=== PATIENT | female | born 1960 | race Caucasian/White ===

== ENCOUNTER → 2016-05-21 | Outpatient (CLI) | payer OTHER ==
[~2016-05-21] MED LIST: AZIT250T PO; BUSP5TAB59 PO; CHOL1000 PO; CHOL100010 PO; IPRA1AER2 INH; MELO7.5T5 PO; MULT-506 PO; POTA10CA28 PO; POTA1TAB97 PO; POTA20TA16 PO; TRAM-10 PO; VORT10TA12 PO; [UNRECOGNIZED DRUG - CODE] PO
== END | disposition home or self-care (01) ==
LOC: C.RDSM 08:26
PROVIDERS: ATTEND Orthopaedic Surgery Sports Medicine
DX: R52 Pain, unspecified (principal)

== ENCOUNTER → 2016-06-13 | Day surgery (SDC) | payer OTHER ==
[2016-06-12 15:28] VITALS: Ht 152.4 cm; Wt 43.2 kg
[~2016-06-13] VITALS: Ht 152.4 cm; Wt 43.2 kg
[~2016-06-13] MED LIST changes: +BUPIVACAINE 0.25% 2.5MG/ML PF 10 ML VIAL ONE; +BUPIVACAINE 0.25% 30 ML VIAL INJ ONE; -CHOL100010 PO; +IOPAMIDOL INJ 61% 15 ML VIAL ONE; +LIDOCAINE 1% (PF) INJ ONE; +LIDOCAINE HCL 1% MPF 5 ML VIAL ONE; +METHYLPREDNISOLONE (DEPO-MEDROL) 80MG INJ ONE; +METHYLPREDNISOLONE ACETATE 80 MG/ML VIAL ONE; -POTA20TA16 PO; -TRAM-10 PO; +[UNRECOGNIZED DRUG - OTHER] INJ ONE
--- NOTE | 2016-06-13 14:24 | History & Physical Bridge - [place] ---
H&P Re-Evaluation Bridge Note: I have examined the patient, reviewed the History & Physical and in the interval since the performance of the History & Physical I have noted the following changes of clinical significance: No changes noted
[2016-06-13 14:51] VITALS: TEMP 36.6
--- NOTE | 2016-06-13 14:57 | Discharge Instructions ---
Discharge Instructions Visit Reason for Visit: Low Back Pain Discharge Discharge Diagnosis / Problem: low back pain Discharge Goals Goal(s): Decrease discomfort, Improve function Activity Recommendations Activity Limitations: resume your previous activity Anesthesia . Post Anesthesia Instructions: If you have had General Anesthesia or IV Sedation: * Do not drive today. * Resume driving when surgeon permits. * Do not make important decisions or sign legal documents today. * Call surgeon for: 1. Temperature elevations greater than 101 degrees F. 2. Uncontrollable pain. 3. Excessive bleeding. 4. Persistent nausea and vomiting. 5. Medication intolerance (nausea, vomiting or rash). * For nausea and vomiting use only clear liquids such as: tea, soda, bouillon until nausea subsides, then gradually increase diet as tolerated. * If you have any concerns or questions, call your surgeon's office. If physician is unavailable and it is an emergency, call 911 or go to the nearest emergency room. . Diet Recommendations Recommended Home Diet: resume previous diet Procedures Procedures Performed: RIGHT L5-S1 FACET JOINT INJECTION Pending Studies Studies pending at discharge: no Medical Emergencies . Who to Call and When: Medical Emergencies: If at any time you feel your situation is an emergency, please call 911 immediately. . Non-Emergent Contact Non-Emergency issues call your: Specialist . . "Provider Documentation" section prepared by Freddy Galicia.
[2016-06-13 15:03] VITALS: BP 105/72; PULSE 73; O2SAT 99
--- NOTE | 2016-06-13 15:19 | OPERATIVE REPORT ---
DATE OF OPERATION: 06/13/2016 PREOPERATIVE DIAGNOSIS: Right L5-S1 facet arthropathy with chronic low back pain. POSTOPERATIVE DIAGNOSIS: Same. PROCEDURE: Right L5-S1 facet joint injection under fluoroscopic guidance. INDICATIONS FOR PROCEDURE: The patient is a 56-year-old white female who was evaluated with chronic low back pain really located to her right L5-S1 facet region, worse with extension, particularly extension rotation. 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 PHYSICAL EXAMINATION: Pleasant female, seated comfortably. She has some point tenderness to palpation of the L5-S1 facet. It is worse with extension, extension rotation, no issues with forward flexion. She has normal motor and sensory exam. CONSENT: Verbal and written consents were obtained from the patient. Risks and benefits were reviewed. The patient wishes to proceed. Risks include but are not limited to allergic reaction, infection. She wishes to proceed. DESCRIPTION OF PROCEDURE: The patient was taken back to the special procedures room of the [facility] where she was maintained in a prone position. Backside was cleansed with Betadine x3 and a dry sterile dressing was applied. Fluoroscope was used to identify the L5-S1 facet area and the joint line. Overlying skin was anesthetized with 4 mL of lidocaine 1% with a 25-gauge 1.5-inch needle and a 25-gauge 3.5-inch spinal needle was then directed into the facet joint between L5 and S1 injected with a quarter of a mL of Isovue 300 contrast which demonstrated an intra-articular uptake and some extraarticular spread. She then underwent injection after negative aspiration of 40 mg of Depo-Medrol and also 0.5 mL of bupivacaine 0.25%. Injection was well tolerated. DISPOSITION: 1. The patient is taken out into the discharge recovery area where she will be discharged home once discharge criteria have been met. 2. Follow up in the [facility] office in 2-4 weeks. I attest to the content of the Intraoperative Record and any orders documented therein. Any exceptio ns are noted below.
== END | disposition home or self-care (01) ==
LOC: X.SURG 13:49
PROVIDERS: ATTEND Physical Medicine & Rehabilitation
DX: M47.817 Spondylosis without myelopathy or radiculopathy, lumbosacral region (principal); M54.16 Radiculopathy, lumbar region; Z88.0 Allergy status to penicillin

== ENCOUNTER → 2016-07-11 | Outpatient (CLI) | payer OTHER ==
[~2016-07-11] MED LIST changes: -BUPIVACAINE 0.25% 2.5MG/ML PF 10 ML VIAL ONE; -BUPIVACAINE 0.25% 30 ML VIAL INJ ONE; -IOPAMIDOL INJ 61% 15 ML VIAL ONE; -LIDOCAINE 1% (PF) INJ ONE; -LIDOCAINE HCL 1% MPF 5 ML VIAL ONE; -METHYLPREDNISOLONE (DEPO-MEDROL) 80MG INJ ONE; -METHYLPREDNISOLONE ACETATE 80 MG/ML VIAL ONE; -[UNRECOGNIZED DRUG - OTHER] INJ ONE
--- NOTE | 2016-07-11 16:00 | DIAGNOSTIC IMAGING REPORT ---
CHEST 2 VIEWS ROUTINE CLINICAL HISTORY: CHRONIC COUGH COMPARISON STUDY: 12/20/2015 FINDINGS: The cardiac and mediastinal contours are normal. There is no evidence of focal pulmonary consolidation. There is no evidence of failure. No pleural effusions are visualized.[ There is suspected underlying pulmonary emphysema. IMPRESSION: No active disease in the chest. Electronically signed by: Thomas Baldwin M.D. 07/11/2016 3:58 PM Dictated Date/Time: 07/11/2016 3:58 PM
== END | disposition home or self-care (01) ==
LOC: C.RADPV 15:47
PROVIDERS: ATTEND Family Medicine
DX: R05 Cough (principal); R39.15 Urgency of urination; R35.0 Frequency of micturition

== ENCOUNTER → 2016-11-20 | Outpatient (CLI) | payer OTHER ==
[2016-11-20 17:36] LABS: BASO % 0.5 %; BASO ABS # 0.04 K/uL (0-0.2); COMPLETE YES; HEMATOCRIT 37.8 % (37-47); IG% 0.2 %; LYMPH % 29.3 %; LYMPH ABS # 2.53 K/uL (1.2-3.4); MEAN CELL VOLUME 99.7 fL (80-100); MEAN CORPUSCULAR HEMOGLOBIN 31.9 pg (25-34); MEAN PLATELET VOLUME 10.2 fL (7.4-10.4); MONO % 10.1 %; NEUT % 57.9 %; PLATELET COUNT 601 K/uL (130-400); RED BLOOD COUNT 3.79 M/uL (4.2-5.4); WHITE BLOOD COUNT 8.64 K/uL (4.8-10.8)
[2016-11-20 17:45] LABS: ALT/SGPT 23 U/L (12-78); BLOOD UREA NITROGEN 14 mg/dl (7-18); BUN/CREATININE RATIO 9.6 (10-20); CALCIUM 10.3 mg/dl (8.5-10.1); CARBON DIOXIDE 36 mmol/L (21-32); CHLORIDE 95 mmol/L (98-107); GLUCOSE 68 mg/dl (70-99); SODIUM 138 mmol/L (136-145)
[2016-11-20 17:48] LABS: ALKALINE PHOSPHATASE 112 U/L (45-117); AST/SGOT 28 U/L (15-37); PHOSPHORUS 3.8 mg/dl (2.5-4.9)
== END | disposition home or self-care (01) ==
LOC: C.LABPVFM 12:08
PROVIDERS: ATTEND Nurse Practitioner
DX: E83.39 Other disorders of phosphorus metabolism (principal)

== ENCOUNTER → 2016-11-29 | Outpatient (CLI) | payer OTHER ==
[2016-11-29 12:53] LABS: ALB/GLOB RATIO 1.1 (0.9-2); ALKALINE PHOSPHATASE 99 U/L (45-117); ALT/SGPT 29 U/L (12-78); AST/SGOT 25 U/L (15-37); BLOOD UREA NITROGEN 13 mg/dl (7-18); CALCIUM 10.3 mg/dl (8.5-10.1); CARBON DIOXIDE 43 mmol/L (21-32); CHLORIDE 87 mmol/L (98-107); GLUCOSE 78 mg/dl (70-99); SODIUM 136 mmol/L (136-145)
== END | disposition home or self-care (01) ==
LOC: C.LABBFT 09:21
PROVIDERS: ATTEND Nurse Practitioner
DX: E87.6 Hypokalemia (principal)

== ENCOUNTER → 2016-12-02 | Outpatient (CLI) | payer OTHER ==
[2016-12-02 13:07] LABS: ALT/SGPT 25 U/L (12-78); AST/SGOT 24 U/L (15-37); BLOOD UREA NITROGEN 14 mg/dl (7-18); BUN/CREATININE RATIO 11.6 (10-20); CALCIUM 9.6 mg/dl (8.5-10.1); CHLORIDE 89 mmol/L (98-107); GLUCOSE 118 mg/dl (70-99); SODIUM 136 mmol/L (136-145)
[2016-12-02 13:10] LABS: ALB/GLOB RATIO 1.2 (0.9-2); ALKALINE PHOSPHATASE 99 U/L (45-117)
[2016-12-02 13:31] LABS: CARBON DIOXIDE 42 mmol/L (21-32)
== END | disposition home or self-care (01) ==
LOC: C.LABPVFM 10:43
PROVIDERS: ATTEND Nurse Practitioner
DX: E83.39 Other disorders of phosphorus metabolism (principal); E83.52 Hypercalcemia; E87.6 Hypokalemia; I21.4 Non-ST elevation (NSTEMI) myocardial infarction

== ENCOUNTER → 2016-12-06 | Outpatient (CLI) | payer OTHER ==
[2016-12-06 12:23] LABS: ALT/SGPT 28 U/L (12-78); AST/SGOT 24 U/L (15-37); BLOOD UREA NITROGEN 15 mg/dl (7-18); BUN/CREATININE RATIO 11.8 (10-20); CALCIUM 9.5 mg/dl (8.5-10.1); CHLORIDE 86 mmol/L (98-107); GLUCOSE 103 mg/dl (70-99); POTASSIUM 2.7 mmol/L (3.5-5.1); SODIUM 139 mmol/L (136-145)
[2016-12-06 12:26] LABS: ALB/GLOB RATIO 1.2 (0.9-2); ALKALINE PHOSPHATASE 108 U/L (45-117)
[2016-12-06 12:38] LABS: CARBON DIOXIDE 46 mmol/L (21-32)
== END | disposition home or self-care (01) ==
LOC: C.LABBFT 10:06
PROVIDERS: ATTEND Nurse Practitioner
DX: E83.39 Other disorders of phosphorus metabolism (principal); E87.6 Hypokalemia

== ENCOUNTER 2016-12-09 14:43 | Emergency (ER) | payer OTHER ==
[~2016-12-09 14:43] MED LIST changes: -BUSP5TAB59 PO; -CHOL1000 PO; -IPRA1AER2 INH; -POTA10CA28 PO; -POTA1TAB97 PO; -[UNRECOGNIZED DRUG - CODE] PO
[2016-12-09 14:46] VITALS: TEMP 36.7; Ht 152.4 cm
[2016-12-09] MEDS ORDERED: SODIUM CHLORIDE 0.9% 1000ML 1,000 ML IV STA (15:00)
[2016-12-09] MEDS ORDERED: CHOL1000 PO (15:13)
--- NOTE | 2016-12-09 15:27 | EMERGENCY ROOM VISIT NOTE ---
History Report prepared by [place]les[place]: Ellen Holt Under the Supervision of: Dr. Madeleine Pena M.D. First contact with patient: 14:50 Chief Complaint: CARDIAC ASSESSMENT Stated Complaint: CHEST TIGHTNESS,SOB Nursing Triage Summary: Pt states she was hospitalized a few weeks ago for "your hear changing shape". Was taking Potassium, Level was 2.7 the other day and since she started having chest pain bad today was told to come to the ER. Pt states her chest has been "tight" for a few days". Bilateral chest pain. "I feel like I'm choking from the chest pain" History of Present Illness The patient is a 56 year old female who presents to the Emergency Room with complaints of constant chest tightness beginning a few days ago. The patient states that over the last few weeks she has had multiple episodes of chest pain. She reports that her first episode was a few weeks ago and she was laying on the couch when her mother noticed that she had slurred speech. The mother states that she began gasping for breath and her eyes turned up into her head for 6-8 minutes. She denies any shaking during the episode and after having continuing chest pain the following day they went to the hospital in [place] and were transferred to [place] to see a whiskey filterer. The patient notes that she was diagnosed with cardiomyopathy and got a cardiac catheterization 1 month ago. She states that she saw her PCP yesterday and got blood work to monitor her potassium level. She reports that her PCP told her today that her level was 2.7 and with worsening chest tightness she should be seen in the ED today. The patient complains of difficulty breathing due to her chest tightness. She notes that her pain is worsened with deep breathing. The patient reports that she smokes 4 cigarettes a day. Source of History: patient Onset: a few days go Position: chest Quality: other (tightness) Timing: constant Modifying Factors (Worsening): breathing Note: Pt complains of pain with breathing. Review of Systems See HPI for pertinent positives & negatives. A total of 10 systems reviewed and were otherwise negative. Past Medical & Surgical Medical Problems: (1) Appendicitis (2) Bulimia (3) Gastroenteritis Family History Cancer Hypertension Lung disease Social History Smoking Status: Current Every Day Smoker Drug Use: none Marital Status: Housing Status: lives with family Occupation Status: employed Current/Historical Medications Scheduled Cholecalciferol (Vitamin D3), 1 TAB PO DAILY Potassium Chloride (Micro-K Ext Rel), 20 MEQ PO HS Potassium Chloride (Potassium Chloride), 40 MEQ PO BID Allergies Coded Allergies: Penicillins (Verified Allergy, Severe, SWELLING/SOB, 06/13/16) Latex (Verified Allergy, Mild, BURNING, 06/13/16) Physical Exam Vital Signs Date Time Temp Pulse Resp B/P (MAP) Pulse Ox O2 Delivery O2 Flow Rate FiO2 12/09/16 18:41 69 18 99/60 96 12/09/16 16:18 66 18 111/73 96 Room Air 12/09/16 15:07 77 12/09/16 14:50 93 Room Air 12/09/16 14:46 36.7 84 22 103/64 93 Room Air Physical Exam Vital signs reviewed. General: Chronically ill appearing female, in no significant distress. HEENT: No scleral icterus, PERRLA, neck supple. Atraumatic. Cardiovascular: Regular rate and rhythm, no extra sounds. Pulmonary: Clear to auscultation bilaterally, normal work of breathing. Abdomen: Soft, nontender, nondistended, positive bowel sounds. Musculoskeletal: Atraumatic, no peripheral edema. Neurologic: Patient awake alert and oriented x 3, full strength in all 4 extremities. Cranial nerves 2 through 12 grossly intact. Skin: Warm, dry, no rash Medical Decision & Procedures ER Provider Diagnostic Interpretation: X-ray results as stated below per interpretation by me and the radiologist: CHEST ONE VIEW PORTABLE FINDINGS: Lung volumes are normal. No pneumothorax or pleural effusion is present. There is no consolidation to suggest pneumonia. Pulmonary vascularity is normal. Cardiomediastinal silhouette is normal. IMPRESSION: No acute cardiopulmonary findings. Electronically signed by: Frank Machado M.D. 12/09/2016 3:44 PM Dictated Date/Time: 12/09/2016 3:43 PM Laboratory Results 12/09/16 15:18 Red Blood Count 4.85, Mean Corpuscular Volume 96.9, Mean Corpuscular Hemoglobin 31.5, Mean Corpuscular Hemoglobin Concent 32.6, Mean Platelet Volume 9.6, Neutrophils (%) (Auto) 57.6, Lymphocytes (%) (Auto) 31.4, Monocytes (%) (Auto) 8.0, Eosinophils (%) (Auto) 2.3, Basophils (%) (Auto) 0.5, Neutrophils # (Auto) 3.82, Lymphocytes # (Auto) 2.08, Monocytes # (Auto) 0.53, Eosinophils # (Auto) 0.15, Basophils # (Auto) 0.03 12/09/16 15:18 Test 12/09/16 15:18 12/09/16 15:27 12/09/16 15:28 12/09/16 17:46 White Blood Count 6.62 K/uL (4.8-10.8) Red Blood Count 4.85 M/uL (4.2-5.4) Hemoglobin 15.3 g/dL (12.0-16.0) Hematocrit 47.0 % (37-47) Mean Corpuscular Volume 96.9 fL (80-100) Mean Corpuscular Hemoglobin 31.5 pg (25-34) Mean Corpuscular Hemoglobin Concent 32.6 g/dl (32-36) Platelet Count 451 K/uL (130-400) Mean Platelet Volume 9.6 fL (7.4-10.4) Neutrophils (%) (Auto) 57.6 % Lymphocytes (%) (Auto) 31.4 % Monocytes (%) (Auto) 8.0 % Eosinophils (%) (Auto) 2.3 % Basophils (%) (Auto) 0.5 % Neutrophils # (Auto) 3.82 K/uL (1.4-6.5) Lymphocytes # (Auto) 2.08 K/uL (1.2-3.4) Monocytes # (Auto) 0.53 K/uL (0.11-0.59) Eosinophils # (Auto) 0.15 K/uL (0-0.5) Basophils # (Auto) 0.03 K/uL (0-0.2) RDW Standard Deviation 49.5 fL (36.4-46.3) RDW Coefficient of Variation 13.9 % (11.5-14.5) Immature Granulocyte % (Auto) 0.2 % Immature Granulocyte # (Auto) 0.01 K/uL (0.00-0.02) Estimated GFR () 58.9 Estimated GFR (Non- 50.8 BUN/Creatinine Ratio 10.1 (10-20) Calcium Level 9.7 mg/dl (8.5-10.1) Magnesium Level 1.7 mg/dl (1.8-2.4) Total Bilirubin 0.3 mg/dl (0.2-1) Direct Bilirubin 0.1 mg/dl (0-0.2) Aspartate Amino Transf (AST/SGOT) 29 U/L (15-37) Alanine Aminotransferase (ALT/SGPT) 30 U/L (12-78) Alkaline Phosphatase 123 U/L (45-117) Total Creatine Kinase 38 U/L (26-192) Creatine Kinase MB < 0.5 ng/ml (0.5-3.6) Creatine Kinase MB Ratio (0-3.0) Total Protein 7.2 gm/dl (6.4-8.2) Albumin 3.5 gm/dl (3.4-5.0) Bedside Hemoglobin 16.3 g/dl (12.0-16.0) Bedside Hematocrit 48 % (37-47) Bedside Sodium 135 mEq/L (135-144) Bedside Potassium 2.7 mEq/L (3.3-5.0) Bedside Chloride 82 mEq/L (101-112) Bedside Total CO2 > 40 mEq/l (24-31) Anion Gap 14.0 mmol/L (16-25) Bedside Blood Urea Nitrogen 12 mg/dl (7-18) Bedside Creatinine 1.2 mg/dl (0.6-1.3) Bedside Glucose (other) 109 mg/dl (70-99) Bedside Ionized Calcium (Andrei) 1.02 mmol/l (1.12-1.32) Phosphorus Level 3.1 mg/dl (2.5-4.9) Bedside Troponin I < 0.030 ng/ml (0-0.045) Laboratory results per my review. Medications Administered Medications (Trade) Dose Ordered Sig/Lena Route Start Time Stop Time Status Last Admin Dose Admin Sodium Chloride 1,000 ml @ 125 mls/hr Q8H STAT IV 12/09/16 15:00 12/09/16 19:03 DC 12/09/16 15:26 125 MLS/HR Potassium Chloride (Klor-Con M10) 40 meq NOW STAT PO 12/09/16 15:50 12/09/16 15:51 DC 12/09/16 16:14 40 MEQ Potassium Chloride (Kcl 10 Meq / Wtr) 10 meq NOW STAT IV 12/09/16 16:11 12/09/16 16:12 DC 12/09/16 16:16 10 MEQ ECG Indication: chest pain Rate (beats per minute): 75 Rhythm: normal sinus Findings: nonspecific-ST abn (Anterolateral and inferior), Q waves (Anterior), T-wave inversion (Anterior), no ectopy ED Course 1450: Past medical records reviewed. The patient was evaluated in room C8. A complete history and physical examination was performed. 1500: Sodium Chloride 1000 ml @ 125 mls/hr IV. 1549: Records were obtained from [facility]. The catheterization done at [facility] on 11/11 was normal. She was diagnosed as hypophosphatemia and NSTEMI in October. 1550: Potassium Chloride 40meq PO. 181: Potassium Chloride 10meq IV. 1812: Upon reevaluation, the patient appeared to have improvement of her symptoms. I discussed findings with the patient. She verbalized agreement of the treatment plan. The patient was discharged home. Medical Decision Differential diagnosis includes acute myocardial infarction, electrolyte or metabolic abnormality, cardiac arrhythmia, dehydration, and seizure disorder. Patient was evaluated and appeared to be in no significant distress. IV access was obtained and laboratory work was drawn. Patient was hydrated with normal saline solution. She is found to have a potassium of 2.7. She was given 40 mEq of oral potassium and 10 mEq IV. The patient is extremely thin. She states she has a history of a gastric ulcer and cannot tolerate things such as bananas. She states she has nausea when taking the oral potassium that was prescribed. She is currently prescribed 20 mEq 3 times daily. This point her troponins are negative 2. Her records were reviewed in the recent cardiac catheterization was normal. She was written for liquid potassium, 40 mEq twice daily and will follow-up with her PCP this week. She should have a potassium rechecked. Patient will return to the ER for worsening symptoms or any medical concerns. Medication Reconcilliation Current Medication List: was personally reviewed by me Blood Pressure Screening Patient's blood pressure: Low blood pressure Blood pressure disposition: Did not require urgent referral Impression Primary Impression: Hypokalemia Additional Impression: Chest pain Scribe Attestation The scribe's documentation has been prepared under my direction and personally reviewed by me in its entirety. I confirm that the note above accurately reflects all work, treatment, procedures, and medical decision making performed by me. Departure Information Dispostion Home / Self-Care Prescriptions Potassium Chloride (Potassium Chloride) 10 Meq/100 Ml Soln 40 MEQ PO BID, #200 ML Prov: Madeleine Pena M.D. 12/09/16 Referrals Evonne Alvarez C.R.N.P (PCP) Forms IMPORTANT VISIT INFORMATION Patient Instructions Hypokalemia Dc, My [facility] Additional Instructions Diagnosis: Hypokalemia Potassium liquid, 40 MEq twice daily. Dilute in 4 oz of juice/water Follow up with your doctor this week for reevaluation and repeat lab work in 3 days. Return to the ED for worsening of symptoms or any medical concerns. Problem Qualifiers
[2016-12-09] MEDS ORDERED: POTA10CA28 PO (15:28)
[2016-12-09 15:32] LABS: BASO % 0.5 %; BASO ABS # 0.03 K/uL (0-0.2); COMPLETE YES; EOS % 2.3 %; IG% 0.2 %; LYMPH % 31.4 %; LYMPH ABS # 2.08 K/uL (1.2-3.4); MEAN CELL VOLUME 96.9 fL (80-100); MEAN CORPUSCULAR HEMOGLOBIN 31.5 pg (25-34); MEAN CORPUSCULAR HGB CONC 32.6 g/dl (32-36); MEAN PLATELET VOLUME 9.6 fL (7.4-10.4); NEUT % 57.6 %; PLATELET COUNT 451 K/uL (130-400); RED BLOOD COUNT 4.85 M/uL (4.2-5.4); WHITE BLOOD COUNT 6.62 K/uL (4.8-10.8)
[2016-12-09 15:40] LABS: ISTAT CARBON DIOXIDE > 40 mEq/l (24-31); ISTAT CHLORIDE 82 mEq/L (101-112); ISTAT CREATININE 1.2 mg/dl (0.6-1.3); ISTAT HEMATOCRIT 48 % (37-47); ISTAT HEMOGLOBIN 16.3 g/dl (12.0-16.0); ISTAT IONIZED CALCIUM 1.02 mmol/l (1.12-1.32); ISTAT SODIUM 135 mEq/L (135-144)
--- NOTE | 2016-12-09 15:45 | DIAGNOSTIC IMAGING REPORT ---
CHEST ONE VIEW PORTABLE CLINICAL HISTORY: Chest pain. COMPARISON STUDY: Chest radiograph July 11, 2016. FINDINGS: Lung volumes are normal. No pneumothorax or pleural effusion is present. There is no consolidation to suggest pneumonia. Pulmonary vascularity is normal. Cardiomediastinal silhouette is normal. IMPRESSION: No acute cardiopulmonary findings. Electronically signed by: Frank Machado M.D. 12/09/2016 3:44 PM Dictated Date/Time: 12/09/2016 3:43 PM
[2016-12-09] MEDS ORDERED: POTASSIUM CHLORIDE 10 MEQ TABCR PO STA (15:50)
[2016-12-09 15:58] LABS: ALKALINE PHOSPHATASE 123 U/L (45-117); ALT/SGPT 30 U/L (12-78); AST/SGOT 29 U/L (15-37); BLOOD UREA NITROGEN 12 mg/dl (7-18); BUN/CREATININE RATIO 10.1 (10-20); CALCIUM 9.7 mg/dl (8.5-10.1); CARBON DIOXIDE 44 mmol/L (21-32); CHLORIDE 86 mmol/L (98-107); GLUCOSE 103 mg/dl (70-99); MAGNESIUM 1.7 mg/dl (1.8-2.4); POTASSIUM 2.7 mmol/L (3.5-5.1); SODIUM 135 mmol/L (136-145)
[2016-12-09] MEDS ORDERED: POTASSIUM CHLORIDE 10 MEQ / 100ML WTR IV STA (16:11)
[2016-12-09] MEDS ORDERED: [UNRECOGNIZED DRUG - CODE] PO (18:08)
[2016-12-09 18:41] VITALS: BP 99/60; PULSE 69; O2SAT 96
[2017-01-16] MEDS ORDERED: POTA1TAB97 PO (10:40)
[2017-01-16] MEDS ORDERED: MULT-506 PO (10:41)
[2017-01-16] MEDS ORDERED: VORT10TA12 PO (10:41)
[2017-01-16] MEDS ORDERED: IPRA1AER2 INH (10:43)
[2017-01-16] MEDS ORDERED: BUSP5TAB59 PO (10:43)
== END 2016-12-09 18:42 | disposition home or self-care (01) ==
LOC: C.EDB 14:44 → C.EDC 18:42
DX: E87.6 Hypokalemia (principal); R07.89 Other chest pain; F17.200 Nicotine dependence, unspecified, uncomplicated; Z82.49 Family history of ischemic heart disease and other diseases of the circulatory system

== ENCOUNTER → 2016-12-12 | Outpatient (CLI) | payer OTHER ==
[~2016-12-12] MED LIST changes: -AZIT250T PO; +BUSP5TAB59 PO; +CHOL1000 PO; +IPRA1AER2 INH; -MELO7.5T5 PO; +POTA10CA28 PO; +POTA1TAB97 PO; +[UNRECOGNIZED DRUG - CODE] PO
[2016-12-12 13:35] LABS: ALB/GLOB RATIO 0.9 (0.9-2); ALKALINE PHOSPHATASE 123 U/L (45-117); ALT/SGPT 33 U/L (12-78); AST/SGOT 32 U/L (15-37); BLOOD UREA NITROGEN 14 mg/dl (7-18); BUN/CREATININE RATIO 13.6 (10-20); CALCIUM 8.5 mg/dl (8.5-10.1); CHLORIDE 90 mmol/L (98-107); GLUCOSE 116 mg/dl (70-99); POTASSIUM 2.6 mmol/L (3.5-5.1); SODIUM 138 mmol/L (136-145)
[2016-12-12 13:42] LABS: CARBON DIOXIDE 43 mmol/L (21-32)
== END | disposition home or self-care (01) ==
LOC: C.LABBFT 10:00
PROVIDERS: ATTEND Nurse Practitioner
DX: E87.6 Hypokalemia (principal); R74.8 Abnormal levels of other serum enzymes; E83.52 Hypercalcemia

== ENCOUNTER → 2016-12-23 | Outpatient (CLI) | payer OTHER ==
--- NOTE | 2016-12-23 17:19 | DIAGNOSTIC IMAGING REPORT ---
LUMBAR SPINE MRI HISTORY: LUMBOSACRAL RADICULOPATHY TECHNIQUE: Multiplanar multisequence MRI of the lumbar spine was performed without the use of contrast. COMPARISON: Lumbar spine 01/17/2016. FINDINGS: For the purpose of the report the L5-S1 disc space will be located on axial image 30 of 32. Old mild to moderate superior endplate compression fracture at L1 remains unchanged. No associated retropulsion. No acute fracture or subluxation. The conus terminates at the L1 level. Disc spaces are relatively preserved for age. Diffuse disc desiccation. Paraspinal soft tissues are unremarkable. A 5 mm T2 hyperintense, T1 hypointense lesion within the left kidney. This favors a cyst. L1-L2: No significant central canal or neural foraminal narrowing. L2-L3: Small broad-based posterior disc bulge without significant central canal or neural foraminal narrowing. L3-L4: Small broad-based posterior disc bulge with mild ligamentum and facet hypertrophy. This results in minimal central canal narrowing. No significant neural foraminal narrowing. L4-L5: Small broad-based posterior disc bulge with ligamentum and facet hypertrophy resulting and mild central canal narrowing. Best seen on sagittal T2 sequence image 4 there is a 6 mm right foraminal/extraforaminal disc protrusion which extends into the right foramen. This abuts and slightly compresses the exiting right L4 nerve root at this level. This results in mild right neural foraminal narrowing. No significant left-sided neural foraminal narrowing. L5-S1: No significant central canal or neural foraminal narrowing. IMPRESSION: 1. A 6 mm right foraminal/extra foraminal focal disc protrusion at L4-L5 which abuts and slightly compresses the exiting right L5 nerve root. 2. Additional mild degenerative changes as described above. 3. No change in the old L1 compression deformity. Electronically signed by: Mariusz Walsh M.D. 12/23/2016 5:17 PM Dictated Date/Time: 12/23/2016 5:11 PM
== END | disposition home or self-care (01) ==
LOC: C.MRIBC 15:48
PROVIDERS: ATTEND Physical Medicine & Rehabilitation
DX: M54.17 Radiculopathy, lumbosacral region (principal)

== ENCOUNTER → 2016-12-23 | Outpatient (CLI) | payer OTHER ==
[2016-12-23 12:27] LABS: BLOOD UREA NITROGEN 14 mg/dl (7-18); BUN/CREATININE RATIO 14.1 (10-20); CARBON DIOXIDE 39 mmol/L (21-32); CHLORIDE 97 mmol/L (98-107); CREATININE 0.99 mg/dl (0.60-1.20); GLUCOSE 100 mg/dl (70-99); POTASSIUM 3.4 mmol/L (3.5-5.1); SODIUM 142 mmol/L (136-145)
== END | disposition home or self-care (01) ==
LOC: C.LABBFT 08:45
PROVIDERS: ATTEND Nurse Practitioner
DX: E87.6 Hypokalemia (principal)

== ENCOUNTER → 2017-01-02 | Outpatient (CLI) | payer OTHER | END | disposition home or self-care (01) | LOC: C.LABBFT 11:10 | PROVIDERS: ATTEND Nurse Practitioner | DX: E87.6 Hypokalemia (principal) ==

== ENCOUNTER → 2017-02-07 | Outpatient (CLI) | payer OTHER ==
[~2017-02-07] MED LIST changes: +ASPCH81X PO; -POTA10CA28 PO; -[UNRECOGNIZED DRUG - CODE] PO
[2017-02-07 12:38] LABS: BLOOD UREA NITROGEN 23 mg/dl (7-18); BUN/CREATININE RATIO 9.4 (10-20); CALCIUM 11.5 mg/dl (8.5-10.1); CHLORIDE 79 mmol/L (98-107); GLUCOSE 111 mg/dl (70-99); MAGNESIUM 2.7 mg/dl (1.8-2.4); POTASSIUM 2.8 mmol/L (3.5-5.1); SODIUM 138 mmol/L (136-145)
[2017-02-07 12:39] LABS: PHOSPHORUS 5.9 mg/dl (2.5-4.9)
[2017-02-07 13:02] LABS: CARBON DIOXIDE 51 mmol/L (21-32)
== END | disposition home or self-care (01) ==
LOC: C.LABBFT 09:42
PROVIDERS: ATTEND Internal Medicine Nephrology
DX: E83.39 Other disorders of phosphorus metabolism (principal)

== ENCOUNTER → 2017-02-10 | Outpatient (CLI) | payer OTHER ==
[2017-02-10 18:04] LABS: URINE APPEARANCE CLEAR (CLEAR); URINE BILIRUBIN NEG (NEG); URINE COLOR YELLOW; URINE EPITHELIAL CELL AUTO >30 /lpf (0-5); URINE NITRITE NEG (NEG); URINE PH 8.5 (4.5-7.5); URINE SPECIFIC GRAVITY 1.018 (1.000-1.030); UROBILINOGEN NEG (NEG); ZZUR CULT IF INDIC CLEAN CATCH NO
[2017-02-10 18:21] LABS: MANUAL MICROSCOPIC REQUIRED? NO; REVIEW REQ? NO; SULFASALICYLIC ACID POS (NEG)
[2017-02-10 18:28] LABS: URINE PROTIEN/CREAT RATIO 1.2 (0-0.2); URINE TOTAL PROTEIN 92.6 mg/dl (0-11.9)
[2017-02-10 18:36] LABS: BLOOD UREA NITROGEN 22 mg/dl (7-18); BUN/CREATININE RATIO 8.5 (10-20); CALCIUM 9.6 mg/dl (8.5-10.1); CARBON DIOXIDE 38 mmol/L (21-32); CHLORIDE 93 mmol/L (98-107); GLUCOSE 54 mg/dl (70-99); MAGNESIUM 2.3 mg/dl (1.8-2.4); POTASSIUM 2.8 mmol/L (3.5-5.1); SODIUM 139 mmol/L (136-145)
[2017-02-10 18:37] LABS: PHOSPHORUS 4.1 mg/dl (2.5-4.9)
--- NOTE | 2017-02-19 10:16 | CODING QUERY MEDICAL NECESSITY ---
SUPPORTING DIAGNOSIS NEEDED Dr. Alvarez, A supporting diagnosis is required for the test/procedure performed on this patient in order for us to be reimbursed by the patient's insurance. Please provide a supporting diagnosis for the following test/procedure listed below next to the test name along with your signature. *If there is no additional diagnosis for this patient that would support the following test/procedure please document that below next to the test/procedure. Test(s)/Procedure(s) that require a supporting diagnosis: * [id number] VITAMIN D ASSAY DIAGNOSIS: DATE OF SERVICE: 02/10/17 Provider Signature: Date: Thank you Alan Alvarez [facility] Information Management Once completed, please kindly fax back to [phone] For questions please call [phone]
== END | disposition home or self-care (01) ==
LOC: C.LABPVFM 14:04
PROVIDERS: ATTEND Nurse Practitioner
DX: N25.81 Secondary hyperparathyroidism of renal origin (principal); Z11.59 Encounter for screening for other viral diseases; E83.42 Hypomagnesemia; N17.9 Acute kidney failure, unspecified; N28.9 Disorder of kidney and ureter, unspecified; M81.0 Age-related osteoporosis without current pathological fracture

== ENCOUNTER → 2017-02-12 | Outpatient (CLI) | payer OTHER ==
[2017-02-12 12:31] LABS: BLOOD UREA NITROGEN 18 mg/dl (7-18); BUN/CREATININE RATIO 8.6 (10-20); CALCIUM 8.9 mg/dl (8.5-10.1); CARBON DIOXIDE 37 mmol/L (21-32); CHLORIDE 95 mmol/L (98-107); GLUCOSE 86 mg/dl (70-99); MAGNESIUM 2.1 mg/dl (1.8-2.4); PHOSPHORUS 2.4 mg/dl (2.5-4.9); SODIUM 139 mmol/L (136-145)
== END | disposition home or self-care (01) ==
LOC: C.LABBFT 10:10
PROVIDERS: ATTEND Internal Medicine Nephrology
DX: E83.42 Hypomagnesemia (principal); E87.6 Hypokalemia; N17.9 Acute kidney failure, unspecified

== ENCOUNTER → 2017-02-14 | Outpatient (CLI) | payer OTHER ==
[~2017-02-14] MED LIST changes: -ASPCH81X PO
[2017-02-14 13:03] LABS: BLOOD UREA NITROGEN 15 mg/dl (7-18); BUN/CREATININE RATIO 9.5 (10-20); CALCIUM 8.1 mg/dl (8.5-10.1); CARBON DIOXIDE 28 mmol/L (21-32); CHLORIDE 106 mmol/L (98-107); GLUCOSE 73 mg/dl (70-99); POTASSIUM 3.1 mmol/L (3.5-5.1); SODIUM 143 mmol/L (136-145)
[2017-02-14 13:20] LABS: PHOSPHORUS 1.7 mg/dl (2.5-4.9)
== END | disposition home or self-care (01) ==
LOC: C.LABBFT 10:10
PROVIDERS: ATTEND Internal Medicine Nephrology
DX: E83.42 Hypomagnesemia (principal); E87.6 Hypokalemia

== ENCOUNTER → 2017-02-18 | Day surgery (SDC) | payer OTHER ==
[2017-01-24 14:06] VITALS: BMI 16.0
[~2017-02-18] VITALS: Ht 152.4 cm; Wt 38.2 kg
[~2017-02-18] MED LIST changes: +FENTANYL CITRATE INJ 50 MCG/1 ML 2 ML VIAL ONE; +LIDOCAINE HCL 2% 2 ML VIAL (20MG/ML) ONE; +PROPOFOL IV EMULSION 10 MG/ML 20 ML VIAL IV ONE
[2017-02-18 11:36] VITALS: Ht 152.4 cm; Wt 38.2 kg
--- NOTE | 2017-02-18 12:00 | Endo History and Physical ---
History & Physical Date of Service: Feb 18, 2017. Chief Complaint: GERD BULIMIA Referring Physician: DR. 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 Past Surgical History Hx Cardiac Surgery: Yes (CARDIAC CATH-NO STENTS) Hx Internal Defibrillator: No Hx Pacemaker: No Hx Abdominal Surgery: Yes (/TUBAL LIGATION; APPY) Hx of Implantable Prosthesis: No Hx Post-Op Nausea and Vomiting: Yes Hx Cancer Surgery: No Hx Thoracic Surgery: No Hx Orthopedic: Yes (RT/LT CTR, LEFT KNEE ARTHROSCOPY) Hx Urinary Tract Surgery: No Family History Polyp Social History Smoking Status: Light Tobacco Smoker Hx Substance Use: No Hx Alcohol Use: No Allergies Coded Allergies: Penicillins (Verified Allergy, Severe, SWELLING/SOB, 02/13/17) Latex1 -Allergic Contact Dermititis (Verified Allergy, Intermediate, LOCALIZED BURNING SENSATION, 02/13/17) Current Medications Reported Home Medications Medications Dose Route/Sig Max Daily Dose Days Date Category Combivent Respimat (Ipratropium-Albuterol) 1 Aer Aer 1 Puffs INH QID PRN 01/16/17 Reported Buspirone Hcl 5 Mg Tab 5 Mg PO QAM 01/16/17 Reported Multivitamin (Multivitamins) Tab 1 Tab PO DAILY 01/16/17 Reported Trintellix (Vortioxetine HBr) 10 Mg Tab 10 Mg PO HS 01/16/17 Reported K-Tab (Potassium Chloride) 20 Meq Tab 40 Meq PO HS 01/16/17 Reported Vitamin D3 (Cholecalciferol) 1,000 Unit Tab 1 Tab PO QAM 12/09/16 Reported Vital Signs Weight (Kilograms): 38.18 Height (Feet): 5 Height (Inches): 0 Date Time Temp Pulse Resp B/P (MAP) Pulse Ox O2 Delivery O2 Flow Rate FiO2 02/18/17 11:38 37.2 77 16 127/75 (92) 95 Room Air Physical Exam General Appearance: WD/WN, no apparent distress Respiratory/Chest: Auscultation: breath sounds normal Cardiovascular: Heart Auscultation: RRR Abdomen: Bowel Sounds: normal Inspection & Palpation: soft, non-distended, no tenderness, guarding & rebound Assessment and Plan Assessment: 56 yo CF who presents for EGD secondary to GERD and Bulimia. Plan: Proceed with EGD.
--- NOTE | 2017-02-18 12:18 | GI REPORT ---
Procedure Date: 02/18/2017 12:03 PM Procedure: Upper GI endoscopy Indications: Suspected gastro-esophageal reflux disease Medicines: Monitored Anesthesia Care Complications: No immediate complications. Estimated Blood Loss: Estimated blood loss: none. Procedure: Pre-Anesthesia Assessment: - Prior to the procedure, a History and Physical was performed, and patient medications and allergies were reviewed. The patient's tolerance of previous anesthesia was also reviewed. The risks and benefits of the procedure and the sedation options and risks were discussed with the patient. All questions were answered, and informed consent was obtained. Prior Anticoagulants: The patient has taken no previous anticoagulant or antiplatelet agents. ASA Grade Assessment: II - A patient with mild systemic disease. After reviewing the risks and benefits, the patient was deemed in satisfactory condition to undergo the procedure. After obtaining informed consent, the endoscope was passed under direct vision. Throughout the procedure, the patient's blood pressure, pulse, and oxygen saturations were monitored continuously. The Scope was introduced through the mouth, and advanced to the second part of duodenum. The upper GI endoscopy was accomplished without difficulty. The patient tolerated the procedure well. Findings: The esophagus was normal. A medium-sized hiatus hernia was present. Localized mild inflammation was found in the gastric antrum. Biopsies were taken with a cold forceps for histology. The examined duodenum was normal. Impression: - Normal esophagus. - Medium-sized hiatus hernia. - Gastritis. Biopsied. - Normal examined duodenum. Recommendation: - Resume previous diet. - Continue present medications. - Await pathology results. - Return to primary care physician as previously scheduled. Casey Contreras, 02/18/2017 12:17:54 PM This report has been signed electronically. Note Initiated On: 02/18/2017 12:03 PM I attest to the content of the Intraoperative Record and orders documented therein, exceptions below
--- NOTE | 2017-02-18 12:23 | Discharge Instructions ---
Endoscopy Patient Instructions Date / Procedure(s) Performed Feb 18, 2017. EGD Allergy Information Coded Allergies: Penicillins (Verified Allergy, Severe, SWELLING/SOB, 02/13/17) Latex1 -Allergic Contact Dermititis (Verified Allergy, Intermediate, LOCALIZED BURNING SENSATION, 02/13/17) Discharge Date / Findings Feb 18, 2017. Gastritis s/p biopsies Hiatal hernia Medication Instructions OK to resume all medications today as prescribed Reported Home Medications Medications Dose Route/Sig Max Daily Dose Days Date Category Combivent Respimat (Ipratropium-Albuterol) 1 Aer Aer 1 Puffs INH QID PRN 01/16/17 Reported Buspirone Hcl 5 Mg Tab 5 Mg PO QAM 01/16/17 Reported Multivitamin (Multivitamins) Tab 1 Tab PO DAILY 01/16/17 Reported Trintellix (Vortioxetine HBr) 10 Mg Tab 10 Mg PO HS 01/16/17 Reported K-Tab (Potassium Chloride) 20 Meq Tab 40 Meq PO HS 01/16/17 Reported Vitamin D3 (Cholecalciferol) 1,000 Unit Tab 1 Tab PO QAM 12/09/16 Reported Provider Instructions Activity Restrictions - No exercising or heavy lifting for 24 hours. - Do not drink alcohol the day of the procedure. - Do not drive a car or operate machinery until the day after the procedure. - Do not make any important decisions or sign important papers in 24 hours after the procedure. Following Day: - Return to full activity which may include returning to work/school. Diet Start your diet with liquids and light foods (jello, soup, juice, toast). Then eat your usual diet if not nauseated. Treatment For Common After Affects For mild abdominal pain, bloating, or excessive gas: - Rest - Eat lightly - Lie on right side Follow-Up Information Follow-up with DR. INDRA LEAL as scheduled Anesthesia Information What You Should Know You have had a procedure that required some medicine to reduce anxiety and discomfort. This treatment is called moderate sedation. After receiving the treatment, you may be sleepy, but you will be able to breathe on your own. The effects of the treatment may last for several hours. Follow these instructions along with Activity/Diet recommendations noted above: * Do NOT do anything where dizziness or clumsiness would be dangerous. * Rest quietly at home today, then you can be up and about tomorrow. * Have a responsible person stay with you the rest of today. * You may have had an I.V. today. If so, you may take the dressing off later today. Recommendations Call your doctor if: * Trouble breathing * Continuous vomiting for more than 24 hours * Temperature above 101 degrees * Severe abdominal pain or bloating * Pain not relieved by pain medicine ordered * There is increased drainage or redness from any incision * A large amount of rectal bleeding greater than 2-3 tablespoons. (If you had a polyp/s removed or have hemorrhoids, a small amount of blood - from the rectum is to be expected.) * You have any unanswered questions or concerns. IN THE EVENT OF A SERIOUS EMERGENCY, GO TO THE NEAREST EMERGENCY ROOM Your discharge instructions were prepared by provider Casey Contreras. Patient Instructions Signature Page S Shay Patient (or Guardian) Signature/Date: I have read and understand the instructions given to me by my caregivers. Caregiver/RN/Doctor Signature/Date: The above-named patient and/or guardian has received patient instructions on this date. + Original Patient Signature Page (only) stays with chart. Please make copy for patient.
[2017-02-18 12:50] VITALS: BP 119/80; PULSE 69; O2SAT 98
--- NOTE | 2017-02-18 13:09 | Anesthesiology Progress Note ---
Anesthesia Post Op Note Date & Time Feb 18, 2017 at 13:09 Vital Signs Pain Intensity: 0 Vital Signs Past 12 Hours Date Time Temp Pulse Resp B/P (MAP) Pulse Ox O2 Delivery O2 Flow Rate FiO2 02/18/17 12:50 69 16 119/80 (93) 98 Room Air 02/18/17 12:34 72 16 129/79 (96) 98 Room Air 02/18/17 12:20 36.9 69 16 104/60 (75) 100 Nasal Cannula 2 02/18/17 11:38 37.2 77 16 127/75 (92) 95 Room Air Notes Mental Status: alert / awake / arousable, participated in evaluation Pt Amnestic to Procedure: Yes Nausea / Vomiting: adequately controlled Pain: adequately controlled Airway Patency, RR, SpO2: stable & adequate BP & HR: stable & adequate Hydration State: stable & adequate Anesthetic Complications: no major complications apparent
== END | disposition home or self-care (01) ==
LOC: C.GI 11:20
PROVIDERS: ATTEND Internal Medicine
DX: K21.9 Gastro-esophageal reflux disease without esophagitis (principal); F50.2 Bulimia nervosa; K29.70 Gastritis, unspecified, without bleeding; K44.9 Diaphragmatic hernia without obstruction or gangrene; I25.2 Old myocardial infarction; J44.9 Chronic obstructive pulmonary disease, unspecified; Z88.0 Allergy status to penicillin; Z91.040 Latex allergy status; Z98.51 Tubal ligation status; F17.200 Nicotine dependence, unspecified, uncomplicated; Z68.1 Body mass index [BMI] 19.9 or less, adult; Z90.89 Acquired absence of other organs

== ENCOUNTER 2017-03-07 15:21 | Inpatient (IN) | payer OTHER ==
[~2017-03-07 15:21] MED LIST changes: -BUSP15TA70 PO; -CYAN10005 PO; -FAMO20TA9 PO; -QUET-115 PO; -QUET1TAB34 PO; -SRQ25 PO
[2017-03-07] MEDS ORDERED: ONDANSETRON INJ 2 MG/ML 2 ML VIAL IV PRN (18:00)
[2017-03-07] MEDS ORDERED: IPRATROPIUM BROMIDE/ALBUTEROL respimat INH INH PRN (18:00)
[2017-03-07] MEDS ORDERED: POLYETHYLENE (MIRALAX) 17 GM PACK PO PRN (18:00)
[2017-03-07] MEDS ORDERED: ALUMINUM/MAGNESIUM/SIMETH (MAALOX MAX) 30 ML UDC PO PRN (18:00)
[2017-03-07] MEDS ORDERED: MAGNESIUM HYDROXIDE SUSP 30 ML UDC PO PRN (18:00)
[2017-03-07] MEDS ORDERED: ACETAMINOPHEN 325 MG TAB PO PRN (18:00)
--- NOTE | 2017-03-07 18:05 | History and Physical ---
History & Physical Date & Time of Service: Mar 07, 2017 at 17:57 Chief Complaint: Hypercalcemia Primary Care Physician: Evonne Alvarez C.R.N.P History of Present Illness Source: patient 56 y/o F Hx CKD III, anxiety disorder, chronic gastritis, duodenal ulcers, Bulimia with chronic electrolyte abnormalities. Pt is admitted directly at the behest of her lab tester due to severe electrolyte abnormalities including hypercalcemia, metabolic alkalosis, acute on chronic renal failure. The pt has chronically poor PO intake and has reportedly taken a large amount of Tums recently due to gastric upset. It is suspected that this has lead to her current metabolic abnormalities. She currently denies any symptoms aside form fatigue. There are relatives in the room so it is not clear if she is entirely forthcoming regarding active bulimia or medical compliance. Past Medical/Surgical History 1) CKD III 2) Bulimia 3) Anorexia 4) Anxiety disorder 5) Chronic gastritis 6) Duodenal ulcers 7) Chronic electrolyte abnormalities Family History Cancer Hypertension Lung disease Social History Active smoker - distant history of ETOH abuse Smoking Status: Current Every Day Smoker Drug Use: none Marital Status: Housing status: lives with family Occupational Status: employed Immunizations History of Influenza Vaccine: N/A History of Tetanus Vaccine?: Yes Tetanus Immunization Date: Sep 06, 2004 History of Pneumococcal: Yes Pneumococcal Date: Aug 06, 2008 History of Hepatitis B Vaccine: Unknown Multi-Drug Resistant Organisms History of MDRO: No Allergies Coded Allergies: Penicillins (Verified Allergy, Severe, SWELLING/SOB, 03/03/17) Latex1 -Allergic Contact Dermititis (Verified Allergy, Intermediate, LOCALIZED BURNING SENSATION, 03/03/17) Home Medications Scheduled Aspirin (Aspirin Chewable), 81 MG PO HS Buspirone Hcl (Buspirone Hcl), 5 MG PO QAM Cholecalciferol (Vitamin D3), 1 TAB PO QAM Multivitamin (Multivitamin), 1 TAB PO DAILY Potassium Chloride (K-Tab), 1 TAB PO TID Vortioxetine HBr (Trintellix), 10 MG PO HS Scheduled PRN Ipratropium-Albuterol (Combivent Respimat), 1 PUFFS INH QID PRN for Shortness of Breath Review of Systems Constitutional: No fever, No chills, No sweats Eyes: No worsening of vision, No eye pain ENT: No hearing loss, No unusual epistaxis, No nasal symptoms Respiratory: No cough, No sputum, No wheezing Cardiovascular: No chest pain, No orthopnea, No PND Abdomen: + nausea, + vomiting, No pain Musculoskeletal: No joint pain, No muscle pain Genitourinary - Female: No dysuria, No hematuria Neurologic: + weakness, No memory loss, No paralysis Psychiatric: + depression symptoms Endocrine: + fatigue Hematologic / Lymphatic: No abnormal bleeding/bruising Integumentary: No rash Allergic / Immunologic: No environmental allergies Physical Exam General Appearance: WD/WN, no apparent distress, + pertinent finding (Cachectic -appearing middle-aged female - no distress) Head: normocephalic ENT: normal ENT inspection, pharynx normal Neck: supple, no JVD Respiratory/Chest: chest non-tender, no accessory muscle use Cardiovascular: regular rate, rhythm, normal peripheral pulses Abdomen/GI: normal bowel sounds, non tender, soft Back: normal inspection, no CVA tenderness, no muscle spasm, normal range of motion Extremities/Musculoskelatal: normal inspection, no calf tenderness, normal capillary refill, no pedal edema, normal range of motion Neurologic/Psych: cheese weigher II-XII nml as tested, no motor/sensory deficits, alert, normal mood/affect, normal reflexes, oriented x 3 Skin: normal color, warm/dry, no rash Diagnostics Laboratory Results Results Past 24 Hours Test 03/07/17 17:50 Range/Units EKG Pending Impression Assessment and Plan 56 y/o F Hx CKD III, anxiety disorder, chronic gastritis, duodenal ulcers, Bulimia with chronic electrolyte abnormalities. Pt is admitted directly at the behest of her lab tester due to severe electrolyte abnormalities including hypercalcemia, metabolic alkalosis, acute on chronic renal failure. The pt has chronically poor PO intake and has reportedly taken a large amount of Tums recently due to gastric upset. It is suspected that this has lead to her current metabolic abnormalities. 1) Hypercalcemia - recently with normal PTH. This is suspected due to dehydration - contraction alkalosis and resultant worsening renal function. Placed on aggressive IVF as she does not have significant symptoms. Would consider additional calcitriol if there is no short-term improvement with IVF alone. We may have to avoid bisphosphonates due to her renal impairment. She is assigned to telemetry - a baseline EKG is pending. 2) Acute on chronic RF - creat has doubled - IVF provided - trend BMP - will recontact her lab tester if there is no continuous improvement. 3) Gastritis - gastric upset - states she takes the Tums to tolerate her meds, especially K - will provide an H2 soheila and a PPi. 4) Anorexia, bulimia, anxiety - we will consult psychiatry. 5) Provided with smoking cessation advice Full code - SCDs due to risk of GI bleed Total time for this admit including review of labs, meds, imaging - discussion with pt and International Marketing Specialist - 40 min Level of Care Telemetry Resuscitation Status FULL RESUSCITATION VTE Prophylaxis VTE Risk Assessment Done? Y/N: Yes Risk Level: Low Given or contraindicated: SCD's
[2017-03-07] MEDS ORDERED: POTASSIUM CHLORIDE PWD 20 MEQ PACK PO ONE (18:45)
[2017-03-07 18:47] VITALS: O2SAT 96
[2017-03-07 18:48] VITALS: BP 120/83; PULSE 75; TEMP 36.8; O2SAT 96
[2017-03-07 18:51] LABS: HEMATOCRIT 36.1 % (37-47); MEAN CORPUSCULAR HEMOGLOBIN 31.4 pg (25-34); MEAN CORPUSCULAR HGB CONC 32.7 g/dl (32-36); MEAN PLATELET VOLUME 9.3 fL (7.4-10.4); PLATELET COUNT 392 K/uL (130-400); RED BLOOD COUNT 3.76 M/uL (4.2-5.4); WHITE BLOOD COUNT 8.21 K/uL (4.8-10.8)
[2017-03-07] MEDS ORDERED: SODIUM CHLORIDE 0.9% 500ML 500 ML IV SCH (19:00)
[2017-03-07] MEDS ORDERED: QUET1TAB34 PO (19:08)
[2017-03-07 20:00] VITALS: O2SAT 96
[2017-03-07] MEDS ORDERED: NURSING VERBAL MED ORDER ONE (20:00)
[2017-03-07] MEDS: SODIUM CHLORIDE 0.9% 1000ML 1,000 ML IV SCH (20:05)
[2017-03-07] MEDS ORDERED: INFLUENZA VIRUS QUAD VACCINE 0.5 ML SYR IM. ONE (20:15)
[2017-03-07] MEDS ORDERED: PNEUMOCOCCAL POLYSACCHARIDES 25 MCG/0.5 ML VIAL/SYR IM. ONE (20:15)
[2017-03-07] MEDS ORDERED: POTASSIUM CHLORIDE 10 MEQ TABCR PO ONE (20:15)
[2017-03-07] MEDS ORDERED: INFLUENZA ADMINISTRATION CHARGE ONE (20:15)
[2017-03-07] MEDS ORDERED: PNEUMOCOCCAL ADMINISTRATION CHARGE ONE (20:15)
[2017-03-07] MEDS: ASPIRIN 81 MG ECTAB PO SCH (20:29)
[2017-03-07] MEDS: POTASSIUM CHLORIDE 20 MEQ TABCR PO SCH (20:30)
[2017-03-07] MEDS ORDERED: LORAZEPAM 0.5 MG TAB PO STA (21:45)
[2017-03-07 23:11] LABS: BLOOD UREA NITROGEN 25 mg/dl (7-18); CALCIUM 10.3 mg/dl (8.5-10.1); CARBON DIOXIDE 51 mmol/L (21-32); CHLORIDE 87 mmol/L (98-107); CREATININE 3.15 mg/dl (0.60-1.20); GLUCOSE 94 mg/dl (70-99); MAGNESIUM 1.9 mg/dl (1.8-2.4); PHOSPHORUS 2.6 mg/dl (2.5-4.9); POTASSIUM 3.1 mmol/L (3.5-5.1); SODIUM 139 mmol/L (136-145)
[2017-03-07 23:21] VITALS: BP 108/67; PULSE 77; TEMP 36.8; O2SAT 94
[2017-03-08] VITALS (8 sets, daily range): BP systolic 99–138; BP diastolic 64–87; PULSE 64–78; TEMP 36.5–37; O2SAT 95–100
[2017-03-08] MEDS: SODIUM CHLORIDE 0.9% 1000ML 1,000 ML IV SCH ×3 (02:52→15:39)
[2017-03-08 04:45] LABS: BLOOD UREA NITROGEN 26 mg/dl (7-18); BUN/CREATININE RATIO 8.9 (10-20); CALCIUM 9.7 mg/dl (8.5-10.1); CARBON DIOXIDE 40 mmol/L (21-32); CHLORIDE 98 mmol/L (98-107); CREATININE 2.94 mg/dl (0.60-1.20); GLUCOSE 89 mg/dl (70-99); MAGNESIUM 1.7 mg/dl (1.8-2.4); PHOSPHORUS 2.3 mg/dl (2.5-4.9); POTASSIUM 3.4 mmol/L (3.5-5.1); SODIUM 142 mmol/L (136-145)
[2017-03-08] MEDS: POTASSIUM CHLORIDE 20 MEQ TABCR PO SCH ×2 (07:47→12:58)
[2017-03-08 10:54] LABS: BLOOD UREA NITROGEN 25 mg/dl (7-18); BUN/CREATININE RATIO 9.6 (10-20); CALCIUM 9.3 mg/dl (8.5-10.1); CARBON DIOXIDE 37 mmol/L (21-32); CHLORIDE 104 mmol/L (98-107); CREATININE 2.56 mg/dl (0.60-1.20); GLUCOSE 81 mg/dl (70-99); MAGNESIUM 1.8 mg/dl (1.8-2.4); PHOSPHORUS 1.9 mg/dl (2.5-4.9); POTASSIUM 3.8 mmol/L (3.5-5.1); SODIUM 143 mmol/L (136-145)
[2017-03-08] MEDS ORDERED: MULTIVITAMIN TAB PO ONE (12:01)
[2017-03-08] MEDS ORDERED: FAMOTIDINE IV INJ 20 MG in DEXTROSE 5% 100ML 100 ML IV ONE (12:30)
[2017-03-08] MEDS ORDERED: QUETIAPINE FUMARATE 25 MG TAB PO PRN (13:30)
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
[2017-03-08] MEDS ORDERED: POTASSIUM PHOS 3 MMOL/1 ML INFUSION IV STA (14:06)
--- NOTE | 2017-03-08 14:21 | Family Medicine Progress Note ---
Progress Note Date of Service Mar 08, 2017. Subjective Pt evaluation today including: conversation w/ patient, physical exam, chart review, lab review The patient was seen and examined at bedside. Telemetry showed sinus rhythm with PVCs in the 60s. Pt reports only one episode of vomiting in the past two weeks. She does have a history of bulimia which she admits to. Pt also reports a recent MA in October that was treated in [place]. She sees a Psychiatrist at [facility] (name sounds like Janneth Tripp). Patient reports eating some of her breakfast - on inspection she did not eat a lot of her meal. Patient is resting comfortably in bed. Denies having any pain. Plan of care was described to the patient and all questions were answered. ROS: No chest pain, no SOB, no dyspnea on exertion, no palpitations, no fevers, no chills, no nausea, no vomiting, no diarrhea, no dysuria, no rash. No SI, no HI. Objective Physical Exam General Appearance: WD/WN, + thin Neck: supple Respiratory/Chest: chest non-tender, lungs clear Cardiovascular: regular rate, rhythm, no edema, no gallop, no JVD, no murmur Abdomen: normal bowel sounds, non tender, soft, no organomegaly Extremities: normal range of motion, non-tender, normal inspection, no pedal edema, no calf tenderness Neurologic/Psychiatric: film sorter II-XII nml as tested, no motor/sensory deficits, alert, normal mood/affect, oriented x 3 Skin: normal color, warm/dry, no rash Laboratory Results Last 24 Hours Test 03/07/17 18:21 03/07/17 22:08 03/08/17 04:05 03/08/17 10:22 White Blood Count 8.21 K/uL Red Blood Count 3.76 M/uL Hemoglobin 11.8 g/dL Hematocrit 36.1 % Mean Corpuscular Volume 96.0 fL Mean Corpuscular Hemoglobin 31.4 pg Mean Corpuscular Hemoglobin Concent 32.7 g/dl RDW Standard Deviation 53.0 fL RDW Coefficient of Variation 15.2 % Platelet Count 392 K/uL Mean Platelet Volume 9.3 fL Phosphorus Level 3.1 mg/dl 2.6 mg/dl 2.3 mg/dl 1.9 mg/dl Sodium Level 139 mmol/L 142 mmol/L 143 mmol/L Potassium Level 3.1 mmol/L 3.4 mmol/L 3.8 mmol/L Chloride Level 87 mmol/L 98 mmol/L 104 mmol/L Carbon Dioxide Level 51 mmol/L 40 mmol/L 37 mmol/L Anion Gap 0.0 mmol/L 4.0 mmol/L 2.0 mmol/L Blood Urea Nitrogen 25 mg/dl 26 mg/dl 25 mg/dl Creatinine 3.15 mg/dl 2.94 mg/dl 2.56 mg/dl Estimated GFR () 18.3 19.9 23.6 Estimated GFR (Non- 15.8 17.2 20.3 BUN/Creatinine Ratio 8.0 8.9 9.6 Random Glucose 94 mg/dl 89 mg/dl 81 mg/dl Calcium Level 10.3 mg/dl 9.7 mg/dl 9.3 mg/dl Magnesium Level 1.9 mg/dl 1.7 mg/dl 1.8 mg/dl Test 03/08/17 16:00 Assessment and Plan 56F Hx CKD III, anxiety disorder, chronic gastritis, duodenal ulcers, Bulimia with chronic electrolyte abnormalities. Pt is admitted directly at the behest of her cutter wet machine due to severe electrolyte abnormalities including hypercalcemia, metabolic alkalosis, acute on chronic renal failure. The pt has chronically poor PO intake and has reportedly taken a large amount of Tums recently due to gastric upset. It is suspected that this has lead to her current metabolic abnormalities. Hypercalcemia - sec to volume contraction. * Pt has received 2L total IVF. Normal PTH and vitamin D in november this yr. * calcium level back to normal range. Acute renal failure on possible CKD of unclear etiology * Creatinine before 02/07 normal - elevated since then after. Per [employer] note - Dr. Benson tried to contact patient and she was not reachable. Patient declines poor oral intake. Says she drinks fluids all the time and denied decreased appetite or purging. * Considering that her creatinine is continuing to come down - suspect this is likely prerenal. check FeNa. * Will continue with a NSS drip at 100mls/hr * Check renal ultrasound. * Has been seeing urology - on flomax for urinary urgency. Check post void residual. * Consider nephro consult. * Follow renal function. * Consult Dietary to assess oral intake - solids and liquids. Hypophosphatemia '/ Hypokalemia in setting of possible chronic malnutrition. * will give 15mmol KPhos one dose stat. * Recheck BMP+ other labs including prealbumin at 4pm and AM. * TSH and Free T4. Last TSH on higher side of normal range. * Dietitian consult. h/o Gastritis and Duodenal Ulcers : * IV H2 Blockers BID. * Has had recent EGD * Consider gastric emptying study. Anxiety/Depression/Hx of Anorexia/Bulimia * Dr Leong (Psychiatry): 12.5mg BID PRN of Seroquil instead of Ativan for ETOH history * Seroquel titration per Dr. Leong, 125mg QHS * c/w home Trintellix (non formulary) * c/w Buspar 5mg QAM (per Dr. Leong there is room to move up on this dose) * Dr. Leong is requesting information from [facility] - this will only happen during the week. Anemia * Check Ferritin and B12. Last numbers from 2015. * Transglutaminase tested in past - negative. h/o ? MA * According to pt she had an MA in October in [place]. * Will get repeat EKG now stat, initial EKG might have been affected by motion artifact. * Continue to monitor on tele. * c/w ASA 81mg daily. Smoking: Pt declined Nicotine patches or gums. DVT Proph: SCDs. Full code Resident Involvement: Resident Care Provided Care Provided: Adult Hospital Medicine Reviewed: Pt Seen/Exam by Me History feeling stressed out about being in the hospital and being sick. denies having had problem with eating. drinks a lot of fluids. threw up once early in the week - due to feeling sick in stomach from hiatal hernia. Respiratory: negative: short of breath Cardiovascular: denies chest pain Gastrointestinal/Abdominal: negative: abdominal pain Genitourinary: negative dysuria General Appearance: no apparent distress Respiratory: lungs clear, no respiratory distress Cardiovascular: regular rate, rhythm Gastrointestinal: normal bowel sounds, non tender, soft Neurologic/Psychiatric: alert, oriented x 3 Skin Characteristics: warm/dry Assessment/Plan Resident Physician Supervision Note: I independently interviewed and examined the patient and verified the marie history and physical, reviewed labs and image studies, discussed the case with the resident Dr. Castillo and agree with the findings and care plan.
[2017-03-08] MEDS ORDERED: POTASSIUM PHOSPHATE INJ 15 MMOL in SODIUM CHLORIDE 0.9% 250ML 250 ML IV SCH (15:15)
[2017-03-08 17:23] LABS: ALB/GLOB RATIO 0.8 (0.9-2); ALKALINE PHOSPHATASE 74 U/L (45-117); ALT/SGPT 16 U/L (12-78); AST/SGOT 20 U/L (15-37); BLOOD UREA NITROGEN 24 mg/dl (7-18); BUN/CREATININE RATIO 10.6 (10-20); CARBON DIOXIDE 30 mmol/L (21-32); CHLORIDE 109 mmol/L (98-107); CREATININE 2.26 mg/dl (0.60-1.20); FERRITIN 37.3 ng/ml (8.0-388.0); GLUCOSE 94 mg/dl (70-99); MAGNESIUM 1.9 mg/dl (1.8-2.4); PHOSPHORUS 2.5 mg/dl (2.5-4.9); POTASSIUM 4.1 mmol/L (3.5-5.1); PREALBUMIN 21.3 mg/dl (20-40); SODIUM 144 mmol/L (136-145)
--- NOTE | 2017-03-08 19:13 | DIAGNOSTIC IMAGING REPORT ---
ULTRASOUND KIDNEYS AND BLADDER CLINICAL HISTORY: Acute renal insufficiency. Hypercalcemia. COMPARISON STUDY: Abdominal CT dated 11/02/2015. TECHNIQUE: Real-time, grayscale, and color flow sonography of the kidneys and bladder is performed. Images are reviewed in the transverse and longitudinal planes. FINDINGS: Kidneys: The kidneys are normal in size and appear slightly echogenic. The right kidney measures 11.1 cm in length and the left kidney measures 11.0 cm in length PA There is no hydronephrosis. No shadowing renal calculi are identified. There is no sonographic evidence of contour deforming renal mass lesion. No perinephric fluid is identified. Bladder: Minimal intraluminal debris is noted. The bladder is otherwise normal in appearance. Bilateral ureteral jets were seen. IMPRESSION: 1. The kidneys are normal in size and without hydronephrosis. 2. Question slightly increased renal cortical echotexture suggesting medical renal disease. Clinical correlation will be required. 3. Debris is noted within the bladder lumen. Correlation with urinalysis will be required. Electronically signed by: Marvin Costa M.D. 03/08/2017 7:12 PM Dictated Date/Time: 03/08/2017 7:10 PM
[2017-03-08] MEDS ORDERED: QUETIAPINE FUMARATE 100 MG TAB PO SCH ×3 (21:00)
[2017-03-08] MEDS: ASPIRIN 81 MG ECTAB PO SCH (21:00)
[2017-03-08] MEDS ORDERED: QUETIAPINE FUMARATE 25 MG TAB PO SCH (21:00)
[2017-03-08 22:22] LABS: URINE APPEARANCE CLEAR (CLEAR); URINE BILIRUBIN NEG (NEG); URINE COLOR YELLOW; URINE EPITHELIAL CELL AUTO >30 /lpf (0-5); URINE NITRITE NEG (NEG); URINE PH 8.5 (4.5-7.5); URINE SPECIFIC GRAVITY 1.012 (1.000-1.030); UROBILINOGEN NEG (NEG)
[2017-03-08 22:31] LABS: MANUAL MICROSCOPIC REQUIRED? NO; REVIEW REQ? NO; SULFASALICYLIC ACID NEG (NEG)
[2017-03-08 22:43] LABS: CREATININE RANDOM URINE 35.8 mg/dl
[2017-03-09] VITALS: O2SAT 95
[2017-03-09 00:04] VITALS: BP 105/67; PULSE 86; TEMP 36.8; O2SAT 96
[2017-03-09] MEDS: FAMOTIDINE IV INJ 20 MG in DEXTROSE 5% 100ML 100 ML IV SCH ×2 (01:20→12:26)
[2017-03-09] MEDS: SODIUM CHLORIDE 0.9% 1000ML 1,000 ML IV SCH (01:24)
[2017-03-09 03:48] VITALS: BP 113/76; PULSE 81; TEMP 36.6; O2SAT 97
[2017-03-09 06:14] LABS: HEMATOCRIT 28.1 % (37-47); MEAN CELL VOLUME 97.2 fL (80-100); MEAN CORPUSCULAR HEMOGLOBIN 31.1 pg (25-34); MEAN PLATELET VOLUME 9.5 fL (7.4-10.4); PLATELET COUNT 276 K/uL (130-400); RED BLOOD COUNT 2.89 M/uL (4.2-5.4); WHITE BLOOD COUNT 7.09 K/uL (4.8-10.8)
[2017-03-09 06:50] LABS: ALT/SGPT 17 U/L (12-78); AST/SGOT 19 U/L (15-37); BLOOD UREA NITROGEN 24 mg/dl (7-18); CALCIUM 8.6 mg/dl (8.5-10.1); CARBON DIOXIDE 26 mmol/L (21-32); CHLORIDE 115 mmol/L (98-107); CREATININE 2.02 mg/dl (0.60-1.20); GLUCOSE 90 mg/dl (70-99); PHOSPHORUS 2.7 mg/dl (2.5-4.9); POTASSIUM 4.1 mmol/L (3.5-5.1); SODIUM 146 mmol/L (136-145)
[2017-03-09 07:00] LABS: ALKALINE PHOSPHATASE 71 U/L (45-117)
[2017-03-09 07:54] VITALS: BP 112/72; PULSE 82; TEMP 37; O2SAT 96
[2017-03-09] MEDS ORDERED: D5W AND 1/2NSS + 20MEQ KCL 1,000 ML IV SCH (08:00)
[2017-03-09] MEDS ORDERED: MULTIVITAMIN TAB PO SCH (09:00)
[2017-03-09 11:06] VITALS: BP 111/70; PULSE 78; TEMP 36.9; O2SAT 98
[2017-03-09 11:14] LABS: BENZODIAZEPINE, URINE NEG (NEG); COCAINE,URINE NEG (NEG); PHENCYCLIDINE, URINE NEG (NEG)
[2017-03-09] MEDS ORDERED: CYANOCOBALAMIN 500 MCG TAB (VIT B-12) PO ONE (11:27)
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
--- NOTE | 2017-03-09 12:48 | Nephrology Consultation ---
Nephrology Consultation Date & Providers Date of Consultation: Mar 09, 2017. Primary Care Provider: Evonne Alvarez C.R.N.P Referring Provider: Reason for Consultation Evaluation management for acute kidney injury, hypercalcemia and hypokalemia. History of Present Illness Judith is a 57-year-old female with past medical history significant for depression, anxiety, anorexia and bulimia admitted to the hospital with electrolyte abnormality and acute kidney injury. Nephrology consult was requested for further management. Electronic medical records including labs and imaging are reviewed in detail during patient's visit. Judith has history of hypokalemia and previously evaluated by Dr. Benson. Hypokalemia was thought to be related to history of anorexia and bulimia. She was started on potassium chloride 60 milliequivalent p.o. daily. Potassium- sparing diuretics was not considered due to history of hypertension. She had lab done prior to follow-up visit on 03/08/17 when she was found to have hypercalcemia and acute kidney injury. Calcium was 12.2 and creatinine was 2.9. Potassium was 3.4. She was advised to get admitted for further management. On admission potassium was replaced and she was started on IV normal saline. Urinalysis was negative for hematuria, proteinuria pyuria. Ultrasound showed otherwise normal size kidney without any evidence of postrenal obstruction, nephrolithiasis and nephrocalcinosis. She denied any history of recent NSAID use. She denies history of vomiting or purging. Denies diarrhea. She reports having high fluid intake. Calcium improved and renal function started to improve as well. Hypokalemia resolved. Her blood pressure has been relatively soft which is chronic, asymptomatic. She is currently extremely frustrated and would like to just get discharged. Denies any specific complain but overall really unhappy with the care. Allergies Coded Allergies: Penicillins (Verified Allergy, Severe, SWELLING/SOB, 03/03/17) Latex1 -Allergic Contact Dermititis (Verified Allergy, Intermediate, LOCALIZED BURNING SENSATION, 03/03/17) Inpatient Medications Current Inpatient Medications Medications (Trade) Dose Ordered Sig/Lena Route Start Time Stop Time Status Last Admin Dose Admin Acetaminophen (Tylenol Tab) 650 mg Q4H PRN PO 03/07/17 18:00 04/06/17 17:59 Al Hydrox/Mg Hydrox/Simethicone (Maalox Max Susp) 15 ml Q4H PRN PO 03/07/17 18:00 04/06/17 17:59 Magnesium Hydroxide (Milk Of Magnesia Susp) 30 ml Q12H PRN PO 03/07/17 18:00 04/06/17 17:59 Ondansetron HCl (Zofran Inj) 4 mg Q6H PRN IV 03/07/17 18:00 04/06/17 17:59 Polyethylene (Miralax Powder Packet) 17 gm DAILY PRN PO 03/07/17 18:00 04/06/17 17:59 Aspirin (Ecotrin Tab) 81 mg HS PO 03/07/17 21:00 04/06/17 20:59 03/08/17 21:00 81 MG Buspirone HCl (Buspar Tab) 5 mg QAM PO 03/08/17 09:00 04/07/17 08:59 03/09/17 08:35 5 MG Albuterol/ Ipratropium (Combivent Respimat Inh) 1 puffs QID PRN INH 03/07/17 18:00 04/06/17 17:59 Miscellaneous Information (Order Awaiting Action) 1 ea QS N/A 03/08/17 00:00 04/07/17 00:00 Famotidine 20 mg/ Dextrose 102 ml @ 200 mls/hr Q12H IV 03/09/17 00:00 04/08/17 00:00 03/09/17 01:20 200 MLS/HR Multivitamins (Multivitamin Tab) 1 tab QAM PO 03/09/17 09:00 04/08/17 08:59 03/09/17 08:36 1 TAB Quetiapine Fumarate (seroQUEL TAB) 100 mg HS PO 03/08/17 21:00 04/07/17 20:59 03/08/17 21:00 100 MG Quetiapine Fumarate (seroQUEL TAB) 12.5 mg BID PRN PO 03/08/17 13:30 04/07/17 13:29 03/09/17 11:02 12.5 MG Quetiapine Fumarate (seroQUEL TAB) 25 mg HS PO 03/08/17 21:00 04/07/17 20:59 03/08/17 21:00 25 MG Potassium Chloride/Dextrose/ Sod Cl 1,000 ml @ 75 mls/hr [id number] IV 03/09/17 08:00 04/08/17 07:59 03/09/17 08:32 75 MLS/HR Cyanocobalamin (Vitamin B-12 Tab) 500 mcg QAM PO 03/10/17 09:00 04/09/17 08:59 Family History Cancer Hypertension Lung disease Social History Smoking Status: Current Every Day Smoker Drug Use: none Marital Status: Housing Status: lives with family Occupation: employed Review of Systems A complete review of systems was performed. Pertinent positives are noted above. All other systems are negative. Physical Exam Date Time Temp Pulse Resp B/P (MAP) Pulse Ox O2 Delivery O2 Flow Rate FiO2 03/09/17 11:06 36.9 78 18 111/70 (84) 98 03/09/17 08:00 Room Air 03/09/17 07:54 37.0 82 18 112/72 (85) 96 Room Air 03/09/17 04:00 Room Air 03/09/17 03:48 36.6 81 20 113/76 (88) 97 Room Air 03/09/17 00:04 36.8 86 18 105/67 (80) 96 Room Air 03/09/17 00:00 95 Room Air 03/08/17 23:30 36.8 73 138/87 (104) 95 Room Air 03/08/17 20:00 97 Room Air 03/08/17 19:10 37.0 73 17 126/84 (98) 97 Room Air 03/08/17 16:29 36.8 75 18 118/77 (91) 98 Room Air 03/08/17 16:00 Room Air GENERAL: Middle-aged female, AAA x 3, anxious, tearful, thin built, not in any distress. HEENT: Atraumatic, normocephalic. NECK: Supple, no JVD, no carotid bruit appreciated. ENT: No sinus tenderness MOUTH and THROAT: Moist oral mucosa, no oral ulcer or pharyngeal erythema RESPIRATORY: Normal breathing efforts, clear to auscultation bilaterally, no wheezes or rales. CARDIOVASCULAR: S1, S2 normal, rate rhythm regular. ABDOMEN: Soft, nontender, positive bowel sound. MUSCULOSKELETAL: Normal range of motion. SKIN: No skin rash EXTREMITY: No lower extremity edema NEURO: No gross focal neurological deficit, speech fluent. PSYCHIATRY: Upset, crying easily Laboratory Results Last 24 Hours Test 03/08/17 16:10 03/08/17 22:00 03/09/17 05:23 03/09/17 10:35 Sodium Level 144 mmol/L 146 mmol/L Potassium Level 4.1 mmol/L 4.1 mmol/L Chloride Level 109 mmol/L 115 mmol/L Carbon Dioxide Level 30 mmol/L 26 mmol/L Anion Gap 5.0 mmol/L 5.0 mmol/L Blood Urea Nitrogen 24 mg/dl 24 mg/dl Creatinine 2.26 mg/dl 2.02 mg/dl Estimated GFR () 27.4 31.2 Estimated GFR (Non- 23.6 26.9 BUN/Creatinine Ratio 10.6 12.0 Random Glucose 94 mg/dl 90 mg/dl Calcium Level 9.0 mg/dl 8.6 mg/dl Phosphorus Level 2.5 mg/dl 2.7 mg/dl Magnesium Level 1.9 mg/dl Ferritin 37.3 ng/ml Total Bilirubin 0.2 mg/dl 0.2 mg/dl Aspartate Amino Transf (AST/SGOT) 20 U/L 19 U/L Alanine Aminotransferase (ALT/SGPT) 16 U/L 17 U/L Alkaline Phosphatase 74 U/L 71 U/L Total Protein 5.0 gm/dl 4.9 gm/dl Albumin 2.2 gm/dl 2.1 gm/dl Globulin 2.8 gm/dl Albumin/Globulin Ratio 0.8 Prealbumin 21.3 mg/dl Vitamin B12 Level 176 pg/mL Urine Color YELLOW Urine Appearance CLEAR Urine pH 8.5 Urine Specific Celina 1.012 Urine Protein NEG Urine Glucose (UA) NEG Urine Ketones NEG Urine Occult Blood NEG Urine Nitrite NEG Urine Bilirubin NEG Urine Urobilinogen NEG Urine Leukocyte Esterase TRACE Urine WBC (Auto) 1-5 /hpf Urine RBC (Auto) 0-4 /hpf Urine Hyaline Casts (Auto) 1-5 /lpf Urine Epithelial Cells (Auto) >30 /lpf Urine Bacteria (Auto) NEG Urine Random Creatinine 35.8 mg/dl Urine Random Sodium 82 mEq/L White Blood Count 7.09 K/uL Red Blood Count 2.89 M/uL Hemoglobin 9.0 g/dL Hematocrit 28.1 % Mean Corpuscular Volume 97.2 fL Mean Corpuscular Hemoglobin 31.1 pg Mean Corpuscular Hemoglobin Concent 32.0 g/dl RDW Standard Deviation 57.5 fL RDW Coefficient of Variation 16.1 % Platelet Count 276 K/uL Mean Platelet Volume 9.5 fL Direct Bilirubin < 0.1 mg/dl Thyroid Stimulating Hormone (TSH) 4.720 uIu/ml Free Thyroxine 0.72 ng/dl Urine Opiates Screen NEG Urine Methadone, Qualitative NEG Urine Barbiturates NEG Urine Phencyclidine (PCP) Level NEG Ur Amphetamine/Methamphetamine NEG MDMA (Ecstasy) Screen NEG Urine Benzodiazepines Screen NEG Urine Cocaine Metabolite NEG Urine Marijuana (THC) NEG Impression (1) Acute kidney injury (2) Hypercalcemia (3) Alkalosis, metabolic (4) Anemia (5) Anxiety (6) Bulimia Judith is a 57-year-old female admitted with acute kidney injury and electrolyte abnormality including hypercalcemia and hypokalemia. Patient has history of chronic hypokalemia thought to be related to underlying eating disorder. She has been on potassium chloride 60 milliequivalent daily. Recent routine lab showed acute kidney injury, hypercalcemia and hypokalemia. At home she was on vitamin D and multivitamin. On admission she was started on IV fluid , calcium normalized renal function started to improve. Urinalysis and ultrasound unremarkable. She has been net positive but still seems slightly volume depleted with free water deficit. Recommendations --discuss at length that she is still volume depleted and her electrolyte abnormality just started to improve but her renal function still significantly abnormal and recommended she stay in the hospital and continue on IV fluid to improved renal function and correct electrolyte abnormality --however patient seems extremely upset and would rather go home --although not ideal but as per patient wish, she will be discharged home, encouraged her to continue to increase fluid intake, avoid all NSAIDs, all calcium and vitamin-D supplement as well as a multivitamin for now --check renal function and electrolyte in a.m. before the visit tomorrow with Dr. Benson at 9 a.m. --explained that if she again developed electrolyte abnormality and kidney function does not improve as expected, it will not be possible to take care of that in the office and she may have to get readmitted. Patient verbalized understanding
[2017-03-09] MEDS ORDERED: BUSP5TAB59 PO (12:50)
[2017-03-09] MEDS ORDERED: FAMO20TA9 PO (12:55)
[2017-03-09] MEDS ORDERED: SRQ25 PO ×2 (12:55)
[2017-03-09] MEDS ORDERED: CYAN10005 PO (12:55)
[2017-03-09] MEDS ORDERED: SRQ100 PO (12:55)
--- NOTE | 2017-03-09 13:04 | Discharge Instructions ---
Discharge Instructions Date of Service Mar 09, 2017. Admission Reason for Admission: Hypercalcemia Discharge Discharge Diagnosis / Problem: Hypercalcemia, Acute Kidney Injury Discharge Goals Goal(s): Decrease discomfort, Improve disease control Activity Recommendations Activity Limitations: resume your previous activity . Instructions / Follow-Up Instructions / Follow-Up Follow up with family physician within one week Follow up with Dr. Benson tomorrow at 9am as scheduled. You should get blood test done at Dr. Benson's office before seeing him. Orders are already entered by Dr. Adhikari. Follow up with Alverto Moran this week as scheduled. You should not be taking any ibuprofen/motrin/advil/aleve since it can make your kidney function worse. You should not take tums as it can raise your calcium level especially while your kidneys are not working well. Current Hospital Diet Patient's current hospital diet: Regular Diet Discharge Diet Recommended Diet: Regular Diet (Make sure to drink lots of fluid) Pending Studies Studies pending at discharge: no Medical Emergencies . Who to Call and When: Medical Emergencies: If at any time you feel your situation is an emergency, please call 911 immediately. . Non-Emergent Contact Non-Emergency issues call your: Primary Care Provider . . "Provider Documentation" section prepared by Luana Robbins. . VTE Core Measure Inpt VTE Proph given/why not?: SCD's
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
[2017-03-09 14:13] VITALS: BP 111/70; PULSE 78; TEMP 36.9; O2SAT 98
[2017-03-10] MEDS ORDERED: CYANOCOBALAMIN 500 MCG TAB (VIT B-12) PO SCH (09:00)
== END 2017-03-09 14:34 | disposition home or self-care (01) | DRG 641 ==
LOC: C.2T 17:10
PROVIDERS: ADMIT Internal Medicine; ATTEND Family Medicine
DX: E83.52 Hypercalcemia (principal); N17.9 Acute kidney failure, unspecified; E87.3 Alkalosis; F50.2 Bulimia nervosa; N18.3 Chronic kidney disease, stage 3 (moderate); F41.9 Anxiety disorder, unspecified; F17.200 Nicotine dependence, unspecified, uncomplicated; K29.70 Gastritis, unspecified, without bleeding; F32.9 Major depressive disorder, single episode, unspecified; D64.9 Anemia, unspecified; Z79.82 Long term (current) use of aspirin; Z80.9 Family history of malignant neoplasm, unspecified; Z82.49 Family history of ischemic heart disease and other diseases of the circulatory system

== ENCOUNTER → 2017-03-07 | Outpatient (CLI) | payer OTHER ==
[~2017-03-07] MED LIST changes: +ASPCH81X PO; +BUSP15TA70 PO; +CYAN10005 PO; +FAMO20TA9 PO; -FENTANYL CITRATE INJ 50 MCG/1 ML 2 ML VIAL ONE; -LIDOCAINE HCL 2% 2 ML VIAL (20MG/ML) ONE; -PROPOFOL IV EMULSION 10 MG/ML 20 ML VIAL IV ONE; +QUET-115 PO; +QUET1TAB34 PO; +SRQ25 PO
[2017-03-07 13:44] LABS: BLOOD UREA NITROGEN 25 mg/dl (7-18); CARBON DIOXIDE 50 mmol/L (21-32); CHLORIDE 84 mmol/L (98-107); CREATININE 3.06 mg/dl (0.60-1.20); GLUCOSE 98 mg/dl (70-99); POTASSIUM 3.7 mmol/L (3.5-5.1); SODIUM 137 mmol/L (136-145)
== END | disposition home or self-care (01) ==
LOC: C.LABBFT 09:33
PROVIDERS: ATTEND Internal Medicine Nephrology
DX: N17.9 Acute kidney failure, unspecified (principal)

== ENCOUNTER → 2017-03-10 | Outpatient (CLI) | payer OTHER ==
[~2017-03-10] MED LIST changes: +CYAN10005 PO; +FAMO20TA9 PO; +QUET1TAB34 PO; +SRQ25 PO
[2017-03-10 09:38] LABS: HEMATOCRIT 32.6 % (37-47); MEAN CELL VOLUME 96.7 fL (80-100); MEAN CORPUSCULAR HEMOGLOBIN 31.5 pg (25-34); MEAN CORPUSCULAR HGB CONC 32.5 g/dl (32-36); MEAN PLATELET VOLUME 10.1 fL (7.4-10.4); PLATELET COUNT 326 K/uL (130-400); RED BLOOD COUNT 3.37 M/uL (4.2-5.4); WHITE BLOOD COUNT 9.05 K/uL (4.8-10.8)
[2017-03-10 10:03] LABS: BLOOD UREA NITROGEN 19 mg/dl (7-18); BUN/CREATININE RATIO 10.6 (10-20); CALCIUM 9.3 mg/dl (8.5-10.1); CARBON DIOXIDE 26 mmol/L (21-32); CHLORIDE 111 mmol/L (98-107); CREATININE 1.81 mg/dl (0.60-1.20); GLUCOSE 75 mg/dl (70-99); POTASSIUM 3.9 mmol/L (3.5-5.1); SODIUM 144 mmol/L (136-145)
[2017-03-10 10:04] LABS: PHOSPHORUS 2.3 mg/dl (2.5-4.9)
== END | disposition home or self-care (01) ==
LOC: C.LAB1850 08:15
PROVIDERS: ATTEND Internal Medicine Nephrology
DX: N17.9 Acute kidney failure, unspecified (principal)

== ENCOUNTER → 2017-03-24 | Outpatient (CLI) | payer OTHER ==
[~2017-03-24] MED LIST changes: +FAMO20TA11 PO
[2017-03-24 12:56] LABS: FERRITIN 20.8 ng/ml (8.0-388.0)
== END | disposition home or self-care (01) ==
LOC: C.LABBFT 09:07
PROVIDERS: ATTEND Internal Medicine Nephrology
DX: D64.9 Anemia, unspecified (principal)

== ENCOUNTER → 2017-03-26 | Outpatient (CLI) | payer OTHER ==
[~2017-03-26] MED LIST changes: -FAMO20TA11 PO
[2017-03-26 13:49] LABS: BLOOD UREA NITROGEN 12 mg/dl (7-18); BUN/CREATININE RATIO 10.1 (10-20); CALCIUM 9.3 mg/dl (8.5-10.1); CARBON DIOXIDE 32 mmol/L (21-32); CHLORIDE 99 mmol/L (98-107); CREATININE 1.18 mg/dl (0.60-1.20); GLUCOSE 76 mg/dl (70-99); PHOSPHORUS 2.1 mg/dl (2.5-4.9); POTASSIUM 3.4 mmol/L (3.5-5.1); SODIUM 137 mmol/L (136-145)
[2017-03-26 13:54] LABS: MAGNESIUM 2.2 mg/dl (1.8-2.4)
== END | disposition home or self-care (01) ==
LOC: C.LAB1850 12:06
PROVIDERS: ATTEND Internal Medicine Nephrology
DX: N17.9 Acute kidney failure, unspecified (principal)

== ENCOUNTER → 2017-04-21 | Outpatient (CLI) | payer OTHER ==
[~2017-04-21] MED LIST changes: +FAMO20TA11 PO
[2017-04-21 12:59] LABS: BASO % 0.7 %; BASO ABS # 0.05 K/uL (0-0.2); COMPLETE YES; EOS % 1.8 %; HEMATOCRIT 38.8 % (37-47); IG% 0.1 %; LYMPH % 30.1 %; MEAN CELL VOLUME 102.9 fL (80-100); MEAN CORPUSCULAR HEMOGLOBIN 32.6 pg (25-34); MEAN CORPUSCULAR HGB CONC 31.7 g/dl (32-36); MEAN PLATELET VOLUME 9.9 fL (7.4-10.4); MONO % 10.7 %; NEUT % 56.6 %; PLATELET COUNT 497 K/uL (130-400); RED BLOOD COUNT 3.77 M/uL (4.2-5.4); WHITE BLOOD COUNT 7.32 K/uL (4.8-10.8)
[2017-04-21 14:18] LABS: BLOOD UREA NITROGEN 18 mg/dl (7-18); CREATININE 1.49 mg/dl (0.60-1.20); GLUCOSE 104 mg/dl (70-99)
[2017-04-21 14:19] LABS: BUN/CREATININE RATIO 11.8 (10-20); CARBON DIOXIDE 37 mmol/L (21-32); CHLORIDE 99 mmol/L (98-107); MAGNESIUM 2.2 mg/dl (1.8-2.4); PHOSPHORUS 3.8 mg/dl (2.5-4.9); POTASSIUM 3.4 mmol/L (3.5-5.1); SODIUM 139 mmol/L (136-145)
== END | disposition home or self-care (01) ==
LOC: C.LABBFT 09:17
PROVIDERS: ATTEND Internal Medicine Nephrology
DX: N17.9 Acute kidney failure, unspecified (principal); D64.9 Anemia, unspecified; E83.42 Hypomagnesemia

== ENCOUNTER → 2017-04-30 | Day surgery (SDC) | payer OTHER ==
[2017-04-03 14:56] VITALS: Ht 151.6 cm; Wt 39.5 kg
[~2017-04-30] VITALS: Ht 151.6 cm; Wt 39.5 kg
[~2017-04-30] MED LIST changes: +IOPAMIDOL INJ 61% 15 ML VIAL ONE; +LIDOCAINE HCL 1% MPF 5 ML VIAL ONE; +NICO21DI35 TD; +SODIUM CHLORIDE 0.9% INJ 10 ML VIAL ONE
[2017-04-30 13:50] VITALS: TEMP 37.5
--- NOTE | 2017-04-30 13:57 | Discharge Instructions ---
Discharge Instructions Date of Service Apr 30, 2017. Visit Reason for Visit: Lumbosacral Radiculopathy Discharge Discharge Diagnosis / Problem: right leg pain Discharge Goals Goal(s): Decrease discomfort, Improve function Medications Stopped Medications Name(s): Aspirin 81mg daily, last dose 04/21/17 Activity Recommendations Activity Limitations: resume your previous activity Anesthesia . Post Anesthesia Instructions: If you have had General Anesthesia or IV Sedation: * Do not drive today. * Resume driving when surgeon permits. * Do not make important decisions or sign legal documents today. * Call surgeon for: 1. Temperature elevations greater than 101 degrees F. 2. Uncontrollable pain. 3. Excessive bleeding. 4. Persistent nausea and vomiting. 5. Medication intolerance (nausea, vomiting or rash). * For nausea and vomiting use only clear liquids such as: tea, soda, bouillon until nausea subsides, then gradually increase diet as tolerated. * If you have any concerns or questions, call your surgeon's office. If physician is unavailable and it is an emergency, call 911 or go to the nearest emergency room. . Diet Recommendations Recommended Home Diet: resume previous diet Procedures Procedures Performed: LUMBAR EPIDURAL STEROID INJECTION Pending Studies Studies pending at discharge: no Medical Emergencies . Who to Call and When: Medical Emergencies: If at any time you feel your situation is an emergency, please call 911 immediately. . Non-Emergent Contact Non-Emergency issues call your: Specialist . . "Provider Documentation" section prepared by Freddy Galicia. .
[2017-04-30 14:05] VITALS: BP 129/88; PULSE 77; O2SAT 98
--- NOTE | 2017-04-30 14:51 | OPERATIVE REPORT ---
DATE OF OPERATION: 04/30/2017 PREOPERATIVE DIAGNOSIS: L4-L5 herniated nucleus pulposus with a right L4 radiculopathy. POSTOPERATIVE DIAGNOSIS: Same. PROCEDURE: Right paramedian L4-L5 intralaminar steroid injection under fluoroscopic guidance. INDICATIONS: The patient is a 57-year-old white female who presents today for an epidural injection. She has had pain for a longstanding period of time. She has been unable for various reasons to be able to get this injection and she presents today to relieve her right L4 radicular pain. PHYSICAL EXAMINATION: Pleasant female seated comfortably. She has some sciatic notch sensitivity to palpation on the right side. No problems with forward flexion. No problems with extension. Normal lower extremity strength. CONSENT: Verbal and written consent was obtained from the patient. Risks and benefits were reviewed. Risks include but are not limited to epidural abscess, epidural hematoma, allergic reaction, dural puncture. The patient wishes to proceed. PROCEDURE: The patient was taken back to the special procedures room of the [facility] where she was maintained in a prone position. Backside was cleansed with Betadine x3 and a dry sterile dressing was applied. Fluoroscope was used to identify the L4-L5 intralaminar space. Overlying skin on the right side was anesthetized with 4 mL of lidocaine 1% with a 25-gauge 1.5-inch needle. A 22-gauge 3.5-inch Tuohy needle was then directed down towards the intralaminar space. It was advanced under lateral fluoroscopic guidance with a loss of resistance noted at 5 cm. Isovue-300 contrast 1 mL was injected in, which demonstrated an epidural uptake pattern. She then underwent injection after negative aspiration of 40 mg of Depo-Medrol and 4 mL of preservative free sodium chloride. Injection was well tolerated. DISPOSITION: The patient was taken out into the discharge recovery area where she will be discharged home once discharge criteria have been met. I attest to the content of the Intraoperative Record and any orders documented therein. Any exception s are noted below.
== END | disposition home or self-care (01) ==
LOC: X.SURG 12:26
PROVIDERS: ATTEND Physical Medicine & Rehabilitation
DX: M54.16 Radiculopathy, lumbar region (principal); M51.26 Other intervertebral disc displacement, lumbar region

== ENCOUNTER → 2017-05-02 | Outpatient (CLI) | payer OTHER ==
[~2017-05-02] MED LIST changes: -FAMO20TA9 PO; -IOPAMIDOL INJ 61% 15 ML VIAL ONE; -LIDOCAINE HCL 1% MPF 5 ML VIAL ONE; -SODIUM CHLORIDE 0.9% INJ 10 ML VIAL ONE
--- NOTE | 2017-05-05 07:58 | MAMMOGRAPHY REPORT ---
BILATERAL DIGITAL SCREENING MAMMOGRAM TOMOSYNTHESIS WITH CAD: 05/02/2017 CLINICAL HISTORY: Routine screening. Patient has no complaints. TECHNIQUE: Breast tomosynthesis in addition to standard 2D mammography was performed. Current study was also evaluated with a Computer Aided Detection (CAD) system. COMPARISON: No prior exams were available for comparison. BREAST COMPOSITION: There are scattered areas of fibroglandular density in both breasts. FINDINGS: There is an 11 mm mass within the left upper outer quadrant, for which spot compression to mosynthesis views and possible breast ultrasound are recommended for further evaluation. There is an area of questionable architectural distortion in the left lateral breast on the cc tomosynthesis thomas ges only, which likely represents normal fibroglandular tissue although spot compression tomosynthesi s views are recommended for further evaluation. The remainder of both breasts demonstrate no suspicious masses, calcifications, or areas of saas architect ural distortion. Scattered bilateral benign-appearing calcifications are noted. IMPRESSION: ACR BI-RADS CATEGORY 0: INCOMPLETE EVALUATION: NEED ADDITIONAL IMAGING EVALUATION Left breast mass and questionable left breast architectural distortion, for which additional imaging evaluation is recommended. The patient will be called to schedule an appointment. Approximately 10% of breast cancers are not detected with mammography. A negative mammographic report should not delay biopsy if a clinically suggestive mass is present. Georgina Richards M.D. ah/:05/02/2017 14:54:41 Rolling Mill Operator: Yoly RIDDLE(Monse)(M), [facility] letter sent: Addl Imaging 0 BI-RADS Code: ACR BI-RADS Category 0: Incomplete Evaluation: Need Additional Imaging Evaluation
== END | disposition home or self-care (01) ==
LOC: C.MAMM 13:09
PROVIDERS: ATTEND Nurse Practitioner
DX: Z12.31 Encounter for screening mammogram for malignant neoplasm of breast (principal)

== ENCOUNTER → 2017-05-07 | Outpatient (CLI) | payer OTHER ==
--- NOTE | 2017-05-08 14:36 | MAMMOGRAPHY REPORT ---
UNILATERAL LEFT DIGITAL DIAGNOSTIC MAMMOGRAM TOMOSYNTHESIS AND TARGETED LEFT ULTRASOUND: 05/07/2017 CLINICAL HISTORY: Callback from screening mammogram for left breast mass and possible architectural d istortion. TECHNIQUE: Breast tomosynthesis in addition to standard 2D mammography was performed. Spot compress ion left CC and MLO 2-D and tomosynthesis images were obtained. COMPARISON: Comparison is made to exam dated: 05/02/2017 mammogram - [facility]. BREAST COMPOSITION: There are scattered areas of fibroglandular density in the left breast. FINDINGS: Spot compression views demonstrate a persistent lobulated 13 mm mass in the left upper oute r quadrant, best seen on the MLO images. The previously described possible architectural distortion within the left breast on the cc view does not persist on the additional spot compression views, and is benign and compatible with normal fibroglandular tissue. Targeted ultrasound was performed of the left upper outer quadrant in the region of the mammographic mass. In the left breast at 1:00 approximately 2 cm from the nipple, there is a lobulated isoechoic mass with non-circumscribed margins which measures 8 x 9 x 4 mm. The mass is indeterminant given no priors to confirm stability. Recommend ultrasound-guided core needle biopsy for further evaluation. IMPRESSION: ACR BI-RADS CATEGORY 4: SUSPICIOUS, TARGETED ULTRASOUND ACR BI-RADS CATEGORY 4: SUSPICIO US Isoechoic 9 mm mass in the left breast at 1:00 on ultrasound, which corresponds with a lobulated mamm ographic mass. The mass is indeterminant given no priors to confirm stability. Recommend ultrasound -guided core needle biopsy for further evaluation. A phone call was made to the physician's office to confirm faxed results were received. The patient has been verbally notified of the results. She tent[facility] the biopsy [facility] Approximately 10% of breast cancers are not detected with mammography. A negative mammographic report should not delay biopsy if a clinically suggestive mass is present. Georgina Richards M.D. ah/:05/07/2017 14:16:45 Analytical Tech: Yoly CEDILLO)(Kervin), [facility] letter sent: Abnormal 4/5 BI-RADS Code: ACR BI-RADS Category 4: Suspicious Ultrasound BI-RADS: ACR BI-RADS Category 4: Suspici ous
== END | disposition home or self-care (01) ==
LOC: C.MAMM 13:37
PROVIDERS: ATTEND Nurse Practitioner
DX: N63.20 Unspecified lump in the left breast, unspecified quadrant (principal)

== ENCOUNTER → 2017-05-08 | Outpatient (CLI) | payer OTHER ==
--- NOTE | 2017-05-08 13:14 | Discharge Instructions ---
Discharge Instructions Procedure Procedure Date: May 08, 2017. Reason for visit: Left Mass. Discharge Discharge Date: May 08, 2017. Discharge Diagnosis: status post breast biopsy Instructions Activity Recommendations: Additional Limitations (see below) Return to School/Work: no limitations Recommended Home Diet: No Limitations Provider Instructions: ACTIVITY RECOMMENDATIONS: * No lifting, pushing, pulling or exercising the affected side for three days. RETURN TO SCHOOL/WORK: * You may return to work/school after the procedure, but do not perform any strenuous activities for 24 to 48 hours. MEDICATIONS: * Tylenol (two 325 mg) every four to six hours if needed for mild pain (if not allergic to Tylenol). DIET: * Resume previous diet. SPECIAL CARE INSTRUCTIONS: * Keep biopsy site dry for 24 hours. May shower after 24 hours, but do not soak (bathe) incision. * May remove Tegaderm (plastic patch) tomorrow AFTER showering. * Leave the steri-strips on for one week. Allow the steri-strips to fall off by themselves. If not off after one week, you may remove them. You may place a Bandaid crosswise over the strips, if desired. * Apply ice 10 minutes on and 10 minutes off as needed. * Wear a bra at bedtime to sleep more comfortably for 2-3 days. * Your referring physician should have the results after approximately 5 to 7 business days. * Call for unusual bleeding, fever, drainage, etc or if you have any questions call during normal business hours or after hours call Dr Richards, . FOLLOW UP VISIT: Follow-up with Referring Physician as scheduled. Allergies Coded Allergies: Penicillins (Verified Allergy, Severe, SWELLING/SOB, 04/30/17) Latex1 -Allergic Contact Dermititis (Verified Allergy, Intermediate, LOCALIZED BURNING SENSATION, 04/30/17) Laura Phoenix Recommendations: Call your doctor if: * Temperature above 101 degrees * Pain not relieved by pain medicine ordered * There is increased drainage or redness from any incision * You have any unanswered questions or concerns. Your Doctors Instructions noted above were prepared by provider Georgina Richards. Patient Signature Section: Patient Instructions Signature Page [place] Patient (or Guardian) Signature/Date: I have read and understand the instructions given to me by my caregivers. Caregiver/RN/Doctor Signature/Date: The above-named patient and/or guardian has received patient instructions on this date. + Original Patient Signature Page (only) stays with chart. Please make copy for patient.
--- NOTE | 2017-05-08 14:36 | MAMMOGRAPHY REPORT ---
UNILATERAL LEFT DIGITAL DIAGNOSTIC MAMMOGRAM TOMOSYNTHESIS: 05/08/2017 CLINICAL HISTORY: Status post left breast biopsy. TECHNIQUE: Breast tomosynthesis in addition to standard 2D mammography was performed. Postprocedura l left CC and ML tomosynthesis images including C views were obtained. COMPARISON: Comparison is made to exams dated: 05/07/2017 ultrasound, 05/07/2017 mammogram, and 04/18 mammogram - [facility]. BREAST COMPOSITION: There are scattered areas of fibroglandular density in the left breast. FINDINGS: A new biopsy marker clip is seen within the biopsied mass in the left upper outer quadrant . No significant postbiopsy hematoma is seen. IMPRESSION: POST PROCEDURE IMAGING FOR MARKER PLACEMENT New biopsy marker clip status post ultrasound-guided biopsy of the left 1:00 breast mass. Pathology results are pending. Approximately 10% of breast cancers are not detected with mammography. A negative mammographic report should not delay biopsy if a clinically suggestive mass is present. Georgina Richards M.D. ah/:05/08/2017 13:28:08 Gift Basket Packer: Yoly Benjamin [facility] BI-RADS Code: Post Procedure Imaging For Marker Placement
--- NOTE | 2017-05-08 14:36 | MAMMOGRAPHY REPORT ---
ULTRASOUND GUIDED BIOPSY LEFT BREAST: 05/08/2017 CLINICAL HISTORY: Left 1 o'clock breast mass. PATIENT CONSENT: The procedure, risks and benefits were discussed with the patient and informed writt en consent was obtained. A timeout was performed immediately prior to the procedure. PROCEDURE DESCRIPTION: With ultrasound guidance, aseptic technique, and lidocaine as the local anesth etic (1% lidocaine to anesthetize the skin and 1% lidocaine with epinephrine to anesthetize the deepe r tissues), the mass of concern in the left 1:00 breast was sampled 4 times with a 14-gauge Achieve b iopsy needle. Immediately thereafter, with ultrasound guidance, aseptic technique, and lidocaine as t he local anesthetic, a metallic localizer clip was placed centrally in the mass. Direct pressure was applied to the site immediately post procedure and hemostasis was achieved. Postprocedure unilatera l mammograms were performed to confirm placement of the clip in the expected location of the breast m ass. The patient tolerated the procedure without complication. She was given wound care instruction s. The specimens were sent to pathology for analysis. COMPARISON: Comparison is made to exams dated: 05/07/2017 ultrasound, 05/07/2017 mammogram, and 04/18 mammogram - [facility]. IMPRESSION: ULTRASOUND GUIDED BIOPSY Ultrasound guided core needle biopsy of the left 1:00 breast mass, with clip placement. The patient will receive pathology results from her referring provider. Georgina Richards M.D. /:05/08/2017 13:15:43 Medical Coding Auditor: Yoly Benjamin, [facility]
== END | disposition home or self-care (01) ==
LOC: C.MAMM 12:45
PROVIDERS: ATTEND Nurse Practitioner
DX: R92.8 Other abnormal and inconclusive findings on diagnostic imaging of breast (principal); N63.20 Unspecified lump in the left breast, unspecified quadrant; D24.2 Benign neoplasm of left breast

== ENCOUNTER → 2017-05-16 | Outpatient (CLI) | payer OTHER ==
[~2017-05-16] MED LIST changes: +ASTIN/15 INH; +FLUT50SP45 PO; +METO5TAB2 PO; +PROM25TA9 PO; +VAREPAK2 PO
[2017-05-16 12:48] LABS: ALBUMIN 3.2 gm/dl (3.4-5.0); BLOOD UREA NITROGEN 27 mg/dl (7-18); CALCIUM 9.5 mg/dl (8.5-10.1); CARBON DIOXIDE 32 mmol/L (21-32); CREATININE 1.36 mg/dl (0.60-1.20); GLUCOSE 99 mg/dl (70-99); PHOSPHORUS 3.6 mg/dl (2.5-4.9); POTASSIUM 3.9 mmol/L (3.5-5.1); SODIUM 140 mmol/L (136-145)
== END | disposition home or self-care (01) ==
LOC: C.LABBFT 10:01
PROVIDERS: ATTEND Internal Medicine Nephrology
DX: N17.9 Acute kidney failure, unspecified (principal)

== ENCOUNTER → 2017-06-10 | Outpatient (CLI) | payer OTHER ==
[~2017-06-10] MED LIST changes: -ASTIN/15 INH; -FLUT50SP45 PO; -METO5TAB2 PO; -PROM25TA9 PO; -VAREPAK2 PO
--- NOTE | 2017-06-10 15:28 | DIAGNOSTIC IMAGING REPORT ---
HEAD WITHOUT CONTRAST (CT) CT DOSE: 537.48 mGy.cm HISTORY: Trauma. Mental status change. S06.0X0A Concussion with no loss of consciousnesscalled Balee to TECHNIQUE: Multiaxial CT images of the head were performed without the use of intravenous contrast. A dose lowering technique was utilized adhering to the principles of ALARA. Comparison: 12/20/2015 Findings: The paranasal sinuses and mastoid air cells are clear. The calvarium and skull base are intact. The ventricles and sulci are within normal limits. There is no mass, hematoma, midline shift, or acute infarct. Impression: No acute intracranial abnormality. The above report was generated using voice recognition software. It may contain grammatical, syntax or spelling errors. Electronically signed by: Clark Yanez M.D. 06/10/2017 3:27 PM Dictated Date/Time: 06/10/2017 3:25 PM
== END | disposition home or self-care (01) ==
LOC: C.CTS 15:11
PROVIDERS: ATTEND Nurse Practitioner
DX: S06.0X0A Concussion without loss of consciousness, initial encounter (principal); X58.XXXA Exposure to other specified factors, initial encounter

== ENCOUNTER → 2017-06-12 | Outpatient (CLI) | payer OTHER | END | disposition home or self-care (01) | LOC: C.LABPVFM 15:46 | PROVIDERS: ATTEND Nurse Practitioner | DX: R53.83 Other fatigue (principal); R94.6 Abnormal results of thyroid function studies ==

== ENCOUNTER → 2017-06-23 | Outpatient (CLI) | payer OTHER ==
[2017-06-23 17:21] LABS: BASO % 0.5 %; BASO ABS # 0.04 K/uL (0-0.2); EOS % 2.6 %; HEMATOCRIT 44.1 % (37-47); HEMOGLOBIN 14.6 g/dL (12.0-16.0); IG# 0.01 K/uL (0.00-0.02); LYMPH % 24.5 %; LYMPH ABS # 1.91 K/uL (1.2-3.4); MEAN CORPUSCULAR HEMOGLOBIN 31.1 pg (25-34); MEAN CORPUSCULAR HGB CONC 33.1 g/dl (32-36); MEAN PLATELET VOLUME 10.3 fL (7.4-10.4); NEUT % 63.3 %; NEUT ABS # 4.93 K/uL (1.4-6.5); PLATELET COUNT 367 K/uL (130-400); RED CELL DISTRIBUTION WIDTH CV 13.2 % (11.5-14.5); RED CELL DISTRIBUTION WIDTH SD 45.3 fL (36.4-46.3); WHITE BLOOD COUNT 7.79 K/uL (4.8-10.8)
[2017-06-23 17:40] LABS: ALBUMIN 3.6 gm/dl (3.4-5.0); ALT/SGPT 23 U/L (12-78); AST/SGOT 22 U/L (15-37); BLOOD UREA NITROGEN 21 mg/dl (7-18); CALCIUM 10.6 mg/dl (8.5-10.1); CARBON DIOXIDE 34 mmol/L (21-32); CREATININE 1.16 mg/dl (0.60-1.20); GLUCOSE 92 mg/dl (70-99); LIPASE 212 U/L (73-393); POTASSIUM 3.6 mmol/L (3.5-5.1); SODIUM 135 mmol/L (136-145)
[2017-06-23 17:43] LABS: ALKALINE PHOSPHATASE 113 U/L (45-117)
== END | disposition home or self-care (01) ==
LOC: C.LABPVFM 14:10
PROVIDERS: ATTEND Nurse Practitioner
DX: E87.6 Hypokalemia (principal); R10.12 Left upper quadrant pain; R63.4 Abnormal weight loss

== ENCOUNTER → 2017-06-27 | Outpatient (CLI) | payer OTHER ==
--- NOTE | 2017-06-27 10:08 | DIAGNOSTIC IMAGING REPORT ---
ABDOMEN COMPLETE (US) CLINICAL HISTORY: 57 years-old Female with R11.0 BhiclsH73.12 Abdominal pain, LUQ (left upper quadrant)try. Acute left upper quadrant abdominal pain TECHNIQUE: Multiple real time sonographic images of the abdomen were obtained assessing rubalcava-scale appearance. COMPARISON: Renal ultrasound 03/08/2017 FINDINGS: PANCREAS: The pancreas is partially obscured by bowel gas. The visualized portions of the pancreas are normal without focal lesion or pancreatic duct dilatation. LIVER: The liver demonstrates a homogeneous parenchymal echotexture. There is no intrahepatic bile duct dilation, focal lesion, or contour nodularity. There is no ascites. GALLBLADDER: The gallbladder is fluid-filled without cholelithiasis, wall thickening, or pericholecystic fluid. Negative sonographic Foote's sign. The common bile duct measures 0.5 cm. RIGHT KIDNEY: The right kidney measures 9.8 cm. The cortical thickness is normal. Slightly increased echogenicity of the renal parenchyma again suggested. No nephrolithiasis or hydronephrosis. LEFT KIDNEY: The left kidney measures 10.3 cm. The cortical thickness is normal. Slightly increased echogenicity of the renal parenchyma again suggested. 5 mm cyst of the superior pole left kidney noted without suspicious mass lesions identified. No nephrolithiasis or hydronephrosis. SPLEEN: The spleen measures 8.0 cm and is normal in echotexture. No focal lesions are identified. VASCULATURE: The visualized aorta and inferior vena cava are sub-visualized although appear normal as seen. Incidental note is made of fluid-filled stomach and small bowel. IMPRESSION: 1. No acute abnormality identified involving the abdomen. 2. Slightly increased echogenicity of the renal parenchyma bilaterally again seen suggesting possible medical renal disease. 3. 5 mm left renal cyst. The above report was generated using voice recognition software. It may contain grammatical, syntax or spelling errors. Electronically signed by: Efren Lomas M.D. 06/27/2017 10:07 AM Dictated Date/Time: 06/27/2017 10:02 AM
== END | disposition home or self-care (01) ==
LOC: C.ULTRBC 09:11
PROVIDERS: ATTEND Nurse Practitioner
DX: R11.0 Nausea (principal); R10.12 Left upper quadrant pain

== ENCOUNTER → 2017-07-09 | Outpatient (CLI) | payer OTHER ==
--- NOTE | 2017-07-09 14:23 | DIAGNOSTIC IMAGING REPORT ---
NUCLEAR GASTRIC EMPTYING STUDY: CLINICAL HISTORY: R11.0 [id number] Abdominal pain, LUQ (left upper quadrant)NUCL COMPARISON STUDY: TECHNIQUE: Following the oral administration of 1.1 mCi of technetium 99m sulfur colloid in egg sandwich and 8 ounces of water, static abdominal images are performed anteriorly and posteriorly at 0 minutes, 1 hour, 2 hours, and 4 hour time intervals. Gastric emptying was calculated utilizing the geometric mean method. FINDINGS: There is approximately 83 % gastric activity remaining at the 1 hour time interval, 72 % at the 2 hour time interval (normal is less than 60%), and 54 % remaining at the 4 hour time interval (normal is less than 10%). These findings are consistent with an abnormal study. IMPRESSION: Findings are consistent with an abnormal study with delayed gastric emptying. At 2 hours there was 72% gastric retention with the normal being less than 60%. At 4 hours there was 54% gastric retention with the normal being less than 10%. Electronically signed by: Thomas Baldwin M.D. 07/09/2017 2:22 PM Dictated Date/Time: 07/09/2017 2:19 PM
== END | disposition home or self-care (01) ==
LOC: C.NUCL 08:32
PROVIDERS: ATTEND Nurse Practitioner
DX: R11.0 Nausea (principal); R10.12 Left upper quadrant pain

== ENCOUNTER → 2017-07-18 | Outpatient (CLI) | payer OTHER ==
[2017-07-18 12:16] LABS: BASO % 1.1 %; BASO ABS # 0.06 K/uL (0-0.2); EOS % 3.2 %; EOS ABS # 0.17 K/uL (0-0.5); HEMATOCRIT 36.9 % (37-47); HEMOGLOBIN 12.2 g/dL (12.0-16.0); IG# 0.01 K/uL (0.00-0.02); LYMPH % 33.6 %; LYMPH ABS # 1.78 K/uL (1.2-3.4); MEAN CELL VOLUME 94.6 fL (80-100); MEAN CORPUSCULAR HEMOGLOBIN 31.3 pg (25-34); MEAN CORPUSCULAR HGB CONC 33.1 g/dl (32-36); MEAN PLATELET VOLUME 9.9 fL (7.4-10.4); MONO % 9.5 %; NEUT % 52.4 %; NEUT ABS # 2.77 K/uL (1.4-6.5); PLATELET COUNT 342 K/uL (130-400); RED CELL DISTRIBUTION WIDTH SD 47.9 fL (36.4-46.3); WHITE BLOOD COUNT 5.29 K/uL (4.8-10.8)
[2017-07-18 12:41] LABS: ALBUMIN 3.1 gm/dl (3.4-5.0); BLOOD UREA NITROGEN 12 mg/dl (7-18); CALCIUM 9.4 mg/dl (8.5-10.1); CARBON DIOXIDE 37 mmol/L (21-32); CREATININE 1.01 mg/dl (0.60-1.20); GLUCOSE 87 mg/dl (70-99); SODIUM 140 mmol/L (136-145)
[2017-07-18 12:53] LABS: PHOSPHORUS 3.6 mg/dl (2.5-4.9); TRANSFERRIN 264 mg/dl (200-360)
== END | disposition home or self-care (01) ==
LOC: C.LABBFT 10:17
PROVIDERS: ATTEND Internal Medicine Nephrology
DX: E83.42 Hypomagnesemia (principal); R07.89 Other chest pain; D64.9 Anemia, unspecified; E03.9 Hypothyroidism, unspecified

== ENCOUNTER → 2017-07-31 | Outpatient (CLI) | payer OTHER ==
[2017-07-31 17:37] LABS: BLOOD UREA NITROGEN 16 mg/dl (7-18); CALCIUM 9.4 mg/dl (8.5-10.1); CARBON DIOXIDE 37 mmol/L (21-32); CREATININE 1.07 mg/dl (0.60-1.20); GLUCOSE 68 mg/dl (70-99); POTASSIUM 3.2 mmol/L (3.5-5.1); SODIUM 138 mmol/L (136-145)
== END | disposition home or self-care (01) ==
LOC: C.LABPVFM 14:46
PROVIDERS: ATTEND Internal Medicine Nephrology
DX: E87.6 Hypokalemia (principal)

== ENCOUNTER → 2017-09-15 | Day surgery (SDC) | payer OTHER ==
[2017-09-09 08:54] VITALS: Ht 151.6 cm; Wt 43.2 kg
[~2017-09-15] VITALS: Ht 151.6 cm; Wt 43.2 kg
[~2017-09-15] MED LIST changes: +ASTIN/15 INH; +FLUT50SP45 PO; +IOPAMIDOL INJ 61% 15 ML VIAL ONE; -IPRA1AER2 INH; +LIDOCAINE HCL 1% MPF 5 ML VIAL ONE; +METO5TAB2 PO; -NICO21DI35 TD; +SODIUM CHLORIDE 0.9% INJ 10 ML VIAL ONE; -SRQ25 PO; +VAREPAK2 PO
--- NOTE | 2017-09-15 14:29 | [facility] Post Operative Brief Note ---
Immediate Operative Summary Operative Date Sep 15, 2017. Pre-Operative Diagnosis HISTORY OF L4-L5 DISC DISEASE WITH RECENT ONSET OF LEFT LOWER EXTREMITY RADICULOPATHY. Post-Operative Diagnosis HISTORY OF L4-L5 DISC DISEASE WITH RECENT ONSET OF LEFT LOWER EXTREMITY RADICULOPATHY. Procedure(s) Performed LUMBAR EPIDURAL STEROID INJECTION Surgeon DR. Mary CARDONA Grocery Clerk Surgeon(s) None Estimated Blood Loss NONE Findings Consistent with Post-Op Diagnosis Specimens NA Drains None Anesthesia Type Local Complication(s) none Disposition Disposition:
--- NOTE | 2017-09-15 14:31 | Discharge Instructions ---
Discharge Instructions Date of Service Sep 15, 2017. Visit Reason for Visit: Radiculopathy, Lumbar Region Discharge Discharge Diagnosis / Problem: Left leg pain Discharge Goals Goal(s): Decrease discomfort, Improve function Medications Stopped Medications Name(s): aspirin 10 days ago Activity Recommendations Activity Limitations: resume your previous activity Anesthesia . Post Anesthesia Instructions: If you have had General Anesthesia or IV Sedation: * Do not drive today. * Resume driving when surgeon permits. * Do not make important decisions or sign legal documents today. * Call surgeon for: 1. Temperature elevations greater than 101 degrees F. 2. Uncontrollable pain. 3. Excessive bleeding. 4. Persistent nausea and vomiting. 5. Medication intolerance (nausea, vomiting or rash). * For nausea and vomiting use only clear liquids such as: tea, soda, bouillon until nausea subsides, then gradually increase diet as tolerated. * If you have any concerns or questions, call your surgeon's office. If physician is unavailable and it is an emergency, call 911 or go to the nearest emergency room. . Diet Recommendations Recommended Home Diet: resume previous diet Procedures Procedures Performed: LUMBAR EPIDURAL STEROID INJECTION Pending Studies Studies pending at discharge: no Medical Emergencies . Who to Call and When: Medical Emergencies: If at any time you feel your situation is an emergency, please call 911 immediately. . Non-Emergent Contact Non-Emergency issues call your: Specialist . . "Provider Documentation" section prepared by Freddy Galicia. .
[2017-09-15 14:33] VITALS: TEMP 36.8
[2017-09-15 14:49] VITALS: BP 114/78; PULSE 68; O2SAT 96
--- NOTE | 2017-09-15 15:36 | OPERATIVE REPORT ---
DATE OF OPERATION: 09/15/2017 CHIEF COMPLAINT: L4-L5 disk disease with a left L4 radiculopathy. POSTOPERATIVE DIAGNOSIS: Same. PROCEDURE: Left paramedian L4-L5 interlaminar epidural steroid injection under fluoroscopic guidance. INDICATIONS: The patient is a 57-year-old white female who has responded favorably to an epidural injection in the past. She began noticing it has returned and she presents today for an injection to provide her with relief of the radicular pain. PHYSICAL EXAMINATION: Pleasant female, seated comfortably. She has some sensitivity to palpation of her left sciatic notch, which will increase with forward flexion, no problems with extension. She has normal lower extremity strength. CONSENT: Verbal and written consent was obtained from the patient. Risks and benefits were reviewed. Risks include but are not limited to epidural abscess, epidural hematoma, allergic reaction, dural puncture. The patient wishes to proceed. PROCEDURE: The patient was taken back to the special procedures room of the [facility] where she was maintained in a prone position. Backside was cleansed with Betadine x3 and a dry sterile dressing was applied. Fluoroscope was used to identify the L4-L5 intralaminar space. Overlying skin was anesthetized with 4 mL of lidocaine 1% with a 25 gauge 1.5-inch needle. A 22-gauge 3-1/2 inch Tuohy was then directed down towards the interlaminar space. It was advanced under lateral fluoroscopic guidance. Loss of resistance was noted at a depth of 5 cm. Isovue-300 contrast 1 mL was injected in which demonstrated epidural uptake pattern. She then underwent injection after negative aspiration of 40 mg Depo-Medrol and 4 mL of preservative free sodium chloride. Injection was well tolerated and reproduced a familiar transient radicular sensation down the left leg. DISPOSITION: 1. The patient was taken out into the discharge recovery area where she will be discharged home once discharge criteria had been met. 2. Follow up in the [facility] office in 4 weeks' time. I attest to the content of the Intraoperative Record and any orders documented therein. Any exception s are noted below.
== END | disposition home or self-care (01) ==
LOC: X.SURG 13:21
PROVIDERS: ATTEND Physical Medicine & Rehabilitation
DX: M51.26 Other intervertebral disc displacement, lumbar region (principal); M54.16 Radiculopathy, lumbar region

== ENCOUNTER 2017-12-18 09:25 | Emergency (ER) | payer OTHER ==
[~2017-12-18] VITALS: Ht 152.4 cm; Wt 43.1 kg
[~2017-12-18 09:25] MED LIST changes: -IOPAMIDOL INJ 61% 15 ML VIAL ONE; -LIDOCAINE HCL 1% MPF 5 ML VIAL ONE; -SODIUM CHLORIDE 0.9% INJ 10 ML VIAL ONE
[2017-12-18 09:28] VITALS: TEMP 36.5; Ht 152.4 cm; Wt 43.1 kg
[2017-12-18 10:19] LABS: BASO % 0.7 %; BASO ABS # 0.04 K/uL (0-0.2); EOS % 0.7 %; EOS ABS # 0.04 K/uL (0-0.5); HEMATOCRIT 44.9 % (37-47); HEMOGLOBIN 14.7 g/dL (12.0-16.0); IG# 0.01 K/uL (0.00-0.02); LYMPH ABS # 1.36 K/uL (1.2-3.4); MEAN CELL VOLUME 90.7 fL (80-100); MEAN CORPUSCULAR HEMOGLOBIN 29.7 pg (25-34); MEAN CORPUSCULAR HGB CONC 32.7 g/dl (32-36); MEAN PLATELET VOLUME 9.8 fL (7.4-10.4); MONO % 6.6 %; MONO ABS # 0.36 K/uL (0.11-0.59); NEUT % 66.8 %; NEUT ABS # 3.63 K/uL (1.4-6.5); PLATELET COUNT 429 K/uL (130-400); RED CELL DISTRIBUTION WIDTH CV 13.7 % (11.5-14.5); RED CELL DISTRIBUTION WIDTH SD 45.2 fL (36.4-46.3); WHITE BLOOD COUNT 5.44 K/uL (4.8-10.8)
[2017-12-18] MEDS ORDERED: SODIUM CHLORIDE 0.9% 1000ML 1,000 ML IV STA (10:28)
[2017-12-18] MEDS ORDERED: KETOROLAC TROMETHAMINE 30 MG/ML VIAL IV STA (10:28)
[2017-12-18] MEDS ORDERED: PROMETHAZINE HCL INJ 6.25 MG in SODIUM CHLORIDE 0.9% 50ML 50 ML IV STA (10:28)
[2017-12-18] MEDS ORDERED: ONDANSETRON INJ 2 MG/ML 2 ML VIAL IV STA (10:28)
--- NOTE | 2017-12-18 10:36 | EMERGENCY ROOM VISIT NOTE ---
History Report prepared by [place]: Jimmy Holcomb Under the Supervision of: Dr. Marvin Tavera M.D. First contact with patient: 10:22 Chief Complaint: NAUSEA Stated Complaint: NAUSEA, DIZZY Nursing Triage Summary: Patient c/o of dizziness, left sided pain and nausea since Friday. History of Present Illness The patient is a 57 year old female who presents to the Emergency Room with complaints of constant nausea for the past 5 days. Patient states she also has dizziness. She adds she was also vomiting when the symptoms began but that has resolved. Patient states she had similar symptoms a year ago due to her history of bulimia. She states she does not believe this is the cause of her symptoms this time. Patient states she is thirsty but that drinking worsens her nausea. Patient adds she has left-sided body pain but states this is chronic. Patient adds she was told years ago that she has an "underactive" thyroid but states she does not take medication for it. Patient adds she has a history of low potassium. Patient denies any foods she ate causing her symptoms. Patient denies being around anyone else that is sick, taking any new medications, or an increase in stress/anxiety recently. She denies diarrhea, fever, and urinary symptoms. Patient is present with her mother. Source of History: patient Onset: 5 days ago Position: head Timing: constant Modifying Factors (Worsening): drinking Modifying Factors (Relieving): other (None) Associated Symptoms: No fevers, No vomiting, No diarrhea, No urinary symptoms Note: Positive dizziness and left-sided body pain. Review of Systems See HPI for pertinent positives & negatives. A total of 10 systems reviewed and were otherwise negative. Past Medical & Surgical Medical Problems: (1) Acute kidney injury (2) Alkalosis, metabolic (3) Anemia (4) Appendicitis (5) Bulimia (6) Gastroenteritis (7) Hypercalcemia Family History Cancer Hypertension Lung disease Social History Smoking Status: Former Smoker Drug Use: none Marital Status: Housing Status: lives with family Occupation Status: employed Current/Historical Medications Scheduled Aspirin (Aspirin Chewable), 81 MG PO HS Azelastine HCl (Astepro), 2 SPRAYS INH BID Buspirone Hcl (Buspirone Hcl), 5 MG PO BID Cholecalciferol (Vitamin D3), 1 TAB PO QAM Cyanocobalamin (Vitamin B-12), 2,000 MCG PO QAM Fluticasone Propionate (Nasal) (Allergy Nasal [address]), 1 SPRAYS PO BID Metoclopramide Hcl (Metoclopramide Hcl), 2.5 MG PO TIDM Multivitamin (Multivitamin), 1 TAB PO DAILY Potassium Chloride (K-Tab), 1 TAB PO TID Varenicline Tartrate (Chantix), 1 TAB PO UD Vortioxetine HBr (Trintellix), 10 MG PO HS Scheduled PRN Famotidine (Pepcid), 20 MG PO BID PRN for HEARTBURN Promethazine Hcl (Phenergan), 25 MG PO Q6H PRN for Nausea Quetiapine Fumarate (Seroquel), 100 MG PO HS PRN for Sleep Allergies Coded Allergies: Penicillins (Verified Allergy, Severe, SWELLING/SOB, 12/18/17) Latex1 -Allergic Contact Dermititis (Verified Allergy, Intermediate, LOCALIZED BURNING SENSATIONs itchy rash, 12/18/17) Physical Exam Vital Signs Date Time Temp Pulse Resp B/P (MAP) Pulse Ox O2 Delivery O2 Flow Rate FiO2 12/18/17 13:55 78 16 112/68 99 12/18/17 11:51 69 16 109/67 99 Room Air 12/18/17 11:01 70 12 112/68 94 12/18/17 09:53 61 12/18/17 09:28 36.5 73 18 112/72 100 Room Air Physical Exam GENERAL: Patient is in no acute distress. HEENT: No acute trauma, normocephalic atraumatic, mucous membranes are dry, no nasal congestion, no scleral icterus. NECK: No stridor, no adenopathy, no meningismus, trachea is midline. LUNGS: Clear to auscultation bilaterally, no wheeze, no rhonchi, breath sounds equal. HEART: Without murmurs gallops or rubs, regular rate and rhythm. ABDOMEN: Soft, mild diffuse tenderness, bowel sounds are positive and hyperactive, no hernias, no peritonitis. EXTREMITIES: No cyanosis or edema, full range of motion of all the joints without pain or difficulty, no signs for acute trauma. NEUROLOGIC: Oriented x 3, no acute motor or sensory deficits, no focal weakness. SKIN: No rash, no jaundice, no diaphoresis. Medical Decision & Procedures ER Provider Diagnostic Interpretation: Radiology results as stated below per my review and radiologist interpretation: ABDOMEN 2VIEW W/PA CHEST RTN CLINICAL HISTORY: nv dyspnea COMPARISON STUDY: 12/09/2016 FINDINGS: The soft tissues, psoas shadows, renal outlines and intestinal gas pattern appear normal. There is no evidence for bowel obstruction. There is no evidence for free intraperitoneal air. No abnormal abdominal calcifications are seen. A frontal view of the chest was performed and is unremarkable. Mild nonobstructive ileus. IMPRESSION: 1. Negative chest. 2. Mild nonobstructive ileus. The above report was generated using voice recognition software. It may contain grammatical, syntax or spelling errors. Electronically signed by: Clark Yanez M.D. 12/18/2017 11:39 AM Laboratory Results 12/18/17 10:07 Red Blood Count 4.95, Mean Corpuscular Volume 90.7, Mean Corpuscular Hemoglobin 29.7, Mean Corpuscular Hemoglobin Concent 32.7, Mean Platelet Volume 9.8, Neutrophils (%) (Auto) 66.8, Lymphocytes (%) (Auto) 25.0, Monocytes (%) (Auto) 6.6, Eosinophils (%) (Auto) 0.7, Basophils (%) (Auto) 0.7, Neutrophils # (Auto) 3.63, Lymphocytes # (Auto) 1.36, Monocytes # (Auto) 0.36, Eosinophils # (Auto) 0.04, Basophils # (Auto) 0.04 12/18/17 10:07 Test 12/18/17 10:07 12/18/17 11:52 White Blood Count 5.44 K/uL (4.8-10.8) Red Blood Count 4.95 M/uL (4.2-5.4) Hemoglobin 14.7 g/dL (12.0-16.0) Hematocrit 44.9 % (37-47) Mean Corpuscular Volume 90.7 fL (80-100) Mean Corpuscular Hemoglobin 29.7 pg (25-34) Mean Corpuscular Hemoglobin Concent 32.7 g/dl (32-36) Platelet Count 429 K/uL (130-400) Mean Platelet Volume 9.8 fL (7.4-10.4) Neutrophils (%) (Auto) 66.8 % Lymphocytes (%) (Auto) 25.0 % Monocytes (%) (Auto) 6.6 % Eosinophils (%) (Auto) 0.7 % Basophils (%) (Auto) 0.7 % Neutrophils # (Auto) 3.63 K/uL (1.4-6.5) Lymphocytes # (Auto) 1.36 K/uL (1.2-3.4) Monocytes # (Auto) 0.36 K/uL (0.11-0.59) Eosinophils # (Auto) 0.04 K/uL (0-0.5) Basophils # (Auto) 0.04 K/uL (0-0.2) RDW Standard Deviation 45.2 fL (36.4-46.3) RDW Coefficient of Variation 13.7 % (11.5-14.5) Immature Granulocyte % (Auto) 0.2 % Immature Granulocyte # (Auto) 0.01 K/uL (0.00-0.02) Anion Gap 8.0 mmol/L (3-11) Est Creatinine Clear Calc Drug Dose 59.4 ml/min Estimated GFR () 108.5 Estimated GFR (Non- 93.6 BUN/Creatinine Ratio 39.6 (10-20) Calcium Level 9.4 mg/dl (8.5-10.1) Magnesium Level 1.9 mg/dl (1.8-2.4) Total Bilirubin 0.3 mg/dl (0.2-1) Aspartate Amino Transf (AST/SGOT) 28 U/L (15-37) Alanine Aminotransferase (ALT/SGPT) 23 U/L (12-78) Alkaline Phosphatase 139 U/L (45-117) Total Protein 7.2 gm/dl (6.4-8.2) Albumin 3.4 gm/dl (3.4-5.0) Globulin 3.8 gm/dl (2.5-4.0) Albumin/Globulin Ratio 0.9 (0.9-2) Thyroid Stimulating Hormone (TSH) 7.880 uIu/ml (0.300-4.500) Free Thyroxine 1.24 ng/dl (0.80-1.60) Urine Color DK YELLOW Urine Appearance CLOUDY (CLEAR) Urine pH 6.0 (4.5-7.5) Urine Specific [place] 1.032 (1.000-1.030) Urine Protein TRACE (NEG) Urine Glucose (UA) NEG (NEG) Urine Ketones 3+ (NEG) Urine Occult Blood NEG (NEG) Urine Nitrite NEG (NEG) Urine Bilirubin NEG (NEG) Urine Urobilinogen NEG (NEG) Urine Leukocyte Esterase TRACE (NEG) Urine WBC (Auto) 1-5 /hpf (0-5) Urine RBC (Auto) 0-4 /hpf (0-4) Urine Hyaline Casts (Auto) 5-10 /lpf (0-5) Urine Epithelial Cells (Auto) >30 /lpf (0-5) Urine Bacteria (Auto) 1+ (NEG) Urine Test NEG (NEG) Laboratory results reviewed by me. Medications Administered Medications (Trade) Dose Ordered Sig/Lena Route Start Time Stop Time Status Last Admin Dose Admin Sodium Chloride 1,000 ml @ 999 mls/hr Q1H1M STAT IV 12/18/17 10:28 12/18/17 11:28 DC 12/18/17 10:57 999 MLS/HR Ondansetron HCl (Zofran Inj) 4 mg NOW STAT IV 12/18/17 10:28 12/18/17 10:34 DC 12/18/17 10:57 4 MG Promethazine HCl 6.25 mg/Sodium Chloride 50.25 ml @ 204 mls/hr NOW STAT IV 12/18/17 10:28 12/18/17 10:42 DC 12/18/17 10:58 204 MLS/HR Ketorolac Tromethamine (Toradol Inj) 15 mg NOW STAT IV 12/18/17 10:28 12/18/17 10:34 DC 12/18/17 10:58 15 MG Sodium Chloride 500 ml @ 999 mls/hr Q31M STAT IV 12/18/17 11:16 12/18/17 11:46 DC 12/18/17 11:50 999 MLS/HR ED Course 1025: The patient was evaluated in room A9B. A complete history and physical exam was performed. 1028: Toradol Inj 15mg IV, Promethazine HCl 6.25mg/Sodium Chloride 50.25 ml @ 204 mls/hr IV, Zofran Inj 4mg IV, and Sodium Chloride 1000 ml @ 999 mls/hr IV 1116: Sodium Chloride 500 ml @ 999 mls/hr IV 1249: Reevaluated the patient. She states she is feeling better. Discussed results and discharge instructions. She verbalized understanding and agreement. The patient is ready for discharge. Medical Decision Differential Diagnosis: Dehydration, electrolyte imbalance, gastroparesis, UTI, anemia, bowel obstruction, food-borne or viral illness. There is no leukocytosis or worrisome anemia. No significant electrolyte abnormality, kidney failure or hepatitis. TSH was slightly high but the T4 was normal. Urinalysis shows contamination, no obvious infection. Obstruction series shows a possible ileus, no bowel obstruction, no pneumonia or free air. On exam, there was no peritonitis. Patient was not febrile or toxic. The patient received IV saline, IV Zofran, IV Toradol and IV Phenergan. She is feeling improved. The patient presents with vomiting and nausea. She has a history of gastroparesis. Her workup here is reassuring. I do not think she requires hospitalization. She is being discharged with Phenergan, she will slowly advance her diet. If worsening, she can return. The cause for this flareup is unclear, possibly the episode is viral or foodborne. Medication Reconcilliation Current Medication List: was personally reviewed by me Blood Pressure Screening Patient's blood pressure: Normal blood pressure Blood pressure disposition: Did not require urgent referral Impression Primary Impression: Nausea Additional Impressions: Vomiting Dehydration Gastroparesis Scribe Attestation The scribe's documentation has been prepared under my direction and personally reviewed by me in its entirety. I confirm that the note above accurately reflects all work, treatment, procedures, and medical decision making performed by me. Departure Information Dispostion Home / Self-Care Prescriptions Promethazine Hcl (Phenergan) 25 Mg Tab 25 MG PO Q6H Y for Nausea, #15 TAB Prov: Marvin Tavera M.D. 12/18/17 Forms HOME CARE DOCUMENTATION FORM, IMPORTANT VISIT INFORMATION Patient Instructions My [facility] [employer] Additional Instructions slowly advance the diet crackers, soup, toast, gatorade, rice phenergan 1 tab every 6 hours for nausea rest follow with the [facility] md for a reheck return for worsening symptoms or if not improving Problem Qualifiers
[2017-12-18 10:40] LABS: ALBUMIN 3.4 gm/dl (3.4-5.0); CALCIUM 9.4 mg/dl (8.5-10.1); CREATININE 0.72 mg/dl (0.60-1.20); POTASSIUM 3.3 mmol/L (3.5-5.1); TOTAL PROTEIN 7.2 gm/dl (6.4-8.2)
[2017-12-18] MEDS ORDERED: SODIUM CHLORIDE 0.9% 500ML 500 ML IV STA (11:16)
--- NOTE | 2017-12-18 11:40 | DIAGNOSTIC IMAGING REPORT ---
ABDOMEN 2VIEW W/PA CHEST RTN CLINICAL HISTORY: nv dyspnea COMPARISON STUDY: 12/09/2016 FINDINGS: The soft tissues, psoas shadows, renal outlines and intestinal gas pattern appear normal. There is no evidence for bowel obstruction. There is no evidence for free intraperitoneal air. No abnormal abdominal calcifications are seen. A frontal view of the chest was performed and is unremarkable. Mild nonobstructive ileus. IMPRESSION: 1. Negative chest. 2. Mild nonobstructive ileus. The above report was generated using voice recognition software. It may contain grammatical, syntax or spelling errors. Electronically signed by: Clark Yanez M.D. 12/18/2017 11:39 AM Dictated Date/Time: 12/18/2017 11:38 AM
[2017-12-18] MEDS ORDERED: PROM25TA9 PO (13:03)
[2017-12-18 13:55] VITALS: BP 112/68; PULSE 78; O2SAT 99
== END 2017-12-18 13:54 | disposition home or self-care (01) ==
LOC: C.EDB 09:26 → C.EDA 13:54
DX: R11.2 Nausea with vomiting, unspecified (principal); E86.0 Dehydration; K31.84 Gastroparesis; Z79.82 Long term (current) use of aspirin; Z87.891 Personal history of nicotine dependence; Z88.0 Allergy status to penicillin; Z91.040 Latex allergy status

== ENCOUNTER 2019-12-09 19:51 | Observation (INO) ==
[2019-12-09 20:15] LABS: Basophils # (auto) 0.04 K/uL (0-0.2); Basophils % (auto) 0.7 %; Eosinophils # (auto) 0.14 K/uL (0-0.5); Eosinophils % (auto) 2.4 %; Hematocrit (blood only) 39.6 % (37-47); Hemoglobin 13.3 g/dL (12.0-16.0); Immature Granulocytes # (auto) 0.01 K/uL (0.00-0.02); Immature Granulocytes % (auto) 0.2 %; Lymphocytes # (auto) 2.28 K/uL (1.2-3.4); Lymphocytes % (auto) 39.6 %; Mean Corpuscular Hemoglobin 33.8 pg (25-34); Mean Corpuscular Hgb Conc 33.6 g/dL (32-36); Mean Corpuscular Volume 100.8 fL (80-100); Mean Platelet Volume 9.2 fL (7.4-10.4); Monocytes # (auto) 0.49 K/uL (0.11-0.59); Monocytes % (auto) 8.5 %; Neutrophils % (auto) 48.6 %; Platelet Count 275 K/uL (130-400); RDW Coefficient of Variation 15.5 % (11.5-14.5); RDW Standard Deviation 55.6 fL (36.4-46.3); Red Blood Count 3.93 M/uL (4.2-5.4); White Blood Count 5.76 K/uL (4.8-10.8)
--- NOTE | 2019-12-09 20:18 | XRay Report ---
XR chest 1V portable HISTORY: 59 years-old Female Chest Pain acute atypical chest pain COMPARISON: Acute abdominal series radiographs 12/18/2017 TECHNIQUE: Portable AP view of the chest FINDINGS: Cardiomediastinal and hilar silhouettes are within normal limits. No pneumothorax, pleural effusion, airspace consolidation or overt pulmonary edema. Bones of the chest appear grossly intact. IMPRESSION: No acute process. ACT 112: Negative or not required by law. The above report was generated using voice recognition software. It may contain grammatical, syntax o r spelling errors. Electronically signed by: Efren Lomas M.D. 12/09/2019 8:16 PM
[2019-12-09 20:26] LABS: Partial Thromboplastin Ratio 0.9; Partial Thromboplastin Time 25.9 Seconds (21.0-31.0); Prothrombin Time 10.6 Seconds (9.0-12.0)
--- NOTE | 2019-12-09 20:27 | Emergency Department Note ---
History of Present Illness General Chief Complaint: Chest Pain Stated Complaint: CHEST PAIN Time Seen by Provider: 12/09/19 19:51 History of Present Illness Provider Complaint: chest pain Time: 04:00 Duration: intermittent Onset: during rest Pain Location: substernal Pain Radiation: RUE and LUE Severity: severe Maximum Pain Intensity: 8 Current Pain Intensity: 8 Quality: + other ("Brain freeze") Relieved By: + nothing; not by nitroglycerin Exacerbated By: + nothing Context: no recent illness, no recent surgery, no recent immobilization, no recent travel, no trauma/injury and no history of DVT/PE Associated symptoms: + dyspnea; no diaphoresis, no syncope, no palpitations, no fever, no cough and no leg swelling No loss of taste or smell. Patient was recently at [facility] and admitted for angina at that time. Patient states she had a stress test on and states she is scheduled to have a coronary CT scan done next week by cardiology at [place]. Home Medications Home Medications Medication Instructions Recorded Confirmed Type buspirone 5 mg tablet 5 mg PO BID #60 tab 02/22/19 12/09/19 Rx valacyclovir 500 mg tablet 500 mg PO BID PRN tab 02/22/19 12/09/19 History varenicline 1 mg tablet 1 mg PO DAILY tab 02/22/19 12/09/19 History famotidine 10 mg tablet 10 mg PO DAILY PRN 04/12/19 12/09/19 History metoclopramide HCl 5 mg PO TID 06/07/19 12/09/19 History pantoprazole 20 mg PO QAM 06/07/19 12/09/19 History atorvastatin 20 mg PO DAILY 12/09/19 12/09/19 History azelastine 1 sprays INTNAS BID PRN 12/09/19 12/09/19 History fluticasone propionate [Allergy 1 sprays INTRANASAL DAILY PRN 12/09/19 12/09/19 History Relief (fluticasone)] gabapentin 400 mg PO TID 12/09/19 12/09/19 History nitroglycerin 0.3 mg SL DIRECTED PRN 12/09/19 12/09/19 History quetiapine 100 mg PO HS 12/09/19 12/09/19 History sulfamethoxazole-trimethoprim 1 tab PO BID 12/09/19 12/09/19 History vortioxetine [Trintellix] 20 mg PO HS 12/09/19 12/09/19 History Allergies Allergy/AdvReac Type Severity Reaction Status Date / Time Penicillins Allergy Severe Swelling Verified 12/09/19 21:37 and shortness of breath latex Allergy Intermediate Itchy Verified 12/09/19 21:37 rash,localized burning sensation adhesvie bandages Allergy Intermediate Skin Uncoded 12/09/19 21:37 sensitivity Past Med/Surg History Medical History Anxiety Chronic back pain L4 - HERNIATED DISC HAD LESI Chronic obstructive pulmonary disease Depression GERD (gastroesophageal reflux disease) Myocardial Infarction 2015 - [facility], HEART CATH - NO STENTS JUST WATCHING FOLLOW WITH [place] [facility] Surgical History History of appendectomy History of arthroscopic knee surgery History of bilateral tubal ligation History of cardiac cath 2014 HEART CATH AND NO STENT History of section History of laparoscopic appendectomy History of oral surgery FULL MOUTH EXTR History of tonsillectomy Family History Mother Breast cancer Brother Prostate cancer Family/Other Myocardial infarction self Denies family history of Ovarian cancer Colorectal cancer Social History Smoking Status: Never smoker Second Hand Exposure: No; Hx Alcohol Use: No Hx Substance Use: No Preferred Language: Malian Communication Ability: Effective County Agent Required: Yes Beliefs That Will Affect Care: None marital status: Current Living Situation: Family Current Living Situation Comment: Lives with parents current occupational status: employed Other Information That Helps Us Care for You: No Feels Safe at Home: Yes Safety Concerns: Feels Safe At This Time Dental Care, Regularly: No Seatbelt Use: always Review of Systems A total of 10 systems reviewed and were otherwise negative Physical Exam Vital Signs Vital Signs - 24 hr 12/09/19 20:01 12/09/19 20:48 12/09/19 21:00 Temperature 36.8 C Temperature Source Oral Pulse Rate 79 83 77 Pulse Rate from SpO2 Sensor 80 78 Respiratory Rate 14 22 19 Respiratory Effort / Characteristics Non-Labored Spontaneous Respiratory Depth Normal Blood Pressure 108/74 132/80 120/85 Blood Pressure Mean 85 91 96 Blood Pressure Position Lying Pulse Oximetry 95 95 95 Oxygen Delivery Method Room Air Sepsis Recent Fever Within 48 Hours No Sepsis New/Unexplained Change in Mental Status No Sepsis Action Taken by Nursing No Action Required 12/09/19 22:00 12/09/19 23:00 12/09/19 23:30 Temperature Temperature Source Pulse Rate 85 78 82 Pulse Rate from SpO2 Sensor 86 78 77 Respiratory Rate 16 19 14 Respiratory Effort / Characteristics Respiratory Depth Blood Pressure 104/72 109/73 115/87 Blood Pressure Mean 78 78 94 Blood Pressure Position Pulse Oximetry 94 96 96 Oxygen Delivery Method Room Air Room Air Sepsis Recent Fever Within 48 Hours Sepsis New/Unexplained Change in Mental Status Sepsis Action Taken by Nursing 12/09/19 23:35 Temperature Temperature Source Pulse Rate 77 Pulse Rate from SpO2 Sensor 77 Respiratory Rate 20 Respiratory Effort / Characteristics Respiratory Depth Blood Pressure 126/81 Blood Pressure Mean 100 Blood Pressure Position Pulse Oximetry 95 Oxygen Delivery Method Room Air Sepsis Recent Fever Within 48 Hours Sepsis New/Unexplained Change in Mental Status Sepsis Action Taken by Nursing Physical Exam GENERAL: She is oriented to person, place, and time. She appears well-developed and well-nourished. She does not appear distressed. HENT: Exam performed. -Head: Normocephalic and atraumatic. -Right Ear: External ear normal. No mastoid tenderness. -Left Ear: External ear normal. No mastoid tenderness. -Mouth/Throat: The oropharynx is clear and moist. No trismus in the jaw. No dental abscesses or uvula swelling. No oropharyngeal exudate or tonsillar abscesses. EYES: Conjunctivae and EOM are normal. Pupils are equal, round, and reactive to light. Right eye exhibits no discharge. Left eye exhibits no discharge. No scleral icterus. NECK: Normal range of motion. Neck supple. No JVD present. No spinous process tenderness present. No carotid bruit present. No rigidity. No tracheal deviation and normal range of motion present. No Brudzinski's sign and no Kernig's sign noted. CV: Normal rate, regular rhythm, normal heart sounds and intact distal pulses. There is no peripheral edema. Palpable radial pulses bue. PULM/CHEST: Effort normal and breath sounds normal. No respiratory distress. No stridor. She has no wheezes. She has no rales. -Chest Wall: She exhibits no tenderness. ABD: The abdomen is soft. Bowel sounds are normal. She has no distension. No mass is present. There is no tenderness. There is no rebound, no guarding, no Foote's sign and no tenderness at McBurney's point. Rovsig negative MUSC/SKEL: Normal range of motion. There is no peripheral edema, tenderness or deformity. LYMPH: No cervical adenopathy. NEURO: She is alert and oriented to person, place, and time. She has normal strength. No cranial nerve deficit or sensory deficit. Coordination and gait normal. GCS eye subscore is 4. GCS verbal subscore is 5. GCS motor subscore is 6. Cerebellar tests wnl. SKIN: Hematoma over the right dorsal wrist. No warmth. No concern for cellulitis. PSYCH: She has a normal mood and affect. Behavior is normal. Judgment and thought content normal. Course Course 1999: The patient was evaluated in room C1. A complete history and physical exam was performed. Cardiac monitoring: An order was placed for continuous cardiac monitoring. The monitor shows a rate of 80 with sinus rhythm Patient was seen at [facility]. Nursing Home Physician was able to obtain the records from there. Per the records obtained by Tej, the patient was seen at [facility] on November 24. At that time the patient had a negative d-dimer test and had a elevated high-sensitivity troponin test. The patient was admitted to the hospital and her high-sensitivity troponin trended downward. She was seen by cardiology. She underwent an exercise stress echo which was indeterminant due to suboptimal target maximum heart rate but there were no evidence of ischemia. Cardiology was consulted and felt that her chest pain may have been musculoskeletal per the documentation. 2145: Vital signs stable. Labs and imaging within normal limits. Given the patient's indeterminate stress test and the patient's continued chest pain, the patient will be admitted to the hospitalist service for observation, cardiology evaluation for possible catheterization. Dr. Katalina Phoenix hospitalist team notified of the patient. Administered Medications Buspirone HCl (Buspar) 5 mg PO BID BRODERICK Stop: 01/09/20 00:42 Last Admin: 12/10/19 01:13 Dose: 5 mg Documented by: [id number] Potassium Chloride/Sodium Chloride (Normal Saline W/20 Meq Kcl) 20 meq in 1,000 mls @ 80 mls/hr IV .[id number] BRODERICK Stop: 01/09/20 00:42 Last Admin: 12/10/19 01:13 Dose: 80 mls/hr Documented by: [id number] Ioversol (Optiray 320 125ml) 125 ml IV ONCE PRN PRN Reason: Interaction Checking Stop: 12/14/19 00:26 Last Admin: 12/10/19 00:28 Dose: 91 ml Documented by: [id number] Nitroglycerin (Nitrostat) 0.4 mg SL UD PRN PRN Reason: Chest Pain Stop: 01/09/20 00:42 Last Admin: 12/10/19 01:11 Dose: 0.4 mg Documented by: [id number] Discontinued Medications Ondansetron HCl (Zofran) 4 mg IV NOW STA Stop: 12/09/19 23:58 Last Admin: 12/10/19 00:04 Dose: Not Given Documented by: [id number] Ondansetron HCl (Zofran) Confirm Administered Dose 4 mg .ROUTE .STK-MED ONE Stop: 12/09/19 23:59 Last Admin: 12/10/19 00:00 Dose: 4 mg Documented by: [id number] Medical Decision Making Laboratory Data Result diagrams: 12/09/19 20:08 12/09/19 20:08 Labs: Lab Results 12/09/19 12/09/19 12/09/19 Range/Units 20:08 20:08 20:08 WBC 5.76 (4.8-10.8) K/uL RBC 3.93 L (4.2-5.4) M/uL Hgb 13.3 (12.0-16.0) g/dL Hct 39.6 (37-47) % MCV 100.8 H (80-100) fL MCH 33.8 (25-34) pg MCHC 33.6 (32-36) g/dL RDW Std Deviation 55.6 H (36.4-46.3) fL RDW Coeff of Mookie 15.5 H (11.5-14.5) % Plt Count 275 (130-400) K/uL MPV 9.2 (7.4-10.4) fL Immature Gran % (Auto) 0.2 % Neut % (Auto) 48.6 % Lymph % (Auto) 39.6 % Kern % (Auto) 8.5 % Eos % (Auto) 2.4 % Baso % (Auto) 0.7 % Neut # (Auto) 2.80 (1.4-6.5) K/uL Lymph # (Auto) 2.28 (1.2-3.4) K/uL Kern # (Auto) 0.49 (0.11-0.59) K/uL Eos # (Auto) 0.14 (0-0.5) K/uL Baso # (Auto) 0.04 (0-0.2) K/uL Immature Gran # (Auto) 0.01 (0.00-0.02) K/uL PT 10.6 (9.0-12.0) Seconds INR 1.0 (0.9-1.1) APTT 25.9 (21.0-31.0) Seconds PTT Ratio 0.9 Sodium 141 (136-145) mmol/L Potassium 3.4 L (3.5-5.1) mmol/L Chloride 109 H (98-107) mmol/L Carbon Dioxide 25 (21-32) mmol/L Anion Gap 7.0 (3-11) BUN 9 (7-18) mg/dl Creatinine 0.80 (0.6-1.2) mg/dl Est Cr Clr Drug Dosing 55.1 ml/min Est GFR ( Amer) 94.2 Est GFR (Non-Af Amer) 81.3 BUN/Creatinine Ratio 11.5 (10-20) Glucose 104 H (70-99) mg/dl Calcium 8.6 (8.5-10.1) mg/dl Magnesium 1.9 (1.8-2.4) mg/dl Troponin I < 0.015 (0-0.045) ng/ml Lipase 452 H (73-393) U/L Imaging Data Chest x-ray: Radiologist's impression: XR chest 1V portable HISTORY: 59 years-old Female Chest Pain acute atypical chest pain COMPARISON: Acute abdominal series radiographs 12/18/2017 TECHNIQUE: Portable AP view of the chest FINDINGS: Cardiomediastinal and hilar silhouettes are within normal limits. No pneumothorax, pleural effusion, airspace consolidation or overt pulmonary edema. Bones of the chest appear grossly intact. IMPRESSION: No acute process. ACT 112: Negative or not required by law. The above report was generated using voice recognition software. It may contain grammatical, syntax or spelling errors. Electronically signed by: Efren Lomas M.D. 12/09/2019 8:16 PM Dictated: 12/09/192014 Transcribed: 12/09/192014 ECG Data Indication: chest pain Rate (beats per minute): 77 Rhythm: normal sinus Findings: no ST depression, no ST elevation and no prolonged QT Additional Comments: CA QRS and QTc intervals within normal limits. MDM Narrative 2000: The patient was evaluated in room C1. A complete history and physical exam was performed. Cardiac monitoring: An order was placed for continuous cardiac monitoring. The monitor shows a rate of 80 with sinus rhythm Patient was seen at [facility]. Nursing Home Physician was able to obtain the records from there. Per the records obtained by [facility], the patient was seen at [facility] on November 24. At that time the patient had a negative d-dimer test and had a elevated high-sensitivity troponin test. The patient was admitted to the hospital and her high-sensitivity troponin trended downward. She was seen by cardiology. She underwent an exercise stress echo which was indeterminant due to suboptimal target maximum heart rate but there were no evidence of ischemia. Cardiology was consulted and felt that her chest pain may have been musculoskeletal per the documentation. 2145: Vital signs stable. Labs and imaging within normal limits. Given the patient's indeterminate stress test and the patient's continued chest pain, the patient will be admitted to the hospitalist service for observation, cardiology evaluation for possible catheterization. Dr. Darden [facility] hospitalist team notified of the patient. Impression & Plan Chest pain Discharge Plan Visit Data *Final* Discharge Date/Time: 12/10/19 00:23 Chief Complaint: Chest Pain Stated Complaint: CHEST PAIN ED Provider: aMk [facility] Discharge Problem: Chest pain Patient Disposition: Admitted As Inpatient Discharge Instructions Interventions: ED Discharge Assessment Last Done: 12/10/19 00:23 Discharge Problem: Chest pain Qualifiers: Chest pain type: unspecified Qualified Code(s): R07.9 - Chest pain, unspecified
[2019-12-09 20:31] LABS: BUN Creatinine Ratio 11.5 (10-20); Blood Urea Nitrogen 9 mg/dl (7-18); Calcium 8.6 mg/dl (8.5-10.1); Carbon Dioxide 25 mmol/L (21-32); Chloride 109 mmol/L (98-107); Creatinine Clr Calc Pharmacy 55.1 ml/min; Est GFR (African American) 94.2; Est GFR (Non-African American) 81.3; Glucose 104 mg/dl (70-99); Lipase 452 U/L (73-393); Potassium 3.4 mmol/L (3.5-5.1); Sodium 141 mmol/L (136-145)
[2019-12-09 20:36] LABS: Troponin I < 0.015 ng/ml (0-0.045)
[2019-12-09 23:32] LABS: Magnesium 1.9 mg/dl (1.8-2.4)
[2019-12-09] MEDS ORDERED: ONDANSETRON INJ 2 MG/ML 2 ML VIAL IV STA (23:57)
[2019-12-09] MEDS ORDERED: ONDANSETRON INJ 2 MG/ML 2 ML VIAL ONE (23:58)
[2019-12-10] MEDS ORDERED: OPTIRAY 320 125ml IV PRN (00:27)
[2019-12-10] MEDS ORDERED: ONDANSETRON INJ 2 MG/ML 2 ML VIAL IV PRN (00:43)
[2019-12-10] MEDS ORDERED: MAGNESIUM HYDROXIDE SUSP 30 ML UDC PO PRN (00:43)
[2019-12-10] MEDS ORDERED: NITROGLYCERIN 0.3 MG/1 TAB 100 TAB BTL SL PRN (00:43)
[2019-12-10] MEDS ORDERED: NITROGLYCERIN SL 0.4 MG/TAB TAB SL PRN (00:43)
[2019-12-10] MEDS ORDERED: ALUMINUM/MAGNESIUM SUSP 30 ML UDC PO PRN (00:43)
[2019-12-10] MEDS ORDERED: NSS + 20MEQ KCL 20 MEQ/1,000 ML BAG IV SCH (00:43)
[2019-12-10] MEDS ORDERED: FAMOTIDINE 10 MG TABLET PO PRN (00:43)
[2019-12-10] MEDS ORDERED: FLUTICASONE PROPIONATE NA SPR 16 GM BTL NAE PRN (00:43)
[2019-12-10] MEDS ORDERED: ACETAMINOPHEN 325 MG TAB PO PRN (00:43)
--- NOTE | 2019-12-10 01:35 | History & Physical Report ---
Date of Service December 09, 2019 Assessment & Plan (1) Chest pain: Left-sided chest pain/CAD/history of SD- The patient will be admitted to telemetry for serial cardiac enzymes, serial EKG's, cardiac rhythm monitoring and a 2-D echocardiogram with Dopplers. Initial troponin negative. EKG with no acute findings. CT angiography of chest PE protocol was negative Present on Admission?: Yes (2) Chronic obstructive pulmonary disease: Duonebs every 4 hours as needed Present on Admission?: Yes (3) Anxiety with depression: Continue buspirone, gabapentin and Seroquel Present on Admission?: Yes (4) Myocardial Infarction: See above Present on Admission?: Yes (5) GERD (gastroesophageal reflux disease): Continue pantoprazole, and metoclopramide. Present on Admission?: Yes (6) Hyperlipidemia LDL goal <70: Continue atorvastatin. Check a fasting lipid panel Present on Admission?: Yes History of Present Illness Chief Complaint: The patient presents to the emergency department with intermittent sharp left-sided chest pain. Primary Care Provider: JJ Arreola The patient is a 59-year-old female with a past medical history including dermatitis, bulimia, QUEENIE, anemia, anxiety, L1 compression fracture, hypercalcemia, SD in October 2016, peptic ulcer disease at age 13 and hypomagnesemia. She was recently admitted to [facility] for chest pain work-up, reportedly having a stress test that was not completely normal, and was scheduled to have a coronary CT done next week by cardiology at [place]. She reports that she has left work early the past 4 days due to chest discomfort. The discomfort may occur at rest or with activity, and is been self-limited. Sh e reports that the pain is not similar to her previous heart attack. She denies any signs of recent respiratory illness or injury. She denies any recent travels or sick exposures. Allergies Allergy/AdvReac Type Severity Reaction Status Date / Time Penicillins Allergy Severe Swelling Verified 12/09/19 21:37 and shortness of breath latex Allergy Intermediate Itchy Verified 12/09/19 21:37 rash,localized burning sensation adhesvie bandages Allergy Intermediate Skin Uncoded 12/09/19 21:37 sensitivity Home Medications Home Medications Medication Instructions Recorded Confirmed Type buspirone 5 mg tablet 5 mg PO BID #60 tab 02/22/19 12/09/19 Rx valacyclovir 500 mg tablet 500 mg PO BID PRN tab 02/22/19 12/09/19 History varenicline 1 mg tablet 1 mg PO DAILY tab 02/22/19 12/09/19 History famotidine 10 mg tablet 10 mg PO DAILY PRN 04/12/19 12/09/19 History metoclopramide HCl 5 mg PO TID 06/07/19 12/09/19 History pantoprazole 20 mg PO QAM 06/07/19 12/09/19 History atorvastatin 20 mg PO DAILY 12/09/19 12/09/19 History azelastine 1 sprays INTNAS BID PRN 12/09/19 12/09/19 History fluticasone propionate [Allergy 1 sprays INTRANASAL DAILY PRN 12/09/19 12/09/19 History Relief (fluticasone)] gabapentin 400 mg PO TID 12/09/19 12/09/19 History nitroglycerin 0.3 mg SL DIRECTED PRN 12/09/19 12/09/19 History quetiapine 100 mg PO HS 12/09/19 12/09/19 History sulfamethoxazole-trimethoprim 1 tab PO BID 12/09/19 12/09/19 History vortioxetine [Trintellix] 20 mg PO HS 12/09/19 12/09/19 History Past Med/Surg History Medical History Anxiety Chronic back pain L4 - HERNIATED DISC HAD LESI Chronic obstructive pulmonary disease Depression GERD (gastroesophageal reflux disease) Myocardial Infarction 2015 - [facility], HEART CATH - NO STENTS JUST WATCHING FOLLOW WITH [facility] Surgical History History of appendectomy History of arthroscopic knee surgery History of bilateral tubal ligation History of cardiac cath 2014 HEART CATH AND NO STENT History of section History of laparoscopic appendectomy History of oral surgery FULL MOUTH EXTR History of tonsillectomy Family History Mother Breast cancer Brother Prostate cancer Family/Other Myocardial infarction self Denies family history of Ovarian cancer Colorectal cancer Social History Smoking Status: Never smoker Second Hand Exposure: No; Hx Alcohol Use: No Hx Substance Use: No Preferred Language: Belarusian Communication Ability: Effective 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: 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 Beliefs That Will Affect Care: None marital status: Current Living Situation: Family Current Living Situation Comment: Lives with parents current occupational status: employed Other Information That Helps Us Care for You: No Feels Safe at Home: Yes Safety Concerns: Feels Safe At This Time Dental Care, Regularly: No Seatbelt Use: always Review of Systems Review of Systems: The patient denies palpitations, shortness of breath, dyspnea on exertion, cough, lower extremity swelling, sore throat, fevers, chills, sweats, nausea, vomiting, diarrhea , constipation, abdominal pain, pelvic pain, blood in urine or stool, dysuria, urinary frequency or urgency, lightheadedness, dizziness, headache, memory loss, loss of consciousness, rash, abnormal bruising or bleeding, imbalance, focal or generalized weakness, numbness or tingling in arms or legs, generalized arthralgias or myalgias, back or neck pain, or night sweats. The review of systems is otherwise negative other than for that already noted above, and at least 10 systems have been reviewed. Physical Exam Physical Exam: The patient is awake, alert and oriented 3, well developed and well nourished, normocephalic and atraumatic, lying in bed and in intermittent acute distress when she would get left lateral chest pain Neck--supple. No JVD. No bruits. Thyroid normal, trachea midline, no adenopathy. Heart--normal S1 and S2. No murmurs, rubs or gallops. Lungs--clear bilaterally, no respiratory distress, no accessory muscle use. Abdomen--normal bowel sounds and soft. Nontender. Nondistended. Extremities--no cyanosis or clubbing. No edema. Dermatologic--normal skin turgor, normal color, no abnormal lymph nodes, no rash. Neurologic--cranial nerves II through XII grossly intact. Rheumatologic--normal range of motion. Psychiatric--normal affect. Results & Data Results & Data ([facility]) Vital Signs (Past 12 Hours) Vital Signs Temp Pulse Resp BP Pulse Ox 12/09/19 22:00 85 16 104/72 94 12/09/19 21:00 77 19 120/85 95 12/09/19 20:48 83 22 132/80 95 12/09/19 20:01 98.2 F 79 14 108/74 95 Laboratory Results Laboratory Results WBC 5.76 K/uL (4.8-10.8) 12/09/19 20:08 RBC 3.93 M/uL (4.2-5.4) L 12/09/19 20:08 Hgb 13.3 g/dL (12.0-16.0) 12/09/19 20:08 Hct 39.6 % (37-47) 12/09/19 20:08 MCV 100.8 fL (80-100) H 12/09/19 20:08 MCH 33.8 pg (25-34) 12/09/19 20: MCHC 33.6 g/dL (32-36) 12/09/19 20: RDW Std Deviation 55.6 fL (36.4-46.3) H 12/09/19 20: RDW Coeff of Mookie 15.5 % (11.5-14.5) H 12/09/19: Plt Count 275 K/uL (130-400) 12/09/19 20: MPV 9.2 fL (7.4-10.4) 12/09/19 20: Immature Gran % (Auto) 0.2 % 12/09/19 20:08 Neut % (Auto) 48.6 % 12/09/19 20:08 Lymph % (Auto) 39.6 % 12/09/19 20:08 [place] % (Auto) 8.5 % 12/09/19 20:08 Eos % (Auto) 2.4 % 12/09/19 20:08 Baso % (Auto) 0.7 % 12/09/19:08 Neut # (Auto) 2.80 K/uL (1.4-6.5) 12/09/19 20:08 Lymph # (Auto) 2.28 K/uL (1.2-3.4) 12/09/19 20:08 [place] # (Auto) 0.49 K/uL (0.11-0.59) 12/09/19 20:08 Eos # (Auto) 0.14 K/uL (0-0.5) 12/09/19 20:08 Baso # (Auto) 0.04 K/uL (0-0.2) 12/09/19 20:08 Immature Gran # (Auto) 0.01 K/uL (0.00-0.02) 12/09/19 20:08 PT 10.6 Seconds (9.0-12.0) 12/09/19 20:08 INR 1.0 (0.9-1.1) 12/09/19 20:08 APTT 25.9 Seconds (21.0-31.0) 12/09/19 20:08 PTT Ratio 0.9 12/09/19 20:08 Sodium 141 mmol/L (136-145) 12/09/19 20:08 Potassium 3.4 mmol/L (3.5-5.1) L 12/09/19 20:08 Chloride 109 mmol/L (98-107) H 12/09/19 20:08 Carbon Dioxide 25 mmol/L (21-32) 12/09/19 20:08 Anion Gap 7.0 (3-11) 12/09/19 20:08 BUN 9 mg/dl (7-18) 12/09/19 20:08 Creatinine 0.80 mg/dl (0.6-1.2) 12/09/19 20:08 Est Cr Clr Drug Dosing 55.1 ml/min 12/09/19 20:08 Est GFR ( Amer) 94.2 12/09/19 20:08 Est GFR (Non-Af Amer) 81.3 12/09/19 20:08 BUN/Creatinine Ratio 11.5 (10-20) 12/09/19 20:08 Glucose 104 mg/dl (70-99) H 12/09/19 20:08 Calcium 8.6 mg/dl (8.5-10.1) 12/09/19 20:08 Magnesium 1.9 mg/dl (1.8-2.4) 12/09/19 20:08 Troponin I < 0.015 ng/ml (0-0.045) 12/10/19 00:59 Lipase 452 U/L (73-393) H 12/09/19 20:08 Diagnostic Findings [facility], [place] [phone] XRay Report Patient: Maddie MORA ROCHEJERONIMOEAdmit Date: 12/09/19 MR#: [id number]: [address] Acct ID:[id number]: Date: 1960[facility] Zip: [place] [address] Age: 59Location: ED Sex: F Room/Bed: Att Phy:Diagnosis: CHEST PAIN Mehreen Phy: Evonne Alvarez, TOONPService Date: 12/09/19 [facility] Phy:Interpreting Phy: Allan Lomas Admit Phy: Ordering Phy: Mak Harrington MD cc: ~ XR chest 1V portable HISTORY: 59 years-old Female Chest Pain acute atypical chest pain COMPARISON: Acute abdominal series radiographs 12/18/2017 TECHNIQUE: Portable AP view of the chest FINDINGS: Cardiomediastinal and hilar silhouettes are within normal limits. No pneumothorax, pleural effusion, airspace consolidation or overt pulmonary edema. Bones of the chest appear grossly intact. IMPRESSION: No acute process. ACT 112: Negative or not required by law. The above report was generated using voice recognition software. It may contain grammatical, syntax or spelling errors. Electronically signed by: Efren Lomas M.D. 12/09/2019 8:16 PM Dictated: 12/09/192014 Transcribed: 12/09/192014 [facility] Patient: Maddie MORA (Female) : 62 Status: ER Date: 12/10/19 00:41 Room #: History: PAIN IN CENTER OF CHEST THEN MOVED INTO LEFT SIDE OF CHEST, R/O PE Slices: [phone] Priors: Tech: Darron Heath @ [phone] Exams: CTA CHEST Contrast: IV Amt: 91 ML OPTIRAY 320 Accession Numbers: [id number] Preliminary Findings Only See Final Report For Complete Findings CTA CHEST: The pulmonary arterial tree is well opacified with contrast. No pulmonary emboli are identified. The thoracic aorta is nondilated. There is no aneurysm or dissection. No mediastinal or axillary lymphadenopathy or mass is seen. The heart is not enlarged. No pericardial effusion. Limited images of the upper abdomen are unremarkable. There are mild emphysematous changes greatest in the upper lobes bilaterally. No acute airspace infiltrate or consolidation is seen. There is a 5 mm pulmonary nodule in the right lower lobe. Consider 12 month follow-up. Radiologist: Quintin Noland MD Study ready at 00:47 and initial results transmitted at 01:00 *This report constitutes a preliminary interpretation only. Non-acute findings felt to be unrelated to the clinical presentation may not be discussed in this report. The study will be interpreted and a final report will be generated by the local Radiologist the following shift. To reach the hospital radiology department call [phone]. If a discrepancy is found between the preliminary and final interpretations of this study, please notify us via our Client Portal at [email or web address] [email or web address].You can also fax this report with a description of the discrepancy, or include the final report, to our daytime fax number [phone].If faxing, please indicate the severity of discrepancy using one of the following categories: [ ] 1 - Agree/Informational [ ] 2 - Unlikely to Affect Management [ ] 3 - Possible Eventual Change of Management [ ] 4 - Probable Immediate Change of Management For all other patient related information, please fax us at [phone]. [id number] Code Status & VTE Plan Code Status Full code VTE Prophylaxis Plan VTE Prophylaxis will be ordered: Yes PG Care Time/CCT Total # of Minutes Spent Total Time Spent with Patient: Total time spent is greater than 50% in coordination of care (as documented) at patient's floor/unit and/or counseling patient: Coding Level of Care Code 25107 OBS Care - Level 3 Diagnoses Chest pain R07.9 Chest pain type: unspecified Chronic obstructive pulmonary disease J44.9 Anxiety with depression F41.8 Myocardial Infarction I21.9 GERD (gastroesophageal reflux disease) K21.9 Hyperlipidemia LDL goal <70 E78.5 (1) Chest pain Chest pain type: unspecified Qualified Code(s): R07.9 - Chest pain, unspecified
[2019-12-10] MEDS ORDERED: ALBUT/IPRATROP 3MG/0.5MG NEB 3 ML VIAL NEB PRN (02:02)
[2019-12-10] MEDS ORDERED: AZELASTINE~ORDER AWAITING ACTION SCH (08:00)
[2019-12-10] MEDS ORDERED: TRINTELLIX~ORDER AWAITING ACTION SCH (08:00)
[2019-12-10] MEDS: METOCLOPRAMIDE HCL 5 MG TABLET PO SCH ×2 (08:02→12:36)
[2019-12-10] MEDS: GABAPENTIN 400 MG CAP PO SCH ×2 (08:03→13:57)
--- NOTE | 2019-12-10 08:03 | CT Scan Report ---
CHEST CTA for PULMONARY ARTERIES CT DOSE: 217.18 mGy.cm HISTORY: Left upper chest pain TECHNIQUE: Multiaxial CT images of the chest were performed following the intravenous administration of contrast to evaluate the pulmonary arteries. Maximal intensity projection images were also obtaine d. A dose lowering technique was utilized adhering to the principles of ALARA. COMPARISON STUDY: Chest 12/09/2019. FINDINGS: Normal caliber thoracic aorta with no evidence for dissection. The heart is normal in size. No pleural or pericardial effusions. No filling defects within the pulmonary arteries to suggest pul monary embolus. Normal esophagus. Limited views of the upper abdomen demonstrate normal liver and spl een. No mediastinal or hilar lymphadenopathy. No suspicious lytic are blastic osseous lesions. No pne umothorax. The central airways are patent. Mild bronchial wall thickening. Moderate emphysema. Ground glass densities within the lung bases posteriorly favor mild dependent change. Otherwise, no focal bruno ng consolidations to suggest pneumonia. A 5 mm indeterminate pulmonary nodule within the right lower lobe on image 119. IMPRESSION: 1. No evidence for pulmonary embolus. 2. Moderate emphysema. 3. A 5 mm indeterminate pulmonary nodule within the right lower lobe. Please refer to below summary of Fleischner criteria recommendations for follow-up of incidental CT n odules (Stephen Cramer, Guidelines for management of small pulmonary nodules detected on CT scans: A sta tement from the Fleischner Society, Radiology 237: [phone].) SOLID NODULES Solitary nodule size: <6 mm * Low risk patients: no follow-up needed * high risk patients: optional CT at 12 months Solitary nodule size: 6-8 mm * Low risk patients: follow-up at 6-12 months, then consider further follow-up at 18-24 months * high risk patients: initial follow-up CT at 6-12 months and then at 18-24 months if no change Solitary nodule size: >8 mm * either low or high risk patients - consider follow-up CT at 3 months, and/or CT-PET, and/or biopsy Multiple nodules size: <6 mm * Low risk patients: no routine follow-up * high risk patients: optional CT at 12 months Multiple nodules size: 6-8 mm * Low risk patients: follow-up at 3-6 months, then consider further follow-up at 18-24 months * high risk patients: follow-up at 3-6 months, then at 18-24 months if no change Multiple nodules size: >8 mm * Low risk patients: follow-up at 3-6 months, then consider further follow-up at 18-24 months * high risk patients: follow-up at 3-6 months, then at 18-24 months if no change Note: newly detected indeterminate nodule in persons 35 years of age or older. * Low risk patients: minimal or absent history of smoking and/or other known risk factors * high risk patients: history of smoking or of other known risk factors (e.g. first degree relative with lung cancer, or exposure to asbestos, radon, uranium) * if a nodule up to 8 mm is partly solid or is ground glass further follow-up is required after 24 m onths to exclude possible slow growing adenocarcinoma (SOPHIA) SUBSOLID NODULES Solitary pure ground-glass nodule * nodule size <6 mm - no CT follow-up required * nodule size >=6 mm - follow-up CT at 6-12 months, then every 2 years until 5 years Solitary part-solid nodule * nodule size <6 mm - no CT follow-up required * nodule size >=6 mm - follow-up CT at 3-6 months. If unchanged, and solid component remains <6 mm, then annual follow-up for 5 years Multiple subsolid nodules * nodule size <6 mm - follow-up CT at 3-6 months, consider further follow-up at 2 and 4 years if sta ble * nodule size >=6 mm - follow-up CT at 3-6 months, subsequent management based on the most suspiciou s nodule(s) ACT 112: Negative or not required by law. Electronically signed by: Mariusz Walsh M.D. 12/10/2019 8:01 AM
[2019-12-10 09:00] LABS: Basophils # (auto) 0.03 K/uL (0-0.2); Basophils % (auto) 0.8 %; Eosinophils # (auto) 0.11 K/uL (0-0.5); Hematocrit (blood only) 38.5 % (37-47); Hemoglobin 12.9 g/dL (12.0-16.0); Lymphocytes # (auto) 1.44 K/uL (1.2-3.4); Lymphocytes % (auto) 39.3 %; Mean Corpuscular Hemoglobin 34.3 pg (25-34); Mean Corpuscular Hgb Conc 33.5 g/dL (32-36); Mean Corpuscular Volume 102.4 fL (80-100); Monocytes # (auto) 0.43 K/uL (0.11-0.59); Monocytes % (auto) 11.7 %; Neutrophils # (auto) 1.65 K/uL (1.4-6.5); Neutrophils % (auto) 45.2 %; Platelet Count 257 K/uL (130-400); RDW Coefficient of Variation 15.9 % (11.5-14.5); RDW Standard Deviation 58.3 fL (36.4-46.3); Red Blood Count 3.76 M/uL (4.2-5.4); White Blood Count 3.66 K/uL (4.8-10.8)
[2019-12-10] MEDS ORDERED: ATORVASTATIN 20 MG TAB PO SCH (09:00)
[2019-12-10] MEDS ORDERED: PANTOprazole 40 MG TAB PO SCH (09:00)
[2019-12-10] MEDS ORDERED: VARENICLINE 1 MG TAB PO SCH (09:00)
--- NOTE | 2019-12-10 09:02 | Hospitalist Progress Note ---
Date of Service December 10, 2019 Assessment & Plan (1) Chest pain: Left-sided chest pain/history of WI: evaluation ongoing -hemodynamically stable -serial troponins negative (12/09/2019 at 20:08 and 12/10/2019 at 00:59) -serial EKGs negative -CT angio chest negative for acute PE -2D echo with dopplers today -c/w nitroglycerin 0.4mg SL prn Elevated lipase: 452 on 12/09/2019 -repeat draw in a few weeks on an outpatient basis Right wrist superficial thrombosis -will discuss anticoagulation with hospitalist team Macrocytosis: MCV of 102.4 with an elevated RDW at 58.3; both chronically elevated -B12, folate levels COPD: stable -duonebs q4h prn Anxiety/depression -c/w buspirone 5mg PO bid -c/w gabapentin 400mg PO tid -c/w seroquel 100mg PO qhs GERD: stable -c/w pantoprazole 20mg PO qAM -c/w metoclopramide 5mg PO qac -c/w famotidine 10mg PO qd prn Hyperlipidemia -c/w atorvastatin 20mg PO qd -fasting lipid panel Dispo: observation FENGI: NS with 20mEq KCl 80mL/hr DVT prophylaxis: will discuss with hospitalist team Code status: full code (2) GERD (gastroesophageal reflux disease): (3) Anxiety with depression: (4) Chronic obstructive pulmonary disease: (5) Localized swelling of right upper extremity: Admission and Anticipated Discharge Date Admission Date: December 09, 2019 Subjective Patient feels well this morning but expresses anxiety about her symptoms. Patient currently reports mild soreness in the center of her chest, which she reports "is nothing compared to" her chest pain yesterday. Patient notes her history of WI in 2017 and reports that the pain yesterday "didn't quite feel like" her chest pain in 2017 but reports she doesn't quite remember what her symptoms were like during that time. Patient endorses mild shortness of breath, unchanged from her baseline shortness of breath from her COPD. Patient denies fever, chills, cough, URI symptoms, arm pain, jaw pain, and abdominal pain. Patient denies nausea but reports feeling nauseous, without vomiting, during her chest pain episode yesterday. Results & Data Results & Data ([facility]) Vital Signs (Past 12 Hours) Vital Signs Temp Pulse Pulse Resp BP BP Pulse Ox 12/10/19 07:51 37.0 C 75 18 138/87 95 12/10/19 02:50 36.6 C 74 16 149/85 H 96 12/10/19 00:57 36.5 C 73 20 147/86 H 97 12/10/19 00:44 36.5 C 73 20 147/86 H 97 12/10/19 00:39 72 12/09/19 23:35 77 20 126/81 95 12/09/19 23:30 82 14 115/87 96 12/09/19 23:00 78 19 109/73 96 12/09/19 22:00 85 16 104/72 94 12/09/19 21:00 77 19 120/85 95 (1) Chest pain Chest pain type: unspecified Qualified Code(s): R07.9 - Chest pain, unspecified
[2019-12-10 09:32] LABS: Alanine Aminotransferase 25 U/L (12-78); Albumin Level 2.7 gm/dl (3.4-5.0); Aspartate Aminotransferase 27 U/L (15-37); BUN Creatinine Ratio 12.1 (10-20); Blood Urea Nitrogen 9 mg/dl (7-18); Carbon Dioxide 28 mmol/L (21-32); Chloride 113 mmol/L (98-107); Creatinine Clr Calc Pharmacy 60.3 ml/min; Est GFR (African American) 105.2; Est GFR (Non-African American) 90.8; Glucose 60 mg/dl (70-99); Magnesium 1.9 mg/dl (1.8-2.4); Sodium 145 mmol/L (136-145)
[2019-12-10 10:00] LABS: Alkaline Phosphatase 144 U/L (45-117); Bilirubin,Total 0.4 mg/dl (0.2-1); Globulin 2.7 gm/dl (2.5-4.0); Total Protein 5.4 gm/dl (6.4-8.2); Troponin I < 0.015 ng/ml (0-0.045)
[2019-12-10 11:34] LABS: Folate (Folic Acid) 6.74 ng/ml (>5.38)
--- NOTE | 2019-12-10 15:22 | Discharge Summary ---
Date of Service December 10, 2019 Admission HPI Per Admitting Provider The patient is a 59-year-old female with a past medical history including dermatitis, bulimia, QUEENIE, anemia, anxiety, L1 compression fracture, hypercalcemia, AK in October 2016, peptic ulcer disease at age 13 and hypomagnese edwardo. She was recently admitted to [facility] for chest pain work-up, reportedly having a stress test that was not completely normal, and was scheduled to have a coronary CT done next week by cardiology at [facility]. She reports that she has left work early the past 4 days due to chest discomfort. The discomfort may occur at rest or with activity, and is been self-limited. She reports that the pain is not similar to her previous heart attack. She denies any signs of recent respiratory illness or injury. She denies any recent travels or sick exposures. Admission Exam Per Admitting Provider The patient is awake, alert and oriented 3, well developed and well nourished, normocephalic and atraumatic, lying in bed and in intermittent acute distress when she would get left lateral chest pain Neck--supple. No JVD. No bruits. Thyroid normal, trachea midline, no adenopathy. Heart--normal S1 and S2. No murmurs, rubs or gallops. Lungs--clear bilaterally, no respiratory distress, no accessory muscle use. Abdomen--normal bowel sounds and soft. Nontender. Nondistended. Extremities--no cyanosis or clubbing. No edema. Dermatologic--normal skin turgor, normal color, no abnormal lymph nodes, no rash. Neurologic--cranial nerves II through XII grossly intact. Rheumatologic--normal range of motion. Psychiatric--normal affect. Principal Diagnosis Chest pain 2/2 muscle spasm Discharge Exam Constitutional well developed; no acute distress and not ill appearing Respiratory normal respiratory effort and able to speak in complete sentences; no respi ratory distress, no labored breathing, no cough and not tachypneic Auscultation: lungs clear to auscultation bilaterally; no crackles and no wheezes Cardiovascular Rate/Rhythm: regular rate and regular rhythm Heart Sounds: no murmur Gastrointestinal (Abdomen) Inspection/Auscultation: abdomen normal to inspection and normal bowel sounds; abdomen not distended Musculoskeletal Head/Neck/Chest: + chest tenderness Extremities: + wrist abnormality (Swelling of the dorsal aspect of the right wrist) Right Psychiatric Orientation: alert, oriented x 3 and cooperative Eye Contact: good eye contact Affect: + anxious affect Discharge Data Allergies Allergy/AdvReac Type Severity Reaction Status Date / Time Penicillins Allergy Severe Swelling Verified 12/09/19 21:37 and shortness of breath latex Allergy Intermediate Itchy Verified 12/09/19 21:37 rash,localized burning sensation adhesvie bandages Allergy Intermediate Skin Uncoded 12/09/19 21:37 sensitivity Consultations 12/09/19 21:45 ED Decision to Admit Stat 12/10/19 00:43 Consult Case Management - Discharge Planning Routine Ordered Studies 12/09/19 23:31 CT angio chest PE protocol Urgent Hospital Course (1) Chest pain: Chest pain 2/2 muscle spasm: Patient was admitted for chest pain. Serial troponins and EKG were negative. CT angio chest was negative for acute PE. Given the chronicity of the patient's symptoms (lasting 2-3 hours), negative workup for acute AK, recent negative stress test done at [facility], and significant chest muscle tenderness, it was determined that the patient's symptoms were most likely due to a chest wall muscle spasm. Patient was given instructions on how to stretch her chest wall muscles and intercostal muscles to relieve tension, treat spasms of these muscles, and to help prevent reoccurrence of similar episodes. Right wrist swelling Swelling was noted on admission of the dorsal surface of the patient's right wrist. An ultrasound with doppler had been done on 11/30/2019 which determined this to be a hematoma without signs of thrombosis. Patient was counseled that this would likely resolve on its own, and it was deemed noncontributory to the patient's current clinical picture. Elevated lipase On routine laboratory evaluation, patient's lipase was found to be elevated to 452. It was determined to not be contributory to the patient's current clinical picture, and outpatient follow-up was recommended. Macrocytosis Patient was noted on routine laboratory evaluation to have an MCV of 102.4 with an elevated RDW at 58.3. Both appeared chronically elevated. This was determined to not be contributory to the patient's current clinical picture, and outpatient follow-up was recommended. COPD Patient's breathing was not of concern during this clinical visit, as patient had good air movement and her lungs were clear to auscultation bilaterally without wheezes, rales, or crackles during all physical examinations during her visit. (2) GERD (gastroesophageal reflux disease): (3) Anxiety with depression: (4) Chronic obstructive pulmonary disease: (5) Localized swelling of right upper extremity: Total Time Total Time Spent Total Time Spent (In Minutes): <30 Discharge Plan Discharge Items Patient Disposition: Home - Self-Care Reason For Visit: CHEST PAIN Discharge Diagnosis: Intercostal spasm Activity: Resume your previous activity Non-emergency contact: Primary Care Provider Call non-emergency contact if: your pain is unusual for you and your pain is concerning for you Follow-up/Referrals: Evonne Alvarez CRNP [Primary Care Provider] - 12/16/19 10:30 am Diet: Regular Addtl Attending Provider Instructions: You were seen in the hospital for chest pain. We did an evaluation involving bloodwork, EKGs, and a CT scan of your arteries, to rule out serious causes of chest pain, and all of our tests were reassuring that you were not experiencing a heart attack or other medical emergency. Based on your history, physical examination, and our laboratory studies, the most likely cause of your chest pain was a spasm of the muscles in your chest. As we discussed prior to your discharge, taking time throughout the day to stretch the muscles in your chest, including taking a deep breath and holding it, is a way to treat the spasm in these muscles, and will help reduce the chance of a similar muscle spasm happening in the future. We also discussed techniques for stress reduction which can also help reduce the chance of these muscles spasming in the future. If you experience new or worsening chest pain, or any symptoms that are concerning or alarming to you, please call 911 or go to the nearest emergency room. Pending Studies at Discharge: No Stand-Alone Forms: My [facility] [employer], Work/School Release (Inpt), Smoking Cessation Medications and DC Order Prescriptions: Continued famotidine [Pepcid AC] 10 mg tablet 10 mg PO DAILY PRN (Reason: Stomach Upset) RF: 0 Chantix 1 mg tablet 1 mg PO DAILY RF: 0 buspirone 5 mg tablet 5 mg PO BID Qty: 60 RF: 2 pantoprazole 20 mg tablet,delayed release (DR/EC) 20 mg PO QAM RF: 0 metoclopramide HCl 5 mg tablet 5 mg PO TID RF: 0 atorvastatin 20 mg tablet 20 mg PO DAILY RF: 0 quetiapine 100 mg tablet 100 mg PO HS RF: 0 Trintellix 20 mg tablet 20 mg PO HS RF: 0 gabapentin 400 mg capsule 400 mg PO TID RF: 0 azelastine 137 mcg (0.1 %) aerosol,spray 1 sprays INTNAS BID PRN (Reason: COPD) RF: 0 fluticasone propionate [Allergy Relief (fluticasone)] 50 mcg/actuation spray,suspension 1 sprays intranasal DAILY PRN (Reason: Allergy Symptoms) RF: 0 Discontinued valacyclovir 500 mg tablet 500 mg PO BID PRN (Reason: Herpes Outbreak) RF: 0 nitroglycerin 0.3 mg tablet, sublingual 0.3 mg SL DIRECTED PRN (Reason: Chest Pain) RF: 0 sulfamethoxazole-trimethoprim 800-160 mg tablet 1 tab PO BID RF: 0 Discharge Orders: Discharge Order (Routine); Ordered 12/10/19 Ordered By: Dino Robison Admission Data Admit Date/Time: 12/09/19 23:41 Attending Provider: Rodrigo Lynn Admit Provider: Rick Young Primary Care Provider: Evonne Alvarez Other Providers: Rick Young Other Interventions: Discharge Summary Assessment (RN) Last Done: 12/10/19 14:13 DC Date/Time DO NOT enter until pt leaves facility: 12/10/19 14:38 Supervising Physician Co-Signing Physician Notes I personally examined the patient and verified all marie points of history and exam, discussed case, and agree with decision making with Dr Robison. feeling ok. chest pain was worrisome to her. feels overall better now vitals noted nad heent nc at mmm breathing unlabored no accessory msucles good effort skin no rashes no pallor or icterus ost/msk - L sided ribs centered around 6th rib high tone/tender/decreased ROM - balanced ligamentous tension - improved tissue texture - pt tolerated well chest pain - lasted hours - negative enzymes, negative cardiac w/u at [facility] about a week a go, negative CT for PE. highly likely rib related. stretches taught. ribcage somatic dysfunction - OMT as above. stable for home. Resident Activity Tracking Resident Involvement: Resident Care Provided Care Provided: Adult [facility]
--- NOTE | 2019-12-10 15:54 | Electrocardiogram Report ---
Test Reason : Blood Pressure : / mmHG Vent. Rate : 077 BPM Atrial Rate : 077 BPM P-R Int : 148 ms QRS Dur : 076 ms QT Int : 404 ms P-R-T Axes : 073 -05 060 degrees QTc Int : 457 ms Normal sinus rhythm Normal ECG When compared with ECG of 09-MAR-2017 08:53, No significant change was found Confirmed by Guilherme Remy ([id number]) on 12/10/2019 3:54:10 PM Referred By: REFERRED SELF Confirmed By:Guilherme Remy
--- NOTE | 2019-12-10 15:59 | Electrocardiogram Report ---
Test Reason : Blood Pressure : / mmHG Vent. Rate : 074 BPM Atrial Rate : 074 BPM P-R Int : 146 ms QRS Dur : 074 ms QT Int : 410 ms P-R-T Axes : 081 025 064 degrees QTc Int : 455 ms Normal sinus rhythm Normal ECG When compared with ECG of 09-DEC-2019 19:56, (unconfirmed) No significant change was found Confirmed by Guilherme Remy ([id number]) on 12/10/2019 3:58:54 PM Referred By: REFERRED SELF Confirmed By:Guilherme Remy
--- NOTE | 2019-12-10 16:00 | Electrocardiogram Report ---
Test Reason : Blood Pressure : / mmHG Vent. Rate : 069 BPM Atrial Rate : 069 BPM P-R Int : 152 ms QRS Dur : 070 ms QT Int : 412 ms P-R-T Axes : 077 018 055 degrees QTc Int : 441 ms Normal sinus rhythm Normal ECG When compared with ECG of 09-DEC-2019 23:20, (unconfirmed) No significant change was found Confirmed by Guilherme Remy ([id number]) on 12/10/2019 4:00:01 PM Referred By: REFERRED SELF Confirmed By:Guilherme Remy
--- NOTE | 2019-12-10 16:04 | Electrocardiogram Report ---
Test Reason : Blood Pressure : / mmHG Vent. Rate : 075 BPM Atrial Rate : 075 BPM P-R Int : 148 ms QRS Dur : 074 ms QT Int : 412 ms P-R-T Axes : 076 -04 059 degrees QTc Int : 460 ms Normal sinus rhythm Poor R wave progression, consider anterior OH vs. lead placement vs. LVH Abnormal ECG When compared with ECG of 10-DEC-2019 01:07, (unconfirmed) No significant change was found Confirmed by Guilherme Remy ([id number]) on 12/10/2019 4:03:54 PM Referred By: REFERRED SELF Confirmed By:Guilherme Remy
--- NOTE | 2019-12-10 19:27 | Billing Data ---
Date of Service December 10, 2019 Coding Level of Care Code 37945 OBS Care - Discharge
--- NOTE | 2019-12-10 19:27 | Hospitalist Progress Note ---
Date of Service December 10, 2019 Assessment & Plan Admission and Anticipated Discharge Date Admission Date: December 09, 2019 Results & Data Results & Data ([facility]) Vital Signs (Past 12 Hours) Vital Signs Temp Pulse Pulse Resp BP Pulse Ox 12/10/19 14:13 98.4 F 86 18 119/77 93 12/10/19 11:44 98.4 F 86 18 119/77 93 12/10/19 08:00 75 12/10/19 07:51 98.6 F 75 18 138/87 95 PG Care Time/CCT Total # of Minutes Spent Total Time Spent with Patient: Total time spent is greater than 50% in coordination of care (as documented) at patient's floor/unit and/or counseling patient: Coding Level of Care Code None CPT Codes Musculoskeletal - Musculoskeletal: 51545 Osteo Cal Tr 1-2 Body regions ([id number])
[2019-12-10] MEDS ORDERED: QUETIAPINE FUMARATE 100 MG TABLET PO SCH (21:00)
== END 2019-12-10 14:38 | disposition home or self-care (01) ==
LOC: ED 19:51 → 2S 19:51 → SUATTDRO 23:41 → 2S 12-10 00:23

== ENCOUNTER 2020-01-12 12:58 | Observation (INO) ==
[2020-01-12] MEDS ORDERED: SODIUM CHLORIDE 0.9% 500 ML IV ONE (13:27)
[2020-01-12] MEDS ORDERED: NITROGLYCERIN 2% OINTMENT 30GM TUBE EXT STA (13:27)
--- NOTE | 2020-01-12 13:33 | Emergency Department Note ---
Impression & Plan Precordial chest pain, Acute hypokalemia ED Provider Note NAME: Maddie MORA AGE: 59 SEX: F : 1960 ARRIVES VIA: Ambulance INFORMANT: [Patient] ED PROVIDER(S): [Marvin Tavera MD] CHIEF COMPLAINT: Chest pain HISTORY OF PRESENT ILLNESS: The patient is a 59-year-old female who presents with about 2 months of anterior chest pain. She has been admitted to [facility]. She has been seen at this ED for the pain. The patient states that the pain is better with nitroglycerin but after the nitro is taken, within about 30 to 40 minutes, the pain seems to come back. The pain is severe. There is no radiation of the pain but it is in the center and to the left of the chest below her left breast. The patient states that yesterday, she used 8 nitroglycerin, today she used 4. The patient has been told by the doctors caring for her over the last 8 weeks that this is not her heart, she is unconvinced. The patient states that there has been no trauma, no fall. No cough or cold or congestion. No real shortness of breath. Nothing she does seems to make the pain better other than nitroglycerin. Nothing really makes the pain worse. The patient did have a mammogram today of her left breast, she has a stable nodule, the findings on mammogram were not thought responsible for her pain. REVIEW OF SYSTEMS: See HPI for pertinent positives and negatives. A total of ten systems were reviewed and were otherwise negative. PMHx/PSHx: See Below SOCIAL HISTORY: See Below. PHYSICAL EXAM: GENERAL: Patient is in no acute distress. HEENT: No acute trauma, normocephalic atraumatic, mucous membranes moist, no nasal congestion, no scleral icterus. NECK: No stridor, no adenopathy, no meningismus, trachea is midline. LUNGS: Clear to auscultation bilaterally, no wheeze, no rhonchi, breath sounds equal. HEART: Without murmurs gallops or rubs, regular rate and rhythm. Chest: Tender to palpate the mid chest and inferior to the left breast, no rash. ABDOMEN: Soft, nontender, bowel sounds positive, no hernias, no peritonitis. EXTREMITIES: No cyanosis or edema, full range of motion of all the joints without pain or difficulty, no signs for acute trauma. NEUROLOGIC: Oriented x 3, no acute motor or sensory deficits, no focal weakness. SKIN: No rash, no jaundice, no diaphoresis. DIFFERENTIAL DIAGNOSIS: Cardiac ischemia, aortic dissection, pulmonary embolism, pneumothorax, pneumonia, pericarditis, myocarditis, esophageal rupture, GERD, cholecystitis, pancreatitis, musculoskeletal, as well as other pathologies. EMERGENCY DEPARTMENT COURSE/PROCEDURES: ECG: Indication was chest pain. The ECG shows a normal sinus rhythm with a rate of 87. No PVCs, no ST elevation. The QTc is 466. Continuous Cardiac Monitoring: An order was placed for continuous cardiac monitoring. The monitor shows a rate of 81 with normal sinus rhythm. MEDICAL DECISION MAKING: There is no leukocytosis or concerning anemia. There is a normal platelet count. No coagulopathy. Potassium somewhat low at 3, no kidney failure. There were some subtle liver enzyme elevations, the bilirubin however was normal. No evidence for pancreatitis. ECG shows a sinus rhythm, no acute ischemia. Cardiac enzyme testing x1 is not consistent with acute cardiac injury. Chest film does not show pneumonia, free air or pneumothorax. On exam, the patient did have tenderness across the chest wall. The patient presents with precordial chest pain. She has had the pain now for weeks. She has by report had a negative stress test. Looking at her old records, she has had a negative CT of the chest for PE, she has had negative cardiac enzyme testing, negative cardiology consults. Her chest pain has been diagnosed as musculoskeletal. The patient presents with ongoing discomfort. She is using nitroglycerin frequently which does seem to relieve the pain. She does carry some cardiac risk factors as part of her history. Further cardiac work-up is warranted. Hospitalization is indicated. I did speak to the patient and case management. The on-call hospitalist was consulted. Of note, the patient was given a 500 cc saline bolus, she received oral and IV potassium. She was placed on 1 inch of nitroglycerin paste. The nitroglycerin paste has not helped her chest discomfort. Past Med/Surg History Medical History Anxiety Anxiety with depression Chronic back pain L4 - HERNIATED DISC HAD LESI Chronic obstructive pulmonary disease Depression GERD (gastroesophageal reflux disease) Hyperlipidemia LDL goal <70 Myocardial Infarction 2015 - [facility], HEART CATH - NO STENTS JUST WATCHING FOLLOW WITH [place] [facility] Surgical History History of appendectomy History of arthroscopic knee surgery History of bilateral tubal ligation History of cardiac cath 2014 HEART CATH AND NO STENT History of section History of laparoscopic appendectomy History of oral surgery FULL MOUTH EXTR History of tonsillectomy Family History Mother Breast cancer Brother Prostate cancer Family/Other Myocardial infarction self Denies family history of Ovarian cancer Colorectal cancer Social History Smoking Status: Former smoker Tobacco Type: Cigarettes Second Hand Exposure: No; Hx Alcohol Use: No Hx Substance Use: No Preferred Language: Kinyarwanda Communication Ability: Effective 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 [employer]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: Yes Beliefs That Will Affect Care: None marital status: Current Living Situation: Family Current Living Situation Comment: Lives with parents current occupational status: employed Feels Safe at Home: Yes Dental Care, Regularly: No Seatbelt Use: always Allergies Allergies Allergy/AdvReac Type Severity Reaction Status Date / Time Penicillins Allergy Severe Swelling Verified 01/09/20 17:39 and shortness of breath latex Allergy Intermediate Itchy Verified 01/09/20 17:39 rash,localized burning sensation atorvastatin AdvReac EXCESSIVE Unverified 01/12/20 16:13 BLEEDING Home Meds Home Medications Medication Instructions Recorded Confirmed varenicline 1 mg tablet 1 mg PO DAILY tab 02/22/19 01/12/20 famotidine 10 mg tablet 10 mg PO DAILY PRN 04/12/19 01/12/20 metoclopramide HCl 5 mg PO TID 06/07/19 01/12/20 pantoprazole 20 mg PO QAM 06/07/19 01/12/20 Trintellix 20 mg PO HS 12/09/19 01/12/20 azelastine 1 sprays INTNAS BID PRN 12/09/19 01/12/20 fluticasone propionate [Allergy 1 sprays INTRANASAL DAILY PRN 12/09/19 01/12/20 Relief (fluticasone)] gabapentin 400 mg PO TID 12/09/19 01/12/20 quetiapine 100 mg PO HS 12/09/19 01/12/20 nitroglycerin 0.3 mg SUBLINGUAL DIRECTED PRN 12/29/19 01/12/20 Previous Rx's Medication Instructions Recorded buspirone 5 mg tablet 5 mg PO BID #60 tab 02/22/19 sucralfate [Carafate] 1 g PO ACHS 28 Days #28 tab 01/09/20 Results & Data (ED) Vital Signs Vital Signs - 24 hr 01/12/20 13:00 01/12/20 13:43 01/12/20 14:00 Temperature 36.9 C Temperature Source Oral Pulse Rate 84 74 Pulse Rate [Apical] 85 Pulse Rate from SpO2 Sensor 74 Pulse Rhythm [Apical] Regular Respiratory Rate 20 23 15 Respiratory Effort / Characteristics Non-Labored Respiratory Depth Normal Blood Pressure 100/63 102/63 Blood Pressure [Right Arm] 89/58 L Blood Pressure Mean 75 77 Blood Pressure Mean [Right Arm] 68 Blood Pressure Position [Right Arm] Sitting Pulse Oximetry 95 94 95 Oxygen Delivery Method Room Air Room Air Sepsis Recent Fever Within 48 Hours No Sepsis New/Unexplained Change in Mental Status N/A Sepsis Action Taken by Nursing No Action Required 01/12/20 14:28 01/12/20 14:30 01/12/20 14:39 Temperature Temperature Source Pulse Rate 74 78 75 Pulse Rate [Apical] Pulse Rate from SpO2 Sensor 74 78 76 Pulse Rhythm [Apical] Respiratory Rate 14 15 15 Respiratory Effort / Characteristics Respiratory Depth Blood Pressure 93/62 L 93/55 L 95/62 L Blood Pressure [Right Arm] Blood Pressure Mean 79 73 70 Blood Pressure Mean [Right Arm] Blood Pressure Position [Right Arm] Pulse Oximetry 93 97 97 Oxygen Delivery Method Sepsis Recent Fever Within 48 Hours Sepsis New/Unexplained Change in Mental Status Sepsis Action Taken by Nursing 01/12/20 14:40 01/12/20 15:00 Temperature Temperature Source Pulse Rate 81 80 Pulse Rate [Apical] Pulse Rate from SpO2 Sensor Pulse Rhythm [Apical] Respiratory Rate 18 14 Respiratory Effort / Characteristics Respiratory Depth Blood Pressure 98/64 L 109/75 Blood Pressure [Right Arm] Blood Pressure Mean 75 84 Blood Pressure Mean [Right Arm] Blood Pressure Position [Right Arm] Pulse Oximetry 97 95 Oxygen Delivery Method Sepsis Recent Fever Within 48 Hours Sepsis New/Unexplained Change in Mental Status Sepsis Action Taken by [facility] Medications Current Medication List: was personally reviewed by me Laboratory Data Attestation: I reviewed the patient's lab results. Result diagrams: 01/12/20 13:37 01/12/20 13:37 Lab Results 01/12/20 01/12/20 01/12/20 Range/Units 13:37 13:37 13:37 WBC 6.56 (4.8-10.8) K/uL RBC 3.65 L (4.2-5.4) M/uL Hgb 12.7 (12.0-16.0) g/dL Hct 38.6 (37-47) % MCV 105.8 H (80-100) fL MCH 34.8 H (25-34) pg MCHC 32.9 (32-36) g/dL RDW Std Deviation 59.8 H (36.4-46.3) fL RDW Coeff of Mookie 15.4 H (11.5-14.5) % Plt Count 272 (130-400) K/uL MPV 9.0 (7.4-10.4) fL Immature Gran % (Auto) 0.2 % Neut % (Auto) 59.6 % Lymph % (Auto) 30.0 % [place] % (Auto) 7.9 % Eos % (Auto) 1.7 % Baso % (Auto) 0.6 % Neut # (Auto) 3.91 (1.4-6.5) K/uL Lymph # (Auto) 1.97 (1.2-3.4) K/uL [place] # (Auto) 0.52 (0.11-0.59) K/uL Eos # (Auto) 0.11 (0-0.5) K/uL Baso # (Auto) 0.04 (0-0.2) K/uL Immature Gran # (Auto) 0.01 (0.00-0.02) K/uL PT 10.7 (9.0-12.0) Seconds INR 1.0 (0.9-1.1) APTT 25.7 (21.0-31.0) Seconds PTT Ratio 0.9 Sodium 139 (136-145) mmol/L Potassium 3.0 L (3.5-5.1) mmol/L Chloride 105 (98-107) mmol/L Carbon Dioxide 22 (21-32) mmol/L Anion Gap 11.0 (3-11) BUN 8 (7-18) mg/dl Creatinine 0.82 (0.6-1.2) mg/dl Est Cr Clr Drug Dosing 53.7 ml/min Est GFR ( Amer) 91.4 Est GFR (Non-Af Amer) 78.9 BUN/Creatinine Ratio 10.0 (10-20) Glucose 110 H (70-99) mg/dl Calcium 8.4 L (8.5-10.1) mg/dl Magnesium 2.0 (1.8-2.4) mg/dl Total Bilirubin 0.3 (0.2-1) mg/dl AST 40 H (15-37) U/L ALT 49 (12-78) U/L Alkaline Phosphatase 161 H (45-117) U/L Troponin I 0.016 (0-0.045) ng/ml Total Protein 5.9 L (6.4-8.2) gm/dl Albumin 2.8 L (3.4-5.0) gm/dl Globulin 3.1 (2.5-4.0) gm/dl Albumin/Globulin Ratio 0.9 (0.9-2) Lipase 270 (73-393) U/L Administered Medications Discontinued Medications Sodium Chloride (Nss) 500 mls @ 999 mls/hr IV .Q31M ONE Stop: 01/12/20 13:57 Last Infusion: 01/12/20 14:26 Dose: 0 mls/hr Documented by: [id number] Admin: 01/12/20 13:55 Dose: 999 mls/hr Documented by: [id number] Potassium Chloride (K Saul / Wtr) 10 meq in 100 mls @ 100 mls/hr IV ONE ONE Stop: 01/12/20 15:10 Last Infusion: 01/12/20 16:09 Dose: 0 mls/hr Documented by: [id number] Admin: 01/12/20 15:09 Dose: 100 mls/hr Documented by: [id number] Nitroglycerin (Nitroglycerin 2% Ointment 30gm Tube) 1 inch EXT NOW STA Stop: 01/12/20 13:28 Last Admin: 01/12/20 13:55 Dose: 1 inch Documented by: [id number] Potassium Chloride (Potassium Chloride 20 Meq Tabcr) 20 meq PO NOW STA Stop: 01/12/20 14:12 Last Admin: 01/12/20 15:09 Dose: 20 meq Documented by: [id number] Imaging Data Radiologist's Impression: XR chest 1V portable CLINICAL HISTORY: Chest pain. COMPARISON STUDY: Chest CT December 10, 2019. Chest radiograph January 09, 2020. FINDINGS: Lung volumes are normal. Lungs are clear. There is no pneumothorax or pleural effusion. Cardiac size is normal. Mediastinal contours are normal. There is no evidence for pulmonary edema. There is underlying emphysema. IMPRESSION: No acute cardiopulmonary findings. Blood Pressure Blood Pressure Findings: Low blood pressure Blood Pressure Disposition: further management by hospitalist Discharge Plan Visit Data Chief Complaint: Chest Pain ED Provider: Marvin Tavera Discharge Problem: Precordial chest pain, Acute hypokalemia Patient Disposition: Admitted As Inpatient Condition: Good Discharge Instructions Interventions: ED Discharge Assessment Last Done: 01/12/20 15:53
[2020-01-12 13:47] LABS: Basophils # (auto) 0.04 K/uL (0-0.2); Basophils % (auto) 0.6 %; Eosinophils # (auto) 0.11 K/uL (0-0.5); Eosinophils % (auto) 1.7 %; Hematocrit (blood only) 38.6 % (37-47); Hemoglobin 12.7 g/dL (12.0-16.0); Immature Granulocytes # (auto) 0.01 K/uL (0.00-0.02); Immature Granulocytes % (auto) 0.2 %; Lymphocytes # (auto) 1.97 K/uL (1.2-3.4); Mean Corpuscular Hemoglobin 34.8 pg (25-34); Mean Corpuscular Hgb Conc 32.9 g/dL (32-36); Mean Corpuscular Volume 105.8 fL (80-100); Monocytes # (auto) 0.52 K/uL (0.11-0.59); Monocytes % (auto) 7.9 %; Neutrophils # (auto) 3.91 K/uL (1.4-6.5); Neutrophils % (auto) 59.6 %; Platelet Count 272 K/uL (130-400); RDW Coefficient of Variation 15.4 % (11.5-14.5); RDW Standard Deviation 59.8 fL (36.4-46.3); Red Blood Count 3.65 M/uL (4.2-5.4); White Blood Count 6.56 K/uL (4.8-10.8)
--- NOTE | 2020-01-12 14:00 | XRay Report ---
XR chest 1V portable CLINICAL HISTORY: Chest pain. COMPARISON STUDY: Chest CT December 10, 2019. Chest radiograph January 09, 2020. FINDINGS: Lung volumes are normal. Lungs are clear. There is no pneumothorax or pleural effusion. Car diac size is normal. Mediastinal contours are normal. There is no evidence for pulmonary edema. There is underlying emphysema. IMPRESSION: No acute cardiopulmonary findings. ACT 112: Negative or not required by law. Electronically signed by: Frank Machado M.D. 01/12/2020 1:59 PM
[2020-01-12 14:01] LABS: Partial Thromboplastin Ratio 0.9; Partial Thromboplastin Time 25.7 Seconds (21.0-31.0); Prothrombin Time 10.7 Seconds (9.0-12.0)
[2020-01-12 14:07] LABS: Albumin Level 2.8 gm/dl (3.4-5.0); Calcium 8.4 mg/dl (8.5-10.1); Creatinine Clr Calc Pharmacy 53.7 ml/min; Est GFR (African American) 91.4; Est GFR (Non-African American) 78.9
[2020-01-12] MEDS ORDERED: POTASSIUM CHLORIDE / WTR 10 MEQ/100 ML PLCT IV ONE (14:11)
[2020-01-12] MEDS ORDERED: POTASSIUM CHLORIDE 20 MEQ TABCR PO STA (14:11)
[2020-01-12 14:12] LABS: Albumin Globulin Ratio 0.9 (0.9-2); Bilirubin,Total 0.3 mg/dl (0.2-1); Globulin 3.1 gm/dl (2.5-4.0); Total Protein 5.9 gm/dl (6.4-8.2); Troponin I 0.016 ng/ml (0-0.045)
--- NOTE | 2020-01-12 14:43 | History & Physical Report ---
Date of Service January 12, 2020 Assessment & Plan (1) GERD (gastroesophageal reflux disease): (2) Chronic obstructive pulmonary disease: (3) Anxiety with depression: History of Present Illness Primary Care Provider: JJ Arreola pt has had chest pain for a few weeks and is unsatisfied with her workup so far as she continues to feel that the pain is relieved by nitroglycerin, she did undergo a suboptimal stress test with Dr Myers in [place], 12/06/19. the pt also was evaluated at [facility] where she had a negative CTA for PE and with the quality of the pain it was felt to be musculoskeletal with perhaps some GI rela juancoh affects. Pt has a history of bulemia and depression and has chronic hypokalemia. Reportedly she told the ER doctor that the only relief she gets is from nitro, she now has nitro paste and lower blood pressure but has improved symptoms CXR has no active disease Allergies Allergy/AdvReac Type Severity Reaction Status Date / Time Penicillins Allergy Severe Swelling Verified 01/13/20 12:47 and shortness of breath latex Allergy Intermediate Itchy Verified 01/13/20 12:47 rash,localized burning sensation atorvastatin AdvReac EXCESSIVE Unverified 01/13/20 12:47 BLEEDING Home Medications Home Medications Medication Instructions Recorded Confirmed Type buspirone 5 mg tablet 5 mg PO BID #60 tab 02/22/19 01/12/20 Rx varenicline 1 mg tablet 1 mg PO DAILY tab 02/22/19 01/12/20 History famotidine 10 mg tablet 10 mg PO DAILY PRN 04/12/19 01/12/20 History metoclopramide HCl 5 mg PO TID 06/07/19 01/12/20 History pantoprazole 20 mg PO QAM 06/07/19 01/12/20 History Trintellix 20 mg PO HS 12/09/19 01/12/20 History azelastine 1 sprays INTNAS BID PRN 12/09/19 01/12/20 History fluticasone propionate [Allergy 1 sprays INTRANASAL DAILY PRN 12/09/19 01/12/20 History Relief (fluticasone)] gabapentin 400 mg PO TID 12/09/19 01/12/20 History quetiapine 100 mg PO HS 12/09/19 01/12/20 History nitroglycerin 0.3 mg SUBLINGUAL DIRECTED PRN 12/29/19 01/12/20 History sucralfate [Carafate] 1 g PO ACHS 28 Days #28 tab 01/09/20 01/12/20 Rx prucalopride [Motegrity] 1 mg PO DAILY #7 tab 01/13/20 Rx Past Med/Surg History Medical History Anxiety Anxiety with depression Chronic back pain L4 - HERNIATED DISC HAD LESI Chronic obstructive pulmonary disease Depression GERD (gastroesophageal reflux disease) Hyperlipidemia LDL goal <70 Myocardial Infarction 2015 - [facility], HEART CATH - NO STENTS JUST WATCHING FOLLOW WITH [place] [facility] Surgical History History of appendectomy History of arthroscopic knee surgery History of bilateral tubal ligation History of cardiac cath 2014 HEART CATH AND NO STENT History of section History of laparoscopic appendectomy History of oral surgery FULL MOUTH EXTR History of tonsillectomy Family History Mother Breast cancer Brother Prostate cancer Family/Other Myocardial infarction self Denies family history of Ovarian cancer Colorectal cancer Social History Smoking Status: Never smoker Tobacco Type: Cigarettes Second Hand Exposure: No; Hx Alcohol Use: No Hx Substance Use: No Preferred Language: Monegasque Communication Ability: Effective 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 Beliefs That Will Affect Care: None marital status: Current Living Situation: Family Current Living Situation Comment: Lives w/ parents current occupational status: employed Feels Safe at Home: Yes Dental Care, Regularly: No Seatbelt Use: always Results & Data Results & Data ([facility]) Vital Signs (Past 12 Hours) Vital Signs Temp Pulse Pulse Resp BP BP Pulse Ox 01/12/20 13:43 85 23 89/58 L 94 01/12/20 13:00 98.4 F 84 20 100/63 95 PG Care Time/CCT Total # of Minutes Spent Total Time Spent with Patient: Total time spent is greater than 50% in coordina tion of care (as documented) at patient's floor/unit and/or counseling patient: Coding Level of Care Code 04298 Initial Inpt Care Lvl 2 Diagnoses GERD (gastroesophageal reflux disease) K21.9 Chronic obstructive pulmonary disease J44.9 Anxiety with depression F41.8
--- NOTE | 2020-01-12 15:17 | Electrocardiogram Report ---
Test Reason : Blood Pressure : / mmHG Vent. Rate : 087 BPM Atrial Rate : 087 BPM P-R Int : 156 ms QRS Dur : 090 ms QT Int : 388 ms P-R-T Axes : 068 -07 057 degrees QTc Int : 466 ms Normal sinus rhythm Normal ECG When compared with ECG of 09-JAN-2020 17:01, No significant change was found Confirmed by Cristian Murry ([id number]) on 01/12/2020 3:16:50 PM Referred By: REFERRED SELF Confirmed By:Cristian Murry
--- NOTE | 2020-01-12 16:35 | Consultation Report ---
DATE OF CONSULTATION: 01/12/2020 REASON FOR EVALUATION: Chest pain. HISTORY OF PRESENT ILLNESS: The patient is a 59-year-old who presents to the Emergency Room with a 6-week history of pain in the chest. The patient states that these happen up to 8 times a day, can also happen at night and awaken her from sleep. It is kind of like somebody punched her in the chest. There is no shortness of breath. There is no exercise associated with it. There is no particular food associated with it. She has had a cardiac evaluation last month including a stress test and cardiac CT, which were negative. Current EKG is also negative. She does have a history of heartburn and is taking both Protonix and Pepcid. She is swallowing normally. She states that she did have an EGD several years ago and there was food in her stomach that was there from the day before. Her potassium level on admission to the Emergency Room today is low. She does not know if she has any problems with her gallbladder. She did have with a in the past. She presents now for further evaluation. PAST MEDICAL HISTORY: Remarkable for anxiety and depression. She has had a history of bulimia, COPD, hyperlipidemia. PAST SURGICAL HISTORY: She has had an appendectomy, , tubal ligation, tonsillectomy. FAMILY HISTORY: Positive for breast cancer in mother, prostate cancer in her brother. SOCIAL HISTORY: The patient smoked in the past. She is , lives with her parents. 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 No alcohol use. REVIEW OF SYSTEMS: Positive for some tattoos. PHYSICAL EXAMINATION: GENERAL: The patient appears awake, alert, and coherent. In no acute distress. VITAL SIGNS: Normal. She is afebrile. Room air saturation is 95%. ABDOMEN: Shows a low transverse scar and a right lower quadrant scar. There are no masses or tenderness. Liver edge is palpable with deep inspiration and is smooth and nontender. She does have some tenderness over the left costosternal junction down towards the lower end of the sternum consistent with probable costochondritis and this does mimic the discomfort that she is experiencing. IMPRESSION AND PLAN: The patient is having precordial pain. I think it is probably from costochondritis. She denies any trauma to this area, but her pain is reproducible with palpation over the costosternal junction area on the left. She does have a prior history of an ulcer and I plan on scheduling her for an EGD tomorrow afternoon. We will get an ultrasound of her gallbladder. If these are negative, then I think that we should probably treat her conservatively for costochondritis. We will follow the patient during her hospitalization.
[2020-01-12] MEDS ORDERED: ALUMINUM/MAGNESIUM SUSP 30 ML UDC PO PRN (16:56)
[2020-01-12] MEDS ORDERED: SODIUM CHLORIDE 0.9% 1000ML 1,000 ML IV SCH (16:56)
[2020-01-12] MEDS ORDERED: NITROGLYCERIN SL 0.4 MG/TAB TAB SL PRN (16:56)
[2020-01-12] MEDS ORDERED: ACETAMINOPHEN 325 MG TAB PO PRN (16:56)
[2020-01-12] MEDS ORDERED: ONDANSETRON INJ 2 MG/ML 2 ML VIAL IV PRN (16:56)
[2020-01-12] MEDS: NSS + 20MEQ KCL 20 MEQ/1,000 ML BAG IV SCH (17:40)
[2020-01-12] MEDS: HEPARIN SOD 5,000 UNIT/0.5 ML VIAL SQ SCH (20:10)
[2020-01-12] MEDS: GABAPENTIN 400 MG CAP PO SCH (20:11)
[2020-01-12] MEDS: PANTOprazole 40 MG TAB PO SCH (20:11)
[2020-01-12] MEDS ORDERED: QUETIAPINE FUMARATE 100 MG TABLET PO SCH (21:00)
[2020-01-12] MEDS: MoRPHine SULFATE 2 MG/ML CARP IV PRN (21:02)
[2020-01-13] MEDS: MoRPHine SULFATE 2 MG/ML CARP IV PRN ×4 (00:05→15:32)
[2020-01-13 01:45] LABS: BUN Creatinine Ratio 11.3 (10-20); Creatinine Clr Calc Pharmacy 51.2 ml/min; Est GFR (African American) 86.3; Est GFR (Non-African American) 74.5; Magnesium 1.7 mg/dl (1.8-2.4); Potassium 4.2 mmol/L (3.5-5.1)
[2020-01-13] MEDS: NSS + 20MEQ KCL 20 MEQ/1,000 ML BAG IV SCH (04:00)
[2020-01-13] MEDS: MAGNESIUM SULFATE / D5W 1 GM/100 ML BAG IV SCH ×2 (07:43→10:44)
[2020-01-13] MEDS: PANTOprazole 40 MG TAB PO SCH (07:48)
[2020-01-13] MEDS: GABAPENTIN 400 MG CAP PO SCH ×2 (07:48→15:32)
[2020-01-13] MEDS: HEPARIN SOD 5,000 UNIT/0.5 ML VIAL SQ SCH (07:50)
--- NOTE | 2020-01-13 08:26 | Gastroenterology Progress Note ---
Date of Service January 13, 2020 Assessment & Plan (1) GERD (gastroesophageal reflux disease): (2) History of gastric ulcer: (3) Chest pain: Ultrasound of the abdomen as ordered NPO for EGD this afternoon by Dr. Wilhelm Please refer to supervising physician addendum for further recommendations Admission and Anticipated Discharge Date Admission Date: January 12, 2020 Subjective The patient is a pleasant 59 year old female with a past medical history of anxiety with depression, chronic back pain with herniated disc L4, COPD, h/o TN who was admitted through the emergency department due to chest pain. She reports that she has been experiencing the chest pain over the last 2 months. She has had several ED evaluations and admissions due to symptoms most recently inpatient at [facility]. She is frustrated due to length of symptoms and how much work that she has missed. She reports that she slept okay over night. Reports that she is continuing to have sharp episodes of pain in addition to constant dull chest pain that wraps under left breast. States she had 4 episodes of that sharp chest pain through the night. Denies nausea, vomiting, diarrhea, abdominal pain, black or bloody stools. Reports last bowel movement 2 days ago. She does have a history of heartburn and is taking both Protonix and Pepcid. She is swallowing normally. Review of Systems Review of Systems: All systems reviewed & are unremarkable except as noted in HPI & below Physical Exam Constitutional: WD/WN, vitals as above ENMT: external ear and nose normal, oropharynx normal Neck: trachea midline, no thyromegaly Respiratory: normal respiratory effort, lungs clear to auscultation Cardiovascular: RRR, no murmur, no edema Gastrointestinal (Abdomen): normal bowel sounds, soft, nontender, no hepatosplenomegaly Musculoskeletal: Extremities: no cyanosis and no clubbing Skin: no rashes, warm and dry Neurologic: PERRL, EOMI, accommodation nl, no face palsy, no dysarthria Psychiatric: A+Ox3, euthymic affect Results & Data ([facility]) Vital Signs (Past 12 Hours) Vital Signs Temp Pulse Pulse Resp BP BP Pulse Ox 01/13/20 08:11 36.5 C 67 20 116/78 92 01/13/20 07:37 64 01/13/20 03:35 36.5 C 68 18 120/82 93 01/13/20 01:25 72 01/12/20 23:23 36.5 C 78 17 105/70 94 Laboratory Results - last 24 hr 01/12/20 01/12/20 01/12/20 13:37 13:37 13:37 WBC 6.56 RBC 3.65 L Hgb 12.7 Hct 38.6 MCV 105.8 H MCH 34.8 H MCHC 32.9 RDW Std Deviation 59.8 H RDW Coeff of Mookie 15.4 H Plt Count 272 MPV 9.0 Immature Gran % (Auto) 0.2 Neut % (Auto) 59.6 Lymph % (Auto) 30.0 Parker % (Auto) 7.9 Eos % (Auto) 1.7 Baso % (Auto) 0.6 Neut # (Auto) 3.91 Lymph # (Auto) 1.97 Parker # (Auto) 0.52 Eos # (Auto) 0.11 Baso # (Auto) 0.04 Immature Gran # (Auto) 0.01 PT 10.7 INR 1.0 APTT 25.7 PTT Ratio 0.9 Sodium 139 Potassium 3.0 L Chloride 105 Carbon Dioxide 22 Anion Gap 11.0 BUN 8 Creatinine 0.82 Est Cr Clr Drug Dosing 53.7 Est GFR ( Amer) 91.4 Est GFR (Non-Af Amer) 78.9 BUN/Creatinine Ratio 10.0 Glucose 110 H Calcium 8.4 L Magnesium 2.0 Total Bilirubin 0.3 AST 40 H ALT 49 Alkaline Phosphatase 161 H Troponin I 0.016 Total Protein 5.9 L Albumin 2.8 L Globulin 3.1 Albumin/Globulin Ratio 0.9 Lipase 270 01/12/20 01/13/20 01/13/20 17:18 01:02 01:02 WBC RBC Hgb Hct MCV MCH MCHC RDW Std Deviation RDW Coeff of Mookie Plt Count MPV Immature Gran % (Auto) Neut % (Auto) Lymph % (Auto) Parker % (Auto) Eos % (Auto) Baso % (Auto) Neut # (Auto) Lymph # (Auto) Parker # (Auto) Eos # (Auto) Baso # (Auto) Immature Gran # (Auto) PT INR APTT PTT Ratio Sodium 145 Potassium 4.2 D Chloride 113 H Carbon Dioxide 27 Anion Gap 5.0 BUN 10 Creatinine 0.86 Est Cr Clr Drug Dosing 51.2 Est GFR ( Amer) 86.3 Est GFR (Non-Af Amer) 74.5 BUN/Creatinine Ratio 11.3 Glucose 86 Calcium 8.0 L Magnesium 1.7 L Total Bilirubin AST ALT Alkaline Phosphatase Troponin I < 0.015 0.016 Total Protein Albumin Globulin Albumin/Globulin Ratio Lipase (1) Chest pain Chest pain type: unspecified Qualified Code(s): R07.9 - Chest pain, unspecified
[2020-01-13] MEDS ORDERED: ASPIRIN 81 MG ECTAB PO SCH (09:00)
[2020-01-13] MEDS ORDERED: ATORVASTATIN 20 MG TAB PO SCH (09:00)
--- NOTE | 2020-01-13 09:02 | Electrocardiogram Report ---
Test Reason : Blood Pressure : / mmHG Vent. Rate : 060 BPM Atrial Rate : 060 BPM P-R Int : 146 ms QRS Dur : 072 ms QT Int : 446 ms P-R-T Axes : 069 037 041 degrees QTc Int : 446 ms Normal sinus rhythm Low voltage QRS Poor R wave progression, consider anterior MN vs. lead placement vs. LVH Abnormal ECG When compared with ECG of 12-JAN-2020 13:01, No significant change was found Confirmed by Cristian Murry ([id number]) on 01/13/2020 9:01:57 AM Referred By: REFERRED SELF Confirmed By:Cristian Murry
[2020-01-13] MEDS ORDERED: PROPOFOL IV EMULSION 10 MG/ML 20 ML VIAL IV ONE (12:41)
[2020-01-13] MEDS ORDERED: LIDOCAINE HCL 2% 2 ML VIAL/AMP(20MG/ML) INFIL ONE (12:41)
--- NOTE | 2020-01-13 12:51 | Anesthesiology Consultation ---
Date of Service January 13, 2020 Assessment & Plan (1) Encounter for pre-operative examination: Chart Review Chart Review: Acceptable Risk for Surgery and Patient NOT seen in Pre Admission Testing Consults Requested none ASA ASA3 Proposed Anesthesia Anesthesia Type: MAC Risk / Benefits Reviewed With: PT / POA / Parent / Guardian, Accepts Plan and Informed Consent Obtained History Surgery Operation Date: 01/13/20 08:30 Proposed Procedures p Esophagogastroduodenoscopy Dr Melonie Wilhelm Height/Weight Height: 5 ft Weight: 48.3 kg Allergies Allergy/AdvReac Type Severity Reaction Status Date / Time Penicillins Allergy Severe Swelling Verified 01/13/20 12:47 and shortness of breath latex Allergy Intermediate Itchy Verified 01/13/20 12:47 rash,localized burning sensation atorvastatin AdvReac EXCESSIVE Unverified 01/13/20 12:47 BLEEDING Medications Home Medications Medication Instructions Recorded Confirmed Last Taken buspirone 5 mg tablet 5 mg PO BID #60 tab 02/22/19 01/12/20 06/08/19 varenicline 1 mg tablet 1 mg PO DAILY tab 02/22/19 01/12/20 06/08/19 famotidine 10 mg tablet 10 mg PO DAILY PRN 04/12/19 01/12/20 06/08/19 metoclopramide HCl 5 mg PO TID 06/07/19 01/12/20 06/07/19 pantoprazole 20 mg PO QAM 06/07/19 01/12/20 06/07/19 Trintellix 20 mg PO HS 12/09/19 01/12/20 Unknown azelastine 1 sprays INTNAS BID PRN 12/09/19 01/12/20 Unknown fluticasone propionate [Allergy 1 sprays INTRANASAL DAILY PRN 12/09/19 01/12/20 Unknown Relief (fluticasone)] gabapentin 400 mg PO TID 12/09/19 01/12/20 Unknown quetiapine 100 mg PO HS 12/09/19 01/12/20 Unknown nitroglycerin 0.3 mg SUBLINGUAL DIRECTED PRN 12/29/19 01/12/20 Unknown sucralfate [Carafate] 1 g PO ACHS 28 Days #28 tab 01/09/20 01/12/20 Unknown Active Medications Generic Name Dose Route Start Last Admin Trade Name Freq PRN Reason Stop Dose Admin Aspirin 81 mg 01/13/20 09:00 01/13/20 07:50 Aspirin 81 Mg Ectab PO 02/12/20 08:59 Not Given QAM BRODERICK Atorvastatin Calcium 20 mg 01/13/20 09:00 01/13/20 07:48 Atorvastatin 20 Mg Tab PO 02/12/20 08:59 20 mg DAILY BRODERICK Administration Buspirone HCl 5 mg 01/12/20 21:00 01/13/20 07:48 Buspirone 5 Mg Tab PO 02/11/20 20:59 5 mg BID BRODERICK Administration Gabapentin 400 mg 01/12/20 21:00 01/13/20 07:48 Gabapentin 400 Mg Cap PO 02/11/20 20:59 400 mg TID BRODERICK Administration Heparin Sodium (Porcine) 5,000 units 01/12/20 21:00 01/13/20 07:50 Heparin Sod 5,000 Unit/0.5 Ml Vial SQ 02/11/20 20:59 Not Given Q12 BRODERICK Potassium Chloride/Sodium Chloride 20 meq in 1,000 mls @ 100 mls/hr 01/12/20 17:30 01/13/20 12:37 Normal Saline W/20 Meq Kcl IV 01/13/20 13:29 0 mls/hr .Q10H BRODERICK Infusion Morphine Sulfate 2 mg 01/12/20 16:56 01/13/20 07:54 Morphine Sulfate 2 Mg/Ml Carp IV 01/26/20 16:55 2 mg Q30M PRN Administration Chest Pain Pantoprazole Sodium 40 mg 01/12/20 21:00 01/13/20 07:48 Pantoprazole 40 Mg Tab PO 02/11/20 20:59 40 mg BID BRODERICK Administration Quetiapine Fumarate 100 mg 01/12/20 21:00 01/12/20 20:10 Quetiapine Fumarate 100 Mg Tablet PO 02/11/20 20:59 100 mg HS BRODERICK Administration NPO Date Last Intake of Fluids: 01/12/20 Time Last Intake of Fluids: 23:30 Date Last Intake of Solids: 01/12/20 Time Last Intake of Solids: 17:30 Past Medical History Medical History Anxiety Anxiety with depression Chronic back pain L4 - HERNIATED DISC HAD LESI Chronic obstructive pulmonary disease Depression GERD (gastroesophageal reflux disease) Hyperlipidemia LDL goal <70 Myocardial Infarction 2015 - [facility], HEART CATH - NO STENTS JUST WATCHING FOLLOW WITH [place] [facility] Exercise / Class Metabolic Activity II 4-5 Yardwork/Stairs/Walk up hill Past Family History Family History Mother Breast cancer Brother Prostate cancer Family/Other Myocardial infarction self Denies family history of Ovarian cancer Colorectal cancer Past Surgical History Surgical History History of appendectomy History of arthroscopic knee surgery History of bilateral tubal ligation History of cardiac cath 2014 HEART CATH AND NO STENT History of section History of laparoscopic appendectomy History of oral surgery FULL MOUTH EXTR History of tonsillectomy Past Anesthesia History No Hx of Anesthesia Complications and No Family Hx of Anesthesia Complications History of PONV No Hx of PONV and No Hx of Motion Sickness Social History Smoking Status: Never smoker Hx Alcohol Use: No Hx Substance Use: No substance use type: does not use Physical Exam Vital Signs Last Vital Signs Temp 36.6 C 01/13/20 12:38 Pulse 64 01/13/20 12:38 Resp 18 01/13/20 12:38 BP 111/72 01/13/20 12:38 Pulse Ox 93 01/13/20 12:38 ENMT Mouth: + dentures Thyromental Distance: > or= 3.5 Finger Breadths Mallampati Class: II Neck normal visual inspection Respiratory normal respiratory effort Auscultation: lungs clear to auscultation bilaterally Cardiovascular Rate/Rhythm: regular rate and regular rhythm Psychiatric Orientation: alert Testing Laboratory Results 01/12/20 13:37 01/13/20 01:02 PT 10.7 Seconds (9.0-12.0) 01/12/20 13:37 INR 1.0 (0.9-1.1) 01/12/20 13:37 APTT 25.7 Seconds (21.0-31.0) 01/12/20 13:37
--- NOTE | 2020-01-13 12:53 | History & Physical Report ---
Date of Service January 13, 2020 Assessment & Plan Admission and Anticipated Discharge Date Admission Date: January 12, 2020 History of Present Illness Chief Complaint: Chest pain Primary Care Provider: JJ Arreola For EGD Allergies Allergy/AdvReac Type Severity Reaction Status Date / Time Penicillins Allergy Severe Swelling Verified 01/13/20 12:47 and shortness of breath latex Allergy Intermediate Itchy Verified 01/13/20 12:47 rash,localized burning sensation atorvastatin AdvReac EXCESSIVE Unverified 01/13/20 12:47 BLEEDING Home Medications Home Medications Medication Instructions Recorded Confirmed Type buspirone 5 mg tablet 5 mg PO BID #60 tab 02/22/19 01/12/20 Rx varenicline 1 mg tablet 1 mg PO DAILY tab 02/22/19 01/12/20 History famotidine 10 mg tablet 10 mg PO DAILY PRN 04/12/19 01/12/20 History metoclopramide HCl 5 mg PO TID 06/07/19 01/12/20 History pantoprazole 20 mg PO QAM 06/07/19 01/12/20 History Trintellix 20 mg PO HS 12/09/19 01/12/20 History azelastine 1 sprays INTNAS BID PRN 12/09/19 01/12/20 History fluticasone propionate [Allergy 1 sprays INTRANASAL DAILY PRN 12/09/19 01/12/20 History Relief (fluticasone)] gabapentin 400 mg PO TID 12/09/19 01/12/20 History quetiapine 100 mg PO HS 12/09/19 01/12/20 History nitroglycerin 0.3 mg SUBLINGUAL DIRECTED PRN 12/29/19 01/12/20 History sucralfate [Carafate] 1 g PO ACHS 28 Days #28 tab 01/09/20 01/12/20 Rx Past Med/Surg History Medical History Anxiety Anxiety with depression Chronic back pain L4 - HERNIATED DISC HAD LESI Chronic obstructive pulmonary disease Depression GERD (gastroesophageal reflux disease) Hyperlipidemia LDL goal <70 Myocardial Infarction 2015 - [facility], HEART CATH - NO STENTS JUST WATCHING FOLLOW WITH [place] [facility] Surgical History History of appendectomy History of arthroscopic knee surgery History of bilateral tubal ligation History of cardiac cath 2015 HEART CATH AND NO STENT History of section History of laparoscopic appendectomy History of oral surgery FULL MOUTH EXTR History of tonsillectomy Family History Mother Breast cancer Brother Prostate cancer Family/Other Myocardial infarction self Denies family history of Ovarian cancer Colorectal cancer Social History Smoking Status: Never smoker Tobacco Type: Cigarettes Second Hand Exposure: No; Hx Alcohol Use: No Hx Substance Use: No Preferred Language: German Communication Ability: Effective 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 Beliefs That Will Affect Care: None marital status: Current Living Situation: Family Current Living Situation Comment: Lives w/ parents current occupational status: employed Feels Safe at Home: Yes Safety Concerns: Feels Safe At This Time Dental Care, Regularly: No Seatbelt Use: always Physical Exam Constitutional: well developed and well nourished Respiratory: normal respiratory effort Cardiovascular: Rate/Rhythm: regular rate and regular rhythm Gastrointestinal (Abdomen): Percussion/Palpation: abdomen soft Musculoskeletal: Pain on left costochondral area Results & Data ([facility]) Vital Signs (Past 12 Hours) Vital Signs Temp Pulse Pulse Resp BP BP Pulse Ox 01/13/20 12:38 36.6 C 64 18 111/72 93 01/13/20 11:25 36.5 C 69 18 102/70 91 01/13/20 08:11 36.5 C 67 20 116/78 92 01/13/20 07:37 64 01/13/20 03:35 36.5 C 68 18 120/82 93 01/13/20 01:25 72 Code Status & VTE Plan VTE Prophylaxis Plan VTE Prophylaxis will be ordered: Yes
[2020-01-13] MEDS ORDERED: SODIUM CHLORIDE 0.9% 1000ML 1,000 ML IV SCH (13:00)
--- NOTE | 2020-01-13 13:23 | GI REPORT ---
Patient Name: Maddie Day Procedure Date: 01/13/2020 12:50 PM Date of : 1960 Admit Type: Inpatient Age: 59 Gender: Female Attending MD: Dennis Wilhelm MD Procedure: Upper GI endoscopy Providers: Dennis Wilhelm MD Referring MD: Octavio Saravia Md Indications: Chest pain (non cardiac) Medicines: Propofol total dose 130 mg IV, Lidocaine 60 mg IV Complications: No immediate complications. Estimated Blood Loss: Estimated blood loss: none. Procedure: Pre-Anesthesia Assessment: - Prior to the procedure, a History and Physical was performed, and patient medications, allergies and sensitivities were reviewed. The patient's tolerance of previous anesthesia was reviewed. - The risks and benefits of the procedure and the sedation options and risks were discussed with the patient. All questions were answered and informed consent was obtained. After obtaining informed consent, the endoscope was passed under direct vision. Throughout the procedure, the patient's blood pressure, pulse, and oxygen saturations were monitored continuously. The Endoscope was introduced through the mouth, and advanced to the second part of duodenum. The upper GI endoscopy was accomplished without difficulty. The patient tolerated the procedure well. Findings: The Z-line was regular and was found 40 cm from the incisors. The examined esophagus was normal. A medium amount of a phytobezoar was found in the gastric body. The examined duodenum was normal. Impression: - Z-line regular, 40 cm from the incisors. - Normal esophagus. - A medium amount of a phytobezoar in the stomach. - Normal examined duodenum. - No specimens collected. Recommendation: - [facility]. - Clear liquid diet for 1 week. Dennis Wilhelm M.D. Dennis Wilhelm MD 01/13/2020 1:22:48 PM This report has been signed electronically. Note Initiated On: 01/13/2020 12:50 PM Number of Addenda: 0 I attest to the content of the Intraoperative Record and orders documented therein, exceptions below {[id number]}
--- NOTE | 2020-01-13 13:44 | Progress Notes ---
DATE: 01/13/2020 The patient underwent an EGD today for evaluation of her chest pain. The patient's esophagus was normal. She had a gastric bezoar, but the pylorus was patent and I was able to enter easily into the small intestine. There was no stricture or obstruction or inflammation. IMPRESSION: The patient has what appears to be costochondritis on physical exam on the left side of the sternal area, probably responsible for her chest pain. When I evaluated her in the Emergency Room, pressure in this area reproduces the pain that she has been experiencing. I think the gastric bezoar is an incidental finding and may be related to some of her medications that she is taking. At this point, I would recommend a clear liquid diet for a week as well as Motegrity 1 mg a day off label for its promotility effects. She is scheduled also for an ultrasound and if that is negative, the patient can probably be followed as an outpatient.
--- NOTE | 2020-01-13 14:05 | Anesthesiology Progress Note ---
Date of Service January 13, 2020 Anesthesia Post Procedure Vital Signs Vital Signs: Temp Pulse Pulse Resp BP BP BP 01/13/20 13:49 67 18 120/84 01/13/20 13:35 66 18 117/65 01/13/20 13:19 71 18 110/74 01/13/20 12:38 36.6 C 64 18 111/72 01/13/20 11:25 36.5 C 69 18 102/70 01/13/20 08:11 36.5 C 67 20 116/78 01/13/20 07:37 64 01/13/20 03:35 36.5 C 68 18 120/82 01/13/20 01:25 72 01/12/20 23:23 36.5 C 78 17 105/70 01/12/20 19:28 36.8 C 71 18 120/74 01/12/20 16:52 79 01/12/20 15:30 80 17 106/67 01/12/20 15:00 80 14 109/75 01/12/20 14:40 81 18 98/64 L 01/12/20 14:39 75 15 95/62 L 01/12/20 14:30 78 15 93/55 L 01/12/20 14:28 74 14 93/62 L Pulse Ox 01/13/20 13:49 95 01/13/20 13:35 98 01/13/20 13:19 95 01/13/20 12:38 93 01/13/20 11:25 91 01/13/20 08:11 92 01/13/20 07:37 01/13/20 03:35 93 01/13/20 01:25 01/12/20 23:23 94 01/12/20 19:28 99 01/12/20 16:52 01/12/20 15:30 94 01/12/20 15:00 95 01/12/20 14:40 97 01/12/20 14:39 97 01/12/20 14:30 97 01/12/20 14:28 93 Pain Intensity Chest: Pain Intensity: 1 Transfer of Care Handoff Completed per policy Notes Mental Status: alert / awake / arousable Patient Amnestic to Procedure: Yes Nausea / Vomiting: adequately controlled Pain: adequately controlled Airway Patency, RR, SpO2: stable & adequate BP & HR: stable & adequate Hydration State: stable & adequate Anesthetic Complications: no major complications apparent
--- NOTE | 2020-01-13 15:28 | Discharge Summary ---
Date of Service January 13, 2020 Admission HPI Per Admitting Provider For EGD Principal Diagnosis Left chest / epigastric pain Discharge Exam Constitutional WD/WN, vitals as above Eyes EOM intact bilaterally; no conjunctival abnormality ENMT external ear and nose normal, oropharynx normal Neck trachea midline, no thyromegaly normal visual inspection Respiratory normal respiratory effort, lungs clear to auscultation no respiratory distress Cardiovascular RRR, no murmur, no edema Gastrointestinal (Abdomen) Inspection/Auscultation: abdomen normal to inspection; abdomen not distended Musculoskeletal no cyanosis or clubbing, extremities motor strength 5/5 Skin no rashes, warm and dry Neurologic moves all extremities and awake Psychiatric Orientation: alert, oriented to person and cooperative Discharge Data Allergies Allergy/AdvReac Type Severity Reaction Status Date / Time Penicillins Allergy Severe Swelling Verified 01/13/20 12:47 and shortness of breath latex Allergy Intermediate Itchy Verified 01/13/20 12:47 rash,localized burning sensation atorvastatin AdvReac EXCESSIVE Unverified 01/13/20 12:47 BLEEDING Consultations 01/12/20 14:20 ED Decision to Admit Stat 01/12/20 16:56 Consult Gastroenterology Routine Procedures Performed Operation Date: 01/13/20 08:30 Actual Procedures p Esophagogastroduodenoscopy - Dennis Wilhelm Ordered Studies 01/12/20 15:56 US point of care ultrasound Routine Hospital Course (1) Precordial chest pain: Patient described her pain as a left, lower chest wall pain that if left untreated (with oral or topical pain medications) would radiate up to her jaw and was associated with flushing and dizziness. - She had an inconclusive stress test at [facility] in late November. She was also admitted to [facility] in 11/2019 for similar presentation. - She was seen by Dr. Wilhelm in the hospital. EGD on 01/12 revealed bezoar in the stomach, but no explanation for her pain. Dr. Wilhelm recommended gallbladder ultrasound, but it not correctly transferred to the u/s department. In the afternoon, after her EGD, the patient requested discharge. I did discuss with her the possibility of having the ultrasound done either this evening or overnight, but she deferred and wanted to be discharged. She indicated she would follow up with per PCP or Dr. Wilhelm as outpatient. - Given the "inconclusive" stress test during which the patient reported she did have similar symptoms to her chest pain, I offered her a consultation with cardiology. She had one scheduled as an outpatient that she missed today (01/12) due to being in the hospital. She also deferred inpatient cardiology consult, and I did recommend she get the next available appointment so as not to delay evaluation by a picture hanger. (2) GERD (gastroesophageal reflux disease): (3) Chronic obstructive pulmonary disease: (4) Anxiety with depression: Total Time Total Time Spent Total Time Spent (In Minutes): 35 Discharge Plan Discharge Items Patient Disposition: Home - Self-Care Reason For Visit: CHEST PAIN Discharge Diagnosis: Likely rib pain Condition on Discharge: Good Activity: Resume your previous activity Non-emergency contact: Primary Care Provider and Technical Support Assistant Call non-emergency contact if: your symptoms worsen Follow-up/Referrals: Evonne Alvarez CRNP [Primary Care Provider] - Dennis Wilhelm [Physician] - (Please see Dr. Wilhelm in 2 weeks to see how you are feeling and to consider the ultrasound.) Diet: Clear liquid Addtl Attending Provider Instructions: Ms. Day, Shiraz were admitted to the hospital with chest pain. You underwent an EGD in the hospital that showed some residual food in your stomach. Dr. Wilhelm would like you to eat a clear-liquid diet for 1 week then gradually introduce soft foods i nto your diet again. He has also started a new medication to help your stomach motility to try to help move along the residue. Please see Dr. Wilhelm or your PCP to discuss the ultrasound of your gallbladder. Please reschedule your cardiology appointment at your earliest convenience to see if the doctor would like to pursue further testing. Pending Studies at Discharge: No Stand-Alone Forms: My [facility] [employer], Smoking Cessation Medications and DC Order Prescriptions: New Motegrity 1 mg tablet 1 mg PO DAILY Qty: 7 RF: 0 Continued famotidine [Pepcid AC] 10 mg tablet 10 mg PO DAILY PRN (Reason: Stomach Upset) RF: 0 Chantix 1 mg tablet 1 mg PO DAILY RF: 0 buspirone 5 mg tablet 5 mg PO BID Qty: 60 RF: 2 pantoprazole 20 mg tablet,delayed release (DR/EC) 20 mg PO QAM RF: 0 metoclopramide HCl 5 mg tablet 5 mg PO TID RF: 0 quetiapine 100 mg tablet 100 mg PO HS RF: 0 Trintellix 20 mg tablet 20 mg PO HS RF: 0 gabapentin 400 mg capsule 400 mg PO TID RF: 0 azelastine 137 mcg (0.1 %) aerosol,spray 1 sprays INTNAS BID PRN (Reason: COPD) RF: 0 fluticasone propionate [Allergy Relief (fluticasone)] 50 mcg/actuation spray,suspension 1 sprays intranasal DAILY PRN (Reason: Allergy Symptoms) RF: 0 sucralfate [Carafate] 1 gram tablet 1 g PO ACHS 28 Days Qty: 28 RF: 0 nitroglycerin 0.3 mg tablet, sublingual 0.3 mg sublingual DIRECTED PRN (Reason: Chest Pain) RF: 0 Discharge Orders: Discharge Order (Routine); Ordered 01/13/20 Ordered By: Octavio Saravia Admission Data Admit Date/Time: 01/12/20 15:10 Attending Provider: Octavio Saravia Admit Provider: Jimmy Anton Primary Care Provider: Evonne Alvarez Other Providers: Dennis Wilhelm ; Octavio Saravia Coding Level of Care Code 27442 OBS Care - Discharge Diagnoses Precordial chest pain R07.2 GERD (gastroesophageal reflux disease) K21.9 Chronic obstructive pulmonary disease J44.9 Anxiety with depression F41.8
[2020-01-13] MEDS ORDERED: TRINTELLIX: ORDER AWAITING ACTION SCH (17:15)
[2020-01-14] MEDS ORDERED: MOTEGRITY PO SCH (09:00)
== END 2020-01-13 16:35 | disposition home or self-care (01) ==
LOC: 2N 12:58 → ED 12:58 → SUATTDRO 15:10 → 2N 15:53

== ENCOUNTER 2020-01-19 10:59 | Observation (INO) ==
--- NOTE | 2020-01-19 11:23 | Emergency Department Note ---
ED Visit Note I assisted Dr. Blue in the care of this patient. Please see attending attestation for additional information. Luis Aguayo DO Resident, Family & Community Medicine, [facility] . Resident Activity Tracking Resident Involvement: Resident Care Provided Care Provided: Adult ED
[2020-01-19 11:29] LABS: Hematocrit (blood only) 40.1 % (37-47); Hemoglobin 13.1 g/dL (12.0-16.0); Mean Corpuscular Hemoglobin 34.4 pg (25-34); Mean Corpuscular Hgb Conc 32.7 g/dL (32-36); Mean Corpuscular Volume 105.2 fL (80-100); Mean Platelet Volume 9.1 fL (7.4-10.4); Platelet Count 336 K/uL (130-400); RDW Coefficient of Variation 15.7 % (11.5-14.5); RDW Standard Deviation 60.7 fL (36.4-46.3); Red Blood Count 3.81 M/uL (4.2-5.4); White Blood Count 3.42 K/uL (4.8-10.8)
[2020-01-19 11:37] LABS: Alanine Aminotransferase 34 U/L (12-78); Albumin Level 2.8 gm/dl (3.4-5.0); Aspartate Aminotransferase 38 U/L (15-37); BUN Creatinine Ratio 10.1 (10-20); Blood Urea Nitrogen 8 mg/dl (7-18); Calcium 8.7 mg/dl (8.5-10.1); Carbon Dioxide 23 mmol/L (21-32); Chloride 113 mmol/L (98-107); Creatinine Clr Calc Pharmacy 53.7 ml/min; Est GFR (African American) 91.4; Est GFR (Non-African American) 78.9; Glucose 87 mg/dl (70-99); Lipase 106 U/L (73-393); Potassium 3.4 mmol/L (3.5-5.1); Sodium 145 mmol/L (136-145)
[2020-01-19] MEDS ORDERED: ALUMINUM/MAGNESIUM SUSP 18 ML, LIDOCAINE HCL VISCOUS 2% 6 ML, BARCODE IDENTIFIER 1 EA PO ONE (11:37)
--- NOTE | 2020-01-19 11:38 | Emergency Department Note ---
Impression & Plan Chest pain, Neutropenia ED Provider Note NAME: Maddie MORA AGE: 59 SEX: F : 1960 ARRIVES VIA: Ambulance INFORMANT: Patient, ED PROVIDER(S): Guilherme Blue DO CHIEF COMPLAINT: Chest pain HPI: The patient is a 59-year-old female who presented to the emergency department for chest pain. The patient states that she is had similar episodes multiple times in the past. She does have nitroglycerin. She took nitroglycer in without relief. She does complain of some nausea but no vomiting. She does have medication for GERD. The patient has been seen in our facility recently multiple times for this chest pain. No definite diagnosis has been made. The patient's cardiac work-up has been negative on multiple occasions. She had a CT angios of the chest in November when the symptoms began. This was for pulmonary venous thromboembolic disease. She denies having any diarrhea or fever. She denies having any cough. The patient has no lower extremity swelling or pain at this time. She is had pain constant x24 hours. ROS: See above HPI for pertinent positives & negatives. A total of 10 systems reviewed and were otherwise negative. PAST MEDICAL HISTORY: See Below PAST SURGICAL HISTORY: See Below FAMILY HISTORY: See Below SOCIAL HISTORY: See Below HOME MEDICATIONS: See Below ALLERGIES: See Below VITALS: See Below PHYSICAL EXAMINATION: GENERAL: Patient is awake alert in no acute distress patient is resting comfortably and showing no signs of anxiety EYES: The conjunctivae are clear. The pupils are round and reactive. EARS, NOSE, MOUTH AND THROAT: The nose is without any evidence of any deformity. Mucous membranes are moist. Tongue is midline. NECK: The neck is nontender and supple. RESPIRATORY: Normal respiratory effort is noted there is no evidence of wheezing rhonchi or rales CARDIOVASCULAR: Regular rate and rhythm noted there no murmurs rubs or gallops normal S1 normal S2. GASTROINTESTINAL: The abdomen is soft. Abdomen is nontender. MUSCULOSKELETAL/EXTREMITIES: There is no evidence of gross deformity full range of motion is noted in the hips and shoulders. SKIN: There is no obvious evidence of any rash. There are no petechiae, pallor or cyanosis noted. NEUROLOGIC: Patient is awake alert and oriented x3 strength is symmetric patellar reflexes are 2+ bilaterally MEDICAL DECISION MAKING: The patient is a 59-year-old female who was seen in our facility multiple times for chest pain. She does appear to have substernal chest pain. The patient's EKG shows no changes from previous and her cardiac biomarker was negative. The patient was found to have neutropenia in the emergency department. This is the first time she has had this finding. I discussed the patient's laboratory and radiographic studies with her. [facility] Triage Nursing notes reviewed. Prior medical records reviewed Vital Signs: reviewed and remarkable for no significant abnormalities Differential diagnosis: Cardiac ischemia, aortic dissection, pulmonary embolism, pneumothorax, pneumonia, pericarditis, myocarditis, esophageal rupture, GERD, cholecystitis, pancreatitis, musculoskeletal, as well as other pathologies. ER treatment provided: See below Diagnostics interpreted by me: ECG: EKG was obtained in the emergency department. My interpretation is normal sinus rhythm at 73 bpm. There is no ectopy. There is no acute ST segment abnormalities noted. This was compared to a tracing from January 122019. No significant changes were noted. Cardiac Monitoring: An order was placed for continuous cardiac monitoring. The monitor shows a rate of 82 bpm with sinus rhythm. Laboratory studies: As stated above and show below. Imaging studies: See below [facility] ED COURSE: Procedures: none PDMP:reviewed and no issues Critical Care: None Past Med/Surg History Medical History Anxiety Anxiety with depression Chronic back pain L4 - HERNIATED DISC HAD LESI Chronic obstructive pulmonary disease Depression GERD (gastroesophageal reflux disease) Myocardial Infarction 2015 - [facility], HEART CATH - NO STENTS JUST WATCHING FOLLOW WITH [place] [facility] Surgical History History of cardiac cath 2015 HEART CATH AND NO STENT History of section History of laparoscopic appendectomy Family History Mother Breast cancer Brother Prostate cancer Family/Other Myocardial infarction self Denies family history of Ovarian cancer Colorectal cancer Social History Smoking Status: Former smoker Tobacco Type: Cigarettes Second Hand Exposure: No; Hx Alcohol Use: No Hx Substance Use: No Preferred Language: Tongan Communication Ability: Effective [employer] Required: No Beliefs That Will Affect Care: None marital status: Current Living Situation: Family Current Living Situation Comment: Lives w/ parents current occupational status: employed Feels Safe at Home: Yes Dental Care, Regularly: No Seatbelt Use: always Allergies Allergies Allergy/AdvReac Type Severity Reaction Status Date / Time Penicillins Allergy Severe Swelling Verified 01/19/20 12:18 and shortness of breath latex Allergy Intermediate Itchy Verified 01/19/20 12:18 rash,localized burning sensation atorvastatin AdvReac EXCESSIVE Unverified 01/19/20 12:18 BLEEDING Home Meds Home Medications Medication Instructions Recorded Confirmed varenicline 1 mg tablet 1 mg PO QAM tab 02/22/19 01/19/20 famotidine 10 mg tablet 10 mg PO DAILY PRN 04/12/19 01/19/20 metoclopramide HCl 5 mg PO TID 06/07/19 01/19/20 pantoprazole 20 mg PO QAM 06/07/19 01/19/20 Trintellix 20 mg PO HS 12/09/19 01/19/20 azelastine 1 sprays INTNAS BID PRN 12/09/19 01/19/20 fluticasone propionate [Allergy 1 sprays INTRANASAL DAILY PRN 12/09/19 01/19/20 Relief (fluticasone)] gabapentin 400 mg PO TID 12/09/19 01/19/20 quetiapine 100 mg PO HS 12/09/19 01/19/20 nitroglycerin 0.3 mg SUBLINGUAL DIRECTED PRN 12/29/19 01/19/20 naproxen sodium [Aleve] 220 mg PO Q12H PRN 01/19/20 01/19/20 Previous Rx's Medication Instructions Recorded buspirone 5 mg tablet 5 mg PO BID #60 tab 02/22/19 sucralfate [Carafate] 1 g PO ACHS 28 Days #28 tab 01/09/20 prucalopride [Motegrity] 1 mg PO DAILY #7 tab 01/13/20 Results & Data (ED) Vital Signs Vital Signs - 24 hr 01/19/20 11:06 01/19/20 11:12 01/19/20 11:30 Temperature 36.7 C Temperature Source Oral Pulse Rate 81 83 80 Pulse Rate from SpO2 Sensor 83 80 80 Pulse Rhythm Regular Pulse Strength Normal Respiratory Rate 17 18 20 Respiratory Effort / Characteristics Non-Labored Spontaneous Respiratory Depth Normal Respiratory Pattern Regular Blood Pressure 106/71 93/62 L Blood Pressure Mean 80 73 Blood Pressure Position Lying Pulse Oximetry 98 97 95 Oxygen Delivery Method Room Air Room Air Room Air Sepsis Recent Fever Within 48 Hours No Sepsis New/Unexplained Change in Mental Status No Sepsis Action Taken by Nursing No Action Required 01/19/20 11:31 01/19/20 12:00 01/19/20 12:30 Temperature Temperature Source Pulse Rate 79 80 82 Pulse Rate from SpO2 Sensor 79 80 81 Pulse Rhythm Pulse Strength Respiratory Rate 19 18 19 Respiratory Effort / Characteristics Respiratory Depth Respiratory Pattern Blood Pressure 103/64 Blood Pressure Mean 73 Blood Pressure Position Pulse Oximetry 95 92 94 Oxygen Delivery Method Room Air Room Air Room Air Sepsis Recent Fever Within 48 Hours Sepsis New/Unexplained Change in Mental Status Sepsis Action Taken by Nursing 01/19/20 13:00 Temperature Temperature Source Pulse Rate 76 Pulse Rate from SpO2 Sensor 76 Pulse Rhythm Pulse Strength Respiratory Rate 15 Respiratory Effort / Characteristics Respiratory Depth Respiratory Pattern Blood Pressure 95/57 L Blood Pressure Mean 70 Blood Pressure Position Pulse Oximetry 92 Oxygen Delivery Method Room Air Sepsis Recent Fever Within 48 Hours Sepsis New/Unexplained Change in Mental Status Sepsis Action Taken by [facility] Medications Current Medication List: was personally reviewed by me Laboratory Data Attestation: I reviewed the patient's lab results. Result diagrams: 01/19/20 11:10 01/19/20 11:10 Lab Results 01/19/20 01/19/20 01/19/20 Range/Units 11:10 11:10 11:30 WBC 3.42 L (4.8-10.8) K/uL RBC 3.81 L (4.2-5.4) M/uL Hgb 13.1 (12.0-16.0) g/dL Hct 40.1 (37-47) % MCV 105.2 H (80-100) fL MCH 34.4 H (25-34) pg MCHC 32.7 (32-36) g/dL RDW Std Deviation 60.7 H (36.4-46.3) fL RDW Coeff of Mookie 15.7 H (11.5-14.5) % Plt Count 336 (130-400) K/uL MPV 9.1 (7.4-10.4) fL Immature Gran % (Auto) 0.6 % Neut % (Auto) 25.7 % Lymph % (Auto) 57.3 % [place] % (Auto) 10.2 % Eos % (Auto) 5.6 % Baso % (Auto) 0.6 % Neut # (Auto) 0.88 L* (1.4-6.5) K/uL Lymph # (Auto) 1.96 (1.2-3.4) K/uL [place] # (Auto) 0.35 (0.11-0.59) K/uL Eos # (Auto) 0.19 (0-0.5) K/uL Baso # (Auto) 0.02 (0-0.2) K/uL Immature Gran # (Auto) 0.02 (0.00-0.02) K/uL PT 11.1 (9.0-12.0) Seconds INR 1.1 (0.9-1.1) APTT 27.2 (21.0-31.0) Seconds PTT Ratio 1.0 Sodium 145 (136-145) mmol/L Potassium 3.4 L (3.5-5.1) mmol/L Chloride 113 H (98-107) mmol/L Carbon Dioxide 23 (21-32) mmol/L Anion Gap 9.0 (3-11) BUN 8 (7-18) mg/dl Creatinine 0.82 (0.6-1.2) mg/dl Est Cr Clr Drug Dosing 53.7 ml/min Est GFR ( Amer) 91.4 Est GFR (Non-Af Amer) 78.9 BUN/Creatinine Ratio 10.1 (10-20) Glucose 87 (70-99) mg/dl Calcium 8.7 (8.5-10.1) mg/dl Total Bilirubin 0.2 (0.2-1) mg/dl AST 38 H (15-37) U/L ALT 34 (12-78) U/L Alkaline Phosphatase 148 H (45-117) U/L Troponin I < 0.015 (0-0.045) ng/ml Total Protein 5.8 L (6.4-8.2) gm/dl Albumin 2.8 L (3.4-5.0) gm/dl Globulin 3.0 (2.5-4.0) gm/dl Albumin/Globulin Ratio 0.9 (0.9-2) Lipase 106 (73-393) U/L Administered Medications Discontinued Medications Al Hydrox/Mg Hydrox/Simethicone (Gi Cocktail Ed Use) Confirm Administered Dose 1 dose PO .STK-MED ONE Stop: 01/19/20 11:48 Last Admin: 01/19/20 11:50 Dose: 1 dose Documented by: [id number] Al Hydrox/Mg Hydrox/Simethicone 18 ml/ Lidocaine HCl 6 ml/ BARCODE IDENTIFIER 1 ea 0 ml PO ONE ONE Stop: 01/19/20 11:38 Last Admin: 01/19/20 11:50 Dose: Not Given Documented by: [id number] Nitroglycerin (Nitroglycerin Sl 0.4 Mg/Tab Tab) 0.4 mg SL NOW STA Stop: 01/19/20 12:17 Last Admin: 01/19/20 12:29 Dose: 0.4 mg Documented by: [id number] Pantoprazole Sodium (Pantoprazole 40 Mg Tab) 40 mg PO NOW STA Stop: 01/19/20 11:38 Last Admin: 01/19/20 11:52 Dose: Not Given Documented by: [id number] Imaging Data Radiologist's Impression: XR chest 1V portable CLINICAL HISTORY: Atypical chest pain COMPARISON STUDY: 01/12/2020 FINDINGS: The cardiac and mediastinal contours are normal. There is no evidence of focal pulmonary consolidation. There is no evidence of failure. No pleural effusions are visualized.[ IMPRESSION: No active disease in the chest. ACT 112: Negative or not required by law. Electronically signed by: Thomas Baldwin M.D. 01/19/2020 12:03 PM Dictated: 01/19/20 1203 Transcribed: 01/19/20 1203 Blood Pressure Blood Pressure Findings: Normal blood pressure Discharge Plan Visit Data Chief Complaint: Chest Pain ED Provider: Guilherme Blue ED Midlevel Provider: Luis Aguayo Discharge Problem: Chest pain, Neutropenia Patient Disposition: Being Evaluated by Hospitalist Condition: Good Forms Stand Alone Forms: My [facility] [employer] Prescriptions Prescriptions: No Action famotidine [Pepcid AC] 10 mg tablet 10 mg PO DAILY PRN (Reason: Stomach Upset) RF: 0 Chantix 1 mg tablet 1 mg PO QAM RF: 0 buspirone 5 mg tablet 5 mg PO BID Qty: 60 RF: 2 pantoprazole 20 mg tablet,delayed release (DR/EC) 20 mg PO QAM RF: 0 metoclopramide HCl 5 mg tablet 5 mg PO TID RF: 0 quetiapine 100 mg tablet 100 mg PO HS RF: 0 Trintellix 20 mg tablet 20 mg PO HS RF: 0 gabapentin 400 mg capsule 400 mg PO TID RF: 0 azelastine 137 mcg (0.1 %) aerosol,spray 1 sprays INTNAS BID PRN (Reason: COPD) RF: 0 fluticasone propionate [Allergy Relief (fluticasone)] 50 mcg/actuation spray,suspension 1 sprays intranasal DAILY PRN (Reason: Allergy Symptoms) RF: 0 sucralfate [Carafate] 1 gram tablet 1 g PO ACHS 28 Days Qty: 28 RF: 0 Motegrity 1 mg tablet 1 mg PO DAILY Qty: 7 RF: 0 naproxen sodium [Aleve] 220 mg Tablet 220 mg PO Q12H PRN (Reason: Pain) RF: 0 nitroglycerin 0.3 mg tablet, sublingual 0.3 mg sublingual DIRECTED PRN (Reason: Chest Pain) RF: 0 Referrals Referrals: Evonne Alvarez CRNP [Primary Care Provider] -
[2020-01-19 11:42] LABS: Albumin Globulin Ratio 0.9 (0.9-2); Alkaline Phosphatase 148 U/L (45-117); Bilirubin,Total 0.2 mg/dl (0.2-1); Total Protein 5.8 gm/dl (6.4-8.2); Troponin I < 0.015 ng/ml (0-0.045)
[2020-01-19] MEDS ORDERED: GI COCKTAIL ED USE PO ONE (11:47)
[2020-01-19] MEDS: PANTOprazole 40 MG TAB PO STA ×2 (11:49→11:52)
[2020-01-19 11:51] LABS: INR 1.1 (0.9-1.1); Partial Thromboplastin Time 27.2 Seconds (21.0-31.0); Prothrombin Time 11.1 Seconds (9.0-12.0)
[2020-01-19 11:58] LABS: Basophils # (auto) 0.02 K/uL (0-0.2); Basophils % (auto) 0.6 %; Eosinophils # (auto) 0.19 K/uL (0-0.5); Eosinophils % (auto) 5.6 %; Immature Granulocytes # (auto) 0.02 K/uL (0.00-0.02); Immature Granulocytes % (auto) 0.6 %; Lymphocytes # (auto) 1.96 K/uL (1.2-3.4); Lymphocytes % (auto) 57.3 %; Monocytes # (auto) 0.35 K/uL (0.11-0.59); Monocytes % (auto) 10.2 %; Neutrophils # (auto) 0.88 K/uL (1.4-6.5); Neutrophils % (auto) 25.7 %
--- NOTE | 2020-01-19 12:04 | XRay Report ---
XR chest 1V portable CLINICAL HISTORY: Atypical chest pain COMPARISON STUDY: 01/12/2020 FINDINGS: The cardiac and mediastinal contours are normal. There is no evidence of focal pulmonary co nsolidation. There is no evidence of failure. No pleural effusions are visualized.[ IMPRESSION: No active disease in the chest. ACT 112: Negative or not required by law. Electronically signed by: Thomas Baldwin M.D. 01/19/2020 12:03 PM
[2020-01-19] MEDS ORDERED: NITROGLYCERIN SL 0.4 MG/TAB TAB SL STA (12:16)
--- NOTE | 2020-01-19 14:13 | History & Physical Report ---
Date of Service January 19, 2020 Assessment & Plan (1) Chest pain: Appears to be coming from chest wall -suspect underlying muscle spasms since the nitroglycerin helping. Possible underlying gastrointestinal source such as gastroparesis -but suspect this is much less likely. Baclofen as needed for muscle spasm Consult pain management (2) Neutropenia: Suspect this is nutritional and will repeat B12/folate/copper. Repeat with a.m. labs (3) Macrocytosis without anemia: B12 and folate with a.m. labs Peripheral smear Denies alcohol use Consider hematology consult if persistent (4) Bulimia: Longstanding history of this No acute worsening as per patient Continue Trintellix 20 mg p.o. at bedtime and quetiapine 100 mg p.o. at bedtime (5) Anxiety with depression: Continue Trintellix as above (6) Gastroparesis: Continue metoclopramide 5 mg p.o. 3 times daily (7) GERD (gastroesophageal reflux disease): Continue pantoprazole 20 mg p.o. every morning, Carafate 1 g p.o. before meals at bedtime (8) Chronic back pain: Continue gabapentin 400 mg p.o. 3 times daily Admission and Anticipated Discharge Date Admission Date: 01/19/2020 History of Present Illness Chief Complaint: Chest pain Primary Care Provider: JJ Arreola Shay is a 59-year-old female who presents to the ER with chest pain. She has had multiple admissions for the same in the past. This is the same as had previous admissions but is been increasing in frequency, duration and severity. She reports this chest pain has been going on for last 2 months intermittently. She would previously take aspirin and it would improve. Currently the only thing she has found that works is nitroglycerin. It is the left center of her chest radiating under her left breast and occasionally to both shoulders and down both arms when it becomes severe enough. Her current episode has been going on since yesterday. No exacerbation with food, exercises/stretches, GI cocktail or Advil not helping. Significantly worse on palpation. Severity currently 10/10 at rest although when I press down on it she was clearly in more pain. Character - feels like being punched in the chest. She was hospitalized here from January 11- due to the same. She underwent EGD on that occasion with food residue removed but this did not change her pain. She has known gastroparesis and takes metoclopramide for the last 2 years for this. She was prescribed prucalopride on her last hospitalization however reports her insurance would not pay for this and she is unable to afford the [id number] expense. Gastroparesis is likely due to many years of bulimia. On discussing her medications she reports starting a lots of medications 3 to 4 years ago including gabapentin to help with low back pain, Trintellix to help with bulimia (she has managed to gain weight in the last 1.5 years with this), quetiapine to help with insomnia. She reports taking Chantix for the last 3 years, however continues to smoke half pack cigarettes a day. Allergies Allergy/AdvReac Type Severity Reaction Status Date / Time Penicillins Allergy Severe Swelling Verified 01/19/20 12:18 and shortness of breath latex Allergy Intermediate Itchy Verified 01/19/20 12:18 rash,localized burning sensation atorvastatin AdvReac EXCESSIVE Unverified 01/19/20 12:18 BLEEDING Home Medications Home Medications Medication Instructions Recorded Confirmed Type buspirone 5 mg tablet 5 mg PO BID #60 tab 02/22/19 01/19/20 Rx varenicline 1 mg tablet 1 mg PO QAM tab 02/22/19 01/19/20 History famotidine 10 mg tablet 10 mg PO DAILY PRN 04/12/19 01/19/20 History metoclopramide HCl 5 mg PO TID 06/07/19 01/19/20 History pantoprazole 20 mg PO QAM 06/07/19 01/19/20 History Trintellix 20 mg PO HS 12/09/19 01/19/20 History azelastine 1 sprays INTNAS BID PRN 12/09/19 01/19/20 History fluticasone propionate [Allergy 1 sprays INTRANASAL DAILY PRN 12/09/19 01/19/20 History Relief (fluticasone)] gabapentin 400 mg PO TID 12/09/19 01/19/20 History quetiapine 100 mg PO HS 12/09/19 01/19/20 History nitroglycerin 0.3 mg SUBLINGUAL DIRECTED PRN 12/29/19 01/19/20 History sucralfate [Carafate] 1 g PO ACHS 28 Days #28 tab 01/09/20 01/19/20 Rx prucalopride [Motegrity] 1 mg PO DAILY #7 tab 01/13/20 01/19/20 Rx naproxen sodium [Aleve] 220 mg PO Q12H PRN 01/19/20 01/19/20 History Past Med/Surg History Medical History Anxiety Anxiety with depression Chronic back pain L4 - HERNIATED DISC HAD LESI Chronic obstructive pulmonary disease Depression GERD (gastroesophageal reflux disease) Myocardial Infarction 2014 - [facility], HEART CATH - NO STENTS JUST WATCHING FOLLOW WITH [place] [facility] Surgical History History of cardiac cath 2014 HEART CATH AND NO STENT History of section History of laparoscopic appendectomy Family History Mother Breast cancer Brother Prostate cancer Family/Other Myocardial infarction self Denies family history of Ovarian cancer Colorectal cancer Social History Smoking Status: Never smoker Tobacco Type: Cigarettes Second Hand Exposure: No; Hx Alcohol Use: No Hx Substance Use: No Preferred Language: Romanian Communication Ability: Effective 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 Beliefs That Will Affect Care: None marital status: Current Living Situation: Family Current Living Situation Comment: Lives w/ parents current occupational status: employed Feels Safe at Home: Yes Safety Concerns: Feels Safe At This Time Dental Care, Regularly: No Seatbelt Use: always Review of Systems Review of Systems: All systems reviewed & are unremarkable except as noted in HPI & below Physical Exam Constitutional: well developed, + thin and + frail appearing; + not well nourished and no acute distress Eyes: PERRL, conjunctivae normal, anicteric sclerae ENMT: external ear and nose normal, oropharynx normal Neck: trachea midline, no thyromegaly Respiratory: normal respiratory effort, lungs clear to auscultation Cardiovascular: RRR, no murmur, no edema Chest (Breasts): normal inspection/palpation of breasts (Focal palpation of anterior cartilage of of left lower ribs) Chest: normal inspection of chest; no mass Gastrointestinal (Abdomen): normal bowel sounds, soft, nontender, no hepatosplenomegaly Musculoskeletal: no cyanosis or clubbing, extremities motor strength 5/5 Skin: no rashes, warm and dry Neurologic: moves all extremities and awake Psychiatric: A+Ox3, euthymic affect Results & Data Results & Data ([facility]) Vital Signs (Past 12 Hours) Vital Signs Temp Pulse Resp BP Pulse Ox 01/19/20 13:30 80 17 88/57 L 95 01/19/20 13:00 76 15 95/57 L 92 01/19/20 12:30 82 19 94 01/19/20 12:00 80 18 103/64 92 01/19/20 11:31 79 19 95 01/19/20 11:30 80 20 93/62 L 95 01/19/20 11:12 83 18 97 01/19/20 11:06 36.7 C 81 17 106/71 98 Diagnostic Findings XR chest 1V portable IMPRESSION: No active disease in the chest. ECG Indication: chest pain Rate (beats per minute): 73 Rhythm: normal sinus Findings: no acute ischemic change Comparison ECG Date: from (January 13, 2020) Change: no significant change Code Status & VTE Plan Code Status Full VTE Prophylaxis Plan VTE Prophylaxis will be ordered: No PG Care Time/CCT Total # of Minutes Spent Total Time Spent with Patient: Total time spent is greater than 50% in coordination of care (as documented) at patient's floor/unit and/or counseling patient: Coding Level of Care Code 01013 OBS Care - Level 3 Diagnoses Chest pain R07.9 Chest pain type: unspecified Neutropenia D70.9 Neutropenia type: unspecified Macrocytosis without anemia D75.89 Bulimia F50.2 Anxiety with depression F41.8 Gastroparesis K31.84 GERD (gastroesophageal reflux disease) K21.9 Chronic back pain M54.9; G89.29 (1) Neutropenia Neutropenia type: unspecified Qualified Code(s): D70.9 - Neutropenia, unspecified (2) Chest pain Chest pain type: unspecified Qualified Code(s): R07.9 - Chest pain, unspecified
[2020-01-19 15:19] LABS: Reticulocyte % 2.6 % (0.5-2.0)
[2020-01-19 15:26] LABS: C Reactive Protein < 0.29 mg/dl (0-0.29); Magnesium 1.8 mg/dl (1.8-2.4); Phosphorus 2.9 mg/dl (2.5-4.9)
[2020-01-19] MEDS ORDERED: FLUTICASONE PROPIONATE NA SPR 16 GM BTL NAE PRN (16:47)
[2020-01-19] MEDS ORDERED: POLYETHYLENE (MIRALAX) 17 GM PACK PO PRN (16:47)
[2020-01-19] MEDS ORDERED: ACETAMINOPHEN 325 MG TAB PO PRN (16:47)
[2020-01-19] MEDS ORDERED: FAMOTIDINE 10 MG TABLET PO PRN (16:47)
[2020-01-19] MEDS ORDERED: ONDANSETRON INJ 2 MG/ML 2 ML VIAL IV PRN (16:47)
[2020-01-19] MEDS ORDERED: ALUMINUM/MAGNESIUM SUSP 30 ML UDC PO PRN (16:47)
[2020-01-19] MEDS: METOCLOPRAMIDE HCL 5 MG TABLET PO SCH (17:47)
[2020-01-19] MEDS: SUCRALFATE 1 GM TAB PO SCH ×2 (17:48→20:38)
[2020-01-19] MEDS: BACLOFEN 10 MG TAB PO PRN (19:48)
[2020-01-19] MEDS ORDERED: POTASSIUM CHLORIDE 20 MEQ TABCR PO ONE (20:00)
[2020-01-19] MEDS: NITROGLYCERIN 2% OINTMENT 30GM TUBE EXT SCH (20:26)
[2020-01-19] MEDS: GABAPENTIN 400 MG CAP PO SCH (20:38)
[2020-01-19] MEDS: MAGNESIUM OXIDE 400 MG TAB PO SCH (20:43)
[2020-01-19] MEDS ORDERED: NON-FORMULARY MEDICATION (Vortioxetine [Trintellix] 20 MG) PO SCH (21:00)
[2020-01-19] MEDS ORDERED: QUETIAPINE FUMARATE 100 MG TABLET PO SCH (21:00)
[2020-01-20] MEDS: NITROGLYCERIN 2% OINTMENT 30GM TUBE EXT SCH ×3 (02:25→14:18)
[2020-01-20 06:37] LABS: Basophils # (auto) 0.02 K/uL (0-0.2); Basophils % (auto) 0.4 %; Eosinophils # (auto) 0.14 K/uL (0-0.5); Eosinophils % (auto) 2.9 %; Hematocrit (blood only) 38.2 % (37-47); Hemoglobin 12.6 g/dL (12.0-16.0); Immature Granulocytes # (auto) 0.01 K/uL (0.00-0.02); Immature Granulocytes % (auto) 0.2 %; Lymphocytes % (auto) 32.6 %; Mean Corpuscular Hemoglobin 34.4 pg (25-34); Mean Corpuscular Volume 104.4 fL (80-100); Mean Platelet Volume 9.2 fL (7.4-10.4); Monocytes # (auto) 0.47 K/uL (0.11-0.59); Monocytes % (auto) 9.6 %; Neutrophils # (auto) 2.67 K/uL (1.4-6.5); Neutrophils % (auto) 54.3 %; Platelet Count 321 K/uL (130-400); RDW Coefficient of Variation 15.6 % (11.5-14.5); RDW Standard Deviation 59.9 fL (36.4-46.3); Red Blood Count 3.66 M/uL (4.2-5.4); White Blood Count 4.91 K/uL (4.8-10.8)
[2020-01-20] MEDS: SUCRALFATE 1 GM TAB PO SCH ×2 (08:15→13:04)
[2020-01-20] MEDS: METOCLOPRAMIDE HCL 5 MG TABLET PO SCH ×2 (08:15→13:04)
[2020-01-20] MEDS: GABAPENTIN 400 MG CAP PO SCH ×2 (08:17→13:04)
[2020-01-20] MEDS: MAGNESIUM OXIDE 400 MG TAB PO SCH (08:17)
[2020-01-20] MEDS: BACLOFEN 10 MG TAB PO PRN ×2 (08:34→13:05)
[2020-01-20] MEDS ORDERED: PANTOprazole 40 MG TAB PO SCH (09:00)
--- NOTE | 2020-01-20 09:13 | Pain Management Consultation ---
Date of Consultation January 20, 2020 Assessment & Plan (1) Chest pain: 1. Consider a sternocostal joint injection on the left lower region. This could be performed at [facility] on an outpatient basis. 2. Continue Baclofen. 3. Continue Voltaren gel and CBD cream. Chest pain type: unspecified Qualified Code(s): R07.9 - Chest pain, unspecified History of Present Illness Reason for Consultation: Chest wall pain Attending Physician: Bob White History of Present Illness Ms. Day is a 59 year old female that has been seen at the [facility] for chest pain that has been ongoing for 2 months. She does have a history of an CA in 2015, depression, bulimia, lumbar pain, COPD, and anxiety. She states that over the past 2 months she will experience a pain along the left chest wall and occasionally the pain will radiate into the neck and down both arms. She feels as though her left breast is tender. Patient does have a nodule on the left breast and ultrsound and mammogram determined it to be benign. She denies any aggravating symptoms. She will take Advil or Aspirin for the pain which is slightly helpful. She does have Nitro and for the first month of so it would help the chest pain but is no longer efficacious. Pain typically lasts about 10 minutes and occurs between 5-10 times a day. No pain radiating into the back, abdominal pain, nausea, vomiting, flank pain. Patient does work at [employer] which does involve a lot of heavy lifting. She is working sometimes 16 hours a day. Case discussed with Dr. Cyndi Myers Allergies Allergy/AdvReac Type Severity Reaction Status Date / Time Penicillins Allergy Severe Swelling Verified 01/19/20 12:18 and shortness of breath latex Allergy Intermediate Itchy Verified 01/19/20 12:18 rash,localized burning sensation atorvastatin AdvReac EXCESSIVE Unverified 01/19/20 12:18 BLEEDING Home Medications Home Medications Medication Instructions Recorded Confirmed Type buspirone 5 mg tablet 5 mg PO BID #60 tab 02/22/19 01/19/20 Rx varenicline 1 mg tablet 1 mg PO QAM tab 02/22/19 01/19/20 History famotidine 10 mg tablet 10 mg PO DAILY PRN 04/12/19 01/19/20 History metoclopramide HCl 5 mg PO TID 06/07/19 01/19/20 History pantoprazole 20 mg PO QAM 06/07/19 01/19/20 History Trintellix 20 mg PO HS 12/09/19 01/19/20 History azelastine 1 sprays INTNAS BID PRN 12/09/19 01/19/20 History fluticasone propionate [Allergy 1 sprays INTRANASAL DAILY PRN 12/09/19 01/19/20 History Relief (fluticasone)] gabapentin 400 mg PO TID 12/09/19 01/19/20 History quetiapine 100 mg PO HS 12/09/19 01/19/20 History nitroglycerin 0.3 mg SUBLINGUAL DIRECTED PRN 12/29/19 01/19/20 History sucralfate [Carafate] 1 g PO ACHS 28 Days #28 tab 01/09/20 01/19/20 Rx prucalopride [Motegrity] 1 mg PO DAILY #7 tab 01/13/20 01/19/20 Rx naproxen sodium [Aleve] 220 mg PO Q12H PRN 01/19/20 01/19/20 History Pain History Pain Location Full Body Front + Back: 1. 2. Patient History Medical History Anxiety Anxiety with depression Chronic back pain L4 - HERNIATED DISC HAD LESI Chronic obstructive pulmonary disease Depression GERD (gastroesophageal reflux disease) Myocardial Infarction 2015 - [facility], HEART CATH - NO STENTS JUST WATCHING FOLLOW WITH [place] [facility] Surgical History History of cardiac cath 2014 HEART CATH AND NO STENT History of section History of laparoscopic appendectomy Family History Mother Breast cancer Brother Prostate cancer Family/Other Myocardial infarction self Denies family history of Ovarian cancer Colorectal cancer Social History Smoking Status: Never smoker Tobacco Type: Cigarettes Second Hand Exposure: No; Hx Alcohol Use: No Hx Substance Use: No Preferred Language: Montenegrin Communication Ability: Effective 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 HEAD/FACE: Normocephalic and atraumatic. EYES: No drainage or conjunctival injection. RESPIRATORY: Patient with unlabored breathing. No signs of respiratory distress. CHEST/AXILLA: Chest movement symmetrical. No deformities noted. There is exquisite tenderness along the left lower costosternal joints. Mild tenderness along the left upper chest wall that is not focused on intercostal nerves or ribs. ABDOMEN/GI: No distension BACK: Moves without difficulty SKIN: [place], warm and dry. No rash noted. MS/EXTREMITY: No swelling, no deformities. Moving extremities appropriately. NEURO: Alert and appears oriented. Speech is fluent. Cranial Nerves are grossly intact. PSYCH: Alert, pleasant, affect is calm
--- NOTE | 2020-01-21 06:05 | Electrocardiogram Report ---
Test Reason : Blood Pressure : / mmHG Vent. Rate : 073 BPM Atrial Rate : 073 BPM P-R Int : 146 ms QRS Dur : 088 ms QT Int : 420 ms P-R-T Axes : 078 -15 042 degrees QTc Int : 462 ms Normal sinus rhythm Normal ECG When compared with ECG of 13-JAN-2020 06:44, Minimal criteria for Anterior infarct are no longer Present Confirmed by Carter Gomez ([id number]) on 01/21/2020 6:05:43 AM Referred By: REFERRED SELF Confirmed By:Carter Gomez
--- NOTE | 2020-01-27 10:39 | Discharge Summary ---
Date of Service January 20, 2020 Admission HPI Per Admitting Provider Judith Day is a 59-year-old female who presents to the ER with chest pain. She has had multiple admissions for the same in the past. This is the same as had previous admissions but is been increasing in frequency, duration and severity. She reports this chest pain has been going on for last 2 months intermittently. She would previously take aspirin and it would improve. Currently the only thing she has found that works is nitroglycerin. It is the left center of her chest radiating under her left breast and occasionally to both shoulders and down both arms when it becomes severe enough. Her current episode has been going on since yesterday. No exacerbation with food, exercises/stretches, GI cocktail or Advil not helping. Significantly worse on palpation. Severity currently 10/10 at rest although when I press down on it she was clearly in more pain. Character - feels like being punched in the chest. She was hospitalized here from January 11- due to the same. She underwent EGD on that occasion with food residue removed but this did not change her pain. She has known gastroparesis and takes metoclopramide for the last 2 years for this. She was prescribed prucalopride on her last hospitalization however reports her insurance would not pay for this and she is unable to afford the [id number] expense. Gastroparesis is likely due to many years of bulimia. On discussing her medications she reports starting a lots of medications 3 to 4 years ago including gabapentin to help with low back pain, Trintellix to help with bulimia (she has managed to gain weight in the last 1.5 years with this), quetiapine to help with insomnia. She reports taking Chantix for the last 3 years, however continues to smoke half pack cigarettes a day. Principal Diagnosis chest wall pain Discharge Exam Constitutional: well developed, + thin and + frail appearing; + not well nourished and no acute distress Eyes: PERRL, conjunctivae normal, anicteric sclerae ENMT: external ear and nose normal, oropharynx normal Neck: trachea midline, no thyromegaly Respiratory: normal respiratory effort, lungs clear to auscultation Cardiovascular: RRR, no murmur, no edema Chest (Breasts): normal inspection/palpation of breasts (Focal palpation of anterior cartilage of of left lower ribs) Chest: normal inspection of chest; no mass Gastrointestinal (Abdomen): normal bowel sounds, soft, nontender, no hepatosplenomegaly Musculoskeletal: no cyanosis or clubbing, extremities motor strength 5/5 Skin: no rashes, warm and dry Neurologic: moves all extremities and awake Psychiatric: A+Ox3, euthymic affect Discharge Data Allergies Allergy/AdvReac Type Severity Reaction Status Date / Time Penicillins Allergy Severe Swelling Verified 01/26/20 15:23 and shortness of breath latex Allergy Intermediate Itchy Verified 01/26/20 15:23 rash,localized burning sensation atorvastatin AdvReac EXCESSIVE Unverified 01/26/20 15:23 BLEEDING Consultations 01/19/20 13:06 ED Decision to Admit Stat 01/19/20 16:47 Consult Pain Management Routine Hospital Course (1) Chest pain: Appears to be coming from chest wall -suspect underlying muscle spasms since the nitroglycerin helping. Possible underlying gastrointestinal source such as gastroparesis -but suspect this is much less likely. Baclofen as needed for muscle spasm Consulted pain management Recommended CBD cream, baclofen and loaclaized injection as noted in discharge instructions (2) Neutropenia: Improved (3) Macrocytosis without anemia: B12 and folate are normal. Peripheral smear Denies alcohol use (4) Bulimia: Longstanding history of this No acute worsening as per patient Continue Trintellix 20 mg p.o. at bedtime and quetiapine 100 mg p.o. at bedtime (5) Anxiety with depression: Continue Trintellix as above (6) Gastroparesis: Continue metoclopramide 5 mg p.o. 3 times daily (7) GERD (gastroesophageal reflux disease): Continue pantoprazole 20 mg p.o. every morning, Carafate 1 g p.o. before meals at bedtime (8) Chronic back pain: Continue gabapentin 400 mg p.o. 3 times daily Total Time Total Time Spent Total Time Spent (In Minutes): 32 Total Time Includes: Examination of the Patient, Discharge Planning and Medi cation Reconciliation Discharge Plan Discharge Items Patient Disposition: Home - Self-Care Reason For Visit: CHEST PAIN Discharge Diagnosis: chest pain Condition on Discharge: Good Activity: Resume your previous activity Non-emergency contact: Primary Care Provider Call non-emergency contact if: you have any medication questions Follow-up/Referrals: Evonne Alvarez CRNP [Primary Care Provider] - 01/27/20 11:30 am (A hospital follow up appt. has been made for you on at 11:30am with Dr. Frances. Pain management office will call you with an appt. for your injection.) Diet: Regular and Heart Healthy Diet Texture: Dental soft (bite-sized) Addtl Attending Provider Instructions: 1. Consider a sternocostal joint injection on the left lower region. This could be performed at [facility] on an outpatient basis. 2. Continue Baclofen. 3. Continue CBD cream. Pending Studies at Discharge: No Stand-Alone Forms: My [facility], Work/School Release (Inpt), Smoking Cessation Medications and DC Order Prescriptions: New acetaminophen 325 mg Tablet 650 mg PO Q4H PRN (Reason: pain) Qty: 60 RF: 0 baclofen 10 mg Tablet 10 mg PO TID PRN (Reason: pain) Qty: 30 RF: 0 Continued famotidine [Pepcid AC] 10 mg tablet 10 mg PO DAILY PRN (Reason: Stomach Upset) RF: 0 Chantix 1 mg tablet 1 mg PO QAM RF: 0 buspirone 5 mg tablet 5 mg PO BID Qty: 60 RF: 2 pantoprazole 20 mg tablet,delayed release (DR/EC) 20 mg PO QAM RF: 0 metoclopramide HCl 5 mg tablet 5 mg PO TID RF: 0 quetiapine 100 mg tablet 100 mg PO HS RF: 0 Trintellix 20 mg tablet 20 mg PO HS RF: 0 gabapentin 400 mg capsule 400 mg PO TID RF: 0 azelastine 137 mcg (0.1 %) aerosol,spray 1 sprays INTNAS BID PRN (Reason: COPD) RF: 0 fluticasone propionate [Allergy Relief (fluticasone)] 50 mcg/actuation spray,suspension 1 sprays intranasal DAILY PRN (Reason: Allergy Symptoms) RF: 0 sucralfate [Carafate] 1 gram tablet 1 g PO ACHS 28 Days Qty: 28 RF: 0 Motegrity 1 mg tablet 1 mg PO DAILY Qty: 7 RF: 0 naproxen sodium [Aleve] 220 mg Tablet 220 mg PO Q12H PRN (Reason: Pain) RF: 0 nitroglycerin 0.3 mg tablet, sublingual 0.3 mg sublingual DIRECTED PRN (Reason: Chest Pain) RF: 0 No Action tramadol 50 mg tablet 50 mg PO Q6H PRN (Reason: pain) Qty: 10 RF: 0 multivitamin Tablet 1 tab PO DAILY RF: 0 Discharge Orders: Discharge Order (Routine); Ordered 01/20/20 Ordered By: Bob White Admission Data Admit Date/Time: 01/19/20 14:59 Attending Provider: Bob White Admit Provider: Terence Lewis Primary Care Provider: Evonne Alvarez Other Providers: Terence Lewis ; Cyndi Myers Other Interventions: Discharge Summary Assessment (RN) Last Done: 01/20/20 14:37 Coding Level of Care Code 50544 OBS Care - Discharge Diagnoses Chest pain R07.9 Chest pain type: unspecified Neutropenia D70.9 Neutropenia type: unspecified Macrocytosis without anemia D75.89 Bulimia F50.2 Anxiety with depression F41.8 Gastroparesis K31.84 GERD (gastroesophageal reflux disease) K21.9 Chronic back pain M54.9; G89.29
== END 2020-01-20 16:14 | disposition home or self-care (01) ==
LOC: 2N 10:59 → ED 10:59 → SUATTDRO 14:59 → 2N 15:38 → 2W 16:12

== ENCOUNTER 2020-03-13 15:45 | Observation (INO) ==
[2020-03-13] MEDS ORDERED: NITROGLYCERIN SL 0.4 MG/TAB TAB SL PRN (16:07)
[2020-03-13] MEDS ORDERED: ASPIRIN CHEW 324 MG PO STA (16:07)
[2020-03-13 16:25] LABS: Basophils # (auto) 0.02 K/uL (0-0.2); Basophils % (auto) 0.4 %; Eosinophils # (auto) 0.13 K/uL (0-0.5); Eosinophils % (auto) 2.5 %; Hematocrit (blood only) 41.6 % (37-47); Hemoglobin 13.4 g/dL (12.0-16.0); Immature Granulocytes # (auto) 0.01 K/uL (0.00-0.02); Immature Granulocytes % (auto) 0.2 %; Lymphocytes # (auto) 1.51 K/uL (1.2-3.4); Lymphocytes % (auto) 29.3 %; Mean Corpuscular Hemoglobin 34.1 pg (25-34); Mean Corpuscular Hgb Conc 32.2 g/dL (32-36); Mean Corpuscular Volume 105.9 fL (80-100); Mean Platelet Volume 9.5 fL (7.4-10.4); Monocytes # (auto) 0.41 K/uL (0.11-0.59); Neutrophils # (auto) 3.07 K/uL (1.4-6.5); Neutrophils % (auto) 59.6 %; Platelet Count 265 K/uL (130-400); RDW Coefficient of Variation 14.1 % (11.5-14.5); RDW Standard Deviation 54.8 fL (36.4-46.3); Red Blood Count 3.93 M/uL (4.2-5.4); White Blood Count 5.15 K/uL (4.8-10.8)
--- NOTE | 2020-03-13 16:26 | XRay Report ---
XR chest 1V portable HISTORY: 60 years-old Female Chest Pain acute atypical chest pain COMPARISON: Chest radiograph 01/22/2020 TECHNIQUE: Portable AP view of the chest FINDINGS: Cardiomediastinal and hilar silhouettes are within normal limits. Unchanged ill-defined opacity of th e medial right lung base suggestive of summation density with pulmonary vasculature. There is no pneu mothorax, pleural effusion, airspace consolidation or overt pulmonary edema. Bones of the chest appea r grossly intact. IMPRESSION: No acute process. ACT 112: Negative or not required by law. The above report was generated using voice recognition software. It may contain grammatical, syntax o r spelling errors. Electronically signed by: Efren Lomas M.D. 03/13/2020 4:25 PM
[2020-03-13 16:37] LABS: Partial Thromboplastin Ratio 0.9; Partial Thromboplastin Time 25.1 Seconds (21.0-31.0); Prothrombin Time 10.5 Seconds (9.0-12.0)
[2020-03-13 16:43] LABS: Alanine Aminotransferase 25 U/L (12-78); Albumin Level 2.8 gm/dl (3.4-5.0); Aspartate Aminotransferase 25 U/L (15-37); BUN Creatinine Ratio 14.7 (10-20); Blood Urea Nitrogen 10 mg/dl (7-18); Calcium 8.4 mg/dl (8.5-10.1); Carbon Dioxide 24 mmol/L (21-32); Chloride 113 mmol/L (98-107); Creatinine Clr Calc Pharmacy 55.6 ml/min; Est GFR (African American) 109.9; Est GFR (Non-African American) 94.8; Glucose 82 mg/dl (70-99); Lipase 828 U/L (73-393); Potassium 2.7 mmol/L (3.5-5.1); Sodium 146 mmol/L (136-145)
[2020-03-13 16:46] LABS: Albumin Globulin Ratio 0.9 (0.9-2); Alkaline Phosphatase 133 U/L (45-117); Bilirubin,Total 0.2 mg/dl (0.2-1); Total Protein 5.8 gm/dl (6.4-8.2); Troponin I < 0.015 ng/ml (0-0.045)
[2020-03-13] MEDS: NITROGLYCERIN SL 0.4 MG/TAB TAB SL STA ×2 (16:46→17:02)
--- NOTE | 2020-03-13 17:20 | Emergency Department Note ---
Impression & Plan Atypical chest pain, Acute electrocardiogram changes ED Provider Note NAME: Maddie MORA AGE: 60 SEX: F : 1960 ARRIVES VIA: Ambulance INFORMANT: Patient, ED PROVIDER(S): Dino Dorsey MD Chief Complaint: Chest pain HPI: Patient does presents with several months of chest pain. The patient does describe it is reproducible over the left lower breast. Patient does feel as though it is worse when she is at work. The patient does work at [employer]. She does do lifting. The patient states it is nonradiating. It is not necessarily exertional or associated with vomiting. The patient does not have a prior history of CAD without stents. The patient did have a chest wall injection completed with pain management approximately 1 month ago which did seem to improve her symptoms until 1 week prior. Patient denies any fevers or chills or shortness of breath. The patient denies lower extremity swelling. Patient did come by ambulance but did not receive anything in route. The patient denies family history of heart attack or stroke before the age of 65 and parents or siblings. Patient is a non-smoker and denies any alcohol use. ROS: See HPI for pertinent positives and negatives. A total of 10 systems were reviewed and otherwise negative. Past medical history: See below Surgical history: See below Social history: See below Physical Exam: GENERAL: Wearing glasses and a mask. NAD, non-toxic. EYE EXAM: Normal conjunctiva. PERRL, no anisocoria and EOM's grossly intact w/o pain. NECK: Supple, no nuchal rigidity, no adenopathy, non-tender. No signs of meningismus. LUNGS: Clear to auscultation. Normal chest wall mechanics. HEART: NSR, no MRG. ABDOMEN: Abdomen soft, non-tender, normo-active bowel sounds, no masses, no rebound or guarding. BACK: No CVA TTP. SKIN: No rashes and no bruising. UPPER EXTREMITIES: Upper extremities are grossly normal. LOWER EXTREMITIES: Grossly normal, no edema. Negative Homans' sign bilaterally. NEURO EXAM: A&O x3, cranial nerves II-XII grossly intact, normal speech, moves all 4 extremities on command w/o issue. Differential diagnoses: Cardiac ischemia, aortic dissection, pulmonary embolism, pneumothorax, pneumonia, pericarditis, myocarditis, esophageal rupture, GERD, cholecystitis, pancreatitis, musculoskeletal, as well as other pathologies. Course: Patient was seen and evaluated the bedside. Full history physical exam was performed. EKG: Normal sinus rhythm, rate of 79, normal intervals, normal DE and QRS, T wave inversion in lead II, anteriorly, and laterally. T wave versions anteriorly/laterally are an acute change from prior EKG completed February 05, 2020. Imaging Studies: Radiology results as stated below per my review in the radiologist's interpretation: XR chest 1V portable HISTORY: 60 years-old Female Chest Pain acute atypical chest pain COMPARISON: Chest radiograph 01/22/2020 TECHNIQUE: Portable AP view of the chest FINDINGS: Cardiomediastinal and hilar silhouettes are within normal limits. Unchanged ill- defined opacity of the medial right lung base suggestive of summation density with pulmonary vasculature. There is no pneumothorax, pleural effusion, airspace consolidation or overt pulmonary edema. Bones of the chest appear grossly intact. IMPRESSION: No acute process. ACT 112: Negative or not required by law. The above report was generated using voice recognition software. It may contain grammatical, syntax or spelling errors. Electronically signed by: Efren Lomas M.D. 03/13/2020 4:25 PM Dictated: 03/13/201623 Transcribed: 03/13/201623 Cardiac monitoring: An order was placed for continuous cardiac monitoring. The monitor shows a rate of 73 with sinus rhythm. MDM: Patient was seen due to concern for chest pains. The patient does have EKG changes. Patient was ordered aspirin and nitroglycerin. Chest x-ray does not show any acute changes. Given the patient's known history of CAD with EKG changes believe the patient would benefit from observation and treatment. Upon reassessment patient did state that the nitro did improve her pain. The patient was ordered Nitropaste. I did speak the on-call hospitalist Dr. Geovanny DO. The patient was admitted for observation to the medicine service. Past Med/Surg History Medical History Anxiety Anxiety with depression Cervical radiculopathy Cervicalgia Chronic back pain L4 - HERNIATED DISC HAD LESI 08/2018 Chronic obstructive pulmonary disease Depression GERD (gastroesophageal reflux disease) Myocardial Infarction 2015 - [employer], HEART CATH - NO STENTS JUST WATCHING FOLLOW WITH [facility] Sternal pain Surgical History History of cardiac cath 2015 HEART CATH AND NO STENT History of section History of laparoscopic appendectomy Family History Mother Breast cancer Brother Prostate cancer Family/Other Myocardial infarction self Denies family history of Ovarian cancer Colorectal cancer Social History Smoking Status: Former smoker Tobacco Type: Cigarettes Second Hand Exposure: No; Hx Alcohol Use: No Hx Substance Use: No Preferred Language: Azeri Communication Ability: Effective Hospital Insurance Representative Required: No Beliefs That Will Affect Care: None marital status: Current Living Situation: Family Current Living Situation Comment: Lives w/ parents current occupational status: employed Feels Safe at Home: Yes Dental Care, Regularly: No Seatbelt Use: always Assistive Devices: Glasses Allergies Allergies Allergy/AdvReac Type Severity Reaction Status Date / Time Penicillins Allergy Severe Swelling Verified 03/13/20 16:44 and shortness of breath latex Allergy Intermediate Itchy Verified 03/13/20 16:44 rash,localized burning sensation atorvastatin AdvReac EXCESSIVE Verified 03/13/20 16:44 BLEEDING Home Meds Home Medications Medication Instructions Recorded Confirmed varenicline 1 mg tablet 1 mg PO QAM tab 02/22/19 03/13/20 famotidine 10 mg tablet 10 mg PO DAILY PRN 04/12/19 03/13/20 metoclopramide HCl 5 mg PO TID 06/07/19 03/13/20 pantoprazole 20 mg PO QAM 06/07/19 03/13/20 Trintellix 20 mg PO HS 12/09/19 03/13/20 azelastine 1 sprays INTNAS BID PRN 12/09/19 03/13/20 fluticasone propionate [Allergy 1 sprays INTRANASAL DAILY PRN 12/09/19 03/13/20 Relief (fluticasone)] gabapentin 400 mg PO TID 12/09/19 03/13/20 quetiapine 100 mg PO HS 12/09/19 03/13/20 nitroglycerin 0.3 mg SUBLINGUAL DIRECTED PRN 12/29/19 03/13/20 naproxen sodium [Aleve] 220 mg PO Q12H PRN 01/19/20 03/13/20 multivitamin 1 tab PO DAILY 01/26/20 03/13/20 Previous Rx's Medication Instructions Recorded buspirone 5 mg tablet 5 mg PO BID #60 tab 02/22/19 Motegrity 1 mg PO DAILY #7 tab 01/13/20 acetaminophen 650 mg PO Q4H PRN #60 tab 01/20/20 baclofen 10 mg PO TID PRN #30 tab 01/20/20 lidocaine 5 % topical ointment 1 applic TOPICAL BID PRN #35.44 g 02/08/20 Results & Data (ED) Vital Signs Vital Signs - 24 hr 03/13/20 15:55 03/13/20 16:00 03/13/20 16:06 Temperature 36.9 C Temperature Source Oral Pulse Rate 78 81 78 Pulse Rate [Apical] Pulse Rate from SpO2 Sensor 78 77 Pulse Rhythm [Apical] Pulse Strength [Apical] Respiratory Rate 20 16 21 Respiratory Effort / Characteristics Non-Labored Spontaneous Respiratory Depth Normal Respiratory Pattern Regular Blood Pressure 116/76 130/75 Blood Pressure [Right Arm] Blood Pressure Mean 89 91 Blood Pressure Mean [Right Arm] Blood Pressure Position [Right Arm] Pulse Oximetry 95 95 96 Oxygen Delivery Method Room Air Sepsis Recent Fever Within 48 Hours No Sepsis New/Unexplained Change in Mental Status No Sepsis Action Taken by Nursing No Action Required 03/13/20 16:10 03/13/20 17:02 Temperature Temperature Source Pulse Rate 78 Pulse Rate [Apical] 92 H Pulse Rate from SpO2 Sensor Pulse Rhythm [Apical] Regular Pulse Strength [Apical] Normal Respiratory Rate 20 20 Respiratory Effort / Characteristics Non-Labored Spontaneous Respiratory Depth Normal Respiratory Pattern Regular Blood Pressure Blood Pressure [Right Arm] 113/70 Blood Pressure Mean Blood Pressure Mean [Right Arm] 84 Blood Pressure Position [Right Arm] Sitting Pulse Oximetry 95 95 Oxygen Delivery Method Room Air Room Air Sepsis Recent Fever Within 48 Hours Sepsis New/Unexplained Change in Mental Status Sepsis Action Taken by Care Home Medications Current Medication List: was personally reviewed by me Laboratory Data Attestation: I reviewed the patient's lab results. Result diagrams: 03/13/20 16:17 03/13/20 16:17 Lab Results 03/13/20 03/13/20 03/13/20 Range/Units 16:17 16:17 16:17 WBC 5.15 (4.8-10.8) K/uL RBC 3.93 L (4.2-5.4) M/uL Hgb 13.4 (12.0-16.0) g/dL Hct 41.6 (37-47) % MCV 105.9 H (80-100) fL MCH 34.1 H (25-34) pg MCHC 32.2 (32-36) g/dL RDW Std Deviation 54.8 H (36.4-46.3) fL RDW Coeff of Mookie 14.1 (11.5-14.5) % Plt Count 265 (130-400) K/uL MPV 9.5 (7.4-10.4) fL Immature Gran % (Auto) 0.2 % Neut % (Auto) 59.6 % Lymph % (Auto) 29.3 % Metcalfe % (Auto) 8.0 % Eos % (Auto) 2.5 % Baso % (Auto) 0.4 % Neut # (Auto) 3.07 (1.4-6.5) K/uL Lymph # (Auto) 1.51 (1.2-3.4) K/uL Metcalfe # (Auto) 0.41 (0.11-0.59) K/uL Eos # (Auto) 0.13 (0-0.5) K/uL Baso # (Auto) 0.02 (0-0.2) K/uL Immature Gran # (Auto) 0.01 (0.00-0.02) K/uL PT 10.5 (9.0-12.0) Seconds INR 1.0 (0.9-1.1) APTT 25.1 (21.0-31.0) Seconds PTT Ratio 0.9 Sodium 146 H (136-145) mmol/L Potassium 2.7 L (3.5-5.1) mmol/L Chloride 113 H (98-107) mmol/L Carbon Dioxide 24 (21-32) mmol/L Anion Gap 9.0 (3-11) BUN 10 (7-18) mg/dl Creatinine 0.70 (0.6-1.2) mg/dl Est Cr Clr Drug Dosing 55.6 ml/min Est GFR ( Amer) 109.9 Est GFR (Non-Af Amer) 94.8 BUN/Creatinine Ratio 14.7 (10-20) Glucose 82 (70-99) mg/dl Calcium 8.4 L (8.5-10.1) mg/dl Magnesium (1.8-2.4) mg/dl Total Bilirubin 0.2 (0.2-1) mg/dl AST 25 (15-37) U/L ALT 25 (12-78) U/L Alkaline Phosphatase 133 H (45-117) U/L Troponin I < 0.015 (0-0.045) ng/ml Total Protein 5.8 L (6.4-8.2) gm/dl Albumin 2.8 L (3.4-5.0) gm/dl Globulin 3.0 (2.5-4.0) gm/dl Albumin/Globulin Ratio 0.9 (0.9-2) Amylase (25-115) U/L Lipase 828 H (73-393) U/L 10// Range/Units 16:17 WBC (4.8-10.8) K/uL RBC (4.2-5.4) M/uL Hgb (12.0-16.0) g/dL Hct (37-47) % MCV (80-100) fL MCH (25-34) pg MCHC (32-36) g/dL RDW Std Deviation (36.4-46.3) fL RDW Coeff of Mookie (11.5-14.5) % Plt Count (130-400) K/uL MPV (7.4-10.4) fL Immature Gran % (Auto) % Neut % (Auto) % Lymph % (Auto) % Metcalfe % (Auto) % Eos % (Auto) % Baso % (Auto) % Neut # (Auto) (1.4-6.5) K/uL Lymph # (Auto) (1.2-3.4) K/uL Metcalfe # (Auto) (0.11-0.59) K/uL Eos # (Auto) (0-0.5) K/uL Baso # (Auto) (0-0.2) K/uL Immature Gran # (Auto) (0.00-0.02) K/uL PT (9.0-12.0) Seconds INR (0.9-1.1) APTT (21.0-31.0) Seconds PTT Ratio Sodium (136-145) mmol/L Potassium (3.5-5.1) mmol/L Chloride (98-107) mmol/L Carbon Dioxide (21-32) mmol/L Anion Gap (3-11) BUN (7-18) mg/dl Creatinine (0.6-1.2) mg/dl Est Cr Clr Drug Dosing ml/min Est GFR ( Amer) Est GFR (Non-Af Amer) BUN/Creatinine Ratio (10-20) Glucose (70-99) mg/dl Calcium (8.5-10.1) mg/dl Magnesium 1.8 (1.8-2.4) mg/dl Total Bilirubin (0.2-1) mg/dl AST (15-37) U/L ALT (12-78) U/L Alkaline Phosphatase (45-117) U/L Troponin I (0-0.045) ng/ml Total Protein (6.4-8.2) gm/dl Albumin (3.4-5.0) gm/dl Globulin (2.5-4.0) gm/dl Albumin/Globulin Ratio (0.9-2) Amylase 98 (25-115) U/L Lipase (73-393) U/L Administered Medications Discontinued Medications Aspirin (Aspirin Chew 324 Mg) 324 mg PO NOW STA Stop: 03/13/20 16:08 Last Admin: 03/13/20 16:24 Dose: Not Given Documented by: [id number] Nitroglycerin (Nitroglycerin Sl 0.4 Mg/Tab Tab) 0.4 mg SL NOW STA Stop: 03/13/20 16:08 Last Admin: 03/13/20 17:02 Dose: 0.4 mg Documented by: [id number] Discharge Plan Visit Data Chief Complaint: Chest Pain Stated Complaint: chest pain ED Provider: Dino Dorsey Discharge Problem: Atypical chest pain, Acute electrocardiogram changes Forms Stand Alone Forms: [employer] Prescriptions Prescriptions: No Action lidocaine 5 % ointment 1 applic topical BID PRN (Reason: pain) Qty: 35.44 RF: 2 famotidine [Pepcid AC] 10 mg tablet 10 mg PO DAILY PRN (Reason: Stomach Upset) RF: 0 Chantix 1 mg tablet 1 mg PO QAM RF: 0 buspirone 5 mg tablet 5 mg PO BID Qty: 60 RF: 2 pantoprazole 20 mg tablet,delayed release (DR/EC) 20 mg PO QAM RF: 0 metoclopramide HCl 5 mg tablet 5 mg PO TID RF: 0 quetiapine 100 mg tablet 100 mg PO HS RF: 0 Trintellix 20 mg tablet 20 mg PO HS RF: 0 gabapentin 400 mg capsule 400 mg PO TID RF: 0 azelastine 137 mcg (0.1 %) aerosol,spray 1 sprays INTNAS BID PRN (Reason: COPD) RF: 0 fluticasone propionate [Allergy Relief (fluticasone)] 50 mcg/actuation spray,suspension 1 sprays intranasal DAILY PRN (Reason: Allergy Symptoms) RF: 0 Motegrity 1 mg tablet 1 mg PO DAILY Qty: 7 RF: 0 naproxen sodium [Aleve] 220 mg Tablet 220 mg PO Q12H PRN (Reason: Pain) RF: 0 acetaminophen 325 mg Tablet 650 mg PO Q4H PRN (Reason: pain) Qty: 60 RF: 0 baclofen 10 mg Tablet 10 mg PO TID PRN (Reason: pain) Qty: 30 RF: 0 nitroglycerin 0.3 mg tablet, sublingual 0.3 mg sublingual DIRECTED PRN (Reason: Chest Pain) RF: 0 multivitamin Tablet 1 tab PO DAILY RF: 0
[2020-03-13] MEDS ORDERED: MoRPHine SULFATE 4 MG/ML 1 ML CARP\\VIAL IV STA (17:55)
[2020-03-13] MEDS ORDERED: NITROGLYCERIN 2% OINTMENT 30GM TUBE EXT STA (17:55)
[2020-03-13 18:08] LABS: Magnesium 1.8 mg/dl (1.8-2.4)
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
[2020-03-13] MEDS ORDERED: LIDOCAINE HCL 5% OINT 30 GM TUBE TOP PRN (22:14)
[2020-03-13] MEDS ORDERED: MAGNESIUM HYDROXIDE SUSP 30 ML UDC PO PRN (22:14)
[2020-03-13] MEDS ORDERED: BACLOFEN 10 MG TAB PO PRN (22:14)
[2020-03-13] MEDS ORDERED: NAPROXEN 250 MG TAB PO PRN (22:14)
[2020-03-13] MEDS ORDERED: FLUTICASONE PROPIONATE NA SPR 16 GM BTL PRN (22:14)
[2020-03-13] MEDS ORDERED: POTASSIUM PHOS 3 MMOL/1 ML INFUSION IV STA (22:14)
[2020-03-13] MEDS ORDERED: FAMOTIDINE 10 MG TABLET PO PRN (22:14)
[2020-03-13] MEDS ORDERED: NON-FORMULARY MEDICATION (Azelastine 1 SPRAYS) INTNAS PRN (22:14)
[2020-03-13] MEDS ORDERED: ACETAMINOPHEN 325 MG TAB PO PRN ×2 (22:14)
[2020-03-13] MEDS ORDERED: NITROGLYCERIN 0.3 MG/1 TAB 100 TAB BTL SL PRN (22:14)
[2020-03-13] MEDS ORDERED: ONDANSETRON INJ 2 MG/ML 2 ML VIAL IV PRN (22:14)
[2020-03-13] MEDS ORDERED: POTASSIUM PHOSPHATE 21 MMOL in SODIUM CHLORIDE 0.9% 500 ML IV ONE (22:30)
[2020-03-13] MEDS: busPIRone 5 MG TAB PO SCH (22:49)
[2020-03-13] MEDS: METOCLOPRAMIDE HCL 5 MG TABLET PO SCH (22:50)
[2020-03-13] MEDS: QUEtiapine FUMARATE 100 MG TABLET PO SCH (22:50)
[2020-03-13] MEDS: GABAPENTIN 400 MG CAP PO SCH (22:50)
[2020-03-13 22:51] LABS: D Dimer 460 ug/L FEU (0-500)
[2020-03-13] MEDS: [UNRECOGNIZED DRUG - OTHER] SCH ×2 (22:51→23:50)
[2020-03-13] MEDS: TRINTELLIX~ORDER AWAITING ACTION SCH ×2 (22:51→23:50)
[2020-03-13] MEDS: MoRPHine SULFATE 2 MG/ML CARP IV PRN (23:23)
[2020-03-14 04:19] LABS: Basophils # (auto) 0.02 K/uL (0-0.2); Basophils % (auto) 0.5 %; Eosinophils # (auto) 0.18 K/uL (0-0.5); Eosinophils % (auto) 4.5 %; Hematocrit (blood only) 40.1 % (37-47); Hemoglobin 12.8 g/dL (12.0-16.0); Lymphocytes # (auto) 1.72 K/uL (1.2-3.4); Lymphocytes % (auto) 43.4 %; Mean Corpuscular Hemoglobin 33.7 pg (25-34); Mean Corpuscular Hgb Conc 31.9 g/dL (32-36); Mean Corpuscular Volume 105.5 fL (80-100); Mean Platelet Volume 9.4 fL (7.4-10.4); Monocytes # (auto) 0.32 K/uL (0.11-0.59); Monocytes % (auto) 8.1 %; Neutrophils # (auto) 1.72 K/uL (1.4-6.5); Neutrophils % (auto) 43.5 %; Platelet Count 233 K/uL (130-400); RDW Coefficient of Variation 14.4 % (11.5-14.5); RDW Standard Deviation 55.3 fL (36.4-46.3); White Blood Count 3.96 K/uL (4.8-10.8)
[2020-03-14 04:40] LABS: BUN Creatinine Ratio 16.4 (10-20); Calcium 7.7 mg/dl (8.5-10.1); Creatinine Clr Calc Pharmacy 56.4 ml/min; Est GFR (African American) 110.4; Est GFR (Non-African American) 95.3; Magnesium 1.5 mg/dl (1.8-2.4); Phosphorus 5.3 mg/dl (2.5-4.9); Potassium 4.1 mmol/L (3.5-5.1)
--- NOTE | 2020-03-14 05:40 | Electrocardiogram Report ---
Test Reason : Blood Pressure : / mmHG Vent. Rate : 079 BPM Atrial Rate : 079 BPM P-R Int : 158 ms QRS Dur : 088 ms QT Int : 404 ms P-R-T Axes : 067 -16 257 degrees QTc Int : 463 ms Normal sinus rhythm T wave abnormality, consider anterior ischemia Abnormal ECG When compared with ECG of 26-JAN-2020 14:35, Nonspecific T wave abnormality now evident in Inferior leads T wave inversion now evident in Anterior leads Confirmed by Carter Gomez ([id number]) on 03/14/2020 5:40:03 AM Referred By: REFERRED SELF Confirmed By:Carter Gomez
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
[2020-03-14] MEDS: TRINTELLIX~ORDER AWAITING ACTION SCH ×3 (09:06→23:51)
[2020-03-14] MEDS: [UNRECOGNIZED DRUG - OTHER] SCH ×3 (09:06→23:51)
[2020-03-14] MEDS: busPIRone 5 MG TAB PO SCH ×2 (09:13→21:41)
[2020-03-14] MEDS: PANTOprazole 40 MG TAB PO SCH (09:13)
[2020-03-14] MEDS: VARENICLINE 1 MG TAB PO SCH (09:13)
[2020-03-14] MEDS: MULTIVITAMIN TAB PO SCH (09:13)
[2020-03-14] MEDS: MoRPHine SULFATE 2 MG/ML CARP IV PRN ×2 (09:13→16:05)
[2020-03-14] MEDS: METOCLOPRAMIDE HCL 5 MG TABLET PO SCH ×3 (09:13→21:43)
[2020-03-14] MEDS: GABAPENTIN 400 MG CAP PO SCH ×3 (09:13→21:42)
--- NOTE | 2020-03-14 10:30 | Billing Data ---
Date of Service March 14, 2020 Coding Level of Care Code 13538 OBS Care - Level 3
[2020-03-14] MEDS: DICLOFENAC SOD 1% GEL 100 GM TUBE EXT SCH ×4 (13:06→21:44)
--- NOTE | 2020-03-14 15:46 | XCELERA ---
[id number]
[2020-03-14] MEDS ORDERED: KETOROLAC TROMETHAMINE 15 MG/ML VIAL IV PRN (17:03)
[2020-03-14] MEDS ORDERED: KETOROLAC TROMETHAMINE 15 MG/ML VIAL IV ONE (17:03)
[2020-03-14] MEDS ORDERED: ACETAMINOPHEN 325 MG TAB PO ONE (17:05)
[2020-03-14] MEDS ORDERED: oxyCODONE HCL SOLN 5 MG/5 ML UDC PO PRN (17:27)
[2020-03-14] MEDS: MAGNESIUM SULFATE / D5W 1 GM/100 ML BAG IV SCH ×2 (17:49→19:41)
--- NOTE | 2020-03-14 17:52 | Billing Data ---
Date of Service March 14, 2020 Coding Level of Care Code 80783 Subseq Obs Care Lvl 3
[2020-03-14] MEDS ORDERED: LIDOCAINE 5% 1 PATCH TD SCH (21:00)
[2020-03-14] MEDS: CALCIUM 600MG + VIT D 400 IU TAB PO SCH (21:42)
[2020-03-14] MEDS: QUEtiapine FUMARATE 100 MG TABLET PO SCH (21:43)
--- NOTE | 2020-03-15 05:55 | Electrocardiogram Report ---
Test Reason : Blood Pressure : / mmHG Vent. Rate : 061 BPM Atrial Rate : 061 BPM P-R Int : 150 ms QRS Dur : 076 ms QT Int : 478 ms P-R-T Axes : 079 -02 263 degrees QTc Int : 481 ms Normal sinus rhythm with sinus arrhythmia Prolonged QT Abnormal ECG When compared with ECG of 13-MAR-2020 15:55, Inverted T waves have replaced nonspecific T wave abnormality in Inferior leads T wave inversion more evident in Anterior leads Confirmed by Carter Gomez ([id number]) on 03/15/2020 5:55:02 AM Referred By: REFERRED SELF Confirmed By:Carter Gomez
--- NOTE | 2020-03-15 06:13 | Electrocardiogram Report ---
Test Reason : Blood Pressure : / mmHG Vent. Rate : 062 BPM Atrial Rate : 062 BPM P-R Int : 144 ms QRS Dur : 074 ms QT Int : 466 ms P-R-T Axes : 074 -02 208 degrees QTc Int : 472 ms Normal sinus rhythm T wave abnormality, consider inferior ischemia T wave abnormality, consider anterior ischemia Prolonged QT Abnormal ECG When compared with ECG of 14-MAR-2020 07:00, No significant change Confirmed by Carter Gomez ([id number]) on 03/15/2020 6:12:44 AM Referred By: REFERRED SELF Confirmed By:Carter Gomez
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
[2020-03-15 07:04] LABS: Hematocrit (blood only) 41.6 % (37-47); Hemoglobin 13.1 g/dL (12.0-16.0); Mean Corpuscular Hemoglobin 33.7 pg (25-34); Mean Corpuscular Hgb Conc 31.5 g/dL (32-36); Mean Corpuscular Volume 106.9 fL (80-100); Platelet Count 259 K/uL (130-400); RDW Coefficient of Variation 14.3 % (11.5-14.5); RDW Standard Deviation 55.9 fL (36.4-46.3); Red Blood Count 3.89 M/uL (4.2-5.4); White Blood Count 4.07 K/uL (4.8-10.8)
[2020-03-15 07:36] LABS: BUN Creatinine Ratio 21.1 (10-20); Blood Urea Nitrogen 18 mg/dl (7-18); Calcium 9.4 mg/dl (8.5-10.1); Carbon Dioxide 27 mmol/L (21-32); Chloride 110 mmol/L (98-107); Creatinine Clr Calc Pharmacy 45.3 ml/min; Est GFR (African American) 85.7; Est GFR (Non-African American) 73.9; Glucose 94 mg/dl (70-99); Sodium 141 mmol/L (136-145)
[2020-03-15 07:38] LABS: Troponin I < 0.015 ng/ml (0-0.045)
[2020-03-15] MEDS: CALCIUM 600MG + VIT D 400 IU TAB PO SCH (07:56)
[2020-03-15] MEDS: GABAPENTIN 400 MG CAP PO SCH ×2 (07:56→13:47)
[2020-03-15] MEDS: busPIRone 5 MG TAB PO SCH (07:56)
[2020-03-15] MEDS: METOCLOPRAMIDE HCL 5 MG TABLET PO SCH ×2 (07:57→13:47)
[2020-03-15] MEDS: ACETAMINOPHEN 325 MG TAB PO SCH ×2 (07:58→15:37)
[2020-03-15] MEDS: MULTIVITAMIN TAB PO SCH (07:58)
[2020-03-15] MEDS: PANTOprazole 40 MG TAB PO SCH (07:58)
[2020-03-15] MEDS: [UNRECOGNIZED DRUG - OTHER] SCH (07:58)
[2020-03-15] MEDS: VARENICLINE 1 MG TAB PO SCH (07:58)
[2020-03-15] MEDS: DICLOFENAC SOD 1% GEL 100 GM TUBE EXT SCH ×2 (07:59→13:48)
[2020-03-15] MEDS: TRINTELLIX~ORDER AWAITING ACTION SCH (07:59)
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
--- NOTE | 2020-03-16 06:06 | Electrocardiogram Report ---
Test Reason : Blood Pressure : / mmHG Vent. Rate : 059 BPM Atrial Rate : 059 BPM P-R Int : 152 ms QRS Dur : 072 ms QT Int : 436 ms P-R-T Axes : 073 015 196 degrees QTc Int : 431 ms Sinus bradycardia Low voltage QRS T wave abnormality, consider inferior ischemia T wave abnormality, consider anterior ischemia Abnormal ECG When compared with ECG of 14-MAR-2020 11:48, No significant change was found Confirmed by Carter Gomez ([id number]) on 03/16/2020 6:06:01 AM Referred By: REFERRED SELF Confirmed By:Carter Gomez
== END 2020-03-15 16:00 | disposition home or self-care (01) ==
LOC: ED 15:45 → 2N 15:45 → SUATTDRO 20:45 → 2N 21:50

== ENCOUNTER 2024-01-06 14:21 | Observation (INO) ==
--- NOTE | 2024-01-06 14:35 | Emergency Department Note ---
Impression & Plan COVID-19 virus infection, Chronic obstructive pulmonary disease, Generalized weakness, Dehydration ED Provider Note NAME: REBECCA MORA AGE: 63 SEX: F : 1960 ARRIVES VIA: Ambulance INFORMANT: Patient ED PROVIDER(S): Kalpesh Li MD CHIEF COMPLAINT: cough, chest pain, sob. PLAN: Disposition: Admit MEDICAL DECISION MAKING: The patient is a pleasant 69-year-old woman with a past medical history of COPD, CAD per her report who presents to the emergency department for evaluation of 7- 10 days of cough, congestion, chest pain, shortness of breath with feverishness. Patient reports she also has had poor oral intake due to feeling constantly nauseated and feeling as though she cannot swallow due to the mucus. She denies any diarrhea or urinary symptoms. On evaluation patient is no distress, afebrile with stable vital signs. O2 saturation is 80% on room air and so patient was placed on 2 L nasal cannula. Her she appears clinically dry. She has wheezes of bilateral lower lung israel with normal respiratory effort. EKG without overt acute ischemia. CXR negative for acute cardiopulmonary process per my personal preliminary review/interpretation. WBC and platelets within normal limits. H/H 16.2/47.3 increased from prior may reflect component of hemoconcentration but also in setting of her history of COPD. Chemistry without metabolic acidosis but with bicarbonate of 38 suggestive of component of chronic hypercapnia. Positive troponin is 5.1, within limits. BNP is 101, nonspecific. Lipase is normal. Respiratory BioFire was positive for COVID-19. CTA of the chest was negative for PE or focal consolidation. Note is made of mucoid material within the bronchus. Upon evaluation patient reported feeling some improvement following IV hydration, sign Medrol, DuoNeb, guaifenesin, famotidine and Zofran however she does agree with plan for admission due to her weakness and poor oral intake. O2 saturation was variable and had improved to low 90s after her initial treatment. Case was discussed with Ben Christianson, [facility] PAC, with Dr. David, [facility] hospitalist who will evaluate the patient for admission. Further management per admitting team. Triage Nursing notes reviewed and agree them. Prior/external medical records reviewed Vital Signs: reviewed Differential diagnosis: Reactive airway disease, pneumonia, pneumothorax, COPD, CHF, infections, cardiac ischemia, pulmonary embolism, musculoskeletal, gastrointestinal, as well as other pathologies. ER treatment provided: See below. Diagnostics interpreted by me: ECG: Normal sinus rhythm, 72 bpm, no ectopy, no overt ST ovation depression, QTc 510, QRS 78. Cardiac Monitoring: An order for continuous cardiac monitoring was placed and demonstrated Normal sinus rhythm, 72 bpm, no ectopy. Laboratory studies: See below Imaging studies: See below Consultation(s): Ben Christianson, [facility], with Dr. David [facility] hospitalist HPI: The patient is a pleasant 69-year-old woman with a past medical history of COPD, CAD per her report who presents emerged apartment evaluation of 7-10 days of cough, congestion, chest pain, shortness of breath with feverishness. Patient reports she also has had poor oral intake due to feeling constantly nauseated and feeling as though she cannot swallow due to the mucus. She denies any diarrhea or urinary symptoms. ROS: See above HPI for pertinent positives & negatives. A total of 10 systems reviewed and were otherwise negative. VITALS:See Below PHYSICAL EXAMINATION: GENERAL: Awake, alert,, in no distress HENT: Normocephalic, atraumatic. Oropharynx with dry mucous membranes and otherwise unremarkable. EYES: Normal conjunctiva. Sclera non-icteric. NECK: Supple. No nuchal rigidity. FROM. No JVD. RESPIRATORY: Wheezes at bilateral lung israel normal respiratory effort. CARDIAC: Regular rate, normal rhythm. Extremities warm and well perfused. Pulses equal. ABDOMEN: Soft, non-distended. No tenderness to palpation. No rebound or guarding. No masses. MUSCULOSKELETAL: Chest examination reveals no tenderness. The back is symmetrical on inspection without obvious abnormality. There is no CVA tenderness to palpation. No joint edema. LOWER EXTREMITIES: Calves are equal size bilaterally and non-tender. No edema. No discoloration. NEURO: Normal sensorium. No sensory or motor deficits noted. SKIN: No rash or jaundice noted. Kalpesh Li MD Past Med/Surg History Problem List (Updated 01/07/24 @ 04:11 by Kalpesh Li MD) Dehydration (Acute) Generalized weakness (Acute) QT prolongation COVID-19 virus infection (Acute) COPD exacerbation Retained orthopedic hardware Right foot pain Right ankle pain Tibialis posterior tendinitis Plantar fasciitis of right foot Peripheral vision loss Low ferritin Dyspnea Frequent falls Memory impairment Osteoporosis Hx of herpes genitalis Dermatitis Arthritis of carpometacarpal (CMC) joint of left thumb Osteopenia Impaired fasting glucose Vitamin D deficiency Smoker Pulmonary nodule pt unaware Sternal pain FROM POSSIBLE INJURY CURRENTLY UNDERGOING RIB MANIPULATION Gastroparesis Macrocytosis without anemia Anxiety with depression Hypomagnesemia (Acute) Bulimia Cervical radiculopathy Chronic back pain L4 - HERNIATED DISC HAD LESI 08/2018 GERD (gastroesophageal reflux disease) Chronic obstructive pulmonary disease (Acute) well controlled Medical History History of COVID-19 end of 02/2023 - no hosp; resolved Bilateral lower extremity edema occasional History of gastric ulcer Myocardial Infarction 2014 - [facility], HEART CATH - NO STENTS JUST WATCHING FOLLOW WITH [place] [facility] Surgical History S/P epidural steroid injection History of tubal ligation History of esophagogastroduodenoscopy (EGD) "FOOD DOESN'T DIGEST" H/O tooth extraction ALL TEETH History of tonsillectomy History of cardiac cath 2014 heart cath no stents History of bilateral tubal ligation History of tonsillectomy History of oral surgery FULL MOUTH EXTR History of arthroscopic knee surgery History of appendectomy History of section History of laparoscopic appendectomy Family History Mother Breast cancer Brother Prostate cancer Family/Other Myocardial infarction self Father Family history of reaction to anesthesia gets irritable mood for awhile after anesthesia Denies family history of Ovarian cancer Colorectal cancer Social History Smoking Status: Current every day smoker Tobacco Type: Cigarettes Cigarettes Per Day: 2-3 a day- advised; Second Hand Exposure: No; Do You Dip or Chew Tobacco: No; Hx Alcohol Use: No Hx Substance Use: No Preferred Language: Wallisian Communication Ability: Effective Visual Impairment: No Limitations Hearing Ability: Normal Recycling Specialist Required: No Beliefs That Will Affect Care: None marital status: Single Current Living Situation: Family Current Living Situation Comment: lives with parents and brother current occupational status: employed Feels Safe at Home: Yes Safety Concerns: Feels Safe At This Time Dental Care, Regularly: No Physical Activity Frequency: 3-4 Times per Week Seatbelt Use: always Assistive Devices: Denture - Upper, Denture - Lower and Glasses Allergies Allergies Allergy/AdvReac Type Severity Reaction Status Date / Time Penicillins Allergy Severe Swelling Verified 01/06/24 19:28 and shortness of breath latex Allergy Intermediate Itchy Verified 01/06/24 19:28 rash,localized burning sensation atorvastatin AdvReac Intermediate EXCESSIVE Verified 01/06/24 19:28 BLEEDING Home Meds Home Medications Medication Instructions Recorded Confirmed multivitamin 1 tab PO HS 04/04/21 01/06/24 vortioxetine 20 mg tablet 10 mg PO HS 07/18/21 01/06/24 (Trintellix) acetaminophen 500 mg tablet 500 - 1,000 mg PO Q8 PRN pain 01/06/24 01/06/24 (Tylenol Extra Strength) aspirin 81 mg tablet,delayed 81 mg PO DAILY 01/06/24 01/06/24 release fluticasone propionate 50 1 spray intranasal BID PRN Nasal 01/06/24 01/06/24 mcg/actuation nasal Congestion spray,suspension triamcinolone acetonide 0.1 % 1 applic topical BID PRN .flare ups 01/06/24 01/06/24 topical cream Previous Rx's Medication Instructions Recorded buspirone 5 mg tablet 5 mg PO BID #60 tabs 04/03/21 gabapentin 400 mg capsule 400 mg PO BID #60 caps 04/03/21 quetiapine 100 mg tablet 100 mg PO HS #30 tabs 04/03/21 potassium chloride 20 mEq 20 meq PO DAILY #10 tabs 07/18/21 tablet,extended release albuterol sulfate 90 mcg/actuation 2 puff inhalation Q6H PRN 03/01/22 aerosol inhaler shortness of breath or wheezing #8.5 grams varenicline 1 mg tablet 1 mg PO BID #56 tabs 02/20/23 pantoprazole 20 mg tablet,delayed 20 mg PO QAM acid reflux #30 tabs 09/09/23 release furosemide 20 mg tablet 20 mg PO DAILY PRN edema #30 tabs 10/20/23 ondansetron HCl 4 mg tablet 4 mg PO Q4H PRN nausea and 10/24/23 vomiting #20 tabs Results & Data (ED) Vital Signs Vital Signs - 24 hr 01/06/24 14:31 01/06/24 14:43 01/06/24 16:04 Temperature 37 C Temperature Source Oral Pulse Rate 75 77 Pulse Rate [Apical] Respiratory Rate 24 Respiratory Effort / Characteristics Non-Labored Respiratory Depth Normal Respiratory Pattern Blood Pressure 161/93 H Blood Pressure [Right Arm] Blood Pressure Mean 115 Blood Pressure Mean [Right Arm] Pulse Oximetry 90 88 L Oxygen Delivery Method Room Air Nasal Cannula Oxygen Flow Rate 0 Sepsis Recent Fever Within 48 Hours Yes Sepsis New/Unexplained Change in Mental Status No Sepsis Action Taken by Nursing No Action Required Oxygen Flow Rate - Titration 2 Pulse Oximetry Post Tiitration 93 01/06/24 16:20 Temperature Temperature Source Pulse Rate Pulse Rate [Apical] 80 Respiratory Rate 18 Respiratory Effort / Characteristics Non-Labored Respiratory Depth Normal Respiratory Pattern Regular Blood Pressure Blood Pressure [Right Arm] 178/108 H Blood Pressure Mean Blood Pressure Mean [Right Arm] 131 Pulse Oximetry 93 Oxygen Delivery Method Room Air Oxygen Flow Rate Sepsis Recent Fever Within 48 Hours Sepsis New/Unexplained Change in Mental Status Sepsis Action Taken by Nursing Oxygen Flow Rate - Titration Pulse Oximetry Post Tiitration Laboratory Data Attestation: I reviewed the patient's lab results. 01/06/24 14:30 01/06/24 14:30 Lab Results 01/06/24 Range/Units 14:30 WBC 5.83 (4.8-10.8) K/ul RBC 4.78 (4.20-5.40) M/uL Hgb 16.2 H (12.0-16.0) g/dl Hct 47.3 H (37.0-47.0) % MCV 99.0 (80.0-100.0) fL MCH 33.9 (25.0-34.0) pg MCHC 34.2 (32.0-36.0) g/dL RDW Std Deviation 56.6 H (36.4-46.3) fL RDW Coeff of Mookie 15.4 H (11.5-14.5) % Plt Count 334 (130-400) K/uL MPV 9.1 L (9.4-12.4) fL Immature Gran % (Auto) 0.2 % Neut % (Auto) 72.7 % Lymph % (Auto) 16.1 % [place] % (Auto) 10.6 % Eos % (Auto) 0.2 % Baso % (Auto) 0.2 % Neut # (Auto) 4.24 (1.40-6.50) K/uL Lymph # (Auto) 0.94 L (1.20-3.40) K/uL [place] # (Auto) 0.62 H (0.11-0.59) K/uL Eos # (Auto) 0.01 (0.00-0.50) K/uL Baso # (Auto) 0.01 (0.00-0.20) K/uL Immature Gran # (Auto) 0.01 (0.01-0.20) K/uL PT 11.1 (9.0-12.0) Seconds INR 1.0 (0.9-1.1) Sodium 145 (136-145) mmol/L Potassium 3.4 L (3.5-5.1) mmol/L Chloride 97 L (98-107) mmol/L Carbon Dioxide 38 H (21-32) mmol/L Anion Gap 10 (3-11) BUN 12 (6-23) mg/dl Creatinine 0.89 (0.6-1.2) mg/dl Est Cr Clr Drug Dosing 47.1 ml/min Est GFR ( Amer) 80.5 ml/min Est GFR (Non-Af Amer) 69.5 ml/min BUN/Creatinine Ratio 13.5 (10-20) Glucose 108 H (70-99(Fasting)) mg/dl Calcium 9.7 (8.6-10.3) mg/dl Magnesium 1.8 (1.7-2.4) mg/dl Total Bilirubin 0.4 (0.2-1.0) mg/dl AST 55 H (13-39) U/L ALT 50 (7-52) U/L Alkaline Phosphatase 180 H (34-104) U/L Troponin I High Sens 5.1 (0-14) pg/ml B-Natriuretic Peptide 101 H (0-100) pg/ml Total Protein 5.2 L (6.0-8.3) gm/dl Albumin 3.3 L (3.4-5.0) gm/dl Globulin 1.9 L (2.5-4.0) gm/dl Albumin/Globulin Ratio 1.7 (0.9-2) Lipase 16 (11-82) U/L Procalcitonin < 0.02 (0-0.5) ng/ml Administered Medications Albuterol (Albut/Ipratrop 3mg/0.5mg Neb 3 Ml Vial) 3 ml NEB QIDR BRODERICK; Protocol Stop: 02/05/24 18:59 Last Admin: 01/06/24 19:28 Dose: 3 ml Documented By: GISELLE Budesonide (Budesonide 0.5 Mg/2 Ml Vial (Pulmicort)) 0.5 mg NEB BIDR COUNT INCLUDES THE [facility] Stop: 02/05/24 18:59 Last Admin: 01/06/24 19:28 Dose: 0.5 mg Documented By: GISELLE Enoxaparin Sodium (Enoxaparin Inj 40 Mg/0.4 Ml Syr) 40 mg SQ Q24H COUNT INCLUDES THE [facility] Stop: 02/05/24 20:59 Last Admin: 01/06/24 22:34 Dose: 40 mg Documented By: OSWALDO Formoterol Fumarate (Formoterol 20 Mcg/2 Ml Vial) 20 mcg NEB BIDR COUNT INCLUDES THE [facility] Stop: 02/05/24 18:59 Last Admin: 01/06/24 19:28 Dose: 20 mcg Documented By: GISELLE Guaifenesin (Guaifenesin 600 Mg Tabcr) 1,200 mg PO Q12 COUNT INCLUDES THE [facility] Stop: 02/05/24 20:59 Last Admin: 01/06/24 22:34 Dose: 1,200 mg Documented By: OSWALDO Sodium Chloride (Sodium Chlor 7% 4 Ml Neb) 4 ml NEB BIDR COUNT INCLUDES THE [facility] Stop: 02/05/24 18:59 Last Admin: 01/06/24 19:28 Dose: 4 ml Documented By: GISELLE Discontinued Medications Albuterol (Albut/Ipratrop 3mg/0.5mg Neb 3 Ml Vial) 3 ml NEB NOW STA; Protocol Stop: 01/06/24 15:10 Last Admin: 01/06/24 15:19 Dose: 3 ml Documented By: JESSI Guaifenesin (Guaifenesin 600 Mg Tabcr) 1,200 mg PO NOW STA Stop: 01/06/24 15:11 Last Admin: 01/06/24 15:19 Dose: 1,200 mg Documented By: JESSI Sodium Chloride (Nss) 500 mls @ 999 mls/hr IV .Q31M ONE Stop: 01/06/24 15:39 Last Infusion: 01/06/24 16:12 Dose: Infused Documented By: Admin: 01/06/24 15:20 Dose: 999 mls/hr Documented By: JESSI Famotidine (Pepcid 20mg Iv Push) 20 mg in 5 mls @ 2.5 mls/min IV NOW STA Stop: 01/06/24 15:12 Last Admin: 01/06/24 15:19 Dose: 2.5 mls/min Documented By: JESSI Magnesium Sulfate/Dextrose (Magnesium Sulfate / D5w) 1 gm in 100 mls @ 100 mls/hr IV NOW STA Stop: 01/06/24 16:11 Last Infusion: 01/06/24 16:49 Dose: Infused Documented By: Admin: 01/06/24 15:19 Dose: 100 mls/hr Documented By: JESSI Doxycycline Hyclate 100 mg/ (Dextrose) 100 mls @ 50 mls/hr IV NOW STA Stop: 01/06/24 18:54 Last Infusion: 01/06/24 19:20 Dose: Infused Documented By: Admin: 01/06/24 17:34 Dose: 50 mls/hr Documented By: JESSI Lactated Ringer's (Lr) 1,000 mls @ 100 mls/hr IV .Q10H BRODERICK Stop: 01/07/24 02:59 Last Admin: 01/06/24 19:21 Dose: 100 mls/hr Documented By: ANIBAL Ioversol (Optiray 320 125ml) 74 ml IV ONCE ONE Stop: 01/06/24 15:39 Last Admin: 01/06/24 15:38 Dose: 74 ml Documented By: LYNN Methylprednisolone (Methylprednisolone 125 Mg/2 Ml Vial) 125 mg IV NOW STA Stop: 01/06/24 15:10 Last Admin: 01/06/24 15:19 Dose: 125 mg Documented By: JESSI Ondansetron HCl (Ondansetron Inj 2 Mg/Ml 2 Ml Vial) 4 mg IV NOW STA Stop: 01/06/24 15:12 Last Admin: 01/06/24 15:19 Dose: 4 mg Documented By: JESSI Potassium Chloride (Potassium Chloride Crtab 20 Meq Tabcr) 40 meq PO NOW STA Stop: 01/06/24 16:23 Last Admin: 01/06/24 17:33 Dose: 40 meq Documented By: JESSI Imaging Data Radiologist's Impression: Chest X-Ray 01/06/24 14:34 XR chest 1V portable CLINICAL HISTORY: Chest pain, nonspecific TECHNIQUE: Single frontal radiograph of the chest was obtained. Comparison: Comparison is made to chest radiograph 07/18/2021 FINDINGS: No lines and tubes are seen. The cardiomediastinal silhouette is normal. The lungs are clear. No evidence of pleural effusion or pneumothorax. IMPRESSION: No acute chest disease. ACT 112: Negative or not required by law. Electronically signed by: Alexandro Marshall M.D. 01/06/2024 2:53 PM Chest CTA 01/06/24 15:12 CHEST CTA for PULMONARY ARTERIES CT DOSE: 373.19 mGy.cm HISTORY: cough, cp, sob, r/o PE TECHNIQUE: Multiaxial CT images of the chest were performed following the intravenous administration of contrast to evaluate the pulmonary arteries. 3D/Maximal intensity projection images were also obtained. Sagittal and coronal reformations were also reviewed. A dose lowering technique was utilized adhering to the principles of ALARA. COMPARISON STUDY: Chest CT 03/21/2020. FINDINGS: Small amount of mucoid material within the trachea and right mainstem bronchus. No pneumothorax. No pleural effusions. Moderate emphysema is noted. A few small bibasilar linear densities favor subsegmental atelectasis or scarring. Otherwise, no focal lung consolidations to suggest a pneumonia. No evidence for pulmonary edema. Stable 5 mm nodule within the right lower lobe on image 116. Therefore, this is considered to be benign. No acute fractures within the chest. Focal indentation at the superior endplate of L1 favors a Schmorl's node. This remains unchanged. There is a 6 mm hypodense lesion within the right hepatic lobe. This is technically too small to characterize but favors a cyst. The visualized spleen and adrenal glands are unremarkable. Normal esophagus. Normal thyroid gland. No mediastinal or hilar lymphadenopathy. The heart is normal in size. No pericardial effusion. Normal caliber thoracic aorta with no evidence for a dissection. No filling defects within the pulmonary arteries to suggest a pulmonary embolus. IMPRESSION: 1. No evidence for a pulmonary embolus. 2. Moderate emphysema. 3. No focal lung consolidations to suggest a pneumonia. 4. Small amount of mucoid material within the trachea and right mainstem bronchus. ACT 112: Negative or not required by law. Electronically signed by: Mariusz Walsh M.D. 01/06/2024 3:56 PM Discharge Plan Visit Data Chief Complaint: Cough Stated Complaint: ILLNESS ED Provider: Kalpesh Li Discharge Problem: COVID-19 virus infection, Chronic obstructive pulmonary disease, Generalized weakness, Dehydration Patient Disposition: Admitted As Inpatient Discharge Instructions Interventions: ED Discharge Assessment Last Done: 01/06/24 18:30 Discharge Problem: Chronic obstructive pulmonary disease Qualifiers: COPD type: COPD with acute lower respiratory infection Qualified Code(s): J44.0 - Chronic obstructive pulmonary disease with (acute) lower respiratory infection
[2024-01-06 14:48] LABS: Basophils # (auto) 0.01 K/uL (0.00-0.20); Basophils % (auto) 0.2 %; Eosinophils # (auto) 0.01 K/uL (0.00-0.50); Eosinophils % (auto) 0.2 %; Hematocrit (blood only) 47.3 % (37.0-47.0); Hemoglobin 16.2 g/dl (12.0-16.0); Immature Granulocytes # (auto) 0.01 K/uL (0.01-0.20); Immature Granulocytes % (auto) 0.2 %; Lymphocytes # (auto) 0.94 K/uL (1.20-3.40); Lymphocytes % (auto) 16.1 %; Mean Corpuscular Hemoglobin 33.9 pg (25.0-34.0); Mean Corpuscular Hgb Conc 34.2 g/dL (32.0-36.0); Mean Platelet Volume 9.1 fL (9.4-12.4); Monocytes # (auto) 0.62 K/uL (0.11-0.59); Monocytes % (auto) 10.6 %; Neutrophils # (auto) 4.24 K/uL (1.40-6.50); Neutrophils % (auto) 72.7 %; Platelet Count 334 K/uL (130-400); RDW Coefficient of Variation 15.4 % (11.5-14.5); RDW Standard Deviation 56.6 fL (36.4-46.3); Red Blood Count 4.78 M/uL (4.20-5.40); White Blood Count 5.83 K/ul (4.8-10.8)
--- NOTE | 2024-01-06 14:54 | XRay Report ---
XR chest 1V portable CLINICAL HISTORY: Chest pain, nonspecific TECHNIQUE: Single frontal radiograph of the chest was obtained. Comparison: Comparison is made to chest radiograph 07/18/2021 FINDINGS: No lines and tubes are seen. The cardiomediastinal silhouette is normal. The lungs are clear. No evid ence of pleural effusion or pneumothorax. IMPRESSION: No acute chest disease. ACT 112: Negative or not required by law. Electronically signed by: Alexandro Marshall M.D. 01/06/2024 2:53 PM
[2024-01-06 15:04] LABS: Albumin Globulin Ratio 1.7 (0.9-2); Albumin Level 3.3 gm/dl (3.4-5.0); BUN Creatinine Ratio 13.5 (10-20); Bilirubin,Total 0.4 mg/dl (0.2-1.0); Calcium 9.7 mg/dl (8.6-10.3); Creatinine Clr Calc Pharmacy 47.1 ml/min; Est GFR (African American) 80.5 ml/min; Est GFR (Non-African American) 69.5 ml/min; Globulin 1.9 gm/dl (2.5-4.0); Magnesium 1.8 mg/dl (1.7-2.4); Potassium 3.4 mmol/L (3.5-5.1); Total Protein 5.2 gm/dl (6.0-8.3)
[2024-01-06 15:09] LABS: Troponin I High Sensitivity 5.1 pg/ml (0-14)
[2024-01-06 15:18] LABS: Prothrombin Time 11.1 Seconds (9.0-12.0)
[2024-01-06] MEDS: FAMOTIDINE 20MG IV PUSH 20 MG/5 ML SYR IV STA (15:19)
[2024-01-06] MEDS: methylPREDNISolone 125 MG/2 ML VIAL IV STA (15:19)
[2024-01-06] MEDS: guaiFENesin 600 MG TABCR PO STA (15:19)
[2024-01-06] MEDS: MAGNESIUM SULFATE / D5W 1 GM/100 ML BAG IV STA (15:19)
[2024-01-06] MEDS: ONDANSETRON INJ 2 MG/ML 2 ML VIAL IV STA (15:19)
[2024-01-06] MEDS: ALBUT/IPRATROP 3MG/0.5MG NEB 3 ML VIAL NEB STA (15:19)
[2024-01-06] MEDS: SODIUM CHLORIDE 0.9% 500 ML IV ONE (15:20)
[2024-01-06 15:33] LABS: Adenovirus PCR Not Detected (NotDetected); Bordetella parapertussis PCR Not Detected (NotDetected); Bordetella pertussis PCR Not Detected (NotDetected); Chlamydia pneumoniae PCR Not Detected (NotDetected); Coronavirus 229E PCR Not Detected (NotDetected); Coronavirus CoV-2 (COVID19)PCR DETECTED (NotDetected); Coronavirus HKU1 PCR Not Detected (NotDetected); Coronavirus NL63 PCR Not Detected (NotDetected); Coronavirus OC43PCR Not Detected (NotDetected); Human Metapneumovirus PCR Not Detected (NotDetected); Influenza A PCR Not Detected (NotDetected); Influenza B PCR Not Detected (NotDetected); Mycoplasma pneumoniae PCR Not Detected (NotDetected); Parainfluenza Virus 1 PCR Not Detected (NotDetected); Parainfluenza Virus 2 PCR Not Detected (NotDetected); Parainfluenza Virus 3 PCR Not Detected (NotDetected); Parainfluenza Virus 4 PCR Not Detected (NotDetected); Respiratory Syncytial VirusPCR Not Detected (NotDetected); Rhinovirus/Enterovirus PCR Not Detected (NotDetected)
[2024-01-06] MEDS: OPTIRAY 320 125ml IV ONE (15:38)
--- NOTE | 2024-01-06 15:57 | CT Scan Report ---
CHEST CTA for PULMONARY ARTERIES CT DOSE: 373.19 mGy.cm HISTORY: cough, cp, sob, r/o PE TECHNIQUE: Multiaxial CT images of the chest were performed following the intravenous administration of contrast to evaluate the pulmonary arteries. 3D/Maximal intensity projection images were also obta ined. Sagittal and coronal reformations were also reviewed. A dose lowering technique was utilized a dhering to the principles of ALARA. COMPARISON STUDY: Chest CT 03/21/2020. FINDINGS: Small amount of mucoid material within the trachea and right mainstem bronchus. No pneumoth orax. No pleural effusions. Moderate emphysema is noted. A few small bibasilar linear densities favor subsegmental atelectasis or scarring. Otherwise, no focal lung consolidations to suggest a pneumonia . No evidence for pulmonary edema. Stable 5 mm nodule within the right lower lobe on image 116. There fore, this is considered to be benign. No acute fractures within the chest. Focal indentation at the superior endplate of L1 favors a Schmorl's node. This remains unchanged. There is a 6 mm hypodense le sue within the right hepatic lobe. This is technically too small to characterize but favors a cyst. The visualized spleen and adrenal glands are unremarkable. Normal esophagus. Normal thyroid gland. No mediastinal or hilar lymphadenopathy. The heart is normal in size. No pericardial effusion. Normal c aliber thoracic aorta with no evidence for a dissection. No filling defects within the pulmonary carl mir to suggest a pulmonary embolus. IMPRESSION: 1. No evidence for a pulmonary embolus. 2. Moderate emphysema. 3. No focal lung consolidations to suggest a pneumonia. 4. Small amount of mucoid material within the trachea and right mainstem bronchus. ACT 112: Negative or not required by law. Electronically signed by: Mariusz Walsh M.D. 01/06/2024 3:56 PM
--- NOTE | 2024-01-06 16:25 | Electrocardiogram Report ---
Test Reason : Blood Pressure : */* mmHG Vent. Rate : 72 BPM Atrial Rate : 72 BPM P-R Int : 152 ms QRS Dur : 78 ms QT Int : 466 ms P-R-T Axes : 67 -29 57 degrees QTcB Int : 510 ms Normal sinus rhythm Low voltage QRS Possible Old Anterior infarct (cited on or before 06-Apr-2020) Prolonged QT Abnormal ECG When compared with ECG of 18-Jul-2021 12:39, QRS axis Shifted left Nonspecific T wave abnormality has replaced inverted T waves in Anterior leads Confirmed by Cristian Murry ([id number]) on 01/06/2024 4:25:11 PM Referred By: REFERRED SELF Confirmed By: Cristian Murry
--- NOTE | 2024-01-06 16:27 | History & Physical Report ---
Date of Service January 06, 2024 Assessment & Plan (1) COPD exacerbation: Plan: Admit to [facility] telemetry on pulse oximetry Currently stable on 1 L nasal cannula and otherwise stable Presented to the ED with approximately 10 days of progressive upper respiratory symptoms, generalized weakness, body aches, and shortness of breath Noted to be SARS-CoV-2 positive on PCR testing today No signs of pneumonia on chest x-ray or CTA of the chest, CT of the chest nega tive for signs of PE or volume overload Status post 125 mg IV Solu-Medrol, DuoNeb treatment, 1 g IV mag sulfate, and a dose of guaifenesin Will continue with 40 mg IV Solu-Medrol 3 times daily Will start patient on every 12 hours doxycycline due to COPD exacerbation and patient noted to have QT prolongation on EKG today Start 4 times daily ER DuoNeb treatments, every 12 hours scheduled budesonide and formoterol nebulizers Will start twice daily are hypertonic saline nebs due to patient having chest congestion with mucoid material in the trachea and right mainstem bronchus > Patient denied recent episodes of aspiration Incentive spirometry, as needed O2 to keep SpO2 between 89 to 92% Every 12 hour guaifenesin Follow sputum culture with Gram stain obtained at the time of admission SQ Lovenox for DVT prophylaxis Heart healthy diet AM CBC, CMP, mag, PT/INR (2) COVID-19 virus infection: Plan: See COPD exacerbation Will continue with 3 times daily IV Solu-Medrol instead of 6 mg daily dexamethasone due to patient having COPD exacerbation on top of COVID 19 infection Patient is out of the window for remdesivir treatment due to having symptoms for approximately 10 days at the time of arrival (3) QT prolongation: Plan: Patient noted to have a QTc of 466 with QTc of 510 Would not recommend QT prolonging medications at this time Consider repeat EKG prior to discharge Plan The patient was discussed with Dr. David at the time of the admission History of Present Illness Chief Complaint: Generalized weakness, shortness of breath, cough Primary Care Provider: JJ Arreolaa is a 63-year-old female with a past medical history significant for COPD, gastroparesis, GERD, and chronic pain who presented to the [facility] ED on 01/06/2024 with approximately 10 days of generalized wea kness, cough, and shortness of breath. She was noted to be hypoxic on arrival at 88% on room air but otherwise stable. Labs were significant for potassium of 3.4 and full respiratory BioFire positive for COVID-19. Chest x-ray was read as negative for acute findings. CTA of the chest with PE protocol was read as negative for signs of pulmonary emboli, moderate emphysema, no focal lung consolidations to suggest a pneumonia. Small amount of mucoid material within the trachea and right mainstem bronchus. Prior to admission the patient was given a DuoNeb treatment, 20 mg IV famotidine, a dose of guaifenesin, 1 g IV mag sulfate, 125 mg IV Solu-Medrol, 4 mg IV Zofran, and 500 mL normal saline. Patient was sitting in bed in no acute distress at the time of exam, she was saturating at 97% on 2 L at the start of my exam. States that she currently smokes approximately 2 cigarettes a day, has been smoking for approximately 40 years but it would typically take her approximately 1 week to go through 1 pack. Started develop congestion and sneezing approximately 10 days ago which progressed to a productive cough with white to rubalcava sputum, fever/chills, muscle aches, and shortness of breath. She uses an albuterol rescue inhaler at home which she has been using more frequently, she denies being on maintenance COPD medications at home. Denies recent chest pain, hemoptysis, vomiting, dysuria, hematuria, melena, diarrhea, lower extremity swelling, and recent trauma. She is a full code and would want her brother and parents to make medical decisions for her if she cannot make them herself. Please refer to Dr. David's attestation for any changes to the treatment plan Allergies Allergy/AdvReac Type Severity Reaction Status Date / Time Penicillins Allergy Severe Swelling Verified 09/09/23 12:36 and shortness of breath latex Allergy Intermediate Itchy Verified 09/09/23 12:36 rash,localized burning sensation atorvastatin AdvReac Intermediate EXCESSIVE Verified 09/09/23 12:36 BLEEDING Home Medications Medication Instructions Recorded Confirmed Type buspirone 5 mg tablet 5 mg PO BID #60 tabs 04/03/21 09/09/23 Rx fluticasone propionate 50 1 spray intranasal BID #16 grams 04/03/21 09/09/23 Rx mcg/actuation nasal spray,suspension gabapentin 400 mg capsule 400 mg PO BID #60 caps 04/03/21 09/09/23 Rx quetiapine 100 mg tablet 100 mg PO HS #30 tabs 04/03/21 09/09/23 Rx triamcinolone acetonide 0.1 % 1 applic topical BID #15 grams 04/03/21 09/09/23 Rx topical cream multivitamin 1 tab PO HS 04/04/21 09/09/23 History acetaminophen 500 mg tablet 500 mg PO Q8 PRN pain #15 tabs 04/06/21 09/09/23 Rx (Tylenol Extra Strength) aspirin 81 mg tablet,delayed 81 mg PO BID #0 tabs 04/06/21 09/09/23 Rx release potassium chloride 20 mEq 20 meq PO DAILY #10 tabs 07/18/21 09/09/23 Rx tablet,extended release vortioxetine 20 mg tablet 10 mg PO HS 07/18/21 09/09/23 History (Trintellix) albuterol sulfate 90 mcg/actuation 2 puff inhalation Q6H PRN 03/01/22 09/09/23 Rx aerosol inhaler shortness of breath or wheezing #8.5 grams varenicline 1 mg tablet 1 mg PO BID #56 tabs 02/20/23 09/09/23 Rx glucosamine sulf dipot 1 cap PO QAM 05/07/23 09/09/23 History chlr,msm,chond 550 mg-C 30 mg-malachi 1 mg capsule (Glucosamine Chondroitin) celecoxib 100 mg capsule (Celebrex) 100 mg PO Q12H #20 caps 05/09/23 09/09/23 Rx hydrocodone 5 mg-acetaminophen 325 1 tab PO Q4H PRN pain #5 tabs 05/09/23 09/09/23 Rx mg tablet nitrofurantoin 100 mg PO Q12H 7 days #14 caps 09/09/23 09/09/23 Rx monohydrate/macrocrystals 100 mg capsule (Macrobid) pantoprazole 20 mg tablet,delayed 20 mg PO QAM acid reflux #30 tabs 09/09/23 09/09/23 Rx release furosemide 20 mg tablet 20 mg PO DAILY PRN edema #30 tabs 10/20/23 Rx ondansetron HCl 4 mg tablet 4 mg PO Q4H PRN nausea and 10/24/23 Rx vomiting #20 tabs oxycodone 5 mg tablet 5 mg PO Q8H PRN pain #10 tabs 12/16/23 Rx Past Med/Surg History Problem List (Updated 01/06/24 @ 16:51 by Ben Christianson PA-C) QT prolongation COVID-19 virus infection COPD exacerbation Retained orthopedic hardware Right foot pain Right ankle pain Tibialis posterior tendinitis Plantar fasciitis of right foot Peripheral vision loss Low ferritin Dyspnea Frequent falls Memory impairment Osteoporosis Hx of herpes genitalis Dermatitis Arthritis of carpometacarpal (CMC) joint of left thumb Osteopenia Impaired fasting glucose Vitamin D deficiency Smoker Pulmonary nodule pt unaware Sternal pain FROM POSSIBLE INJURY CURRENTLY UNDERGOING RIB MANIPULATION Gastroparesis Macrocytosis without anemia Anxiety with depression Hypomagnesemia (Acute) Bulimia Cervical radiculopathy Chronic back pain L4 - HERNIATED DISC HAD LESI 08/2018 GERD (gastroesophageal reflux disease) Chronic obstructive pulmonary disease well controlled Medical History History of COVID-19 end of 02/2023 - no hosp; resolved Bilateral lower extremity edema occasional History of gastric ulcer Myocardial Infarction 2014 - [facility], HEART CATH - NO STENTS JUST WATCHING FOLLOW WITH [place] [facility] Surgical History S/P epidural steroid injection History of tubal ligation History of esophagogastroduodenoscopy (EGD) "FOOD DOESN'T DIGEST" H/O tooth extraction ALL TEETH History of tonsillectomy History of cardiac cath 2014 heart cath no stents History of bilateral tubal ligation History of tonsillectomy History of oral surgery FULL MOUTH EXTR History of arthroscopic knee surgery History of appendectomy History of section History of laparoscopic appendectomy Family History Mother Breast cancer Brother Prostate cancer Family/Other Myocardial infarction self Father Family history of reaction to anesthesia gets irritable mood for awhile after anesthesia Denies family history of Ovarian cancer Colorectal cancer Social History Smoking Status: Current every day smoker Tobacco Type: Cigarettes Cigarettes Per Day: 2-3 a day- advised; Second Hand Exposure: No; Do You Dip or Chew Tobacco: No; Hx Alcohol Use: No Hx Substance Use: No Preferred Language: Yakut Communication Ability: Effective Visual Impairment: No Limitations Hearing Ability: Normal 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 Beliefs That Will Affect Care: None marital status: Single Current Living Situation: Family Current Living Situation Comment: Lives w/ parents current occupational status: employed Feels Safe at Home: Yes Dental Care, Regularly: No Physical Activity Frequency: 3-4 Times per Week Seatbelt Use: always Assistive Devices: Denture - Upper, Denture - Lower and Glasses Physical Exam 2 Physical Exam: Physical Exam: General: In no acute distress, stated age, ill-appearing but nontoxic HEENT: Normocephalic, atraumatic, no scleral icterus, pupils around round, symmetrical, and reactive to light, dry mucus membranes, trachea midline, no thyromegaly Chest/Pulm: No respiratory distress, symmetrical chest expansion, minimal air movement on auscultation with intermittent scattered expiratory wheezing Cardiac: RRR, no murmurs noted Abdomen: Negative for ascites and bruising, normoactive bowel sounds, soft, non-tender to palpation throughout Musculoskeletal: Symmetrical and without signs of acute trauma, upper and lower extremities with full ROM, no atrophy, spasticity, or flaccidity Extremities: Radial, dorsalis pedis, and posterior tibial pulses are intact and symmetrical, no edema noted in the BL LE's Skin: Warm, dry, no rashes , lesions, or scars noted Neuro: Alert and oriented to person, place, month, year, and president, no focal defects,no tremors noted Psych: No acute distress, calm and cooperative during the exam Results & Data Results & Data Vital Signs (Past 12 Hours) Vital Signs Temp Pulse Resp BP Pulse Ox O2 Del Method O2 Flow Rate 01/06/24 16:04 77 01/06/24 14:43 88 L Nasal Cannula 0 01/06/24 14:31 37 C 75 24 161/93 H 90 Room Air Laboratory Results Abnormal lab results 01/06/24 01/06/24 Range/Units 14:30 Unknown Hgb 16.2 H (12.0-16.0) g/dl Hct 47.3 H (37.0-47.0) % RDW Std Deviation 56.6 H (36.4-46.3) fL RDW Coeff of Mookie 15.4 H (11.5-14.5) % MPV 9.1 L (9.4-12.4) fL Lymph # (Auto) 0.94 L (1.20-3.40) K/uL [place] # (Auto) 0.62 H (0.11-0.59) K/uL Potassium 3.4 L (3.5-5.1) mmol/L Chloride 97 L (98-107) mmol/L Carbon Dioxide 38 H (21-32) mmol/L Glucose 108 H (70-99(Fasting)) mg/dl AST 55 H (13-39) U/L Alkaline Phosphatase 180 H (34-104) U/L B-Natriuretic Peptide 101 H (0-100) pg/ml Total Protein 5.2 L (6.0-8.3) gm/dl Albumin 3.3 L (3.4-5.0) gm/dl Globulin 1.9 L (2.5-4.0) gm/dl SARS-CoV-2 (PCR) DETECTED A (NotDetected) Diagnostic Findings Chest X-Ray 01/06/24 14:34 XR chest 1V portable CLINICAL HISTORY: Chest pain, nonspecific TECHNIQUE: Single frontal radiograph of the chest was obtained. Comparison: Comparison is made to chest radiograph 07/18/2021 FINDINGS: No lines and tubes are seen. The cardiomediastinal silhouette is normal. The lungs are clear. No evidence of pleural effusion or pneumothorax. IMPRESSION: No acute chest disease. ACT 112: Negative or not required by law. Electronically signed by: Alexandro Marshall M.D. 01/06/2024 2:53 PM Chest CTA 01/06/24 15:12 CHEST CTA for PULMONARY ARTERIES CT DOSE: 373.19 mGy.cm HISTORY: cough, cp, sob, r/o PE TECHNIQUE: Multiaxial CT images of the chest were performed following the intravenous administration of contrast to evaluate the pulmonary arteries. 3D/Maximal intensity projection images were also obtained. Sagittal and coronal reformations were also reviewed. A dose lowering technique was utilized adhering to the principles of ALARA. COMPARISON STUDY: Chest CT 03/21/2020. FINDINGS: Small amount of mucoid material within the trachea and right mainstem bronchus. No pneumothorax. No pleural effusions. Moderate emphysema is noted. A few small bibasilar linear densities favor subsegmental atelectasis or scarring. Otherwise, no focal lung consolidations to suggest a pneumonia. No evidence for pulmonary edema. Stable 5 mm nodule within the right lower lobe on image 116. Therefore, this is considered to be benign. No acute fractures within the chest. Focal indentation at the superior endplate of L1 favors a Schmorl's node. This remains unchanged. There is a 6 mm hypodense lesion within the right hepatic lobe. This is technically too small to characterize but favors a cyst. The visualized spleen and adrenal glands are unremarkable. Normal esophagus. Normal thyroid gland. No mediastinal or hilar lymphadenopathy. The heart is normal in size. No pericardial effusion. Normal caliber thoracic aorta with no evidence for a dissection. No filling defects within the pulmonary arteries to suggest a pulmonary embolus. IMPRESSION: 1. No evidence for a pulmonary embolus. 2. Moderate emphysema. 3. No focal lung consolidations to suggest a pneumonia. 4. Small amount of mucoid material within the trachea and right mainstem bronchus. ACT 112: Negative or not required by law. Electronically signed by: Mariusz Walsh M.D. 01/06/2024 3:56 PM ECG Additional Comments: Normal sinus rhythm Low voltage QRS Possible Old Anterior infarct (cited on or before 06-Apr-2020) Prolonged QT Abnormal ECG When compared with ECG of 18-Jul-2021 12:39, QRS axis Shifted left Nonspecific T wave abnormality has replaced inverted T waves in Anterior leads Confirmed by Cristian Murry ([id number]) on 01/06/2024 4:25:11 PM Code Status & VTE Plan Code Status Full code VTE Prophylaxis Plan VTE Prophylaxis will be ordered: Yes Supervising Physician Co-Signing Physician Notes Patient seen and examined, chart reviewed, case discussed with Ben Christianson PA-C and I agree with the assessment and plan as above except as otherwise noted Labs and images reviewed 63-year-old female with a past medical history of anxiety/depression, GERD, radiculopathy, COPD, tobacco use presents to the ER with aCOPD exacerbation 2/2 COVID. +increased cough with rubalcava sputum production. +tobacco use. No leukocytosis. BNP is with minimal elevation. Procalcitonin pending. COVID- positive on admission. CTA shows no evidence of PE, no focal consolidation suggestive of lobar pneumonia. At bedside +end expiratory wheezing, otherwise nondistressed. Agree w/ steroids, incentive spirometry, budesonide nebs, fomoterol nebs, +doxy 100mg BID 2/2 QTp. Out of the treatment window for remdesivir. On 1L O2 at tiem of admission, titrate to goal 89%. Agree w/ above PG Care Time/CCT Total # of Minutes Spent Total Time Spent with Patient: Total time spent is greater than 50% in coordination of care (as documented) at patient's floor/unit and/or counseling patient: Coding [place] [address] INT INP/OBS CARE 2/55MIN Patient Type Established Medical Decision Making Moderate Complexity Diagnoses COPD exacerbation J44.1 COVID-19 virus infection U07.1 QT prolongation R94.31
[2024-01-06] MEDS: POTASSIUM CHLORIDE CRTAB 20 MEQ TABCR PO STA (17:33)
[2024-01-06] MEDS: DOXYCYCLINE HYCLATE 100 MG in DEXTROSE 5% MINI-B 100 ML IV STA (17:34)
[2024-01-06] MEDS: LACTATED RINGER'S 1,000 ML IV SCH (19:21)
[2024-01-06] MEDS: SODIUM CHLOR 7% 4 ML NEB NEB SCH (19:28)
[2024-01-06] MEDS: BUDESONIDE 0.5 MG/2 ML VIAL (PULMICORT) NEB SCH (19:28)
[2024-01-06] MEDS: FORMOTEROL 20 MCG/2 ML VIAL NEB SCH (19:28)
[2024-01-06] MEDS: ALBUT/IPRATROP 3MG/0.5MG NEB 3 ML VIAL NEB SCH (19:28)
[2024-01-06] MEDS: ENOXAPARIN INJ 40 MG/0.4 ML SYR SQ SCH (22:34)
[2024-01-06] MEDS: guaiFENesin 600 MG TABCR PO SCH (22:34)
[2024-01-07] MEDS: DOXYCYCLINE HYCLATE 100 MG in DEXTROSE 5% MINI-B 100 ML IV SCH (04:37)
[2024-01-07 06:36] LABS: Hematocrit (blood only) 39.9 % (37.0-47.0); Hemoglobin 13.8 g/dl (12.0-16.0); Immature Granulocytes # (auto) 0.02 K/uL (0.01-0.20); Immature Granulocytes % (auto) 0.3 %; Lymphocytes # (auto) 0.68 K/uL (1.20-3.40); Lymphocytes % (auto) 10.7 %; Mean Corpuscular Hemoglobin 34.1 pg (25.0-34.0); Mean Corpuscular Hgb Conc 34.6 g/dL (32.0-36.0); Mean Corpuscular Volume 98.5 fL (80.0-100.0); Mean Platelet Volume 9.4 fL (9.4-12.4); Monocytes % (auto) 4.7 %; Neutrophils # (auto) 5.33 K/uL (1.40-6.50); Neutrophils % (auto) 84.3 %; Platelet Count 306 K/uL (130-400); RDW Coefficient of Variation 15.8 % (11.5-14.5); RDW Standard Deviation 57.7 fL (36.4-46.3); Red Blood Count 4.05 M/uL (4.20-5.40); White Blood Count 6.33 K/ul (4.8-10.8)
[2024-01-07 06:56] LABS: Albumin Globulin Ratio 1.4 (0.9-2); BUN Creatinine Ratio 9.6 (10-20); Bilirubin,Total 0.4 mg/dl (0.2-1.0); Calcium 8.5 mg/dl (8.6-10.3); Creatinine Clr Calc Pharmacy 36.4 ml/min; Est GFR (African American) 59.1 ml/min; Globulin 2.1 gm/dl (2.5-4.0); Magnesium 1.8 mg/dl (1.7-2.4); Potassium 3.6 mmol/L (3.5-5.1); Total Protein 5.1 gm/dl (6.0-8.3)
[2024-01-07 07:10] LABS: INR 1.1 (0.9-1.1); Prothrombin Time 11.4 Seconds (9.0-12.0)
--- NOTE | 2024-01-07 07:35 | Hospitalist Progress Note ---
Date of Service January 07, 2024 Assessment & Plan (1) COPD exacerbation: Plan: - Longstanding COPD on Flovent BID and Albuterol PRN - Now w/ increased URI sx and dyspnea in setting of COVID-19 - CXR and CT Chest w/o PNA, PE, or fluid overload - Management S/p Solumedrol 125 mg IV, continue 40 mg IV TID Continue Doxycycline 100 mg BID for COPD (d/t QT prolongation) S/p 1g IV Mg, Mg 1.8, additional 2g ordered Duonebs QID Receiving budesonide BID and formoterol BID while admitted, in place of Flovent - Supportive measures Continue Mucinex, Hypertonic saline, and incentive spirometry - O2 goal 89-92%, required 1L on presentation, now stable on room air (2) COVID-19 virus infection: Plan: - See above - Out of window for Paxlovid/Remdesavir (3) QT prolongation: Plan: Patient noted to have a QTc of 466 with QTc of 510 Would not recommend QT prolonging medications at this time Consider repeat EKG prior to discharge Plan Code Status: Full Code Dispo: Admitted to Med/Surg with Tele Diet: Heart healthy diet DVT Prophylaxis: SQ Lovenox 40 mg q24h Admission and Anticipated Discharge Date Admission Date: January 06, 2024 Supervising Physician Co-Signing Physician Notes Attending Physician Supervision Note: I independently interviewed and examined the patient and verified the marie history and physical, reviewed labs and image studies and agree with findings and care plan noted above. Here for copd exac due to covid. 10 day symptoms. breathing improved but still having congestion and feels weak. CTA neg for PE, lung infiltrate. O/e - Vitals - 95% on RA, 18 RR, AAOx3, RRR, No resp distress, CTA, Abd - soft, NT/ND COPD exacerbation d/t covid - symptoms improving. continue solumedrol, doxycycline, symptomatic treatment - saline and budesonide/formoterol nebs. QTc prolongation- On Buspar, Quetiapine, Trintellix. Psych meds on hold. -Recheck EKG. -Also she is on lasix with K replacement (unclear diagnosis). On hold. Will assess for resuming. Lovenox. Magdy Bangura is a 63-year-old female with a past medical history significant for COPD, gastroparesis, GERD, and chronic pain who presented to the [facility] ED on 01/06/2024 with approximately 10 days of generalized weakness, cough, and shortness of breath. She was noted to be hypoxic on arrival at 88% on room air but otherwise stable. Found to be +COVID at time of hospital presentation. Today, reports she is feeling much better than when she presented yesterday. Reports mild chest tightness, dyspnea, cough, nasal congestion, body aches, and malaise/fatigue. Also reports intermittent lightheadedness when she stands up. Denies chest pain, nausea, vomiting, abdominal pain, diarrhea, constipation, headache, dizziness. Review of Systems Review of Systems: As noted in HPI Physical Exam Physical Exam: General: In no acute distress, appears stated age HEENT: NCAT, no scleral icterus, moist mucous membranes, trachea midline Chest/Pulm: No respiratory distress, lungs CTAB Cardiac: RRR, no murmurs, rubs, gallops noted Abdomen: normoactive bowel sounds, soft, non-tender to palpation throughout Extremities: dorsalis pedis and posterior tibial pulses are intact and symmetrical, no edema noted in the BL LE's Skin: Warm, dry, no rashes or lesions noted Neuro: Alert and oriented x3, no focal defects Psych: Appropriate mood & affect, calm and cooperative during the exam Results & Data Results & Data Vital Signs (Past 12 Hours) Vital Signs Temp Pulse Pulse Resp BP Pulse Ox O2 Del Method 01/07/24 07:19 84 01/07/24 07:06 78 18 99 Room Air 01/07/24 03:41 36.8 C 93 H 20 112/71 95 Room Air 01/06/24 22:30 Room Air 01/06/24 21:28 89 01/06/24 21:08 36.7 C 88 18 146/82 H 96 Room Air Laboratory Results 01/06/24 17:43 Gram Stain - Final Sputum, Expectorated Sputum Culture - Final 01/07/24 01/06/24 01/06/24 05:49 Unknown 14:30 WBC 6.33 5.83 RBC 4.05 L 4.78 Hgb 13.8 16.2 H Hct 39.9 47.3 H MCV 98.5 99.0 MCH 34.1 H 33.9 MCHC 34.6 34.2 RDW Std Deviation 57.7 H 56.6 H RDW Coeff of Mookie 15.8 H 15.4 H Plt Count 306 334 MPV 9.4 9.1 L Immature Gran % (Auto) 0.3 0.2 Neut % (Auto) 84.3 72.7 Lymph % (Auto) 10.7 16.1 Casey % (Auto) 4.7 10.6 Eos % (Auto) 0.0 0.2 Baso % (Auto) 0.0 0.2 Neut # (Auto) 5.33 4.24 Lymph # (Auto) 0.68 L 0.94 L Casey # (Auto) 0.30 0.62 H Eos # (Auto) 0.00 0.01 Baso # (Auto) 0.00 0.01 Immature Gran # (Auto) 0.02 0.01 PT 11.4 11.1 INR 1.1 1.0 Sodium 143 145 Potassium 3.6 3.4 L Chloride 100 97 L Carbon Dioxide 32 38 H Anion Gap 11 10 BUN 11 12 Creatinine 1.15 0.89 Est Cr Clr Drug Dosing 36.4 47.1 Est GFR ( Amer) 59.1 80.5 Est GFR (Non-Af Amer) 51.0 69.5 BUN/Creatinine Ratio 9.6 L 13.5 Glucose 178 H 108 H Calcium 8.5 L 9.7 Magnesium 1.8 1.8 Total Bilirubin 0.4 0.4 AST 33 55 H ALT 37 50 Alkaline Phosphatase 157 H 180 H Troponin I High Sens 5.1 B-Natriuretic Peptide 101 H Total Protein 5.1 L 5.2 L Albumin 3.0 L 3.3 L Globulin 2.1 L 1.9 L Albumin/Globulin Ratio 1.4 1.7 Lipase 16 Procalcitonin < 0.02 Adenovirus (PCR) Not Detected B. pertussis DNA (PCR) Not Detected B.parapertussis DNA PCR Not Detected C. pneumoniae DNA (PCR) Not Detected Coronavirus OC43 (PCR) Not Detected Coronavirus HKU1 (PCR) Not Detected Coronavirus 229E (PCR) Not Detected SARS-CoV-2 (PCR) DETECTED A Coronavirus NL63 (PCR) Not Detected Human Metapneumovir PCR Not Detected Influenza Type A (PCR) Not Detected Influenza Type B (PCR) Not Detected M. pneumoniae (PCR) Not Detected Parainfluenza 1 (PCR) Not Detected Parainfluenza 2 (PCR) Not Detected Parainfluenza 3 (PCR) Not Detected Parainfluenza 4 (PCR) Not Detected RSV (PCR) Not Detected Entero/Rhino (PCR) Not Detected Resident Activity Tracking Resident Involvement: Resident Care Provided Care Provided: Adult Hospital Medicine
[2024-01-07] MEDS: methylPREDNISolone 40 MG in SYRINGE 0 ML IV SCH (08:11)
[2024-01-07] MEDS: MAGNESIUM SULFATE / D5W 1 GM/100 ML BAG IV SCH (08:11)
[2024-01-07] MEDS ORDERED: methylPREDNISolone 125 MG/2 ML VIAL IV SCH (09:00)
[2024-01-07] MEDS: ACETAMINOPHEN 325 MG TAB PO PRN (12:32)
[2024-01-07] MEDS: IBUPROFEN 200 MG/10 ML UDC PO STA (17:23)
[2024-01-07] MEDS: HYDROmorphone INJ 0.5 MG/0.5 ML SYR IV STA (18:26)
[2024-01-08 06:41] LABS: Alanine Aminotransferase 29 U/L (7-52); Albumin Globulin Ratio 1.5 (0.9-2); Albumin Level 3.2 gm/dl (3.4-5.0); Alkaline Phosphatase 144 U/L (34-104); Anion Gap 7 (3-11); BUN Creatinine Ratio 14.9 (10-20); Bilirubin,Total 0.4 mg/dl (0.2-1.0); Blood Urea Nitrogen 13 mg/dl (6-23); Calcium 8.4 mg/dl (8.6-10.3); Carbon Dioxide 34 mmol/L (21-32); Chloride 99 mmol/L (98-107); Creatinine Clr Calc Pharmacy 48.2 ml/min; Est GFR (African American) 82.8 ml/min; Est GFR (Non-African American) 71.4 ml/min; Globulin 2.2 gm/dl (2.5-4.0); Glucose 137 mg/dl (70-99(Fasting)); Magnesium 2.1 mg/dl (1.7-2.4); Sodium 140 mmol/L (136-145); Total Protein 5.4 gm/dl (6.0-8.3)
[2024-01-08 07:09] LABS: Hematocrit (blood only) 41.6 % (37.0-47.0); Hemoglobin 14.1 g/dl (12.0-16.0); Mean Corpuscular Hemoglobin 34.4 pg (25.0-34.0); Mean Corpuscular Hgb Conc 33.9 g/dL (32.0-36.0); Mean Corpuscular Volume 101.5 fL (80.0-100.0); Mean Platelet Volume 9.8 fL (9.4-12.4); Platelet Count 306 K/uL (130-400); RDW Coefficient of Variation 16.1 % (11.5-14.5); RDW Standard Deviation 60.1 fL (36.4-46.3); White Blood Count 24.26 K/ul (4.8-10.8)
[2024-01-08 07:10] LABS: Basophils # (auto) 0.03 K/uL (0.00-0.20); Basophils % (auto) 0.1 %; Immature Granulocytes # (auto) 0.31 K/uL (0.01-0.20); Immature Granulocytes % (auto) 1.3 %; Lymphocytes # (auto) 0.87 K/uL (1.20-3.40); Lymphocytes % (auto) 3.6 %; Monocytes # (auto) 0.49 K/uL (0.11-0.59); Neutrophils # (auto) 22.56 K/uL (1.40-6.50)
--- NOTE | 2024-01-08 07:50 | Electrocardiogram Report ---
Test Reason : Blood Pressure : */* mmHG Vent. Rate : 93 BPM Atrial Rate : 93 BPM P-R Int : 144 ms QRS Dur : 82 ms QT Int : 396 ms P-R-T Axes : 68 -8 52 degrees QTcB Int : 492 ms Poor data quality, interpretation may be adversely affected Normal sinus rhythm Low voltage QRS Prolonged QT Abnormal ECG When compared with ECG of 06-Jan-2024 14:50, No significant change was found Confirmed by Cristian Murry ([id number]) on 01/08/2024 7:50:28 AM Referred By: REFERRED SELF Confirmed By: Cristian Murry
[2024-01-08 08:23] LABS: Prothrombin Time 11.3 Seconds (9.0-12.0)
--- NOTE | 2024-01-08 08:23 | Medical Student Progress Note ---
Date of Service January 08, 2024 Assessment & Plan (1) COPD exacerbation: Plan: - Longstanding COPD on Flovent BID and Albuterol PRN - Now w/ increased URI sx and dyspnea in setting of COVID-19 - CXR and CT Chest w/o PNA, PE, or fluid overload - Management S/p Solumedrol 125 mg IV, continue 40 mg IV TID Continue Doxycycline 100 mg BID for COPD (d/t QT prolongation) S/p 1g IV Mg, Mg 1.8, additional 2g ordered Duonebs QID Receiving budesonide BID and formoterol BID while admitted, in place of Flovent 01/07: zofran for nausea, added miralax prn for constipation Will d/c home on 2 days prednisone 40 mg QD to complete steroid burst. Has already received 3 days of Solumedrol 40 mg IV TID. Has received 3 days of doxycycline, will discontinue upon discharge. Advised patient she can utilize omeprazole OTC if nausea continues on steroids. - Supportive measures Continued Mucinex, Hypertonic saline, and incentive spirometry while admitted Recommended she can continue mucinex at home as needed upon discharge - O2 goal 89-92%, required 1L on presentation, now stable on room air (2) COVID-19 virus infection: Plan: - See above - Out of window for Paxlovid/Remdesavir (3) QT prolongation: Plan: Patient noted to have a QTc of 466 with QTc of 510 Would not recommend QT prolonging medications at this time EKG repeated on 01/07: Normal sinus rhythm, Low voltage QRS, Prolonged QT; When compared with ECG of 01/05 No significant change was found - Discussed with psychiatry, who agreed that it is okay for patient to restart psychiatric medications upon discharge. (4) Right hand paresthesia: Plan: - chronic, being seen by ortho, has EMG scheduled for February - Recommended she use voltaren gel at home - recommended to f/u with Ortho Plan Code Status: Full Code Dispo: Admitted to Med/Surg with Tele Diet: Heart healthy diet DVT Prophylaxis: SQ Lovenox 40 mg q24h Admission and Anticipated Discharge Date Admission Date: January 06, 2024 Magdy Bangura is a 63-year-old female with a past medical history significant for COPD, gastroparesis, GERD, and chronic pain who presented to the [facility] ED on 01/06/2024 with approximately 10 days of generalized weakness, cough, and shortness of breath. She was noted to be hypoxic on arrival at 88% on room air but otherwise stable. Found to be +COVID at time of hospital presentation. Today reports she continues to feel improved. Still experiencing body aches, fatigue, headache, minimal cough, chest tightness, congestion, and lightheadedness with standing. Endorses nausea. Also reports she has not had a BM in about 7 days, but she has not been able to eat much either. Denies vomiting, abdominal pain, dizziness, chest pain, dyspnea. Reports more chronic concern of right hand pain and finger tingling. States she is experiencing tingling/numbness in her R thumb. Review of Systems Review of Systems: As noted in HPI Physical Exam Physical Exam: General: In no acute distress, appears stated age HEENT: NCAT, no scleral icterus, moist mucous membranes, trachea midline Chest/Pulm: No respiratory distress, lungs CTAB Cardiac: RRR, no murmurs, rubs, gallops noted Abdomen: normoactive bowel sounds, soft, non-tender to palpation throughout Extremities: posterior tibial pulses are intact and symmetrical, no edema noted in the BL LE's. Full ROM in R hand and R fingers. R finger tips are well perfused and warm to touch. Skin: Warm, dry, no rashes or lesions noted Neuro: Alert and oriented x3, no focal defects Psych: Appropriate mood & affect, calm and cooperative during the exam Results & Data Vital Signs (Past 12 Hours) Vital Signs Temp Pulse Pulse Resp BP Pulse Ox O2 Del Method 01/08/24 07:26 76 01/08/24 07:26 Room Air 01/08/24 07:16 76 16 94 Room Air 01/08/24 03:13 36.7 C 85 16 115/67 92 Room Air 01/08/24 00:29 90 01/08/24 00:00 36.7 C 85 18 119/75 92 Room Air 01/07/24 20:50 Room Air 01/07/24 20:31 86 16 94 Room Air Laboratory Results 01/08/24 05:24 WBC 24.26 H D RBC 4.10 L Hgb 14.1 Hct 41.6 MCV 101.5 H MCH 34.4 H MCHC 33.9 RDW Std Deviation 60.1 H RDW Coeff of Mookie 16.1 H Plt Count 306 MPV 9.8 Immature Gran % (Auto) 1.3 Neut % (Auto) 93.0 Lymph % (Auto) 3.6 Lawrence % (Auto) 2.0 Eos % (Auto) 0.0 Baso % (Auto) 0.1 Neut # (Auto) 22.56 H Lymph # (Auto) 0.87 L Lawrence # (Auto) 0.49 Eos # (Auto) 0.00 Baso # (Auto) 0.03 Immature Gran # (Auto) 0.31 H PT Cancelled INR Cancelled Sodium 140 Potassium TNP Chloride 99 Carbon Dioxide 34 H Anion Gap 7 BUN 13 Creatinine 0.87 Est Cr Clr Drug Dosing 48.2 Est GFR ( Amer) 82.8 Est GFR (Non-Af Amer) 71.4 BUN/Creatinine Ratio 14.9 Glucose 137 H Calcium 8.4 L Magnesium 2.1 Total Bilirubin 0.4 AST TNP ALT 29 Alkaline Phosphatase 144 H Total Protein 5.4 L Albumin 3.2 L Globulin 2.2 L Albumin/Globulin Ratio 1.5
[2024-01-08 08:24] LABS: Potassium 3.5 mmol/L (3.5-5.1)
[2024-01-08 08:39] VITALS: BP 153/89; PULSE 81; RESP 18; TEMP 97.5; O2SAT 93
[2024-01-08] MEDS ORDERED: POLYETHYLENE (MIRALAX) 17 GM PACK PO PRN (09:46)
--- NOTE | 2024-01-08 15:10 | Discharge Summary ---
Date of Service January 08, 2024 Admission HPI Per Admitting Provider Sveta is a 63-year-old female with a past medical history significant for COPD, gastroparesis, GERD, and chronic pain who presented to the [facility] ED on 01/06/2024 with approximately 10 days of generalized weakness, cough, and shortness of breath. She was noted to be hypoxic on arrival at 88% on room air but otherwise stable. Labs were significant for potassium of 3.4 and full respiratory BioFire positive for COVID-19. Chest x- ray was read as negative for acute findings. CTA of the chest with PE protocol was read as negative for signs of pulmonary emboli, moderate emphysema, no focal lung consolidations to suggest a pneumonia. Small amount of mucoid material within the trachea and right mainstem bronchus. Prior to admission the patient was given a DuoNeb treatment, 20 mg IV famotidine, a dose of guaifenesin, 1 g IV mag sulfate, 125 mg IV Solu-Medrol, 4 mg IV Zofran, and 500 mL normal saline. Patient was sitting in bed in no acute distress at the time of exam, she was saturating at 97% on 2 L at the start of my exam. States that she currently smokes approximately 2 cigarettes a day, has been smoking for approximately 40 years but it would typically take her approximately 1 week to go through 1 pack. Started develop congestion and sneezing approximately 10 days ago which progressed to a productive cough with white to rubalcava sputum, fever/chills, muscle aches, and shortness of breath. She uses an albuterol rescue inhaler at home which she has been using more frequently, she denies being on maintenance COPD medications at home. Denies recent chest pain, hemoptysis, vomiting, dysuria, hematuria, melena, diarrhea, lower extremity swelling, and recent trauma. She is a full code and would want her brother and parents to make medical decisions for her if she cannot make them herself. Please refer to Dr. David's attestation for any changes to the treatment plan Admission Exam Per Admitting Provider General: In no acute distress, stated age, ill-appearing but nontoxic HEENT: Normocephalic, atraumatic, no scleral icterus, pupils around round, symmetrical, and reactive to light, dry mucus membranes, trachea midline, no thyromegaly Chest/Pulm: No respiratory distress, symmetrical chest expansion, minimal air movement on auscultation with intermittent scattered expiratory wheezing Cardiac: RRR, no murmurs noted Abdomen: Negative for ascites and bruising, normoactive bowel sounds, soft, non- tender to palpation throughout Musculoskeletal: Symmetrical and without signs of acute trauma, upper and lower extremities with full ROM, no atrophy, spasticity, or flaccidity Extremities: Radial, dorsalis pedis, and posterior tibial pulses are intact and symmetrical, no edema noted in the BL LE's Skin: Warm, dry, no rashes , lesions, or scars noted Neuro: Alert and oriented to person, place, month, year, and president, no focal defects,no tremors noted Psych: No acute distress, calm and cooperative during the exam Principal Diagnosis COPD exacerbation, COVID-19 Discharge Exam General: In no acute distress, appears stated age HEENT: NCAT, no scleral icterus, moist mucous membranes, trachea midline Chest/Pulm: No respiratory distress, lungs CTAB Cardiac: RRR, no murmurs, rubs, gallops noted Abdomen: normoactive bowel sounds, soft, non-tender to palpation throughout Extremities: posterior tibial pulses are intact and symmetrical, no edema noted in the BL LE's. Skin: Warm, dry, no rashes or lesions noted Neuro: Alert and oriented x3, no focal defects Psych: Appropriate mood & affect, calm and cooperative during the exam Discharge Data Allergies Allergy/AdvReac Type Severity Reaction Status Date / Time Penicillins Allergy Severe Swelling Verified 01/06/24 19:28 and shortness of breath latex Allergy Intermediate Itchy Verified 01/06/24 19:28 rash,localized burning sensation atorvastatin AdvReac Intermediate EXCESSIVE Verified 01/06/24 19:28 BLEEDING Consultations 01/06/24 16:15 ED Decision to Admit Stat Ordered Studies 01/06/24 15:12 CT angio chest PE protocol Stat Hospital Course (1) COPD exacerbation: - Longstanding COPD on Flovent BID and Albuterol PRN - Now w/ increased URI sx and dyspnea in setting of COVID-19 - CXR and CT Chest w/o PNA, PE, or fluid overload - Management S/p Solumedrol 125 mg IV, then continued on 40 mg IV TID On Doxycycline 100 mg BID for COPD (d/t QT prolongation) while admitted S/p 1g IV Mg, Mg 1.8, additional 2g ordered Duonebs QID Received budesonide BID and formoterol BID while admitted, in place of Flovent 01/07: added miralax prn for constipation 01/07: Will d/c home on prednisone 40 mg QD for 3 days to complete steroid burst. Has already received 2.5 days of Solumedrol 40 mg IV TID. Received 3 days of doxycycline, will discontinue upon discharge. Advised patient she can utilize Pepcid or omeprazole OTC if nausea continues on steroids. Can continue Flovent BID and Albuterol PRN. - Supportive measures Continued Mucinex, Hypertonic saline, and incentive spirometry while admitted - O2 goal 89-92%, required 1L on presentation, now stable on room air (2) COVID-19 virus infection: - See above - Out of window for Paxlovid/Remdesavir (3) QT prolongation: 01/05: Patient noted to have a QTc of 466 with QTc of 510 Would not recommend QT prolonging medications at this time EKG repeated on 01/07: Normal sinus rhythm, Low voltage QRS, Prolonged QTc of 492; When compared with ECG of 01/05 No significant change was found - Discussed with psychiatry, who agreed that it is okay for patient to restart psychiatric medications upon discharge. Total Time Total Time Spent Total Time Spent (In Minutes): see attending attestation Discharge Plan Discharge Items Patient Disposition: Home - Self-Care Reason For Visit: COPD EXACERBATION, COVID 19 Discharge Diagnosis: COPD Exacerbation, COVID 19 Activity: Resume your previous activity Non-emergency contact: Primary Care Provider Call non-emergency contact if: you have any medication questions Follow-up/Referrals: Evonne Alvarez CRNP [Primary Care Provider] - 01/13/24 10:30 am Diet: Regular Addtl Attending Provider Instructions: Please follow up with your family physician in a week Advised to take prilosec over the counter while on prednisone. Pending Studies at Discharge: No Stand-Alone Forms: My [employer], Smoking Cessation Medications and DC Order Prescriptions: New prednisone 20 mg tablet 40 mg PO DAILY 3 Days Qty: 6 0RF Continued varenicline 1 mg tablet 1 mg PO BID Qty: 56 4RF furosemide 20 mg tablet 20 mg PO DAILY PRN (Reason: edema) Qty: 30 5RF ondansetron HCl 4 mg tablet 4 mg PO Q4H PRN (Reason: nausea and vomiting) Qty: 20 0RF gabapentin 400 mg capsule 400 mg PO BID Qty: 60 2RF quetiapine 100 mg tablet 100 mg PO HS Qty: 30 0RF buspirone 5 mg tablet 5 mg PO BID Qty: 60 2RF albuterol sulfate 90 mcg/actuation HFA aerosol inhaler 2 puff inhalation Q6H PRN (Reason: shortness of breath or wheezing) Qty: 8.5 5RF multivitamin Tablet 1 tab PO HS Patient Comments: per pt "[facility] vitamin" Trintellix 20 mg tablet 10 mg PO HS potassium chloride 20 mEq tablet extended release 20 meq PO DAILY Qty: 10 0RF aspirin 81 mg tablet,delayed release (DR/EC) 81 mg PO DAILY acetaminophen [Tylenol Extra Strength] 500 mg tablet 500 - 1,000 mg PO Q8 PRN (Reason: pain) triamcinolone acetonide 0.1 % cream 1 applic topical BID PRN (Reason: .flare ups) fluticasone propionate 50 mcg/actuation spray,suspension 1 spray intranasal BID PRN (Reason: Nasal Congestion) Rx Instructions: administer into each nostril Discontinued pantoprazole 20 mg tablet,delayed release (DR/EC) 20 mg PO QAM Qty: 30 11RF Discharge Orders: Discharge Order (Routine); Ordered 01/08/24 Ordered By: Luana Robbins Admission Data Admit Date/Time: 01/06/24 16:27 Attending Provider: Luana Robbins Admit Provider: Crescencio David Primary Care Provider: Evonne Alvarez Other Providers: Crescencio David Other Interventions: Discharge Summary Assessment (RN) Last Done: 01/08/24 14:33 Supervising Physician Co-Signing Physician Notes Attending Physician Supervision Note: I independently interviewed and examined the patient and verified the marie history and physical, reviewed labs and image studies and agree with findings and care plan noted above. Here for copd exac due to covid. 10 day symptoms. breathing and chest congestion symptoms improved. O/e - Vitals - stayed stable throughout. AAOx3, RRR, No resp distress, CTA COPD exacerbation d/t covid - CTA neg for PE, lung infiltrate. -Received solumedrol. Discharged on prednisone 40mgs for 3 more days. QTc prolongation- 510 on admission. Home psychiatric Medications were held - Buspar, Quetiapine, Trintellix. -Recheck EKG with improvement in QTc to 493. -Resumed all her home medications on discharge.
== END 2024-01-08 15:32 | disposition home or self-care (01) | DRG 178 ==
LOC: ED 14:21 → EDINP 16:27 → SUATTDRO 16:27 → INTOOBSV 16:27 → 2W 18:30

== ENCOUNTER 2024-02-29 09:32 | Observation (INO) ==
--- NOTE | 2024-02-29 09:50 | Emergency Department Note ---
Impression & Plan Acute dehydration, Hypomagnesemia, Nausea, vomiting and diarrhea, Acquired hypophosphatemia ED Provider Note Name: REBECCA MORA Age: 63 Sex: Female Arrives Via: Walk-In Informant: Patient, patient's mother ED Provider: Cachorro Mathew MD Chief Complaint: Weakness Impression: As per impressions above Medical Decision Making: Pleasant 63-year-old female with a history of GERD, COPD, gastroparesis amongst others arrives for evaluation of nausea vomiting diarrhea over the last several days. Getting weak and now having paresthesias. No neurodeficits on my examination or evidence of sepsis. There is no surgical peritonitis of abdomen by examination. She is quite dehydrated given with some improvement in her symptoms. Laboratory workup is remarkable for multiple electrolyte imbalances including mag and Phos being quite low. Continued symptomatic thus given findings hospitalist consulted for further management. Triage/Nursing Notes reviewed by Me Differential:Infection, dehydration, metabolic abnormality, hypo/hyperglycemia, electrolyte disturbance, anemia, hypoxia, cardiac sources, intracerebral event, toxicologic, neurologic, as well as other pathologies. Vital Signs: reviewed and remarkable for tachycardic Interventions: Normal saline bolus IV, magnesium IV, Benadryl IV, Reglan IV Labs:ED labs Reviewed by me and remarkable for hypomagnesia and hypophosphatemia Consults:I discussed case with Dr. Small of the [facility] hospitalist service. He will evaluate the patient and manage further Plan: Disposition:Hospitalization. Condition: Good History of Present Illness: 63-year-old female arrives for evaluation of ongoing diarrhea. Patient with diarrhea for the last month. She has been seen by PCP and ER. Diagnosed with an E. coli in her stool. Also was diagnosed with a UTI about a week ago for which she has been on nitrofurantoin for the last 6 days. Urinary symptoms have resolved (had included urinary burning and frequency). Patient notes that she has been having worsening nausea and vomiting over the last week as well. She now is vomiting continuously unable to keep down anything. Denies any blood in vomit or stool and no black/tarry stools. Diarrhea is roughly 6-8 times a day and watery. Initially diarrhea then hourly but that has improved somewhat. No nausea meds being taken. She notes increasing diffuse abdominal cramping. Over the last 48 hours she has developed paresthesias in her hands feet and now her thorax. Past Medical History:See Below Home Medications:See Below Allergies:See Below Vitals:Blood Pressure: 137/94, Pulse 107, RR 18, T 36.6C, O2 98% on RA Physical Exam: GENERAL: Patient is tired/dehydrated appearing and in mild distress. RESPIRATORY: No dyspnea. Clear to auscultation and equal bilaterally. CARDIOVASCULAR: Regular rate and rhythm.No murmur appreciated. GASTROINTESTINAL: Abdomen is soft without peritonitis. Normal active bowel sounds. Vague tenderness entire abdomen. EXTREMITIES: Normal motion all extremities, no cyanosis, no edema. NEUROLOGIC: Alert and oriented. No focal neurologic deficits appreciated SKIN: No rash, no jaundice, no diaphoresis. PSYCH: Appropriate GCS: 15 ED Course: Times/Reassessments: Patient is feeling a bit better after fluids but continues to be symptomatic thus hospitalization is indicated Cachorro Mathew MD Past Med/Surg History Problem List (Updated 03/01/24 @ 15:19 by Cachorro Mathew MD) Acquired hypophosphatemia (Acute) Nausea, vomiting and diarrhea (Acute) Hypomagnesemia (Acute) Acute dehydration (Acute) Grief Transaminitis GERD (gastroesophageal reflux disease) Hypophosphatasia COPD (chronic obstructive pulmonary disease) Distal paresthesia Diarrhea Urinary symptom or sign Right hand paresthesia (Acute) Dehydration (Acute) Generalized weakness (Acute) QT prolongation COVID-19 virus infection (Acute) COPD exacerbation Retained orthopedic hardware Right foot pain Right ankle pain Tibialis posterior tendinitis Plantar fasciitis of right foot Peripheral vision loss Low ferritin Dyspnea Frequent falls Memory impairment Osteoporosis Hx of herpes genitalis Dermatitis Arthritis of carpometacarpal (CMC) joint of left thumb Osteopenia Impaired fasting glucose Vitamin D deficiency Smoker Pulmonary nodule pt unaware Sternal pain FROM POSSIBLE INJURY CURRENTLY UNDERGOING RIB MANIPULATION Gastroparesis Macrocytosis without anemia Anxiety with depression Hypomagnesemia (Acute) Bulimia Cervical radiculopathy Chronic back pain L4 - HERNIATED DISC HAD LESI 08/2018 GERD (gastroesophageal reflux disease) Chronic obstructive pulmonary disease (Acute) well controlled Medical History History of COVID-19 end of 02/2023 - no hosp; resolved Bilateral lower extremity edema occasional History of gastric ulcer Myocardial Infarction 2014 - [facility], HEART CATH - NO STENTS JUST WATCHING FOLLOW WITH [place] [facility] Surgical History S/P epidural steroid injection History of tubal ligation History of esophagogastroduodenoscopy (EGD) "FOOD DOESN'T DIGEST" H/O tooth extraction ALL TEETH History of tonsillectomy History of cardiac cath 2014 heart cath no stents History of bilateral tubal ligation History of tonsillectomy History of oral surgery FULL MOUTH EXTR History of arthroscopic knee surgery History of appendectomy History of section History of laparoscopic appendectomy Family History Mother Breast cancer Brother Prostate cancer Family/Other Myocardial infarction self Father Family history of reaction to anesthesia gets irritable mood for awhile after anesthesia Denies family history of Ovarian cancer Colorectal cancer Social History Smoking Status: Former smoker Tobacco Type: Cigarettes Cigarettes Per Day: 2-3 a day- advised; Second Hand Exposure: Yes; Do You Dip or Chew Tobacco: No; Hx Alcohol Use: No Hx Substance Use: No Preferred Language: Kazakh Communication Ability: Effective Visual Impairment: No Limitations Hearing Ability: Normal [employer] Supervisor Required: No Beliefs That Will Affect Care: None marital status: Single Current Living Situation: Family Current Living Situation Comment: lives with parents and brother current occupational status: employed Feels Safe at Home: Yes Dental Care, Regularly: No Physical Activity Frequency: 3-4 Times per Week Seatbelt Use: always Assistive Devices: None Allergies Allergies Allergy/AdvReac Type Severity Reaction Status Date / Time Penicillins Allergy Severe Swelling Verified 01/20/24 10:50 and shortness of breath latex Allergy Intermediate Itchy Verified 01/20/24 10:50 rash,localized burning sensation atorvastatin AdvReac Intermediate EXCESSIVE Verified 01/20/24 10:50 BLEEDING Home Meds Home Medications Medication Instructions Recorded Confirmed multivitamin 1 tab PO HS 04/04/21 02/29/24 vortioxetine 20 mg tablet 10 mg PO HS 07/18/21 02/29/24 (Trintellix) acetaminophen 500 mg tablet 500 - 1,000 mg PO Q8 PRN pain 01/06/24 02/29/24 (Tylenol Extra Strength) aspirin 81 mg tablet,delayed 81 mg PO DAILY 01/06/24 02/29/24 release fluticasone propionate 50 1 spray intranasal BID PRN Nasal 01/06/24 02/29/24 mcg/actuation nasal Congestion spray,suspension triamcinolone acetonide 0.1 % 1 applic topical BID PRN .flare ups 01/06/24 02/29/24 topical cream Previous Rx's Medication Instructions Recorded buspirone 5 mg tablet 5 mg PO BID #60 tabs 04/03/21 gabapentin 400 mg capsule 400 mg PO BID #60 caps 04/03/21 quetiapine 100 mg tablet 100 mg PO HS #30 tabs 04/03/21 potassium chloride 20 mEq 20 meq PO DAILY #10 tabs 07/18/21 tablet,extended release albuterol sulfate 90 mcg/actuation 2 puff inhalation Q6H PRN 03/01/22 aerosol inhaler shortness of breath or wheezing #8.5 grams varenicline 1 mg tablet 1 mg PO BID #56 tabs 02/20/23 furosemide 20 mg tablet 20 mg PO DAILY PRN edema #30 tabs 10/20/23 ondansetron HCl 4 mg tablet 4 mg PO Q4H PRN nausea and 10/24/23 vomiting #20 tabs albuterol sulfate 2.5 mg/3 mL 2.5 mg (3 mL) inhalation QID PRN 01/13/24 (0.083 %) solution for nebulization shortness of breath or wheezing #180 mL albuterol sulfate 90 mcg/actuation 2 puff inhalation QID PRN 01/13/24 aerosol inhaler shortness of breath or wheezing #8.5 grams nebulizer with tubing #1 ea 01/13/24 codeine 10 mg-guaifenesin 100 mg/5 5 ml PO Q6H PRN cough #120 mL 01/20/24 mL oral liquid Results & Data (ED) Vital Signs Vital Signs - 24 hr 02/29/24 09:36 Temperature 36.6 C Temperature Source Oral Pulse Rate 107 H Respiratory Rate 18 Blood Pressure 137/94 Blood Pressure Mean 108 Blood Pressure Position Sitting Pulse Oximetry 98 Oxygen Delivery Method Room Air Sepsis Recent Fever Within 48 Hours No Sepsis New/Unexplained Change in Mental Status No Sepsis Action Taken by Nursing No Action Required Laboratory Data 03/01/24 05:38 03/01/24 05:38 Lab Results 02/29/24 02/29/24 Range/Units 10:00 11:37 WBC 6.09 (4.8-10.8) K/ul RBC 4.65 (4.20-5.40) M/uL Hgb 16.2 H (12.0-16.0) g/dl Hct 47.4 H (37.0-47.0) % MCV 101.9 H (80.0-100.0) fL MCH 34.8 H (25.0-34.0) pg MCHC 34.2 (32.0-36.0) g/dL RDW Std Deviation 55.1 H (36.4-46.3) fL RDW Coeff of Mookie 14.5 (11.5-14.5) % Plt Count 333 (130-400) K/uL MPV 9.2 L (9.4-12.4) fL Immature Gran % (Auto) 0.5 % Neut % (Auto) 62.7 % Lymph % (Auto) 19.9 % [place] % (Auto) 10.7 % Eos % (Auto) 5.1 % Baso % (Auto) 1.1 % Neut # (Auto) 3.82 (1.40-6.50) K/uL Lymph # (Auto) 1.21 (1.20-3.40) K/uL [place] # (Auto) 0.65 H (0.11-0.59) K/uL Eos # (Auto) 0.31 (0.00-0.50) K/uL Baso # (Auto) 0.07 (0.00-0.20) K/uL Immature Gran # (Auto) 0.03 (0.01-0.20) K/uL ESR 15 (0-30) mm/hr Sodium 138 (136-145) mmol/L Potassium 3.6 (3.5-5.1) mmol/L Chloride 103 (98-107) mmol/L Carbon Dioxide 26 (21-32) mmol/L Anion Gap 9 (3-11) BUN 14 (6-23) mg/dl Creatinine 0.81 (0.6-1.2) mg/dl Est Cr Clr Drug Dosing 43.9 ml/min eGFR 82.02 BUN/Creatinine Ratio 17.3 (10-20) Glucose 100 H (70-99(Fasting)) mg/dl Calcium 9.2 (8.6-10.3) mg/dl Phosphorus 1.6 L (2.5-4.9) mg/dl Magnesium 1.5 L (1.7-2.4) mg/dl Total Bilirubin 0.8 (0.2-1.0) mg/dl Direct Bilirubin 0.2 (0-0.2) mg/dl AST 54 H (13-39) U/L ALT 57 H (7-52) U/L Alkaline Phosphatase 196 H (34-104) U/L C-Reactive Protein < 0.50 (0-0.5) mg/dl Total Protein 5.6 L (6.0-8.3) gm/dl Albumin 3.2 L (3.4-5.0) gm/dl Lipase 18 (11-82) U/L TSH 4.763 H (0.300-4.500) uIu/ml Free T4 0.83 (0.61-1.60) ng/dl Urine Color Dark Yellow Urine Appearance Cloudy A (Clear) Urine pH 8.5 H (4.5-7.5) Ur Specific [place] 1.017 (1.000-1.030) Urine Protein Trace H (Negative) Urine Glucose (UA) Negative (Negative) Urine Ketones 2+ H (Negative) Urine Blood Negative (Negative) Urine Nitrite Negative (Negative) Urine Bilirubin Negative (Negative) Urine Urobilinogen Negative (Negative) Ur Leukocyte Esterase Trace H (Negative) Urine WBC (Auto) 0-5 (0-5) /hpf Urine RBC (Auto) 6-10 H (0-2) /hpf U Hyaline Cast (Auto) 0-2 (0-2) /lpf U Epithel Cells (Auto) 0-2 (0-2) /hpf Urine Bacteria (Auto) None Seen (None Seen) Calcium Oxalate Crystal Present A (None Prsent) Administered Medications Buspirone HCl (Buspirone 5 Mg Tab) 5 mg PO BID [facility] Stop: 03/30/24 20:59 Last Admin: 03/01/24 08:12 Dose: 5 mg Documented By: Admin: 02/29/24 21:26 Dose: 5 mg Documented By: LEANN Gabapentin (Gabapentin 400 Mg Cap) 400 mg PO BID [facility] Stop: 03/30/24 20:59 Last Admin: 03/01/24 08:12 Dose: 400 mg Documented By: Admin: 02/29/24 21:26 Dose: 400 mg Documented By: LEANN Pantoprazole Sodium 40 mg/ (Syringe) 10 mls @ 5 mls/min IV DAILY@1100 [facility] Stop: 03/02/24 11:01 Last Admin: 03/01/24 10:38 Dose: 5 mls/min Documented By: SHILOH Miscellaneous (Varenicline 1 Mg Tablet- Order Awaiting Action) 1 each N/A QS [facility] Stop: 03/31/24 00:00 Last Admin: 03/01/24 15:05 Dose: Not Given Documented By: Admin: 03/01/24 08:12 Dose: Not Given Documented By: Admin: 02/29/24 23:42 Dose: Not Given Documented By: LEANN Spencer (Vortioxetine [Trintellix] 20 Mg Tablet -Order Awaiting Action) 1 each N/A QS [facility] Stop: 03/31/24 00:00 Last Admin: 03/01/24 15:05 Dose: Not Given Documented By: Admin: 03/01/24 08:12 Dose: Not Given Documented By: Admin: 02/29/24 23:42 Dose: Not Given Documented By: LEANN Ondansetron HCl (Ondansetron Inj 2 Mg/Ml 2 Ml Vial) 4 mg IV Q6H PRN PRN Reason: Nausea Stop: 03/30/24 11:37 Last Admin: 02/29/24 21:15 Dose: 4 mg Documented By: LEANN Polyethylene Glycol/Electrolytes (Lavage Solution 4000ml) 16 dose PO TODAY@1500 [facility] Stop: 03/01/24 16:00 Last Admin: 03/01/24 12:02 Dose: 16 dose Documented By: SHILOH Quetiapine Fumarate (Quetiapine Fumarate 100 Mg Tablet) 100 mg PO HS [facility] Stop: 03/30/24 20:59 Last Admin: 02/29/24 21:26 Dose: 100 mg Documented By: LEANN Discontinued Medications Diphenhydramine HCl (Diphenhydramine 50 Mg/Ml Vial) 25 mg IV NOW STA Stop: 02/29/24 09:47 Last Admin: 02/29/24 10:03 Dose: 25 mg Documented By: ML Sodium Chloride (Nss) 1,000 mls @ 999 mls/hr IV .Q1H1M ONE Stop: 02/29/24 10:46 Last Infusion: 02/29/24 11:38 Dose: Infused Documented By: Admin: 02/29/24 10:03 Dose: 999 mls/hr Documented By: ML Magnesium Sulfate/Dextrose (Magnesium Sulfate / D5w) 1 gm in 100 mls @ 100 mls/hr IV NOW STA Stop: 02/29/24 12:10 Last Infusion: 02/29/24 12:58 Dose: Infused Documented By: Admin: 02/29/24 11:42 Dose: 100 mls/hr Documented By: CEF Potassium Phosphate 15 mmol/ (Sodium Chloride) 255 mls @ 88 mls/hr IV ONE ONE Stop: 02/29/24 14:53 Last Infusion: 02/29/24 15:25 Dose: Infused Documented By: Admin: 02/29/24 12:31 Dose: 88 mls/hr Documented By: CEF Magnesium Sulfate/Dextrose (Magnesium Sulfate / D5w) 1 gm in 100 mls @ 50 mls/hr IV ONE ONE Stop: 03/01/24 09:35 Last Infusion: 03/01/24 10:20 Dose: Infused Documented By: Admin: 03/01/24 08:17 Dose: 50 mls/hr Documented By: SHILOH Metoclopramide HCl (Metoclopramide Hcl Inj 5 Mg/Ml 2 Ml Vial) 5 mg IV ONE ONE Stop: 02/29/24 09:47 Last Admin: 02/29/24 10:03 Dose: 5 mg Documented By: MAIKEL Nitrofurantoin Macrocrystals (Nitrofurantoin Monohydrate 100 Mg Cap) 100 mg PO BID [facility] Stop: 03/01/24 09:01 Last Admin: 03/01/24 09:01 Dose: 100 mg Documented By: Admin: 02/29/24 21:26 Dose: 100 mg Documented By: LEANN Discharge Plan Visit Data Chief Complaint: Diarrhea Stated Complaint: E-COLI, NUMBNESS/WHOLE BODY, DIARRHEA, VOMITING ED Provider: Cachorro Mathew Discharge Problem: Acute dehydration, Hypomagnesemia, Nausea, vomiting and diarrhea, Acquired hypophosphatemia Patient Disposition: Admitted As Inpatient Discharge Instructions Interventions: ED Discharge Assessment Last Done: 02/29/24 14:59
[2024-02-29] MEDS: diphenhydrAMINE 50 MG/ML VIAL IV STA (10:03)
[2024-02-29] MEDS: METOCLOPRAMIDE HCL INJ 5 MG/ML 2 ML VIAL IV ONE (10:03)
[2024-02-29] MEDS: SODIUM CHLORIDE 0.9% 1,000 ML IV ONE (10:03)
[2024-02-29 10:16] LABS: Basophils # (auto) 0.07 K/uL (0.00-0.20); Basophils % (auto) 1.1 %; Eosinophils # (auto) 0.31 K/uL (0.00-0.50); Eosinophils % (auto) 5.1 %; Hematocrit (blood only) 47.4 % (37.0-47.0); Hemoglobin 16.2 g/dl (12.0-16.0); Immature Granulocytes # (auto) 0.03 K/uL (0.01-0.20); Immature Granulocytes % (auto) 0.5 %; Lymphocytes # (auto) 1.21 K/uL (1.20-3.40); Lymphocytes % (auto) 19.9 %; Mean Corpuscular Hemoglobin 34.8 pg (25.0-34.0); Mean Corpuscular Hgb Conc 34.2 g/dL (32.0-36.0); Mean Corpuscular Volume 101.9 fL (80.0-100.0); Mean Platelet Volume 9.2 fL (9.4-12.4); Monocytes # (auto) 0.65 K/uL (0.11-0.59); Monocytes % (auto) 10.7 %; Neutrophils # (auto) 3.82 K/uL (1.40-6.50); Neutrophils % (auto) 62.7 %; Platelet Count 333 K/uL (130-400); RDW Coefficient of Variation 14.5 % (11.5-14.5); RDW Standard Deviation 55.1 fL (36.4-46.3); Red Blood Count 4.65 M/uL (4.20-5.40); White Blood Count 6.09 K/ul (4.8-10.8)
[2024-02-29 10:39] LABS: Alanine Aminotransferase 57 U/L (7-52); Albumin Level 3.2 gm/dl (3.4-5.0); Alkaline Phosphatase 196 U/L (34-104); Anion Gap 9 (3-11); Aspartate Aminotransferase 54 U/L (13-39); BUN Creatinine Ratio 17.3 (10-20); Bilirubin Direct 0.2 mg/dl (0-0.2); Bilirubin,Total 0.8 mg/dl (0.2-1.0); Blood Urea Nitrogen 14 mg/dl (6-23); C Reactive Protein < 0.50 mg/dl (0-0.5); Calcium 9.2 mg/dl (8.6-10.3); Carbon Dioxide 26 mmol/L (21-32); Chloride 103 mmol/L (98-107); Creatinine Clr Calc Pharmacy 43.9 ml/min; Glucose 100 mg/dl (70-99(Fasting)); Lipase 18 U/L (11-82); Magnesium 1.5 mg/dl (1.7-2.4); Phosphorus 1.6 mg/dl (2.5-4.9); Potassium 3.6 mmol/L (3.5-5.1); Sodium 138 mmol/L (136-145); Total Protein 5.6 gm/dl (6.0-8.3)
[2024-02-29 10:53] LABS: Thyroid Stimulating Hormone 4.763 uIu/ml (0.300-4.500)
[2024-02-29] MEDS ORDERED: POTASSIUM PHOS 3 MMOL/1 ML INFUSION IV STA (11:37)
[2024-02-29] MEDS ORDERED: ACETAMINOPHEN 325 MG TAB PO PRN (11:38)
[2024-02-29 11:39] LABS: T4 Free Thyroxine 0.83 ng/dl (0.61-1.60)
[2024-02-29] MEDS: MAGNESIUM SULFATE / D5W 1 GM/100 ML BAG IV STA (11:42)
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
[2024-02-29 12:20] LABS: Appearance Urine Cloudy (Clear); Bacteria Urine Automated None Seen (None Seen); Bilirubin Urine Negative (Negative); Blood Urine Negative (Negative); Calcium Oxalate Crystals Urine Present (None Prsent); Cast Urine Automated 0-2 /lpf (0-2); Color Urine Dark Yellow; Epithelial Cell Urine Auto 0-2 /hpf (0-2); Glucose Urine UA Negative (Negative); Ketones Urine 2+ (Negative); Leukocyte Esterase Urine Trace (Negative); Nitrite Urine Negative (Negative); Protein Urine Trace (Negative); Specific Gravity Urine 1.017 (1.000-1.030); Urobilinogen Urine Negative (Negative); WBC Urine Automated 0-5 /hpf (0-5); pH Urine 8.5 (4.5-7.5)
[2024-02-29] MEDS: POTASSIUM PHOSPHATE 15 MMOL in SODIUM CHLORIDE 0.9% 250 ML IV ONE (12:31)
--- NOTE | 2024-02-29 12:46 | CT Scan Report ---
ABDOMEN AND PELVIS CT WITHOUT CONTRAST CT DOSE: 320.77 mGy.cm HISTORY: Acute generalized abdominal pain with nausea, vomiting and diarrhea N/V/D TECHNIQUE: Multiaxial CT images of the abdomen and pelvis were performed without contrast. A dose lo wering technique was utilized adhering to the principles of ALARA. COMPARISON STUDY: 11/02/2015 FINDINGS: Interlobular septal thickening with areas of subsegmental bibasilar atelectasis versus scar ring. No free air. The unenhanced spleen, pancreas, gallbladder and adrenal glands appear unremarkabl e. Hepatic steatosis with mild hepatomegaly. No hydronephrosis. Partially decompressed urinary bladde r. Subcentimeter uterine calcifications. Atherosclerosis of the aorta. No lymphadenopathy. There is no bowel obstruction or bowel wall thickening. Nondilated air and fluid-filled loops of larg e and small bowel. Mild colonic diverticulosis without acute diverticulitis. Prior appendectomy. 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 No acute fracture. IMPRESSION: 1. No bowel obstruction or pneumoperitoneum. 2. Prior appendectomy. 3. Nondilated air and fluid-filled loops of small and large bowel suggestive of an infectious or infl ammatory enteritis with diarrheal illness. 4. Hepatic steatosis. ACT 112: Negative or not required by law. The above report was generated using voice recognition software. It may contain grammatical, syntax o r spelling errors. Electronically signed by: Allan Lomas M.D. 02/29/2024 12:44 PM
[2024-02-29 16:26] LABS: Adenovirus F 40/41 PCR Not Detected (NotDetected); Astrovirus PCR Not Detected (NotDetected); Campylobacter PCR Not Detected (NotDetected); Cryptosporidium PCR Not Detected (NotDetected); Cyclospora cayetanensis PCR Not Detected (NotDetected); Entamoeba histolytica PCR Not Detected (NotDetected); Enteroaggregative E.coli(EAEC) Not Detected (NotDetected); Enteropathogenic E.coli (EPEC) Not Detected (NotDetected); Enterotoxigenic E.coli (ETEC) Not Detected (NotDetected); Giardia lamblia PCR Not Detected (NotDetected); Norovirus GI/GII PCR Not Detected (NotDetected); Plesiomonas shigelloides PCR Not Detected (NotDetected); Rotavirus A PCR Not Detected (NotDetected); Salmonella PCR Not Detected (NotDetected); Sapovirus PCR Not Detected (NotDetected); Shiga-like Toxin E.coli (STEC) Not Detected (NotDetected); Shigella/Enteroinvasive E.coli Not Detected (NotDetected); Vibrio cholerae PCR Not Detected (NotDetected); Vibrio species PCR Not Detected (NotDetected); Yersinia enterocolitica PCR Not Detected (NotDetected)
[2024-02-29] MEDS ORDERED: FLUTICASONE PROPIONATE NA SPR 16 GM BTL PRN (17:18)
[2024-02-29] MEDS ORDERED: ALBUTEROL 0.083% NEBU SOLN 3 ML VIAL INH PRN (17:18)
[2024-02-29] MEDS ORDERED: ALBUTEROL HFA 8 GM INHALER INH PRN ×2 (17:18)
[2024-02-29] MEDS ORDERED: ACETAMINOPHEN 500 MG TAB PO PRN (17:18)
[2024-02-29] MEDS ORDERED: ONDANSETRON 4 MG OD TAB PO PRN (17:32)
[2024-02-29] MEDS: ONDANSETRON INJ 2 MG/ML 2 ML VIAL IV PRN (21:15)
[2024-02-29] MEDS: NITROFURANTOIN MONOHYDRATE 100 MG CAP PO SCH (21:26)
[2024-02-29] MEDS: busPIRone 5 MG TAB PO SCH (21:26)
[2024-02-29] MEDS: QUEtiapine FUMARATE 100 MG TABLET PO SCH (21:26)
[2024-02-29] MEDS: GABAPENTIN 400 MG CAP PO SCH (21:26)
[2024-03-01 06:13] LABS: Basophils # (auto) 0.09 K/uL (0.00-0.20); Basophils % (auto) 1.6 %; Eosinophils # (auto) 0.53 K/uL (0.00-0.50); Eosinophils % (auto) 9.3 %; Hematocrit (blood only) 41.1 % (37.0-47.0); Hemoglobin 13.8 g/dl (12.0-16.0); Immature Granulocytes # (auto) 0.03 K/uL (0.01-0.20); Immature Granulocytes % (auto) 0.5 %; Lymphocytes # (auto) 1.79 K/uL (1.20-3.40); Lymphocytes % (auto) 31.5 %; Mean Corpuscular Hemoglobin 34.8 pg (25.0-34.0); Mean Corpuscular Hgb Conc 33.6 g/dL (32.0-36.0); Mean Corpuscular Volume 103.8 fL (80.0-100.0); Mean Platelet Volume 9.4 fL (9.4-12.4); Monocytes # (auto) 0.66 K/uL (0.11-0.59); Monocytes % (auto) 11.6 %; Neutrophils # (auto) 2.59 K/uL (1.40-6.50); Neutrophils % (auto) 45.5 %; Platelet Count 299 K/uL (130-400); RDW Coefficient of Variation 14.6 % (11.5-14.5); RDW Standard Deviation 56.1 fL (36.4-46.3); Red Blood Count 3.96 M/uL (4.20-5.40); White Blood Count 5.69 K/ul (4.8-10.8)
[2024-03-01 06:46] LABS: Albumin Globulin Ratio 1.4 (0.9-2); Albumin Level 2.6 gm/dl (3.4-5.0); Bilirubin,Total 0.7 mg/dl (0.2-1.0); Calcium 8.1 mg/dl (8.6-10.3); Creatinine Clr Calc Pharmacy 66.9 ml/min; Globulin 1.9 gm/dl (2.5-4.0); Magnesium 1.5 mg/dl (1.7-2.4); Phosphorus 3.6 mg/dl (2.5-4.9); Potassium 3.5 mmol/L (3.5-5.1); Thyroid Stimulating Hormone 2.367 uIu/ml (0.300-4.500); Total Protein 4.5 gm/dl (6.0-8.3)
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
[2024-03-01] MEDS: MAGNESIUM SULFATE / D5W 1 GM/100 ML BAG IV ONE (08:17)
--- NOTE | 2024-03-01 09:39 | Gastrointestinal Consultation ---
<Statement entered by Diogenes Reid MD - 03/01/24 13:48> I personally saw and examined the patient. I have reviewed the chart and agree with the documentation provided by the VICE PRESIDENT [employer] including discussion about the assessment, treatment and plan. Briefly, 63 year old female with history of COPD, GERD, anxiety/depression, gastroparesis admitted w/ diarrhea x 6 weeks and weight loss. Notes that nearly 2 months ago she developed abd cramping and diarrhea which has persisted. Suggests frequency of BMs and consistency of BM have not improved over the last 6 weeks. Endorses watery stools every hour or so. No reports of black or bloody stools. She does not have noctural BMs. Cultures negative. CT unrevealing. Last Colon over 10 years ago. EGD as below. Will Plan for EGD and colon to r/o IBD or microscopic colits > Ischemia. Pt agrees with plan. Date of Consultation March 01, 2024 Assessment & Plan (1) Diarrhea: 63 year old female reporting about a 6 week history of nonbloody watery stools every hour with nocturnal evacuation. CTAP w/ air fluid levels, stool studies including c.diff are negative. She reports about a 15 lb weight loss. Clear liquids today Golytely bowel prep NPO after midnight Plan for EGD/Colonoscopy 03/02/24 Thank you for allowing us to participate in the care of this patient. Please call with any acute changes, questions or concerns. Please see addendum below with additional recommendation from my supervising physician. I spent a total of 60 minutes on the date of service in review of patient's record, and previously obtained information in person and appropriate medical visit, discussion and education of plan, with patient and/or caregiver, placing orders for tests/referral/procedures as medically necessary and documentation of pertinent clinical information in patient's medical records for their visit today. History of Present Illness Reason for Consultation: diarrhea for 6 weeks Requesting Physician: Luana Robbins MD Attending Physician: Luana Robbins MD History of Present Illness 63 year old female with history of COPD, GERD, anxiety/depression, gastroparesis and others below admitted w/ diarrhea x 6 weeks. Pt was seen and evaluated, chart reviewed. Notes that nearly 2 months ago she developed abd cramping and diarrhea which has persisted. Suggests frequency of BMs and consistency of BM have not improved over the last 6 weeks. Endorses watery stools every hour or so. No reports of black or bloody stools. She does not have noctural BMs. No nausea, vomiting. Tolerating PO intake. No fever, chills, CP, SOB. Has lost 15 lbs in the last few months. She tells me she did not have stool testing done at the onset of her symptoms. However H&P mentions her having ecoli. She does not recall this. Stool studies on 02/29/24 negative including c.diff. CTAP 2023: No bowel obstruction or pneumoperitoneum. 2. Prior appendectomy. 3. Nondilated air and fluid-filled loops of small and large bowel suggestive of an infectious or inflammatory enteritis with diarrheal illness. 4. Hepatic steatosis. EGD 2019: - Z-line regular, 40 cm from the incisors. - Normal esophagus. - A medium amount of a phytobezoar in the stomach. - Normal examined duodenum. - No specimens collected. Allergies Allergy/AdvReac Type Severity Reaction Status Date / Time Penicillins Allergy Severe Swelling Verified 01/20/24 10:50 and shortness of breath latex Allergy Intermediate Itchy Verified 01/20/24 10:50 rash,localized burning sensation atorvastatin AdvReac Intermediate EXCESSIVE Verified 01/20/24 10:50 BLEEDING Home Medications Medication Instructions Recorded Confirmed Type buspirone 5 mg tablet 5 mg PO BID #60 tabs 04/03/21 02/29/24 Rx gabapentin 400 mg capsule 400 mg PO BID #60 caps 04/03/21 02/29/24 Rx quetiapine 100 mg tablet 100 mg PO HS #30 tabs 04/03/21 02/29/24 Rx multivitamin 1 tab PO HS 04/04/21 02/29/24 History potassium chloride 20 mEq 20 meq PO DAILY #10 tabs 07/18/21 02/29/24 Rx tablet,extended release vortioxetine 20 mg tablet 10 mg PO HS 07/18/21 02/29/24 History (Trintellix) albuterol sulfate 90 mcg/actuation 2 puff inhalation Q6H PRN 03/01/22 02/29/24 Rx aerosol inhaler shortness of breath or wheezing #8.5 grams varenicline 1 mg tablet 1 mg PO BID #56 tabs 02/20/23 02/29/24 Rx furosemide 20 mg tablet 20 mg PO DAILY PRN edema #30 tabs 10/20/23 02/29/24 Rx ondansetron HCl 4 mg tablet 4 mg PO Q4H PRN nausea and 10/24/23 02/29/24 Rx vomiting #20 tabs acetaminophen 500 mg tablet 500 - 1,000 mg PO Q8 PRN pain 01/06/24 02/29/24 History (Tylenol Extra Strength) aspirin 81 mg tablet,delayed 81 mg PO DAILY 01/06/24 02/29/24 History release fluticasone propionate 50 1 spray intranasal BID PRN Nasal 01/06/24 02/29/24 History mcg/actuation nasal Congestion spray,suspension triamcinolone acetonide 0.1 % 1 applic topical BID PRN .flare ups 01/06/24 02/29/24 History topical cream albuterol sulfate 2.5 mg/3 mL 2.5 mg (3 mL) inhalation QID PRN 01/13/24 02/29/24 Rx (0.083 %) solution for nebulization shortness of breath or wheezing #180 mL albuterol sulfate 90 mcg/actuation 2 puff inhalation QID PRN 01/13/24 02/29/24 Rx aerosol inhaler shortness of breath or wheezing #8.5 grams nebulizer with tubing #1 ea 01/13/24 02/29/24 Rx codeine 10 mg-guaifenesin 100 mg/5 5 ml PO Q6H PRN cough #120 mL 01/20/24 02/29/24 Rx mL oral liquid Patient History Medical History History of COVID-19 end of 02/2023 - no hosp; resolved Bilateral lower extremity edema occasional History of gastric ulcer Myocardial Infarction 2014 - [facility], HEART CATH - NO STENTS JUST WATCHING FOLLOW WITH [place] [facility] Surgical History S/P epidural steroid injection History of tubal ligation History of esophagogastroduodenoscopy (EGD) "FOOD DOESN'T DIGEST" H/O tooth extraction ALL TEETH History of tonsillectomy History of cardiac cath 2014 heart cath no stents History of bilateral tubal ligation History of tonsillectomy History of oral surgery FULL MOUTH EXTR History of arthroscopic knee surgery History of appendectomy History of section History of laparoscopic appendectomy Family History Mother Breast cancer Brother Prostate cancer Family/Other Myocardial infarction self Father Family history of reaction to anesthesia gets irritable mood for awhile after anesthesia Denies family history of Ovarian cancer Colorectal cancer Social History Smoking Status: Former smoker Tobacco Type: Cigarettes Cigarettes Per Day: 2-3 a day- advised; Second Hand Exposure: Yes; Do You Dip or Chew Tobacco: No; Hx Alcohol Use: No Hx Substance Use: No Preferred Language: Ghanaian Communication Ability: Effective Visual Impairment: No Limitations Hearing Ability: Normal Underwater Trapper Required: No Beliefs That Will Affect Care: None marital status: Single Current Living Situation: Family Current Living Situation Comment: lives with parents and brother current occupational status: employed Feels Safe at Home: Yes Dental Care, Regularly: No Physical Activity Frequency: 3-4 Times per Week Seatbelt Use: always Assistive Devices: Denture - Upper, Denture - Lower, Glasses and Other Review of Systems Review of Systems: All other findings negative except as noted in HPI. Physical Exam Constitutional: WD/WN, vitals as above Respiratory: normal respiratory effort, lungs clear to auscultation Cardiovascular: Rate/Rhythm: regular rate and regular rhythm Gastrointestinal (Abdomen): normal bowel sounds, soft, nontender, no hepatosplenomegaly Skin: no rashes, warm and dry Results & Data Vital Signs (Past 12 Hours) Vital Signs Temp Pulse Pulse Resp BP Pulse Ox O2 Del Method 03/01/24 07:50 36.7 C 83 16 112/80 91 Room Air 03/01/24 07:08 91 H 03/01/24 04:00 36.5 C 91 H 20 117/75 93 Room Air 02/29/24 23:51 36.7 C 90 20 107/69 92 Room Air 02/29/24 22:00 91 H Laboratory Results 03/01/24 02/29/24 02/29/24 Range/Units 05:38 14:49 11:37 WBC 5.69 (4.8-10.8) K/ul RBC 3.96 L (4.20-5.40) M/uL Hgb 13.8 (12.0-16.0) g/dl Hct 41.1 (37.0-47.0) % MCV 103.8 H (80.0-100.0) fL MCH 34.8 H (25.0-34.0) pg MCHC 33.6 (32.0-36.0) g/dL RDW Std Deviation 56.1 H (36.4-46.3) fL RDW Coeff of Mookie 14.6 H (11.5-14.5) % Plt Count 299 (130-400) K/uL MPV 9.4 (9.4-12.4) fL Immature Gran % (Auto) 0.5 % Neut % (Auto) 45.5 % Lymph % (Auto) 31.5 % Casey % (Auto) 11.6 % Eos % (Auto) 9.3 % Baso % (Auto) 1.6 % Neut # (Auto) 2.59 (1.40-6.50) K/uL Lymph # (Auto) 1.79 (1.20-3.40) K/uL Casey # (Auto) 0.66 H (0.11-0.59) K/uL Eos # (Auto) 0.53 H (0.00-0.50) K/uL Baso # (Auto) 0.09 (0.00-0.20) K/uL Immature Gran # (Auto) 0.03 (0.01-0.20) K/uL ESR (0-30) mm/hr Sodium 139 (136-145) mmol/L Potassium 3.5 (3.5-5.1) mmol/L Chloride 111 H (98-107) mmol/L Carbon Dioxide 21 (21-32) mmol/L Anion Gap 7 (3-11) BUN 14 (6-23) mg/dl Creatinine 0.61 (0.6-1.2) mg/dl Est Cr Clr Drug Dosing 66.9 ml/min eGFR 101.02 BUN/Creatinine Ratio 23.0 H (10-20) Glucose 81 (70-99(Fasting)) mg/dl Calcium 8.1 L (8.6-10.3) mg/dl Phosphorus 3.6 D (2.5-4.9) mg/dl Magnesium 1.5 L (1.7-2.4) mg/dl Total Bilirubin 0.7 (0.2-1.0) mg/dl Direct Bilirubin (0-0.2) mg/dl AST 34 (13-39) U/L ALT 40 (7-52) U/L Alkaline Phosphatase 149 H (34-104) U/L C-Reactive Protein (0-0.5) mg/dl Total Protein 4.5 L D (6.0-8.3) gm/dl Albumin 2.6 L (3.4-5.0) gm/dl Globulin 1.9 L (2.5-4.0) gm/dl Albumin/Globulin Ratio 1.4 (0.9-2) Lipase (11-82) U/L TSH 2.367 (0.300-4.500) uIu/ml Free T4 (0.61-1.60) ng/dl Urine Color Dark Yellow Urine Appearance Cloudy A (Clear) Urine pH 8.5 H (4.5-7.5) Ur Specific [place] 1.017 (1.000-1.030) Urine Protein Trace H (Negative) Urine Glucose (UA) Negative (Negative) Urine Ketones 2+ H (Negative) Urine Blood Negative (Negative) Urine Nitrite Negative (Negative) Urine Bilirubin Negative (Negative) Urine Urobilinogen Negative (Negative) Ur Leukocyte Esterase Trace H (Negative) Urine WBC (Auto) 0-5 (0-5) /hpf Urine RBC (Auto) 6-10 H (0-2) /hpf U Hyaline Cast (Auto) 0-2 (0-2) /lpf U Epithel Cells (Auto) 0-2 (0-2) /hpf Urine Bacteria (Auto) None Seen (None Seen) Calcium Oxalate Crystal Present A (None Prsent) Stl C. cayetanensis PCR Not Detected (NotDetected) Stool Rotavirus A PCR Not Detected (NotDetected) Stl Adenov F 40/41 PCR Not Detected (NotDetected) Stool Astrovirus (PCR) Not Detected (NotDetected) Stool Campylobacter PCR Not Detected (NotDetected) Stl C. diff Tox B Gene Negative Cdiff Gene (Neg) Stool Cryptosporidium PCR Not Detected (NotDetected) Stl E.coli Shiga Tox PCR Not Detected (NotDetected) Stl Enterotoxigenic E PCR Not Detected (NotDetected) Stool EPEC (PCR) Not Detected (NotDetected) Stool EAEC (PCR) Not Detected (NotDetected) Stl E. histolytica PCR Not Detected (NotDetected) Stool Giardia Lamblia PCR Not Detected (NotDetected) Stool Salmonella PCR Not Detected (NotDetected) Stool Sapovirus (PCR) Not Detected (NotDetected) Stl P. shigelloides PCR Not Detected (NotDetected) Stl Shigella/EIEC PCR Not Detected (NotDetected) St Y.enterocolitica PCR Not Detected (NotDetected) Stool Vibrio (PCR) Not Detected (NotDetected) Stl Vibrio cholerae PCR Not Detected (NotDetected) Stl Norovirus GI/GII PCR Not Detected (NotDetected) 02/29/24 Range/Units 10:00 WBC 6.09 (4.8-10.8) K/ul RBC 4.65 (4.20-5.40) M/uL Hgb 16.2 H (12.0-16.0) g/dl Hct 47.4 H (37.0-47.0) % MCV 101.9 H (80.0-100.0) fL MCH 34.8 H (25.0-34.0) pg MCHC 34.2 (32.0-36.0) g/dL RDW Std Deviation 55.1 H (36.4-46.3) fL RDW Coeff of Mookie 14.5 (11.5-14.5) % Plt Count 333 (130-400) K/uL MPV 9.2 L (9.4-12.4) fL Immature Gran % (Auto) 0.5 % Neut % (Auto) 62.7 % Lymph % (Auto) 19.9 % Casey % (Auto) 10.7 % Eos % (Auto) 5.1 % Baso % (Auto) 1.1 % Neut # (Auto) 3.82 (1.40-6.50) K/uL Lymph # (Auto) 1.21 (1.20-3.40) K/uL Casey # (Auto) 0.65 H (0.11-0.59) K/uL Eos # (Auto) 0.31 (0.00-0.50) K/uL Baso # (Auto) 0.07 (0.00-0.20) K/uL Immature Gran # (Auto) 0.03 (0.01-0.20) K/uL ESR 15 (0-30) mm/hr Sodium 138 (136-145) mmol/L Potassium 3.6 (3.5-5.1) mmol/L Chloride 103 (98-107) mmol/L Carbon Dioxide 26 (21-32) mmol/L Anion Gap 9 (3-11) BUN 14 (6-23) mg/dl Creatinine 0.81 (0.6-1.2) mg/dl Est Cr Clr Drug Dosing 43.9 ml/min eGFR 82.02 BUN/Creatinine Ratio 17.3 (10-20) Glucose 100 H (70-99(Fasting)) mg/dl Calcium 9.2 (8.6-10.3) mg/dl Phosphorus 1.6 L (2.5-4.9) mg/dl Magnesium 1.5 L (1.7-2.4) mg/dl Total Bilirubin 0.8 (0.2-1.0) mg/dl Direct Bilirubin 0.2 (0-0.2) mg/dl AST 54 H (13-39) U/L ALT 57 H (7-52) U/L Alkaline Phosphatase 196 H (34-104) U/L C-Reactive Protein < 0.50 (0-0.5) mg/dl Total Protein 5.6 L (6.0-8.3) gm/dl Albumin 3.2 L (3.4-5.0) gm/dl Globulin (2.5-4.0) gm/dl Albumin/Globulin Ratio (0.9-2) Lipase 18 (11-82) U/L TSH 4.763 H (0.300-4.500) uIu/ml Free T4 0.83 (0.61-1.60) ng/dl Urine Color Urine Appearance (Clear) Urine pH (4.5-7.5) Ur Specific [place] (1.000-1.030) Urine Protein (Negative) Urine Glucose (UA) (Negative) Urine Ketones (Negative) Urine Blood (Negative) Urine Nitrite (Negative) Urine Bilirubin (Negative) Urine Urobilinogen (Negative) Ur Leukocyte Esterase (Negative) Urine WBC (Auto) (0-5) /hpf Urine RBC (Auto) (0-2) /hpf U Hyaline Cast (Auto) (0-2) /lpf U Epithel Cells (Auto) (0-2) /hpf Urine Bacteria (Auto) (None Seen) Calcium Oxalate Crystal (None Prsent) Stl C. cayetanensis PCR (NotDetected) Stool Rotavirus A PCR (NotDetected) Stl Adenov F 40/41 PCR (NotDetected) Stool Astrovirus (PCR) (NotDetected) Stool Campylobacter PCR (NotDetected) Stl C. diff Tox B Gene (Neg) Stool Cryptosporidium PCR (NotDetected) Stl E.coli Shiga Tox PCR (NotDetected) Stl Enterotoxigenic E PCR (NotDetected) Stool EPEC (PCR) (NotDetected) Stool EAEC (PCR) (NotDetected) Stl E. histolytica PCR (NotDetected) Stool Giardia Lamblia PCR (NotDetected) Stool Salmonella PCR (NotDetected) Stool Sapovirus (PCR) (NotDetected) Stl P. shigelloides PCR (NotDetected) Stl Shigella/EIEC PCR (NotDetected) St Y.enterocolitica PCR (NotDetected) Stool Vibrio (PCR) (NotDetected) Stl Vibrio cholerae PCR (NotDetected) Stl Norovirus GI/GII PCR (NotDetected) PG Care Time/CCT Total # of Minutes Spent Total Time Spent with Patient: Total time spent is greater than 50% in coordination of care (as documented) at patient's floor/unit and/or counseling patient: Coding Level of Care Code 16241 INT INP/OBS CARE 2/55MIN Diagnoses Diarrhea R19.7
[2024-03-01] MEDS: PANTOprazole 40 MG in SYRINGE 0 ML IV SCH (10:38)
[2024-03-01] MEDS: LAVAGE SOLUTION 4000ML PO SCH (12:02)
[2024-03-02 06:22] LABS: Hematocrit (blood only) 37.5 % (37.0-47.0); Hemoglobin 12.5 g/dl (12.0-16.0); Mean Corpuscular Hemoglobin 34.6 pg (25.0-34.0); Mean Corpuscular Hgb Conc 33.3 g/dL (32.0-36.0); Mean Corpuscular Volume 103.9 fL (80.0-100.0); Mean Platelet Volume 9.7 fL (9.4-12.4); Platelet Count 291 K/uL (130-400); RDW Coefficient of Variation 14.6 % (11.5-14.5); RDW Standard Deviation 56.1 fL (36.4-46.3); Red Blood Count 3.61 M/uL (4.20-5.40); White Blood Count 6.24 K/ul (4.8-10.8)
[2024-03-02 06:37] LABS: BUN Creatinine Ratio 22.2 (10-20); Calcium 7.8 mg/dl (8.6-10.3); Creatinine Clr Calc Pharmacy 75.6 ml/min; Magnesium 1.5 mg/dl (1.7-2.4); Potassium 3.5 mmol/L (3.5-5.1)
--- NOTE | 2024-03-02 07:30 | Hospitalist Progress Note ---
Date of Service March 02, 2024 Assessment & Plan (1) Diarrhea: (2) Hypomagnesemia: (3) Hypophosphatasia: (4) Distal paresthesia: (5) GERD (gastroesophageal reflux disease): (6) Transaminitis: (7) Grief: (8) Anxiety with depression: Plan 1. Diarrhea- Ongoing now for 6 weeks. No melena. - CT from 02/28 suggested an infectious or inflammatory enteritis with diarrheal illness and hepatic steatosis. - C.diff toxin testing- negative - Bowel prep completed 03/01 - awaiting results from EGD and colonoscopy scheduled for 03/02/24 2. Electrolyte abnormalities - Hypomagnesemia Given 1mg of mag sulfate via IV on 02/28 and 03/01, mag level continues at 1.5. Ordered 2 mg IV Mag Sulfate prior to endoscopy. Will reassess in the am - Hypophosphatemia in ED. Stable - Relative hypokalemia at in ED- Stable - Will continue to monitor electrolytes 3. Intermittent paresthesias probably secondary to electrolyte abnormalities. - No significant change from 03/01, will continue to monitor symptoms and electrolytes 4. History of GERD and peptic ulcer disease. - History of Peptic ulcer - Last EGD was Dec 2019 - Resume 40mg IV Protonix following endoscopy. 5. Mild transaminitis. CT shows hepatic steatosis. - GI following - ALT and AST normalized on 03/01- stable 6. Grief - Recent of her father 4 days ago. Having appropriate grief response - Behavioral health consult completed 03/01 7. History of depression. - Continue home meds-Quetiapine 100mg daily Ongoing: - COPD without evidence of acute exacerbation -Dyslipidemia - continue home medications. - History of CAD with reported myocardial infarction 2014. Nonobstructive disease per the record. - History of anxiety. - Ongoing tobacco abuse in the form of smoking cigarettes. Admission and Anticipated Discharge Date Admission Date: February 29, 2024 Subjective Pt is a 63 yo female with PMH of CAD and AR, GERD, and COPD admitted on 02/28 with c/o 6 week hx of diarrhea and loose stools with reported 12 lbs weight loss. This morning, she has completed bowel prep. She reports feeling fatigued. No nausea or vomiting. Review of Systems Review of Systems: As per HPI Physical Exam Constitutional: WD/WN, vitals as above Respiratory: normal respiratory effort, lungs clear to auscultation Cardiovascular: RRR, no murmur, no edema Gastrointestinal (Abdomen): Inspection/Auscultation: + abdomen distended and + hypoactive bowel sounds Percussion/Palpation: + abdomen tender and abdomen soft; no fluid wave Skin: no rashes, warm and dry Psychiatric: A+Ox3, euthymic affect Results & Data Results & Data Vital Signs (Past 12 Hours) Vital Signs Temp Pulse Pulse Resp BP BP Pulse Ox 03/02/24 04:00 36.7 C 101 H 18 105/62 93 03/01/24 23:04 36.9 C 80 18 125/81 95 03/01/24 22:43 03/01/24 21:55 89 03/01/24 19:30 36.8 C 86 18 130/71 96 O2 Del Method 03/02/24 04:00 Room Air 03/01/24 23:04 Room Air 03/01/24 22:43 Room Air 03/01/24 21:55 03/01/24 19:30 Room Air Resident Activity Tracking Resident Involvement: Resident Care Provided Care Provided: Adult Hospital Medicine
[2024-03-02] MEDS: MAGNESIUM SULFATE / D5W 1 GM/100 ML BAG IV SCH (07:53)
[2024-03-02] MEDS: SODIUM CHLORIDE 0.9% 500 ML IV SCH ×2 (07:54→12:55)
--- NOTE | 2024-03-02 09:20 | Gastroenterology Progress Note ---
<Statement entered by Diogenes Reid MD - 03/02/24 11:35> I personally saw and examined the patient. I have reviewed the chart and agree with the documentation provided by the [employer] including discussion about the assessment, treatment and plan .63 year old female reporting about a 6 week history of nonbloody watery stools every hour with nocturnal evacuation. CTAP w/ air fluid levels, stool studies including c.diff are negative. She reports about a 15 lb weight loss. workup unrevealing. EGD and colon today. Date of Service March 02, 2024 Assessment & Plan (1) Diarrhea: Plan: 63 year old female reporting about a 6 week history of nonbloody watery stools every hour with nocturnal evacuation. CTAP w/ air fluid levels, stool studies including c.diff are negative. She reports about a 15 lb weight loss. Maintain NPO status for EGD/Colonoscopy 03/02/24 Given weight loss, if not completed yet, consider CT chest We appreciate assistance in the management of any serological abnormality and corrections to include: hemoglobin >7, INR <2, platelets >50,000, potassium levels >3.5 but <5.3, and sodium levels within 5 points of the reference range prior to endoscopic evaluation. Thank you for allowing us to participate in the care of this patient. Please call with any acute changes, questions or concerns. Please see addendum below with additional recommendation from my supervising physician. Admission and Anticipated Discharge Date Admission Date: February 29, 2024 Supervising Physician Co-Signing Physician Notes Attending Physician Supervision Note: I independently interviewed and examined the patient and verified the marie history and physical, reviewed labs and image studies and agree with findings and care plan noted above. No loose stools this am. Reported darker stool. Has been under significant stress over 2-3 months with father's illness and recent demise. Has had recurrent abx for multiple ?abx in last 2mths. vitals noted nad heent nc at mmm breathing unlabored no accessory muscles good effort skin no rashes no pallor or icterus neuro no focal deficits. abdomen soft/nt/nd. Diarrhea/Weight loss/dehydration with electrolyte imbalance Dark stool h/o PUD with current tob smoking IBS -s/p IVF resuscitation and electrolyte replacement -C diff and stool pcr neg. Nondilated bowel air-fluid level. -Now with dark stool - For EGD/colo in am. -IV Protonix. -Will need outpatient coaching for IBS management. Mild transaminitis -resolved. CT with hepatic steatosis. further outpatient f/u. Grief Depression Anxiety -[facility] liason consult added. -COPD without evidence of acute exacerbation -Dyslipidemia -History of CAD with reported myocardial infarction 2014. Nonobstructive disease per the record. -Ongoing tobacco abuse in the form of smoking cigarettes. Ambulation Subjective Pt was seen and evaluated, chart reviewed. Tolerated bowel prep. Denies nausea/vomiting. Moving liquid stools. No report of black or bloody stools. Review of Systems Review of Systems: All other findings negative except as noted in HPI. Physical Exam Constitutional: WD/WN, vitals as above Respiratory: normal respiratory effort, lungs clear to auscultation Cardiovascular: Rate/Rhythm: regular rate and regular rhythm Gastrointestinal (Abdomen): normal bowel sounds, soft, nontender, no hepatosplenomegaly Skin: no rashes, warm and dry Results & Data Results & Data Vital Signs (Past 12 Hours) Vital Signs Temp Pulse Pulse Resp BP BP Pulse Ox 03/02/24 08:26 83 16 94/60 L 94 03/02/24 07:38 03/02/24 07:27 36.6 C 82 14 95/59 L 91 03/02/24 04:00 36.7 C 101 H 18 105/62 93 03/01/24 23:04 36.9 C 80 18 125/81 95 03/01/24 22:43 03/01/24 21:55 89 O2 Del Method 03/02/24 08:26 Room Air 03/02/24 07:38 Room Air 03/02/24 07:27 Room Air 03/02/24 04:00 Room Air 03/01/24 23:04 Room Air 03/01/24 22:43 Room Air 03/01/24 21:55 Laboratory Results 03/02/24 Range/Units 05:45 WBC 6.24 (4.8-10.8) K/ul RBC 3.61 L (4.20-5.40) M/uL Hgb 12.5 (12.0-16.0) g/dl Hct 37.5 (37.0-47.0) % MCV 103.9 H (80.0-100.0) fL MCH 34.6 H (25.0-34.0) pg MCHC 33.3 (32.0-36.0) g/dL RDW Std Deviation 56.1 H (36.4-46.3) fL RDW Coeff of Mookie 14.6 H (11.5-14.5) % Plt Count 291 (130-400) K/uL MPV 9.7 (9.4-12.4) fL Sodium 145 (136-145) mmol/L Potassium 3.5 (3.5-5.1) mmol/L Chloride 116 H (98-107) mmol/L Carbon Dioxide 22 (21-32) mmol/L Anion Gap 7 (3-11) BUN 12 (6-23) mg/dl Creatinine 0.54 L (0.6-1.2) mg/dl Est Cr Clr Drug Dosing 75.6 ml/min eGFR 104.03 BUN/Creatinine Ratio 22.2 H (10-20) Glucose 81 (70-99(Fasting)) mg/dl Calcium 7.8 L (8.6-10.3) mg/dl Phosphorus 4.0 (2.5-4.9) mg/dl Magnesium 1.5 L (1.7-2.4) mg/dl PG Care Time/CCT Total # of Minutes Spent Total Time Spent with Patient: Total time spent is greater than 50% in coordination of care (as documented) at patient's floor/unit and/or counseling patient: Coding Level of Care Code 91484 SUB INP/OBS CARE 2/35MIN Diagnoses Diarrhea R19.7
--- NOTE | 2024-03-02 12:33 | Anesthesiology Consultation ---
Date of Service March 02, 2024 Assessment & Plan (1) Encounter for pre-operative examination: Chart Review Chart Review: Acceptable Risk for Surgery and Patient NOT seen in Pre Admission Testing Consults Requested none History Surgery Operation Date: 03/02/24 17:10 Proposed Procedures p Colonoscopy EGD Franklin Reid MD Height/Weight Height: 4 ft 11.5 in Weight: 47 kg Allergies Allergy/AdvReac Type Severity Reaction Status Date / Time Penicillins Allergy Severe Swelling Verified 01/20/24 10:50 and shortness of breath latex Allergy Intermediate Itchy Verified 01/20/24 10:50 rash,localized burning sensation atorvastatin AdvReac Intermediate EXCESSIVE Verified 01/20/24 10:50 BLEEDING Medications Home Medications Medication Instructions Recorded Confirmed Last Taken buspirone 5 mg tablet 5 mg PO BID #60 tabs 04/03/21 02/29/24 05/08/23 gabapentin 400 mg capsule 400 mg PO BID #60 caps 04/03/21 02/29/24 05/08/23 quetiapine 100 mg tablet 100 mg PO HS #30 tabs 04/03/21 02/29/24 05/08/23 multivitamin 1 tab PO HS 04/04/21 02/29/24 05/08/23 potassium chloride 20 mEq 20 meq PO DAILY #10 tabs 07/18/21 02/29/24 05/08/23 tablet,extended release vortioxetine 20 mg tablet 10 mg PO HS 07/18/21 02/29/24 05/08/23 (Trintellix) albuterol sulfate 90 mcg/actuation 2 puff inhalation Q6H PRN 03/01/22 02/29/24 Unknown aerosol inhaler shortness of breath or wheezing #8.5 grams varenicline 1 mg tablet 1 mg PO BID #56 tabs 02/20/23 02/29/24 05/08/23 furosemide 20 mg tablet 20 mg PO DAILY PRN edema #30 tabs 10/20/23 02/29/24 Unknown ondansetron HCl 4 mg tablet 4 mg PO Q4H PRN nausea and 10/24/23 02/29/24 Unknown vomiting #20 tabs acetaminophen 500 mg tablet 500 - 1,000 mg PO Q8 PRN pain 01/06/24 02/29/24 Unknown (Tylenol Extra Strength) aspirin 81 mg tablet,delayed 81 mg PO DAILY 01/06/24 02/29/24 Unknown release fluticasone propionate 50 1 spray intranasal BID PRN Nasal 01/06/24 02/29/24 Unknown mcg/actuation nasal Congestion spray,suspension triamcinolone acetonide 0.1 % 1 applic topical BID PRN .flare ups 01/06/24 02/29/24 Unknown topical cream albuterol sulfate 2.5 mg/3 mL 2.5 mg (3 mL) inhalation QID PRN 01/13/24 02/29/24 Unknown (0.083 %) solution for nebulization shortness of breath or wheezing #180 mL albuterol sulfate 90 mcg/actuation 2 puff inhalation QID PRN 01/13/24 02/29/24 Unknown aerosol inhaler shortness of breath or wheezing #8.5 grams nebulizer with tubing #1 ea 01/13/24 02/29/24 Unknown codeine 10 mg-guaifenesin 100 mg/5 5 ml PO Q6H PRN cough #120 mL 01/20/24 02/29/24 Unknown mL oral liquid Active Medications Generic Name Dose Route Start Last Admin Trade Name Freq PRN Reason Stop Dose Admin Buspirone HCl 5 mg 02/29/24 21:00 03/02/24 08:08 Buspirone 5 Mg Tab PO 03/30/24 20:59 5 mg BID BRODERICK Administration Gabapentin 400 mg 02/29/24 21:00 03/02/24 08:08 Gabapentin 400 Mg Cap PO 03/30/24 20:59 400 mg BID BRODERICK Administration Sodium Chloride 500 mls @ 15 mls/hr 03/02/24 07:30 03/02/24 07:54 Nss IV 03/03/24 07:29 15 mls/hr .Q24H BRODERICK Administration Miscellaneous 1 each 03/01/24 00:00 03/02/24 08:28 Varenicline 1 Mg Tablet- Order Awaiting Action N/A 03/31/24 00:00 Not Given QS BRODERICK Miscellaneous 1 each 03/01/24 00:00 03/02/24 08:28 Vortioxetine [Trintellix] 20 Mg Tablet -Order Awaiting Action N/A 03/31/24 00:00 Not Given QS BRODERICK Ondansetron HCl 4 mg 02/29/24 11:38 03/01/24 19:35 Ondansetron Inj 2 Mg/Ml 2 Ml Vial IV 03/30/24 11:37 4 mg Q6H PRN Administration Nausea Quetiapine Fumarate 100 mg 02/29/24 21:00 03/01/24 21:09 Quetiapine Fumarate 100 Mg Tablet PO 03/30/24 20:59 100 mg HS BRODERICK Administration Past Medical History Medical History History of COVID-19 end of 02/2023 - no hosp; resolved Bilateral lower extremity edema occasional History of gastric ulcer Myocardial Infarction 2014 - [facility], HEART CATH - NO STENTS JUST WATCHING FOLLOW WITH [place] [facility] Past Family History Family History Mother Breast cancer Brother Prostate cancer Family/Other Myocardial infarction self Father Family history of reaction to anesthesia gets irritable mood for awhile after anesthesia Denies family history of Ovarian cancer Colorectal cancer Past Surgical History Surgical History S/P epidural steroid injection History of tubal ligation History of esophagogastroduodenoscopy (EGD) "FOOD DOESN'T DIGEST" H/O tooth extraction ALL TEETH History of tonsillectomy History of cardiac cath 2014 heart cath no stents History of bilateral tubal ligation History of tonsillectomy History of oral surgery FULL MOUTH EXTR History of arthroscopic knee surgery History of appendectomy History of section History of laparoscopic appendectomy Social History Smoking Status: Former smoker tobacco type: cigarettes Smoking cigarettes per day: 2-3 a day- advised Do You Dip or Chew Tobacco: No Hx Alcohol Use: No Hx Substance Use: No substance use type: does not use Physical Exam Vital Signs Last Vital Signs Temp 98.1 F 03/02/24 12:24 Pulse 78 03/02/24 12:24 Resp 18 03/02/24 12:24 BP 125/79 03/02/24 12:24 Pulse Ox 95 03/02/24 12:24 O2 Del Method Room Air 03/02/24 12:24 Testing Laboratory Results 03/02/24 05:45 03/02/24 05:45 Urine Color Dark Yellow 02/29/24 11:37 Urine Appearance Cloudy (Clear) A 02/29/24 11:37 Urine pH 8.5 (4.5-7.5) H 02/29/24 11:37 Ur Specific Mary Esther 1.017 (1.000-1.030) 02/29/24 11:37 Urine Protein Trace (Negative) H 02/29/24 11:37 Urine Glucose (UA) Negative (Negative) 02/29/24 11:37 Urine Ketones 2+ (Negative) H 02/29/24 11:37 Urine Nitrite Negative (Negative) 02/29/24 11:37 Ur Leukocyte Esterase Trace (Negative) H 02/29/24 11:37 Urine WBC (Auto) 0-5 /hpf (0-5) 02/29/24 11:37 Urine RBC (Auto) 6-10 /hpf (0-2) H 02/29/24 11:37 U Hyaline Cast (Auto) 0-2 /lpf (0-2) 02/29/24 11:37 U Epithel Cells (Auto) 0-2 /hpf (0-2) 02/29/24 11:37 Urine Bacteria (Auto) None Seen (None Seen) 02/29/24 11:37
--- NOTE | 2024-03-02 13:43 | GI REPORT ---
[facility] Patient: REBECCA MORA : 1960 Sex at : Female Age: 63 Years Procedure: Upper GI endoscopy Date: 03/02/2024 Attending Physician: Diogenes Reid MD Referring MD: Referred Self Indications: - Epigastric abdominal pain - Nausea with vomiting Medications: - Monitored Anesthesia Care Complications: - No immediate complications. Estimated Blood Loss: - Estimated blood loss was minimal. Procedure: - ASA Grade Assessment: III - A patient with severe systemic disease. - Prior to the procedure, a History and Physical was performed, and patient medications and allergies were reviewed. The patient's tolerance of previous anesthesia was also reviewed. The risks and benefits of the procedure and the sedation options and risks were discussed with the patient. All questions were answered, and informed consent was obtained. Prior Anticoagulants: The patient has taken no anticoagulant or antiplatelet agents. ASA Grade Assessment: III - A patient with severe systemic disease. After reviewing the risks and benefits, the patient was deemed in satisfactory condition to undergo the procedure. - The pediatric colonoscope was introduced through the mouth and advanced to the third part of the duodenum. - The upper GI endoscopy was accomplished without difficulty. - The patient tolerated the procedure well. Findings: - A 2 cm hiatal hernia was present. - Diffuse moderate inflammation characterized by erythema and congestion (edema) was found in the gastric body. Biopsies were taken with a cold forceps for Helicobacter pylori testing. - The examined duodenum was normal. Biopsies for histology were taken with a cold forceps for evaluation of celiac disease. Impression: - 2 cm hiatal hernia. - Acute gastritis, characterized by erythema and congestion (edema). Biopsied. - Normal examined duodenum. Biopsied. Recommendation: - Discharge patient to home (ambulatory). - Resume previous diet. - Continue present medications. - Await pathology results. - Return to primary care physician as previously scheduled. - Patient has a contact number available for emergencies. The signs and symptoms of potential delayed complications were discussed with the patient. Return to normal activities tomorrow. Written discharge instructions were provided to the patient. Procedure Code(s): - 15270, Esophagogastroduodenoscopy, flexible, transoral; with biopsy, single or multiple Diagnosis Code(s): - R10.13, Epigastric pain - R11.2, Nausea with vomiting, unspecified - K44.9, Diaphragmatic hernia without obstruction or gangrene - K29.00, Acute gastritis without bleeding CPT(R) - 202 copyright [employer]. All Rights Reserved. The CPT codes, CCI edits and ICD codes generated are intended as suggestions and were generated based on input data. These codes are preliminary and upon soccer ball assembler review may be revised to meet current compliance and payer requirements. The provider is responsible for the final determination of appropriate codes, and modifiers. Diogenes Reid MD This document has been electronically signed. Note Initiated:03/02/2024 Note Completed:03/02/2024 1:42 PM \\[email or web address]\[email or web address]\Data\Provation\Results\LIVE\[id number].pdf
--- NOTE | 2024-03-02 13:49 | GI REPORT ---
[facility] Patient: REBECCA MORA : 1960 Sex at : Female Age: 63 Years Procedure: Colonoscopy Date: 03/02/2024 Attending Physician: Diogenes Reid MD Referring MD: Referred Self Indications: - Chronic diarrhea - Weight loss Medications: - Monitored Anesthesia Care Complications: - No immediate complications. Estimated Blood Loss: - Estimated blood loss: None. - Estimated blood loss was minimal. Procedure: - Prior to the procedure, a History and Physical was performed, and patient medications and allergies were reviewed. The patient's tolerance of previous anesthesia was also reviewed. The risks and benefits of the procedure and the sedation options and risks were discussed with the patient. All questions were answered, and informed consent was obtained. Prior Anticoagulants: The patient has taken no anticoagulant or antiplatelet agents. ASA Grade Assessment: III - A patient with severe systemic disease. After reviewing the risks and benefits, the patient was deemed in satisfactory condition to undergo the procedure. - The pediatric colonoscope was introduced through the anus and advanced to the terminal ileum, with identification of the appendiceal orifice and ileocecal valve. - The colonoscopy was performed without difficulty. - The patient tolerated the procedure well. - The quality of the bowel preparation was excellent. - The appendiceal orifice was photographed. Findings: - The terminal ileum appeared normal. - The exam was otherwise without abnormality on direct and retroflexion views. - Biopsies for histology were taken with a cold forceps from the left colon for evaluation of microscopic colitis. - A localized area of mildly erythematous mucosa was found at the hepatic flexure and in the ascending colon. Biopsies were taken with a cold forceps for histology. Estimated blood loss was minimal. - Internal hemorrhoids were found during retroflexion. The hemorrhoids were Grade I (internal hemorrhoids that do not prolapse). Impression: - The examined portion of the ileum was normal. - The examination was otherwise normal on direct and retroflexion views. - Biopsies were taken with a cold forceps from the left colon for evaluation of microscopic colitis. - Erythematous mucosa at the hepatic flexure and in the ascending colon. Biopsied. - Internal hemorrhoids. Recommendation: - Discharge patient to home (ambulatory). - Resume previous diet. - Continue present medications. - Repeat colonoscopy date to be determined after pending pathology results are reviewed for surveillance based on pathology results. - Return to referring physician as previously scheduled. - Patient has a contact number available for emergencies. The signs and symptoms of potential delayed complications were discussed with the patient. Return to normal activities tomorrow. Written discharge instructions were provided to the patient. Procedure Code(s): - 50610, Colonoscopy, flexible; with biopsy, single or multiple Diagnosis Code(s): - K52.9, Noninfective gastroenteritis and colitis, unspecified - R63.4, Abnormal weight loss - K63.89, Other specified diseases of intestine - K64.0, First degree hemorrhoids CPT(R) - 2022 copyright [employer]. All Rights Reserved. The CPT codes, CCI edits and ICD codes generated are intended as suggestions and were generated based on input data. These codes are preliminary and upon flotation tender review may be revised to meet current compliance and payer requirements. The provider is responsible for the final determination of appropriate codes, and modifiers. Diogenes Reid MD This document has been electronically signed. Note Initiated:03/02/2024 Note Completed:03/02/2024 1:48 PM \\[email or web address]\[email or web address]\Data\Provation\Results\LIVE\[id number].pdf
[2024-03-02 14:04] VITALS: O2SAT 97
--- NOTE | 2024-03-02 14:25 | Anesthesiology Progress Note ---
Date of Service March 02, 2024 Anesthesia Post Procedure Vital Signs Vital Signs: Temp Pulse Pulse Resp BP BP Pulse Ox 03/02/24 14:03 73 16 127/82 97 03/02/24 13:48 66 16 121/75 96 03/02/24 13:33 78 16 109/72 97 03/02/24 12:24 98.1 F 78 18 125/79 95 03/02/24 10:31 98.1 F 80 12 94/61 L 93 03/02/24 09:38 91 H 03/02/24 08:26 83 16 94/60 L 94 03/02/24 07:38 03/02/24 07:27 97.9 F 82 14 95/59 L 91 03/02/24 04:00 98.1 F 101 H 18 105/62 93 03/01/24 23:04 98.4 F 80 18 125/81 95 03/01/24 22:43 03/01/24 21:55 89 03/01/24 19:30 98.2 F 86 18 130/71 96 03/01/24 15:45 97.5 F L 72 20 143/81 H 96 03/01/24 14:56 79 O2 Del Method 03/02/24 14:03 Room Air 03/02/24 13:48 Room Air 03/02/24 13:33 Room Air 03/02/24 12:24 Room Air 03/02/24 10:31 Room Air 03/02/24 09:38 03/02/24 08:26 Room Air 03/02/24 07:38 Room Air 03/02/24 07:27 Room Air 03/02/24 04:00 Room Air 03/01/24 23:04 Room Air 03/01/24 22:43 Room Air 03/01/24 21:55 03/01/24 19:30 Room Air 03/01/24 15:45 Room Air 03/01/24 14:56 Pain Intensity Abdomen: Pain Intensity: 4 Transfer of Care Handoff Completed per policy Notes Mental Status: alert / awake / arousable and participated in evaluation Patient Amnestic to Procedure: Yes Nausea / Vomiting: adequately controlled Pain: adequately controlled Airway Patency, RR, SpO2: stable & adequate BP & HR: stable & adequate Hydration State: stable & adequate Anesthetic Complications: no major complications apparent and Pt Satisfied with anesthetic care
[2024-03-02 14:38] VITALS: BP 126/80; PULSE 72; RESP 18; TEMP 97.7
[2024-03-02] MEDS: LIDOCAINE 2% 2 ML VIAL/AMP(20MG/ML) INFIL ONE (14:50)
[2024-03-02] MEDS: PROPOFOL IV EMULSION 10 MG/ML 20 ML VIAL IV ONE (14:50)
--- NOTE | 2024-03-02 15:20 | History & Physical Bridge Note ---
Date of Service March 02, 2024 History & Physical Bridge Note I have examined the patient, reviewed the History & Physical and in the interval since the performance of the History & Physical I have noted the following changes of clinical significance: EGD and colon done. gastritis with mild right sided colitis. no polyps or masses or pud. suspect infectious enterocolitis that is resolving. Supportive care. f/up biopsies. advance diet.
--- NOTE | 2024-03-02 16:46 | Discharge Summary ---
Date of Service March 02, 2024 Admission HPI Per Admitting Provider This is a pleasant 63-year-old female who has approximately 6-week history of refractory diarrhea. Initially was diagnosed with possible "E. coli diarrhea". The apparently treated was just supportive care. More recently she was diagnosed with a urinary tract infection and appears to have been treated with Macrobid. Her urinary symptoms are completely resolved. Her diarrhea was initially every hour according to the patient and watery. Currently the patient's "diarrhea" is 2-4 times a day and the patient reports that it is of a "thick milkshake consistency". Over the last 12 to 24 hours she developed naus ea and she has had 1 episode of vomiting. In addition she has some paresthesias in her extremities intermittently and presented the ER for further evaluation and treatment. In the emergency department patient's workup was significant for mild hypomagnesemia and hypophosphatemia and borderline hypokalemia. In addition the patient was found to have some mild transaminitis with an AST and ALT of 54 and 57 respectively with a mildly elevated alk phos of 196 which appears to be somewhat chronic. The transaminitis is new but the alk phos is chronic. Course in the emergency department the patient received 1 g of magnesium sulfate. Received a 1000 cc bolus of normal saline. And received a dose of Reglan. We are called admit the patient for further evaluation and treatment for refractory diarrhea and nausea and vomiting and electrolyte disturbance. Given the chronicity of the patient's symptoms and progression of her symptoms not a nausea vomiting we will do a stat CT of the abdomen pelvis without contrast. Will keep the patient n.p.o. until we obtain results place her on IV Protonix and as needed Zofran. Will give her 15 mmol of potassium phosphate IV to replace her potassium and her phosphorus. Will assess her and reassess her electrolytes in the morning. Pending results of CAT scan will determine whether or not we consult gastroenterology for consideration of endoscopies. . Principal Diagnosis Gastritis/Diarrhea Discharge Exam Constitutional WD/WN, vitals as above Respiratory normal respiratory effort, lungs clear to auscultation Cardiovascular RRR, no murmur, no edema Gastrointestinal (Abdomen) Inspection/Auscultation: + abdomen distended and + hypoactive bowel sounds Percussion/Palpation: + abdomen tender and abdomen soft Skin no rashes, warm and dry Psychiatric A+Ox3, euthymic affect Discharge Data Allergies Allergy/AdvReac Type Severity Reaction Status Date / Time Penicillins Allergy Severe Swelling Verified 01/20/24 10:50 and shortness of breath latex Allergy Intermediate Itchy Verified 01/20/24 10:50 rash,localized burning sensation atorvastatin AdvReac Intermediate EXCESSIVE Verified 01/20/24 10:50 BLEEDING Consultations 02/29/24 11:24 ED Decision to Admit Stat 02/29/24 13:30 Consult Gastroenterology Routine 03/01/24 11:16 Consult Behavioral Health Liaison Routine Procedures Performed Operation Date: 03/02/24 17:10 Actual Procedures p EGD Biopsy Cytology - Diogenes Reid MD s Colonoscopy Biopsy Cytology - Diogenes Reid MD Ordered Studies 02/29/24 11:37 CT Abd and Pelvis [CT abd pelvis wo con] Stat Hospital Course (1) Diarrhea: (2) Hypomagnesemia: (3) Hypophosphatasia: (4) Right hand paresthesia: (5) Transaminitis: (6) GERD (gastroesophageal reflux disease): (7) Grief: Plan 1. Diarrhea- Ongoing now for 6 weeks. No melena. - CT from 02/28 suggested an infectious or inflammatory enteritis with diarrheal illness and hepatic steatosis. - C.diff toxin testing- negative - Bowel prep completed 03/01 - s/p EGD and colonoscopy on 03/02/24 results show findings consistent with inflammatory changes post infection. - Recommend starting bland diet at home, progress per tolerance - Recommend probiotics upon discharge 2. Electrolyte abnormalities - Hypomagnesemia Given 1mg of mag sulfate via IV on 02/28 and 03/01, mag level continues at 1.5. Given 2 mg IV Mag Sulfate prior to endoscopy. - Hypophosphatemia in ED. Stable - Relative hypokalemia in ED- Stable 3. Intermittent paresthesias probably secondary to electrolyte abnormalities. - No significant change from 03/01 4. History of GERD and peptic ulcer disease. - History of Peptic ulcer 5. Mild transaminitis. CT shows hepatic steatosis. - ALT and AST normalized on 03/01- stable 6. Grief - Recent of her father 4 days ago. Having appropriate grief response - Behavioral health consult completed 03/01 7. History of depression. - Continue home meds Ongoing: - COPD without evidence of acute exacerbation -Dyslipidemia - continue home medications. - History of CAD with reported myocardial infarction 2014. Nonobstructive disease per the record. - History of anxiety. - Ongoing tobacco abuse in the form of smoking cigarettes. Total Time Total Time Spent Total Time Spent (In Minutes): As per attending physician's attestation Discharge Plan Discharge Items Patient Disposition: Home - Self-Care Reason For Visit: N/V/D Discharge Diagnosis: Gastritits Activity: Per Instructions section Non-emergency contact: Primary Care Provider Call non-emergency contact if: you have any medication questions and your symptoms worsen Follow-up/Referrals: Enedelia Brand DO [Primary Care Provider] - 03/11/24 9:20 am Diet: Regular Addtl Attending Provider Instructions: You were admitted because of your ongoing diarrhea/weight loss. Your colonoscopy/endoscopy showed some inflammation of the stomach and samples were taken from both the stomach and colon and will be sent to pathology for further evaluation. The inflammation was likely from an acute viral illness. You were a little dehydrated when you came in, try to ensure that you are drinking plenty of fluids. Start out with a bland diet and slowly increase what you are eating. It would be reasonable to add a probiotic. Some of your electrolytes were a little low, so you should follow up with your primary care doctor to have them checked next week. If your primary care doctor's office does not reach out to you in the next day, call them to make an appointment. Pending Studies at Discharge: No Stand-Alone Forms: Anesthesia/Sedation, Adult, [facility], Work/School Release, Smoking Cessation Medications and DC Order Prescriptions: New omeprazole 20 mg capsule,delayed release(DR/EC) 20 mg PO DAILY Qty: 14 0RF Continued varenicline 1 mg tablet 1 mg PO BID Qty: 56 4RF furosemide 20 mg tablet 20 mg PO DAILY PRN (Reason: edema) Qty: 30 5RF ondansetron HCl 4 mg tablet 4 mg PO Q4H PRN (Reason: nausea and vomiting) Qty: 20 0RF codeine-guaifenesin 10-100 mg/5 mL liquid 5 ml PO Q6H PRN (Reason: cough) Qty: 120 0RF gabapentin 400 mg capsule 400 mg PO BID Qty: 60 2RF quetiapine 100 mg tablet 100 mg PO HS Qty: 30 0RF buspirone 5 mg tablet 5 mg PO BID Qty: 60 2RF albuterol sulfate 90 mcg/actuation HFA aerosol inhaler 2 puff inhalation Q6H PRN (Reason: shortness of breath or wheezing) Qty: 8.5 5RF albuterol sulfate 2.5 mg /3 mL (0.083 %) solution for nebulization 2.5 mg inhalation QID PRN (Reason: shortness of breath or wheezing) Qty: 180 3RF albuterol sulfate 90 mcg/actuation HFA aerosol inhaler 2 puff inhalation QID PRN (Reason: shortness of breath or wheezing) Qty: 8.5 2RF Rx Instructions: do not use at same time as nebulizer (DME) nebulizer with tubing See Rx Instructions .Route .MEDSUPPLY Qty: 1 0RF Rx Instructions: use 4-5 x a day prn multivitamin Tablet 1 tab PO HS Patient Comments: per pt "amway vitamin" Trintellix 20 mg tablet 10 mg PO HS potassium chloride 20 mEq tablet extended release 20 meq PO DAILY Qty: 10 0RF aspirin 81 mg tablet,delayed release (DR/EC) 81 mg PO DAILY acetaminophen [Tylenol Extra Strength] 500 mg tablet 500 - 1,000 mg PO Q8 PRN (Reason: pain) triamcinolone acetonide 0.1 % cream 1 applic topical BID PRN (Reason: .flare ups) fluticasone propionate 50 mcg/actuation spray,suspension 1 spray intranasal BID PRN (Reason: Nasal Congestion) Rx Instructions: administer into each nostril Discharge Orders: Discharge Order (Routine); Ordered 03/02/24 Ordered By: Italia Lieberman Admission Data Admit Date/Time: 02/29/24 11:39 Attending Provider: Luana Robbins Admit Provider: Roland Small Primary Care Provider: Enedelia Brand Other Providers: Roland Small; Kayce Fox Jr Other Interventions: Discharge Summary Assessment (RN) Last Done: 03/02/24 16:06 Supervising Physician Co-Signing Physician Notes Attending Physician Supervision Note: I independently interviewed and examined the patient and verified the marie history and physical, reviewed labs and image studies and agree with findings and care plan noted above. felt much better this am. vitals noted nad heent nc at mmm breathing unlabored no accessory muscles good effort skin no rashes no pallor or icterus neuro no focal deficits. abdomen soft/nt/nd. Diarrhea/Weight loss/dehydration with electrolyte imbalance h/o PUD with current tob smoking IBS Acute gastritis noted on EGD - 03/02 -s/p IVF resuscitation and electrolyte replacement -C diff and stool pcr neg. Nondilated bowel air-fluid level. -Kept on IV protonix. -EGD/colo today - acute gastritis and erythema in hepatic flexure - biopsies taken including testing for H pylori. -For acute gastritis - Omeprazole rx sent. To take until biopsy results are back. -Will need outpatient coaching for IBS management - grief counselling/stress management/limiting abx use as much possible. Mild transaminitis -resolved. CT with hepatic steatosis. further outpatient f/u. Grief Depression Anxiety -To establish with therapist at her psychiatrist clinic. Resident Activity Tracking Resident Involvement: Resident Care Provided Care Provided: Adult [facility]
[2024-03-03] MEDS ORDERED: PANTOprazole 40 MG in SYRINGE DAILY IV SCH (09:00)
== END 2024-03-02 17:02 | disposition home or self-care (01) | DRG 392 ==
LOC: ED 09:32 → INTOOBSV 11:39 → SUATTDRO 11:39 → EDINP 11:39 → 2N 14:59

== ENCOUNTER 2024-03-04 14:54 | Inpatient (IN) ==
--- NOTE | 2024-03-04 16:26 | Emergency Department Note ---
Impression & Plan Paresthesias ED Provider Note ED Provider Note NAME: REBECCA MORA AGE:63 SEX: Female : 1960 ARRIVES VIA: Private vehicle INFORMANT: Patient ED PROVIDER(s): Althea Mendoza DO CHIEF COMPLAINT: Numbness and tingling all over HPI: This is a 63-year-old female who presents emergency department due to concern for numbness and tingling all over. Patient states she was recently admitted with a GI illness and that has improved. She states over the last 2 to 3 weeks she has had intermittent numbness and tingling in her abdomen. She states since discharge it has gotten worse and is now constant and generalized. She states they did replete her electrolytes while she was admitted. She states she is no longer having diarrhea, no nausea or vomiting, no fevers or chills. Patient states she has pain in her muscles and feels that is difficult to even walk. She denies any new medications since discharge. PAST MEDICAL HISTORY:See Below PAST SURGICAL HISTORY:See Below FAMILY HISTORY:See Below SOCIAL HISTORY:See Below HOME MEDICATIONS:See Below ALLERGIES:See Below VITALS:See Below PHYSICAL EXAMINATION: GENERAL: alert, well appearing, well nourished, no distress, non-toxic EYE EXAM: normal conjunctiva, PERRL and EOM's grossly intact OROPHARYNX: no exudate, no erythema, lips, buccal mucosa, and tongue normal and mucous membranes are moist NECK: supple, no nuchal rigidity, no adenopathy, non-tender LUNGS: Clear to auscultation. Normal chest wall mechanics, no w/r/r HEART: no murmurs, S1 normal and S2 normal ABDOMEN: abdomen soft, non-tender, normo-active bowel sounds, no masses, no rebound or guarding. SKIN: no rashes, petechiae, orbruising UPPER EXTREMITIES: upper extremities are grossly normal. FROM, nml pulses b/l. LOWER EXTREMITIES: No pitting edema. FROM, nml pulses b/l. NEURO EXAM: Normal sensorium, cranial nerves II-XII grossly intact, normal speech, no facial droop,nogross weakness of arms, no gross weakness of legs. Gross sensation intact. No ataxia. Vital Signs: reviewed and remarkable Differential Diagnosis: Electrolyte abnormality, dehydration, medication ADR, somatization disorder, QUEENIE, as well as others were considered MEDICAL DECISION MAKING: This is a 63-year-old female presents emergency department complaining of generalized numbness and tingling. Patient states she has had paresthesias for 2 to 3 weeks however they have been worse since her most recent admission and discharge. She was afebrile vital signs stable. Labs drawn and sent, IV established, EKG performed at bedside interpreted me and patient monitored on telemetry. Patient was given oral potassium repletion and IV magnesium repletion at bedside. She noted no improvement in her symptoms. Additional labs checked without any obvious etiology. Patient states the paresthesias have led to weakness so that she cannot walk. Due to concern for ambulatory dysfunction and safe discharge plan, case discussed with the hospitalist for additional evaluation and management. Consultation(s): 1946: Discussed with Dr. Young, [facility] hospitalist team, for additional evaluation and management. ER Treatment Provided: See below Diagnostics Interpreted By Me: -ECG: Normal sinus at 79, normal axis, normal intervals, abnormal ST/T wave changes noted inferiorly, no other acute ischemic changes -Cardiac Monitoring: An order was placed for continuous cardiac monitoring. The monitor shows a rate of 90 with normal sinus rhythm. -Laboratory studies: As stated above and show below. Triage Nursing Note Reviewed Prior/Outside Records Reviewed Past Med/Surg History Problem List (Updated 03/04/24 @ 16:26 by Althea Mendoza DO) Paresthesias (Acute) Acquired hypophosphatemia (Acute) Nausea, vomiting and diarrhea (Acute) Hypomagnesemia (Acute) Acute dehydration (Acute) Grief Transaminitis GERD (gastroesophageal reflux disease) Hypophosphatasia COPD (chronic obstructive pulmonary disease) Distal paresthesia Diarrhea Urinary symptom or sign Right hand paresthesia (Acute) Dehydration (Acute) Generalized weakness (Acute) QT prolongation COVID-19 virus infection (Acute) COPD exacerbation Retained orthopedic hardware Right foot pain Right ankle pain Tibialis posterior tendinitis Plantar fasciitis of right foot Peripheral vision loss Low ferritin Dyspnea Frequent falls Memory impairment Osteoporosis Hx of herpes genitalis Dermatitis Arthritis of carpometacarpal (CMC) joint of left thumb Osteopenia Impaired fasting glucose Vitamin D deficiency Smoker Pulmonary nodule pt unaware Sternal pain FROM POSSIBLE INJURY CURRENTLY UNDERGOING RIB MANIPULATION Gastroparesis Macrocytosis without anemia Anxiety with depression Hypomagnesemia (Acute) Bulimia Cervical radiculopathy Chronic back pain L4 - HERNIATED DISC HAD LESI 08/2018 GERD (gastroesophageal reflux disease) Chronic obstructive pulmonary disease (Acute) well controlled Medical History History of COVID-19 end of 02/2023 - no hosp; resolved Bilateral lower extremity edema occasional History of gastric ulcer Myocardial Infarction 2014 - [facility], HEART CATH - NO STENTS JUST WATCHING FOLLOW WITH [facility] Surgical History S/P epidural steroid injection History of tubal ligation History of esophagogastroduodenoscopy (EGD) "FOOD DOESN'T DIGEST" H/O tooth extraction ALL TEETH History of tonsillectomy History of cardiac cath 2014 heart cath no stents History of bilateral tubal ligation History of tonsillectomy History of oral surgery FULL MOUTH EXTR History of arthroscopic knee surgery History of appendectomy History of section History of laparoscopic appendectomy Family History Mother Breast cancer Brother Prostate cancer Family/Other Myocardial infarction self Father Family history of reaction to anesthesia gets irritable mood for awhile after anesthesia Denies family history of Ovarian cancer Colorectal cancer Social History Smoking Status: Former smoker Tobacco Type: Cigarettes Cigarettes Per Day: 2-3 a day- advised; Second Hand Exposure: Yes; Do You Dip or Chew Tobacco: No; Hx Alcohol Use: No Hx Substance Use: No Preferred Language: French Communication Ability: Effective Visual Impairment: No Limitations Hearing Ability: Normal [employer]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 Beliefs That Will Affect Care: None marital status: Single Current Living Situation: Family Current Living Situation Comment: lives with parents and brother current occupational status: employed Feels Safe at Home: Yes Dental Care, Regularly: No Physical Activity Frequency: 3-4 Times per Week Seatbelt Use: always Assistive Devices: None Allergies Allergies Allergy/AdvReac Type Severity Reaction Status Date / Time Penicillins Allergy Severe Swelling Verified 01/20/24 10:50 and shortness of breath latex Allergy Intermediate Itchy Verified 01/20/24 10:50 rash,localized burning sensation atorvastatin AdvReac Intermediate EXCESSIVE Verified 01/20/24 10:50 BLEEDING Home Meds Home Medications Medication Instructions Recorded Confirmed multivitamin 1 tab PO HS 04/04/21 03/04/24 vortioxetine 20 mg tablet 10 mg PO HS 07/18/21 03/04/24 (Trintellix) acetaminophen 500 mg tablet 500 - 1,000 mg PO Q8 PRN pain 01/06/24 03/04/24 (Tylenol Extra Strength) aspirin 81 mg tablet,delayed 81 mg PO DAILY 01/06/24 03/04/24 release Previous Rx's Medication Instructions Recorded buspirone 5 mg tablet 5 mg PO BID #60 tabs 04/03/21 gabapentin 400 mg capsule 400 mg PO BID #60 caps 04/03/21 quetiapine 100 mg tablet 100 mg PO HS #30 tabs 04/03/21 potassium chloride 20 mEq 20 meq PO DAILY #10 tabs 07/18/21 tablet,extended release albuterol sulfate 90 mcg/actuation 2 puff inhalation Q6H PRN 03/01/22 aerosol inhaler shortness of breath or wheezing #8.5 grams varenicline 1 mg tablet 1 mg PO BID #56 tabs 02/20/23 furosemide 20 mg tablet 20 mg PO DAILY PRN edema #30 tabs 10/20/23 ondansetron HCl 4 mg tablet 4 mg PO Q4H PRN nausea and 10/24/23 vomiting #20 tabs albuterol sulfate 2.5 mg/3 mL 2.5 mg (3 mL) inhalation QID PRN 01/13/24 (0.083 %) solution for nebulization shortness of breath or wheezing #180 mL albuterol sulfate 90 mcg/actuation 2 puff inhalation QID PRN 01/13/24 aerosol inhaler shortness of breath or wheezing #8.5 grams nebulizer with tubing #1 ea 01/13/24 omeprazole 20 mg capsule,delayed 20 mg PO DAILY #14 caps 03/02/24 release Results & Data (ED) Vital Signs Vital Signs - 24 hr 03/04/24 15:06 03/04/24 15:35 03/04/24 16:21 Temperature 37 C Temperature Source Skin Pulse Rate 92 H 89 81 Respiratory Rate 19 18 Respiratory Effort / Characteristics Non-Labored Spontaneous Respiratory Depth Normal Respiratory Pattern Regular Blood Pressure 129/90 137/79 Blood Pressure Mean 103 98 Pulse Oximetry 96 94 Oxygen Delivery Method Room Air Sepsis Recent Fever Within 48 Hours No Sepsis New/Unexplained Change in Mental Status N/A Sepsis Action Taken by Nursing No Action Required 03/04/24 17:03 03/04/24 18:18 03/04/24 20:00 Temperature Temperature Source Pulse Rate 75 78 82 Respiratory Rate 20 18 16 Respiratory Effort / Characteristics Respiratory Depth Respiratory Pattern Blood Pressure 139/83 160/84 H 159/107 H Blood Pressure Mean 101 109 124 Pulse Oximetry 97 95 92 Oxygen Delivery Method Room Air Sepsis Recent Fever Within 48 Hours Sepsis New/Unexplained Change in Mental Status Sepsis Action Taken by Nursing Laboratory Data 03/04/24 17:01 03/04/24 17:01 Lab Results 03/04/24 03/04/24 03/04/24 Range/Units 15:57 17:01 18:50 WBC 9.83 (4.8-10.8) K/ul RBC 3.93 L (4.20-5.40) M/uL Hgb 13.6 (12.0-16.0) g/dl Hct 40.2 (37.0-47.0) % MCV 102.3 H (80.0-100.0) fL MCH 34.6 H (25.0-34.0) pg MCHC 33.8 (32.0-36.0) g/dL RDW Std Deviation 54.5 H (36.4-46.3) fL RDW Coeff of Mookie 14.5 (11.5-14.5) % Plt Count 305 (130-400) K/uL MPV 9.8 (9.4-12.4) fL Immature Gran % (Auto) 0.4 % Neut % (Auto) 69.1 % Lymph % (Auto) 14.9 % [place] % (Auto) 11.2 % Eos % (Auto) 3.8 % Baso % (Auto) 0.6 % Neut # (Auto) 6.80 H (1.40-6.50) K/uL Lymph # (Auto) 1.46 (1.20-3.40) K/uL [place] # (Auto) 1.10 H (0.11-0.59) K/uL Eos # (Auto) 0.37 (0.00-0.50) K/uL Baso # (Auto) 0.06 (0.00-0.20) K/uL Immature Gran # (Auto) 0.04 (0.01-0.20) K/uL PT 12.1 H (9.0-12.0) Seconds INR 1.1 (0.9-1.1) Sodium 145 (136-145) mmol/L Potassium 3.4 L (3.5-5.1) mmol/L Chloride 109 H (98-107) mmol/L Carbon Dioxide 31 (21-32) mmol/L Anion Gap 5 (3-11) BUN 13 (6-23) mg/dl Creatinine 0.65 (0.6-1.2) mg/dl Est Cr Clr Drug Dosing 64.5 ml/min eGFR 99.49 BUN/Creatinine Ratio 20.0 (10-20) Glucose 80 (70-99(Fasting)) mg/dl POC Glucose 97 (70-99) mg/dl Calcium 8.3 L (8.6-10.3) mg/dl Phosphorus 4.0 (2.5-4.9) mg/dl Magnesium 1.5 L (1.7-2.4) mg/dl Total Bilirubin 0.7 (0.2-1.0) mg/dl AST 28 (13-39) U/L ALT 37 (7-52) U/L Alkaline Phosphatase 169 H (34-104) U/L Total Creatine Kinase 15 L (26-192) U/L Troponin I High Sens 3.9 (0-14) pg/ml Total Protein 4.8 L (6.0-8.3) gm/dl Albumin 2.8 L (3.4-5.0) gm/dl Globulin 2.0 L (2.5-4.0) gm/dl Albumin/Globulin Ratio 1.4 (0.9-2) Lipase 15 (11-82) U/L Vitamin B12 406 (180-914) pg/ml Folate 3.61 L (>5.38) ng/ml TSH 1.787 (0.300-4.500) uIu/ml Anaplasma Smear See Comment Babesia Smear See Comment Administered Medications Buspirone HCl (Buspirone 5 Mg Tab) 5 mg PO BID BRODERICK Stop: 04/03/24 23:05 Last Admin: 03/05/24 00:13 Dose: 5 mg Documented By: IRLANDA Enoxaparin Sodium (Enoxaparin Inj 40 Mg/0.4 Ml Syr) 40 mg SQ HS BRODERICK Stop: 04/03/24 23:14 Last Admin: 03/05/24 00:12 Dose: 40 mg Documented By: IRLANDA Gabapentin (Gabapentin 400 Mg Cap) 400 mg PO BID BRODERICK Stop: 04/03/24 23:05 Last Admin: 03/05/24 00:14 Dose: 400 mg Documented By: IRLANDA Magnesium Sulfate/Dextrose (Magnesium Sulfate / D5w) 1 gm in 100 mls @ 50 mls/hr IV Q2H BRODERICK Stop: 03/05/24 03:05 Last Admin: 03/05/24 00:12 Dose: 50 mls/hr Documented By: IRLANDA Quetiapine Fumarate (Quetiapine Fumarate 100 Mg Tablet) 100 mg PO HS BRODERICK Stop: 04/03/24 23:05 Last Admin: 03/05/24 00:14 Dose: 100 mg Documented By: IRLANDA Discontinued Medications Magnesium Sulfate/Dextrose (Magnesium Sulfate / D5w) 1 gm in 100 mls @ 100 mls/hr IV NOW STA Stop: 03/04/24 18:43 Last Infusion: 03/04/24 20:14 Dose: Infused Documented By: Admin: 03/04/24 17:56 Dose: 100 mls/hr Documented By: KYLE Potassium Chloride (Potassium Chloride Crtab 20 Meq Tabcr) 40 meq PO NOW STA Stop: 03/04/24 17:45 Last Admin: 03/04/24 17:57 Dose: 40 meq Documented By: KYLE Discharge Plan Visit Data Chief Complaint: TIA Symptoms Stated Complaint: WHOLE BODY NUMBNESS/PAIN, UNBALANCED, FACIAL EDEMA ED Provider: Althea Mendoza Discharge Problem: Paresthesias Patient Disposition: Admitted As Inpatient Discharge Instructions Interventions: ED Discharge Assessment Last Done: 03/04/24 22:49
[2024-03-04 17:18] LABS: Basophils # (auto) 0.06 K/uL (0.00-0.20); Basophils % (auto) 0.6 %; Eosinophils # (auto) 0.37 K/uL (0.00-0.50); Eosinophils % (auto) 3.8 %; Hematocrit (blood only) 40.2 % (37.0-47.0); Hemoglobin 13.6 g/dl (12.0-16.0); Immature Granulocytes # (auto) 0.04 K/uL (0.01-0.20); Immature Granulocytes % (auto) 0.4 %; Lymphocytes # (auto) 1.46 K/uL (1.20-3.40); Lymphocytes % (auto) 14.9 %; Mean Corpuscular Hemoglobin 34.6 pg (25.0-34.0); Mean Corpuscular Hgb Conc 33.8 g/dL (32.0-36.0); Mean Corpuscular Volume 102.3 fL (80.0-100.0); Mean Platelet Volume 9.8 fL (9.4-12.4); Monocytes % (auto) 11.2 %; Neutrophils % (auto) 69.1 %; Platelet Count 305 K/uL (130-400); RDW Coefficient of Variation 14.5 % (11.5-14.5); RDW Standard Deviation 54.5 fL (36.4-46.3); Red Blood Count 3.93 M/uL (4.20-5.40); White Blood Count 9.83 K/ul (4.8-10.8)
[2024-03-04 17:35] LABS: Albumin Globulin Ratio 1.4 (0.9-2); Albumin Level 2.8 gm/dl (3.4-5.0); Bilirubin,Total 0.7 mg/dl (0.2-1.0); Calcium 8.3 mg/dl (8.6-10.3); Creatinine Clr Calc Pharmacy 64.5 ml/min; Magnesium 1.5 mg/dl (1.7-2.4); Potassium 3.4 mmol/L (3.5-5.1); Total Protein 4.8 gm/dl (6.0-8.3)
[2024-03-04 17:41] LABS: Troponin I High Sensitivity 3.9 pg/ml (0-14)
[2024-03-04 17:44] LABS: INR 1.1 (0.9-1.1); Prothrombin Time 12.1 Seconds (9.0-12.0)
[2024-03-04 17:50] LABS: Thyroid Stimulating Hormone 1.787 uIu/ml (0.300-4.500)
[2024-03-04] MEDS: MAGNESIUM SULFATE / D5W 1 GM/100 ML BAG IV STA (17:56)
[2024-03-04] MEDS: POTASSIUM CHLORIDE CRTAB 20 MEQ TABCR PO STA (17:57)
[2024-03-04 19:47] LABS: Folate (Folic Acid),Ser orPlas 3.61 ng/ml (>5.38)
--- NOTE | 2024-03-04 20:28 | History & Physical Report ---
Date of Service March 04, 2024 Assessment & Plan (1) Paresthesias: (2) Hypomagnesemia: (3) Hypokalemia: (4) Anxiety with depression: (5) GERD (gastroesophageal reflux disease): (6) Smoker: Jeffrey Judith Day is a 63yo F w PMH notable for COPD, CAD, MT, GERD, and current smoking who presents with numbness and tingling all over her body. Paresthesias Electrolyte derangements - intermittent sx in torso for weeks; worsened since last hospital discharge to whole-body numbness/tingling - sx previously assumed 2/2 electrolytes; consider conversion d/o or complex grief after the recent of her father - deficiencies from previous admissions persist target K 4 current 3.4 target Mg 2 current 1.5 given multiple bags Mag Sulf last admission but level remained at 1.5 recheck levels and ensure optimal Mg level is achieved Ca 8.3, Phos now wnl at 4 - B6 pending, B9 low at 3.61, B12 wnl at 406 - TSH 1.787 - given 1g Mag sulf in ED; continue w 2 more bags - increased home KCl from 20 to 40mg po daily GERD/gastritis - continue PPI w Protonix 40mg daily - consider changing to H2 soheila if continued evidence of malabsorption - Bx from EGD on 03/02 benign; no significant inflammation so H pylori stain was not done Depression/anxiety - continue buspar, quetiapine, Trintellix Current smoker - down to 1 cigarette per day - continue varenicline History of Present Illness Chief Complaint: generalized numbness and tingling Primary Care Provider: Enedelia Brand DO Judith Day is a 63yo F w PMH notable for COPD, CAD, MT, GERD, and current smoking who presents with numbness and tingling all over her body. She reports having these sx intermittently for weeks, but limited to her torso. She describes it as "that feeling when your foot falls asleep." Since her last discharge from the hospital on 03/02, she reports the sx worsened and spread all over her body. During that hospital stay, she had low Mg, K, and Phos; she says electrolyte replacement did not improve her sx at all. She reports her GI issues resolved entirely after the colonoscopy, and she currently has no complaints other than the whole-body paresthesias. It is somewhat difficult for her to move due to not feeling her limbs normally, but she is able to walk carefully, has not fallen, has full ROM. Allergies Allergy/AdvReac Type Severity Reaction Status Date / Time Penicillins Allergy Severe Swelling Verified 01/20/24 10:50 and shortness of breath latex Allergy Intermediate Itchy Verified 01/20/24 10:50 rash,localized burning sensation atorvastatin AdvReac Intermediate EXCESSIVE Verified 01/20/24 10:50 BLEEDING Home Medications Medication Instructions Recorded Confirmed Type buspirone 5 mg tablet 5 mg PO BID #60 tabs 04/03/21 03/04/24 Rx gabapentin 400 mg capsule 400 mg PO BID #60 caps 04/03/21 03/04/24 Rx quetiapine 100 mg tablet 100 mg PO HS #30 tabs 04/03/21 03/04/24 Rx multivitamin 1 tab PO HS 04/04/21 03/04/24 History potassium chloride 20 mEq 20 meq PO DAILY #10 tabs 07/18/21 03/04/24 Rx tablet,extended release vortioxetine 20 mg tablet 10 mg PO HS 07/18/21 03/04/24 History (Trintellix) albuterol sulfate 90 mcg/actuation 2 puff inhalation Q6H PRN 03/01/22 03/04/24 Rx aerosol inhaler shortness of breath or wheezing #8.5 grams varenicline 1 mg tablet 1 mg PO BID #56 tabs 02/20/23 03/04/24 Rx furosemide 20 mg tablet 20 mg PO DAILY PRN edema #30 tabs 10/20/23 03/04/24 Rx ondansetron HCl 4 mg tablet 4 mg PO Q4H PRN nausea and 10/24/23 03/04/24 Rx vomiting #20 tabs acetaminophen 500 mg tablet 500 - 1,000 mg PO Q8 PRN pain 01/06/24 03/04/24 History (Tylenol Extra Strength) aspirin 81 mg tablet,delayed 81 mg PO DAILY 01/06/24 03/04/24 History release albuterol sulfate 2.5 mg/3 mL 2.5 mg (3 mL) inhalation QID PRN 01/13/24 03/04/24 Rx (0.083 %) solution for nebulization shortness of breath or wheezing #180 mL albuterol sulfate 90 mcg/actuation 2 puff inhalation QID PRN 01/13/24 03/04/24 Rx aerosol inhaler shortness of breath or wheezing #8.5 grams nebulizer with tubing #1 ea 01/13/24 02/29/24 Rx omeprazole 20 mg capsule,delayed 20 mg PO DAILY #14 caps 03/02/24 03/04/24 Rx release Past Med/Surg History Problem List (Updated 03/05/24 @ 10:03 by Demetrio Mari MD) Weakness Paresthesias (Acute) Acquired hypophosphatemia (Acute) Nausea, vomiting and diarrhea (Acute) Hypomagnesemia (Acute) Acute dehydration (Acute) Grief Transaminitis GERD (gastroesophageal reflux disease) Hypophosphatasia COPD (chronic obstructive pulmonary disease) Distal paresthesia Diarrhea Urinary symptom or sign Right hand paresthesia (Acute) Dehydration (Acute) Generalized weakness (Acute) QT prolongation COVID-19 virus infection (Acute) COPD exacerbation Retained orthopedic hardware Right foot pain Right ankle pain Tibialis posterior tendinitis Plantar fasciitis of right foot Peripheral vision loss Low ferritin Dyspnea Frequent falls Memory impairment Osteoporosis Hx of herpes genitalis Dermatitis Arthritis of carpometacarpal (CMC) joint of left thumb Osteopenia Impaired fasting glucose Vitamin D deficiency Smoker Pulmonary nodule pt unaware Sternal pain FROM POSSIBLE INJURY CURRENTLY UNDERGOING RIB MANIPULATION Gastroparesis Macrocytosis without anemia Anxiety with depression Hypomagnesemia (Acute) Bulimia Cervical radiculopathy Chronic back pain L4 - HERNIATED DISC HAD LESI 08/2018 GERD (gastroesophageal reflux disease) Chronic obstructive pulmonary disease (Acute) well controlled Medical History History of COVID-19 end of 02/2023 - no hosp; resolved Bilateral lower extremity edema occasional History of gastric ulcer Myocardial Infarction 2014 - [facility], HEART CATH - NO STENTS JUST WATCHING FOLLOW WITH [place] [facility] Surgical History S/P epidural steroid injection History of tubal ligation History of esophagogastroduodenoscopy (EGD) "FOOD DOESN'T DIGEST" H/O tooth extraction ALL TEETH History of tonsillectomy History of cardiac cath 2014 heart cath no stents History of bilateral tubal ligation History of tonsillectomy History of oral surgery FULL MOUTH EXTR History of arthroscopic knee surgery History of appendectomy History of section History of laparoscopic appendectomy Family History Mother Breast cancer Brother Prostate cancer Family/Other Myocardial infarction self Father Family history of reaction to anesthesia gets irritable mood for awhile after anesthesia Denies family history of Ovarian cancer Colorectal cancer Social History Smoking Status: Former smoker Tobacco Type: Cigarettes Cigarettes Per Day: 2-3 a day- advised; Second Hand Exposure: Yes; Do You Dip or Chew Tobacco: No; Hx Alcohol Use: No Hx Substance Use: No Preferred Language: Micronesian Communication Ability: Effective Visual Impairment: No Limitations Hearing Ability: Normal Reconciliation Accountant Required: No Beliefs That Will Affect Care: None marital status: Single Current Living Situation: Family Current Living Situation Comment: lives with parents and brother current occupational status: employed Feels Safe at Home: Yes Dental Care, Regularly: No Physical Activity Frequency: 3-4 Times per Week Seatbelt Use: always Assistive Devices: None Review of Systems Constitutional: no fever, no chills, no sweats and no fatigue Eyes: no problem reported Ear, Nose, Mouth, Throat: no problem reported Respiratory: no cough and no dyspnea Cardiovascular: + edema; no chest pain Gastrointestinal: no abdominal pain, no heartburn, no nausea, no vomiting, no cramping, no constipation and no diarrhea/loose stools Genitourinary: no dysuria and no urinary frequency Musculoskeletal: no joint pain and no myalgia Integumentary: no rash and no unusual bruising Neurologic: + paresthesia; no falls, no localized we akness, no dizziness and no headache(s) Physical Exam Constitutional: + not well nourished, no acute distress and + uncooperative Eyes: PERRL, conjunctivae normal, anicteric sclerae Respiratory: normal respiratory effort, lungs clear to auscultation Cardiovascular: Rate/Rhythm: regular rate and regular rhythm Heart Sounds: normal S1 and normal S2; no murmur Extremities: + edema; no calf tenderness Gastrointestinal (Abdomen): normal bowel sounds, soft, nontender, no hepatosplenomegaly Musculoskeletal: Head/Neck/Chest: + abnormal head shape and + evidence of head trauma Extremities: extremities normal to inspection; full ROM of extremities and no joint enlargement Skin: no rashes, warm and dry Neurologic: CN's II-XI intact bilaterally and moves all extremities; + abnorma l touch/pain/proprioception Motor/Sensory: + sensory deficit; no tremor Cranial Nerves: PERRL Psychiatric: A+Ox3, euthymic affect Results & Data Results & Data Vital Signs (Past 12 Hours) Vital Signs Temp Pulse Resp BP Pulse Ox O2 Del Method 03/04/24 18:18 78 18 160/84 H 95 03/04/24 17:03 75 20 139/83 97 03/04/24 16:21 81 18 137/79 94 03/04/24 15:35 89 03/04/24 15:06 37 C 92 H 19 129/90 96 Room Air Laboratory Results Laboratory Results WBC 9.83 K/ul (4.8-10.8) 03/04/24 17:01 RBC 3.93 M/uL (4.20-5.40) L 03/04/24 17:01 Hgb 13.6 g/dl (12.0-16.0) 03/04/24 17:01 Hct 40.2 % (37.0-47.0) 03/04/24 17: MCV 102.3 fL (80.0-100.0) H 03/04/24 17:01 MCH 34.6 pg (25.0-34.0) H 03/04/24 17:01 MCHC 33.8 g/dL (32.0-36.0) 03/04/24 17:01 RDW Std Deviation 54.5 fL (36.4-46.3) H 03/04/24 17:01 RDW Coeff of Mookie 14.5 % (11.5-14.5) 03/04/24 17: Plt Count 305 K/uL (130-400) 03/04/24 17: MPV 9.8 fL (9.4-12.4) 03/04/24 17: Immature Gran % (Auto) 0.4 % 03/04/24 17: Neut % (Auto) 69.1 % 03/04/24 17: Lymph % (Auto) 14.9 % 03/04/24 17: [place] % (Auto) 11.2 % 03/04/24 17:01 Eos % (Auto) 3.8 % 03/04/24 17:01 Baso % (Auto) 0.6 % 03/04/24 17:01 Neut # (Auto) 6.80 K/uL (1.40-6.50) H 03/04/24 17:01 Lymph # (Auto) 1.46 K/uL (1.20-3.40) 03/04/24 17: [place] # (Auto) 1.10 K/uL (0.11-0.59) H 03/04/24 17:01 Eos # (Auto) 0.37 K/uL (0.00-0.50) 03/04/24 17:01 Baso # (Auto) 0.06 K/uL (0.00-0.20) 03/04/24 17: Immature Gran # (Auto) 0.04 K/uL (0.01-0.20) 03/04/24 17: PT 12.1 Seconds (9.0-12.0) H 03/04/24 17: INR 1.1 (0.9-1.1) 03/04/24 17:01 Sodium 145 mmol/L (136-145) 03/04/24 17: Potassium 3.4 mmol/L (3.5-5.1) L 03/04/24 17: Chloride 109 mmol/L (98-107) H 03/04/24 17:01 Carbon Dioxide 31 mmol/L (21-32) 03/04/24 17: Anion Gap 5 (3-11) 03/04/24 17: BUN 13 mg/dl (6-23) 03/04/24 17: Creatinine 0.65 mg/dl (0.6-1.2) 03/04/24 17: Est Cr Clr Drug Dosing 64.5 ml/min 03/04/24 17: eGFR 99.49 03/04/24 17: BUN/Creatinine Ratio 20.0 (10-20) 03/04/24 17: Glucose 80 mg/dl (70-99(Fasting)) 03/04/24 17: POC Glucose 97 mg/dl (70-99) 03/04/24 15:57 Calcium 8.3 mg/dl (8.6-10.3) L 03/04/24 17:01 Phosphorus 4.0 mg/dl (2.5-4.9) 03/04/24 17:01 Magnesium 1.5 mg/dl (1.7-2.4) L 03/04/24 17:01 Total Bilirubin 0.7 mg/dl (0.2-1.0) 03/04/24 17:01 AST 28 U/L (13-39) 03/04/24 17:01 ALT 37 U/L (7-52) 03/04/24 17:01 Alkaline Phosphatase 169 U/L (34-104) H 03/04/24 17:01 Total Creatine Kinase 15 U/L (26-192) L 03/04/24 17:01 Troponin I High Sens 3.9 pg/ml (0-14) 03/04/24 17:01 Total Protein 4.8 gm/dl (6.0-8.3) L 03/04/24 17:01 Albumin 2.8 gm/dl (3.4-5.0) L 03/04/24 17:01 Globulin 2.0 gm/dl (2.5-4.0) L 03/04/24 17:01 Albumin/Globulin Ratio 1.4 (0.9-2) 03/04/24 17:01 Lipase 15 U/L (11-82) 03/04/24 17:01 Vitamin B12 406 pg/ml (180-914) 03/04/24 18:50 Folate 3.61 ng/ml (>5.38) L 03/04/24 18:50 TSH 1.787 uIu/ml (0.300-4.500) 03/04/24 17:01 Supervising Physician Co-Signing Physician Notes Attending addendum: I have physically seen this patient, have supervised the medical residents activities, and agree with the H&P unless as otherwise noted. Assessment and Plan: Paresthesias- Most recent admission from 02/28-03/02/2024 for same symptoms Attempted to replace magnesium, however was unable to improve beyond 1.5 Will give 4 g of magnesium sulfate IV in total for a mag level of 1.5, and then recheck laboratories in the a.m. Potassium 3.4 at admission, will give Klor-Con 40 mill equivalents p.o. now, recheck laboratories in the a.m. Assess improvement in symptoms after optimal replacement of electrolytes Folate 3.61 and B12 low normal at 406, both will need to be optimized and take toward high normal range TSH is acceptable Consult neurology Gastritis- As noted on EGD on 03/02 Continue pantoprazole 40 mg daily May add famotidine at bedtime Consider addition of Carafate Consider exocrine pancreatic insufficiency Depression with anxiety- Continue BuSpar, quetiapine and Trintellix Tobacco use disorder- Continue varenicline Directly toxic to stomach lining Resident Activity Tracking Resident Involvement: Resident Care Provided Care Provided: Adult Hospital Medicine
[2024-03-04] MEDS ORDERED: FUROSEMIDE 20 MG TAB PO PRN (23:06)
[2024-03-05] MEDS: MAGNESIUM SULFATE / D5W 1 GM/100 ML BAG IV SCH (00:12)
[2024-03-05] MEDS: ENOXAPARIN INJ 40 MG/0.4 ML SYR SQ SCH (00:12)
[2024-03-05] MEDS: busPIRone 5 MG TAB PO SCH (00:13)
[2024-03-05] MEDS: QUEtiapine FUMARATE 100 MG TABLET PO SCH (00:14)
[2024-03-05] MEDS: GABAPENTIN 400 MG CAP PO SCH (00:14)
[2024-03-05 07:41] LABS: Toxic Vacuolation 2+
--- NOTE | 2024-03-05 07:53 | Electrocardiogram Report ---
Test Reason : Blood Pressure : */* mmHG Vent. Rate : 79 BPM Atrial Rate : 79 BPM P-R Int : 146 ms QRS Dur : 72 ms QT Int : 390 ms P-R-T Axes : 70 4 60 degrees QTcB Int : 447 ms Normal sinus rhythm Possible Old Anteroseptal infarct (cited on or before 13-Feb-2024) Abnormal ECG When compared with ECG of 13-Feb-2024 14:37, QRS axis Shifted left ST now depressed in Inferior leads Confirmed by Cristian Murry ([id number]) on 03/05/2024 7:53:02 AM Referred By: REFERRED SELF Confirmed By: Cristian Murry
[2024-03-05] MEDS: POTASSIUM CHLORIDE CRTAB 20 MEQ TABCR PO SCH (08:03)
[2024-03-05] MEDS: ASPIRIN 81 MG ECTAB PO SCH (08:04)
[2024-03-05] MEDS: PANTOprazole 40 MG TAB PO SCH (08:04)
[2024-03-05 08:38] LABS: Albumin Globulin Ratio 1.3 (0.9-2); Albumin Level 2.2 gm/dl (3.4-5.0); BUN Creatinine Ratio 19.3 (10-20); Bilirubin,Total 0.8 mg/dl (0.2-1.0); Calcium 7.7 mg/dl (8.6-10.3); Creatinine Clr Calc Pharmacy 73.5 ml/min; Globulin 1.7 gm/dl (2.5-4.0); Total Protein 3.9 gm/dl (6.0-8.3)
--- NOTE | 2024-03-05 10:18 | Neurology Consultation ---
Date of Consultation March 05, 2024 Assessment & Plan (1) Paresthesias: (2) Weakness: Plan 63-year-old female with an approximate 6-week history of of symmetric 4 limb paresthesias, development of weakness, especially proximal lower extremities, also manager summer. She is areflexive at the ankles and has a vibratory sensory loss for the distal lower limbs. Her symptoms began in the context of a prolonged diarrheal illness. She continues to have hypocalcemia and hypomagnesemia. Although her symptoms could be due to her persistent electrolyte, metabolic disorder, Guillain-Lockhart syndrome is certainly possible, if not suggested by her examination findings. Myositis and neuromuscular junction abnormality also possible. Case discussed with hospitalist service. Would recommend MRI of the brain with and without contrast followed by lumbar puncture (assuming no significant s tructural pathology on MRI). If her CSF analysis reveals albuminocytologic dissociation, would recommend treatment with IVIG, 0.4 g/kg/day for 5 days per protocol as her weakness has been getting progressively worse. She will need to have her respiratory status monitored as well. In addition to the above testing, would recommend MRI of the cervical, thoracic, and lumbar spine. The study should be done with and without gadolinium enhancement as well. Additional labs including acetylcholine receptor antibodies, binding, blocking, and modulating, as well as Lambert-Eaton myasthenic syndrome antibodies. I see that her CK was normal, as well as an ESR, CRP, B12, and TSH. Would also recommend an RPR and serum copper level. She does have a macrocytosis which may in part be related to mild folate deficiency. An outpatient EMG/nerve conduction study can be completed. History of Present Illness Reason for Consultation: weakness, numbness Requesting Physician: Christopher Attending Physician: Bob White History of Present Illness The patient is a 63-year-old female with a chief complaint of weakness and paresthesias. Her symptoms began about 6 weeks ago in the context of a prolonged gastrointestinal illness complicated by diarrhea. She complains of numbness and tingling, initially involving the fingertips, spreading rapidly up to the elbows, quickly involving the distal lower limbs as well, up to the knees. This symptom has been fairly persistent, complicated by later development of weakness, difficulty with standing, walking, steps. She has had some chest discomfort as well, history of COPD, no significant difficulty with breathing or swallowing reported. She endorses a history of chronic diplopia, no significant escalation in this particular symptom, no ptosis, no change in speech. Metabolically, she has had chronic hypocalcemia and hypomagnesemia. She has had a normal CK and normal TSH. Her vitamin B12 level is normal, folate level slightly low. A Campylobacter PCR from February 28 was negative. Lyme and Lyme coinfection testing negative. She had tested positive for COVID on January 06, 2024. She denies significant neck, low back, or spinal pain. She does not complain of significant myalgia or muscle pain. No arthralgia. No headache. Clear mentation. Allergies Allergy/AdvReac Type Severity Reaction Status Date / Time Penicillins Allergy Severe Swelling Verified 01/20/24 10:50 and shortness of breath latex Allergy Intermediate Itchy Verified 01/20/24 10:50 rash,localized burning sensation atorvastatin AdvReac Intermediate EXCESSIVE Verified 01/20/24 10:50 BLEEDING Home Medications Medication Instructions Recorded Confirmed Type buspirone 5 mg tablet 5 mg PO BID #60 tabs 04/03/21 03/04/24 Rx gabapentin 400 mg capsule 400 mg PO BID #60 caps 04/03/21 03/04/24 Rx quetiapine 100 mg tablet 100 mg PO HS #30 tabs 04/03/21 03/04/24 Rx multivitamin 1 tab PO HS 04/04/21 03/04/24 History potassium chloride 20 mEq 20 meq PO DAILY #10 tabs 07/18/21 03/04/24 Rx tablet,extended release vortioxetine 20 mg tablet 10 mg PO HS 07/18/21 03/04/24 History (Trintellix) albuterol sulfate 90 mcg/actuation 2 puff inhalation Q6H PRN 03/01/22 03/04/24 Rx aerosol inhaler shortness of breath or wheezing #8.5 grams varenicline 1 mg tablet 1 mg PO BID #56 tabs 02/20/23 03/04/24 Rx furosemide 20 mg tablet 20 mg PO DAILY PRN edema #30 tabs 10/20/23 03/04/24 Rx ondansetron HCl 4 mg tablet 4 mg PO Q4H PRN nausea and 10/24/23 03/04/24 Rx vomiting #20 tabs acetaminophen 500 mg tablet 500 - 1,000 mg PO Q8 PRN pain 01/06/24 03/04/24 History (Tylenol Extra Strength) aspirin 81 mg tablet,delayed 81 mg PO DAILY 01/06/24 03/04/24 History release albuterol sulfate 2.5 mg/3 mL 2.5 mg (3 mL) inhalation QID PRN 01/13/24 03/04/24 Rx (0.083 %) solution for nebulization shortness of breath or wheezing #180 mL albuterol sulfate 90 mcg/actuation 2 puff inhalation QID PRN 01/13/24 03/04/24 Rx aerosol inhaler shortness of breath or wheezing #8.5 grams nebulizer with tubing #1 ea 01/13/24 02/29/24 Rx omeprazole 20 mg capsule,delayed 20 mg PO DAILY #14 caps 03/02/24 03/04/24 Rx release Patient History Medical History History of COVID-19 end of 02/2023 - no hosp; resolved Bilateral lower extremity edema occasional History of gastric ulcer Myocardial Infarction 2014 - [facility], HEART CATH - NO STENTS JUST WATCHING FOLLOW WITH [facility] Surgical History S/P epidural steroid injection History of tubal ligation History of esophagogastroduodenoscopy (EGD) "FOOD DOESN'T DIGEST" H/O tooth extraction ALL TEETH History of tonsillectomy History of cardiac cath 2014 heart cath no stents History of bilateral tubal ligation History of tonsillectomy History of oral surgery FULL MOUTH EXTR History of arthroscopic knee surgery History of appendectomy History of section History of laparoscopic appendectomy Family History Mother Breast cancer Brother Prostate cancer Family/Other Myocardial infarction self Father Family history of reaction to anesthesia gets irritable mood for awhile after anesthesia Denies family history of Ovarian cancer Colorectal cancer Social History Smoking Status: Former smoker Tobacco Type: Cigarettes Cigarettes Per Day: 2-3 a day- advised; Second Hand Exposure: Yes; Do You Dip or Chew Tobacco: No; Hx Alcohol Use: No Hx Substance Use: No Preferred Language: Hong Konger Communication Ability: Effective Visual Impairment: No Limitations Hearing Ability: Normal Manager Terminal Required: No Beliefs That Will Affect Care: None marital status: Single Current Living Situation: Family Current Living Situation Comment: lives with parents and brother current occupational status: employed Feels Safe at Home: Yes Dental Care, Regularly: No Physical Activity Frequency: 3-4 Times per Week Seatbelt Use: always Assistive Devices: Denture - Upper, Denture - Lower and Glasses Review of Systems Constitutional: + fatigue; no fever and no chills Eyes: as per Subjective / HPI and + diplopia; no blind spots and no eye pain Ear, Nose, Mouth, Throat: no ear pain and no hearing loss Respiratory: no cough Cardiovascular: no chest pain and no palpitations Gastrointestinal: as per Subjective / HPI Genitourinary: no urinary incontinence Musculoskeletal: + muscle weakness; no back pain, no neck pain and no myalgia Integumentary: no rash and no lesions Neurologic: as per Subjective / HPI, + gait abnormality, + loss of sensation and + paresthesia; no tremor(s), no abnormal movements, no headache(s), no abnormal speech, no confusion and no memory loss Psychiatric: no depression and no anxiety Hematologic / Lymphatic: no easy bleeding and no easy bruising Exam (Neuro) Constitutional: well developed and + thin; no acute distress Eyes: normal visual israel by confrontation, PERRL and EOM intact bilaterally; no nystagmus Neurologic: Oriented to:: Person, Place and Time Memory: Short Term Intact and Remote Intact Attention: Span Intact and Concentration Intact Speech Fluency: negative Dysarthria or Dysfluency Speech Aphasia: negative Aphasia Fund of Knowledge: Current Events, Past History and Vocabulary Cranial Ne rves: Normal II, III, IV, , V, VII, VIII, IX, X, XI and XII Motor Strength: Normal Lower Extremities (Moderate bilateral manager summer weakness); negative Normal Upper Extremities (Patient exhibits moderate proximal lower extremity weakness, hip flexors.) Motor Tone: Normal Lower Extremities and Normal Upper Extremities Muscle Bulk/Involuntary Movements: negative No Involuntary Movements or Muscle Atrophy Sensation: Light Touch Intact, Pain/Temperature Intact, Vibration Intact and Proprioception Intact Coordination: Limited Balance; negative Dysdiadochokinesia, Finger-Nose Abnormal or Heel-Carmichael Abnormal Deep Tendon Reflexes: Rt Triceps: 2+, Lt Triceps: 2+, Rt Biceps: 2+, Lt Biceps: 2+, Rt Brachioradialis: 2+, Lt Brachioradialis: 2+, Rt Patellar: 2+, Lt Patellar: 2+, Rt Ankle: 0 and Lt Ankle: 0 Special Tests: negative Babinski Present Gait: Steppage Results & Data Vital Signs (Past 12 Hours) Vital Signs Temp Pulse Pulse Pulse Resp BP BP 03/05/24 07:41 36.5 C 78 16 102/66 03/04/24 23:00 36.9 C 86 18 117/92 03/04/24 22:27 91 H 18 116/84 Pulse Ox O2 Del Method 03/05/24 07:41 93 Room Air 03/04/24 23:00 93 Room Air 03/04/24 22:27 91 Coding Level of Care Code 73427 INT INP/OBS CARE 3/75MIN Diagnoses Paresthesias R20.2 Weakness R53.1 Time Spent (min) 90 Comment Total time includes patient contact, chart review, counseling, note preparation
[2024-03-05] MEDS: LORazepam 1 MG TAB PO ONE (11:23)
[2024-03-05] MEDS: GADOBUTROL 65ML VIAL IV ONE (12:25)
--- NOTE | 2024-03-05 12:50 | Magnetic Resonance Report ---
MR brain wo/w con CLINICAL HISTORY: paresthesias, concern for GBS TECHNIQUE: Multiplanar and multisequence MR images of the brain were obtained prior to and following administration of gadolinium contrast. Comparison: None available at the time of this dictation. FINDINGS: No abnormal restricted diffusion is identified. The white matter is unremarkable. The ventricular sys tem is normal in appearance. No mass or abnormal enhancement is seen. There is no mass effect or midl ine shift. There is no evidence of acute intraparenchymal hemorrhage. No extra axial fluid collection s are seen. The corpus callosum, pituitary gland, and cerebellar tonsils appear grossly unremarkable. Flow voids of the major intracranial arterial vessels are identified. The imaged portions of the para nasal sinuses, mastoid air cells, and orbits are unremarkable. IMPRESSION: No acute abnormalities. In particular no evidence of Chiari malformation or brain mass to explain par esthesias. ACT 112: Negative or not required by law. Electronically signed by: Alexandro Marshall M.D. 03/05/2024 12:49 PM
--- NOTE | 2024-03-05 13:53 | Fluoroscopy Report ---
LUMBAR PUNCTURE UNDER FLUOROSCOPY CLINICAL HISTORY: Symmetric paresthesias x4 limbs PROCEDURE: Procedure and risks were explained. Informed consent was obtained. A final timeout was com pleted. The patient was placed prone on the fluoroscopic exam table. The lower lumbar region was prep ped and draped in sterile fashion. 1% lidocaine was utilized for skin anesthesia. Utilizing fluoroscopic guidance, a 22-gauge spinal needle was advanced into the intrathecal space at the L2-3 disc space level. Fluoroscopic spot images were obtained. Approximately 8 mL of clear CSF f luid was removed and sent to lab for analysis. The needle was removed and Band-Aid applied. The patie nt tolerated the procedure well. Vital signs will be monitored postprocedure. Fluoroscopy time 5 seconds. Study dosed 2.79 mGy. IMPRESSION: Lumbar puncture as above. Performed, dictated, and signed by Armaan Howe PA-C; to be co-signed by Dr. Alexandro Marshall. Electronically signed by: Alexandro Marshall M.D. 03/05/2024 5:12 PM
[2024-03-05 13:55] LABS: Appearance CSF Clear; CSF Count Tube # 3; CSF Xanthrochromic No xanthochromia; Color CSF Colorless; Red Blood Cell CSF Manual 0 (0-); White Blood Cell CSF Manual 1 (0-5)
[2024-03-05] MEDS: ACETAMINOPHEN 325 MG TAB PO PRN (13:55)
[2024-03-05 13:58] LABS: Total Protein CSF 45.7 mg/dl (15-45)
[2024-03-05] MEDS: KETOROLAC TROMETHAMINE 15 MG/ML VIAL IV ONE ×2 (15:01→20:54)
--- NOTE | 2024-03-05 16:04 | Hospitalist Progress Note ---
Date of Service March 05, 2024 Assessment & Plan (1) Paresthesias: Plan: Patient presented to the hospital on 03/04 with complaint of full body numbness and tingling. This has been ongoing for a few weeks in her torso region but worsened to whole body recently. -Patient present with electrolyte derangements. -BMP reviewed 03/04: K 3.4, Ca 8.3 -Magnesium reviewed: 1.5 s/p IV mg -B6 pending, B9 decreased 3.61, B12 WNL -KCl increased to 40mg PO daily. -tick panel negative 03/04 -Neurology consulted, discussed via phone with Dr. Mari. Concern for GBS MRI brain reviewed 03/05: negative Lumbar puncture performed by IR 03/05, results pending. If + for GBS patient will need IVIG x 5 days Transferred to telemetry to monitor respiratory/cardiac status more closely. MRI of cervical, thoracic, and lumbar spine to be completed as well. outpatient EMG Additional lab work ordered: acetylcholine receptor antibodies, binding, blocking, and modulating. Lambert Eaton myasthenic syndrome antibodies, ESR, CRP, B12, TSH, RPR, Serum Copper. AM labs including those mentioned above and CBC/BMP, Magnesium Plan Chronic conditions: GERD: PPI Mental Health: Buspar, Quetiapine, Trintellix Current Smoker: Varenicline DVT prophylaxis: Lovenox Diet: regular Disposition: upgrade to tele Code status: DNR Admission and Anticipated Discharge Date Admission Date: March 04, 2024 Subjective Patient seen and examined this morning. Patient reports that her numbness/tingling worsened after leaving the hospital. She states she does feel SOB and chest tightness as well. Patient states her diarrhea has resolved since her hospital stay. Physical Exam 2 Constitutional: WD/WN, vitals as above Eyes: PERRL, conjunctivae normal, anicteric sclerae Respiratory: normal respiratory effort, lungs clear to auscultation Cardiovascular: RRR, no murmur, no edema Skin: no rashes, warm and dry Psychiatric: A+Ox3, euthymic affect Results & Data Results & Data Vital Signs (Past 12 Hours) Vital Signs Temp Pulse Resp BP Pulse Ox O2 Del Method 03/05/24 14:29 36.4 C L 78 16 150/95 H 96 Room Air 03/05/24 07:41 36.5 C 78 16 102/66 93 Room Air Laboratory Results 03/04/24 17:01 03/05/24 07:34 PG Care Time/CCT Total # of Minutes Spent Total Time Spent with Patient: Total time spent is greater than 50% in coordination of care (as documented) at patient's floor/unit and/or counseling patient: Coding Level of Care Code 51467 SUB INP/OBS CARE 3/50MIN Diagnoses Paresthesias R20.2
[2024-03-05] MEDS ORDERED: IMMUNE GLOBULIN (HUMAN) SOLN IV SCH (19:00)
[2024-03-05] MEDS: Octagam 10% IVIG 20 gram bottle IV SCH (21:04)
--- NOTE | 2024-03-06 02:30 | Billing Data ---
Date of Service March 06, 2024 Coding Level of Care Code 75061 INT INP/OBS CARE
[2024-03-06 06:50] LABS: Hematocrit (blood only) 37.1 % (37.0-47.0); Hemoglobin 12.2 g/dl (12.0-16.0); Mean Corpuscular Hemoglobin 34.8 pg (25.0-34.0); Mean Corpuscular Hgb Conc 32.9 g/dL (32.0-36.0); Mean Corpuscular Volume 105.7 fL (80.0-100.0); Platelet Count 314 K/uL (130-400); RDW Coefficient of Variation 14.6 % (11.5-14.5); RDW Standard Deviation 57.5 fL (36.4-46.3); Red Blood Count 3.51 M/uL (4.20-5.40); White Blood Count 4.63 K/ul (4.8-10.8)
[2024-03-06 07:28] LABS: Albumin Globulin Ratio 0.8 (0.9-2); Albumin Level 2.2 gm/dl (3.4-5.0); BUN Creatinine Ratio 16.9 (10-20); Bilirubin,Total 0.8 mg/dl (0.2-1.0); C Reactive Protein 1.56 mg/dl (0-0.5); Calcium 8.1 mg/dl (8.6-10.3); Globulin 2.8 gm/dl (2.5-4.0); Magnesium 1.8 mg/dl (1.7-2.4); Potassium 4.7 mmol/L (3.5-5.1)
[2024-03-06] MEDS: KETOROLAC TROMETHAMINE 15 MG/ML VIAL IV ONE (08:22)
--- NOTE | 2024-03-06 09:11 | Neurology Progress Note ---
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 Responding favorably to initiation of IVIG started last night. Continue with IVIG per protocol, plan for total of 5 days of treatment. Proceed with MRI of the cervical, thoracic, and lumbar spine with and without contrast. Continue to monitor respiratory status. Follow-up with results of additional labs when available. Continue supportive medical care. Admission and Anticipated Discharge Date Admission Date: March 04, 2024 Subjective Follow-up regarding probable Guillain-Lockhart syndrome The patient did complete the requested brain MRI last night. No abnormalities identified. No evidence of acute or subacute stroke, no hemorrhage, no significant parenchymal abnormality, no hydrocephalus. I independently reviewed these images. She underwent lumbar puncture yesterday as well. CSF clear, colorless, no xanthochromia, CSF WBC 1, RBC 0, glucose 60, protein 45.7 which is mildly elevated, more so when compared with yesterday's serum total protein and serum albumin. In light of her clinical signs and symptoms, presentation felt to be most consistent with Guillain-Lockhart syndrome following COVID-19 infection and prolonged diarrhea. IVIG was started. This morning, patient indicates some improvement in her distal lower extremity paresthesias, reporting less pain, less tingling, mild improvement for the fingertips as well. She still endorses some mild proximal weakness for the lower limbs. No diplopia, dysarthria, shortness of breath. No difficulty with swallowing. No headache neck or spinal pain. Results & Data Vital Signs (Past 12 Hours) Vital Signs Temp Pulse Pulse Resp BP BP Pulse Ox 03/06/24 07:31 36.6 C 80 18 111/71 94 03/06/24 07:00 90 03/06/24 00:24 80 101/69 03/06/24 00:10 75 03/05/24 23:52 36.3 C L 79 16 80/50 L 93 03/05/24 23:06 86 104/66 03/05/24 21:56 36.5 C 75 18 95/63 L 94 03/05/24 21:13 36.6 C 80 18 100/67 93 O2 Del Method 03/06/24 07:31 Room Air 03/06/24 07:00 03/06/24 00:24 03/06/24 00:10 03/05/24 23:52 Room Air 03/05/24 23:06 03/05/24 21:56 Room Air 03/05/24 21:13 Room Air Exam (Neuro) Constitutional: well developed; no acute distress Eyes: normal visual israel by confrontation, PERRL and EOM intact bilaterally; no nystagmus Neurologic: Oriented to:: Person, Place and Time Memory: Short Term Intact and Remote Intact Attention: Span Intact and Concentration Intact Speech Fluency: negative Dysarthria or Dysfluency Speech Aphasia: negative Aphasia Fund of Knowledge: Vocabulary Cranial Nerves: Normal II, III, IV, , V, VII, VIII, IX, X, XI and XII Motor Strength: negative Normal Lower Extremities or Normal Upper Extremities Motor Tone: Normal Lower Extremities and Normal Upper Extremities Muscle Bulk/Involuntary Movements: No Involuntary Movements; negative Muscle Atrophy Sensation: negative Vibration Intact Coordination: negative Dysdiadochokinesia or Finger-Nose Abnormal Deep Tendon Reflexes: Rt Biceps: 2+, Lt Biceps: 2+, Rt Patellar: 2+, Lt Patellar: 2+, Rt Ankle: 0 and Lt Ankle: 0 Details: Patient continues to exhibit modest weakness for the hip flexors bilaterally, 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 Coding Level of Care Code 92416 SUB INP/OBS CARE 3/50MIN Diagnoses Guillain Lockhart syndrome G61.0 Time Spent (min) 60 Comment Total time includes patient contact, chart review, counseling, note preparation
[2024-03-06] MEDS: GADOBUTROL 7.5ML VIAL IV ONE (11:19)
[2024-03-06] MEDS: LORazepam 1 MG TAB PO ONE (11:49)
--- NOTE | 2024-03-06 12:34 | Magnetic Resonance Report ---
CLINICAL HISTORY: paresthesias TECHNIQUE: MRI of the cervical spine is performed utilizing various T1 and T2 sequences in the axial and sagittal planes. IV contrast was administered for this examination. Comparison: None available at the time of this dictation. FINDINGS: The alignment is anatomical. Disks are normal in height and signal. C2-C3: Unremarkable. C3-C4: Facet arthropathy results in mild bilateral neuroforaminal stenosis. C4-C5: Facet arthropathy results in mild bilateral neural foraminal stenosis. C5-C6: Facet arthropathy and posterior disc bulge results in mild canal stenosis and bilateral neurof oraminal stenosis. C6-C7: Facet arthropathy results in mild bilateral neural foraminal stenosis. C7-T1: Unremarkable. The spinal ligaments are intact, without evidence of disruption or abnormal signal intensity. The spi nal cord is normal in signal intensity and there is no evidence of cord contusion. There is no eviden ce of an extradural, intradural, extramedullary or intramedullary lesion. Visualized soft tissues are normal. Visualized brain parenchyma is normal. IMPRESSION: Degenerative changes without a mild canal and neuroforaminal stenosis. ACT 112: Negative or not required by law. Electronically signed by: Alexandro Marshall M.D. 03/06/2024 12:33 PM
--- NOTE | 2024-03-06 12:35 | Magnetic Resonance Report ---
MR thoracic spine wo/w con CLINICAL HISTORY: paresthesias TECHNIQUE: Multiplanar sequences through the thoracic spine were obtained, without and with intraveno us contrast. Comparison: None available at the time of this dictation. FINDINGS: The alignment is anatomical. Disks are normal in height and signal. The spinal canal and neural foramina are patent. The spinal ligaments are intact, without evidence of disruption or abnormal signal intensity. The spi nal cord is normal in signal intensity and there is no evidence of cord contusion. There is no eviden ce of an extradural, intradural, extramedullary or intramedullary lesion. Visualized soft tissues are normal. IMPRESSION: No evidence of cord compression, significant neuroforaminal narrowing or ligamentous injury. ACT 112: Negative or not required by law. Electronically signed by: Alexandro Marshall M.D. 03/06/2024 12:34 PM
--- NOTE | 2024-03-06 12:41 | Magnetic Resonance Report ---
MR lumbar spine wo/w con CLINICAL HISTORY: paresthesias TECHNIQUE: 3 plane localizer images, sagittal T2, sagittal T1, sagittal STIR, axial T1, axial T2 chitra g with postcontrast axial T1 and sagittal T1 fat-saturated sequences were obtained of the lumbar spin e, before and after intravenous administration of 12 mL of MultiHance. Comparison: Comparison is made to MRI lumbar spine 12/23/2016 FINDINGS: Compression deformity of the superior endplate of L1 is seen. L1-L2: No significant abnormality. L2-L3: No significant abnormality. L3-L4: No significant abnormality. L4-L5: Facet arthropathy and mild left disc bulge slightly compressing the exiting L5 nerve root. L5-S1: No significant abnormality. The spinal ligaments are intact, without evidence of disruption or abnormal signal intensity. The spi nal cord is normal in signal intensity and there is no evidence of cord contusion. There is no eviden ce of an extradural, intradural, extramedullary or intramedullary lesion. Visualized soft tissues are normal. IMPRESSION: Redemonstration of a mild disc bulge slightly compressing the left L5 nerve root. Otherwise no acute abnormalities. ACT 112: Negative or not required by law. Electronically signed by: Alexandro Marshall M.D. 03/06/2024 12:38 PM
--- NOTE | 2024-03-06 13:52 | Hospitalist Progress Note ---
Date of Service March 06, 2024 Assessment & Plan (1) Paresthesias: Plan: Patient presented to the hospital on 03/04 with complaint of full body numbness and tingling. This has been ongoing for a few weeks in her torso region but worsened to whole body recently. Findings consistent with Guillain [place] Syndrome. -BMP reviewed 03/06: K 4.7. kidney function stable -Magnesium reviewed 03/06: 1.9 -B6 pending, B9 decreased 3.61, B12 WNL -KCl increased to 40mg PO daily. -tick panel negative 03/04 -Neurology consulted, discussed via phone with Dr. Mari. MRI brain reviewed 03/05: negative Lumbar puncture performed by IR 03/05, results pending. MRI of cervical, thoracic, and lumbar spine completed 03/06 and reviewed: mild disc bulge slightly compressing L5 nerve root aside from that no significant abnormallities outpatient EMG Additional lab work ordered: acetylcholine receptor antibodies, binding, blocking, and modulating. Lambert Eaton myasthenic syndrome antibodies, ESR, CRP, B12, TSH, RPR, Serum Copper pending -Added Tylenol 1000mg q8h for pain. -Toradol prn for breakthrough pain. AM CBC, BMP, Magnesium (2) Guillain Lockhart syndrome: Plan: plan as above Plan Chronic conditions: GERD: PPI Mental Health: Buspar, Quetiapine, Trintellix Current Smoker: Varenicline DVT prophylaxis: Lovenox Diet: regular Disposition: telemetry Code status: DNR Admission and Anticipated Discharge Date Admission Date: March 04, 2024 Subjective Patient seen and examined this afternoon. Patient reports to be feeling better today. She states that she can feel her legs again. Still complaining of numbness/tingling in torso area. Patient states she has been having breast pain, mostly behind the nipple since this started. States her last mammogram was 10 years ago. She states she has chronic low back pain but it has felt worse following LP yesterday. Toradol has been helpful she states. Physical Exam 2 Constitutional: WD/WN, vitals as above Eyes: PERRL, conjunctivae normal, anicteric sclerae Respiratory: normal respiratory effort, lungs clear to auscultation Cardiovascular: RRR, no murmur, no edema Chest (Breasts): Breast: normal inspection of breasts and normal palpation of breasts Additional Comments: tenderness to palpation to b/l nipple area Skin: no rashes, warm and dry Psychiatric: A+Ox3, euthymic affect Results & Data Results & Data Vital Signs (Past 12 Hours) Vital Signs Temp Pulse Pulse Resp BP BP Pulse Ox 03/06/24 12:30 81 16 108/73 03/06/24 12:07 64 18 104/67 98 03/06/24 07:31 36.6 C 80 18 111/71 94 03/06/24 07:00 90 O2 Del Method 03/06/24 12:30 03/06/24 12:07 Room Air 03/06/24 07:31 Room Air 03/06/24 07:00 Laboratory Results 03/06/24 05:51 03/06/24 05:51 PG Care Time/CCT Total # of Minutes Spent Total Time Spent with Patient: Total time spent is greater than 50% in coordination of care (as documented) at patient's floor/unit and/or counseling patient: Coding Level of Care Code 43806 SUB INP/OBS CARE 3/50MIN Diagnoses Paresthesias R20.2 Guillain Lockhart syndrome G61.0
[2024-03-06] MEDS: ACETAMINOPHEN 500 MG TAB PO SCH (14:21)
[2024-03-06] MEDS: KETOROLAC TROMETHAMINE 15 MG/ML VIAL IV PRN (20:10)
[2024-03-06] MEDS: POLYETHYLENE (MIRALAX) 17 GM PACK PO PRN (21:09)
[2024-03-07 06:28] LABS: Hematocrit (blood only) 36.7 % (37.0-47.0); Mean Corpuscular Hemoglobin 34.4 pg (25.0-34.0); Mean Corpuscular Hgb Conc 32.7 g/dL (32.0-36.0); Mean Corpuscular Volume 105.2 fL (80.0-100.0); Mean Platelet Volume 9.9 fL (9.4-12.4); Platelet Count 315 K/uL (130-400); RDW Coefficient of Variation 14.5 % (11.5-14.5); RDW Standard Deviation 56.2 fL (36.4-46.3); Red Blood Count 3.49 M/uL (4.20-5.40); White Blood Count 3.11 K/ul (4.8-10.8)
[2024-03-07 07:06] LABS: Albumin Globulin Ratio 0.7 (0.9-2); Albumin Level 2.2 gm/dl (3.4-5.0); BUN Creatinine Ratio 17.7 (10-20); Bilirubin,Total 0.4 mg/dl (0.2-1.0); Calcium 8.4 mg/dl (8.6-10.3); Creatinine Clr Calc Pharmacy 67.6 ml/min; Globulin 3.2 gm/dl (2.5-4.0); Potassium 4.5 mmol/L (3.5-5.1); Total Protein 5.4 gm/dl (6.0-8.3)
--- NOTE | 2024-03-07 10:50 | Hospitalist Progress Note ---
Date of Service March 07, 2024 Assessment & Plan (1) Paresthesias: Plan: Patient presented to the hospital on 03/04 with complaint of full body numbness and tingling. This has been ongoing for a few weeks in her torso region but worsened to whole body recently. Findings consistent with Guillain [place] Syndrome. -CBC reviewed 03/07: stable. -CMP reviewed 03/07: kidney/electrolyes stable, LFTs mildly elevated. -Magnesium reviewed 03/06: 1.8 -B6 pending, B9 decreased 3.61, B12 WNL -KCl increased to 40mg PO daily. -tick panel negative 03/04 -Neurology consulted, discussed via phone with Dr. Mari. MRI brain reviewed 03/05: negative Lumbar puncture performed by IR 03/05, results pending. MRI of cervical, thoracic, and lumbar spine completed 03/06 and reviewed: mild disc bulge slightly compressing L5 nerve root aside from that no significant abnormallities outpatient EMG Additional lab work ordered: acetylcholine receptor antibodies, binding, blocking, and modulating. Lambert Eaton myasthenic syndrome antibodies, ESR, CRP, B12, TSH, RPR, Serum Copper pending -Added Tylenol 1000mg q8h for pain. -Toradol prn for breakthrough pain. AM CBC, CMP, Magnesium (2) Guillain Lockhart syndrome: Plan: plan as above Plan Chronic conditions: GERD: PPI Mental Health: Buspar, Quetiapine, Trintellix Current Smoker: Varenicline DVT prophylaxis: Lovenox Diet: regular Disposition: telemetry Code status: DNR Admission and Anticipated Discharge Date Admission Date: March 04, 2024 Subjective Patient seen and examined this morning. Patient reports to be feeling okay today. Her back pain has improved since scheduling tylenol regularly. Reports numbness/tingling in her torso but reports her extremities have improved. She does not believe her torso feels different since starting the IVIG. Physical Exam 2 Constitutional: WD/WN, vitals as above Eyes: PERRL, conjunctivae normal, anicteric sclerae Respiratory: breathing unlabored Cardiovascular: well perfused Skin: no rashes, warm and dry Psychiatric: A+Ox3, euthymic affect Results & Data Results & Data Vital Signs (Past 12 Hours) Vital Signs Temp Pulse Pulse Resp BP Pulse Ox O2 Del Method 03/07/24 07:35 36.4 C L 73 18 118/80 93 Room Air 03/07/24 03:17 36.5 C 75 18 111/75 93 Room Air 03/07/24 01:23 73 Laboratory Results 03/07/24 06:06 03/07/24 06:06 PG Care Time/CCT Total # of Minutes Spent Total Time Spent with Patient: Total time spent is greater than 50% in coordination of care (as documented) at patient's floor/unit and/or counseling patient: Coding Level of Care Code 84249 SUB INP/OBS CARE 2/35MIN Diagnoses Paresthesias R20.2 Guillain Lockhart syndrome G61.0
--- NOTE | 2024-03-07 11:53 | Neurology Progress Note ---
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 She continues to respond favorably to IVIG, this is her third day of this treatment. Her lower extremity strength is improved today. 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 Her Achilles tendon reflexes are absent. Her sensation is intact although she continues to report mild distal paresthesias, although improved since presentation. No diplopia, dysarthria, dysphagia, or shortness of breath. Her neurologic signs and symptoms were preceded by COVID 19 infection, followed by a prolonged diarrheal illness. Her hypocalcemia and hypomagnesemia are improved. Plan for 2 more days of IVIG per protocol. PT/OT May follow-up with myself or an MARCELINO in neurology clinic in 2 to 3 weeks. May consider obtaining an outpatient EMG/NCS. Admission and Anticipated Discharge Date Admission Date: March 04, 2024 Subjective Follow-up regarding Guillain-Lockhart syndrome The patient reports that she is feeling well this morning, continues to have mild distal numbness and tingling affecting the toes and fingertips as well as the torso, continues to have some bilateral bridge worker apprentice weakness, her proximal lower extremity weakness is modestly improved. She has been able to ambulate with minimal assistance. She denies any headache, neck or spinal pain, no diplopia, no shortness of breath or dysphagia. MRI of the cervical, thoracic, and lumbar spine was completed yesterday. I independently reviewed these images. No spinal cord pathology identified. Patient has mild degenerative changes within the cervical spine at several levels, no significant central canal or neuroforaminal stenosis. No significant abnormalities identified on thoracic spine MRI. There is a leftward disc bulge and associated facet arthropathy at L4-5 with slight compression of the L5 nerve root at that level. No abnormal nerve root enhancement. Results & Data Vital Signs (Past 12 Hours) Vital Signs Temp Pulse Pulse Resp BP Pulse Ox O2 Del Method 03/07/24 10:57 68 03/07/24 07:35 36.4 C L 73 18 118/80 93 Room Air 03/07/24 03:17 36.5 C 75 18 111/75 93 Room Air 03/07/24 01:23 73 Exam (Neuro) Constitutional: well developed; no acute distress Eyes: normal visual [place] by confrontation, PERRL and EOM intact bilaterally; no nystagmus Neurologic: Oriented to:: Person, Place and Time Memory: Short Term Intact and Remote Intact Attention: Span Intact and Concentration Intact Speech Fluency: negative Dysarthria or Dysfluency Speech Aphasia: negative Aphasia Fund of Knowledge: Current Events, Past History and Vocabulary Cranial Nerves: Normal II, III, IV, , V, VII, VIII, IX, X, XI and XII Motor Strength: negative Normal Lower Extremities (Mild weakness of the hip flexors bilaterally, although improved compared with yesterday, no weakness of ankle dorsiflexion) or Normal Upper Extremities (Moderate bilateral bridge worker apprentice weakness noted) Motor Tone: Normal Lower Extremities and Normal Upper Extremities Muscle Bulk/Involuntary Movements: No Involuntary Movements; negative Muscle Atrophy Sensation: Light Touch Intact and Proprioception Intact Coordination: negative Dysdiadochokinesia, Finger-Nose Abnormal or Heel-Carmichael Abnormal Deep Tendon Reflexes: Rt Triceps: 2+, Lt Triceps: 2+, Rt Biceps: 2+, Lt Biceps: 2+, Rt Brachioradialis: 2+, Lt Brachioradialis: 2+, Rt Patellar: 2+, Lt Patellar: 2+, Rt Ankle: 0 and Lt Ankle: 0 Coding Level of Care Code 72509 SUB INP/OBS CARE 3/50MIN Diagnoses Guillain Lockhart syndrome G61.0 Time Spent (min) 60 Comment Total time includes patient contact, chart review, counseling, note preparation
[2024-03-07] MEDS: KETOROLAC TROMETHAMINE 15 MG/ML VIAL IV PRN (19:45)
[2024-03-08 06:57] LABS: Hematocrit (blood only) 34.4 % (37.0-47.0); Hemoglobin 11.7 g/dl (12.0-16.0); Mean Corpuscular Hemoglobin 34.3 pg (25.0-34.0); Mean Corpuscular Volume 100.9 fL (80.0-100.0); Platelet Count 323 K/uL (130-400); RDW Coefficient of Variation 13.6 % (11.5-14.5); RDW Standard Deviation 50.5 fL (36.4-46.3); Red Blood Count 3.41 M/uL (4.20-5.40); White Blood Count 3.41 K/ul (4.8-10.8)
[2024-03-08 07:14] LABS: Albumin Globulin Ratio 0.6 (0.9-2); Albumin Level 2.1 gm/dl (3.4-5.0); BUN Creatinine Ratio 14.5 (10-20); Bilirubin,Total 0.4 mg/dl (0.2-1.0); Calcium 8.4 mg/dl (8.6-10.3); Creatinine Clr Calc Pharmacy 60.7 ml/min; Globulin 3.7 gm/dl (2.5-4.0); Magnesium 1.5 mg/dl (1.7-2.4); Potassium 4.4 mmol/L (3.5-5.1); Total Protein 5.8 gm/dl (6.0-8.3)
[2024-03-08] MEDS ORDERED: MAGNESIUM SULFATE / D5W 1 GM/100 ML BAG IV ONE (07:54)
--- NOTE | 2024-03-08 09:21 | Neurology Progress Note ---
Date of Service March 08, 2024 Assessment & Plan (1) Guillain Lockhart syndrome: (2) Weakness: (3) Paresthesias: Plan This patient had the onset of relatively mild weakness and numbness/dysesthesias diffusely in her body. On exam she had preserved reflexes except the Achilles tendons. The patient had a GI illness 2 or 3 weeks prior and a positive COVID infection Lumbar puncture revealed only a slightly abnormal protein and no cells. She does have a low albumin and elevated alk phos. Today, she has mild weakness at best particularly in her arms and proximal a little greater than distal. She has preserved reflexes except for absent ankle reflexes bilaterally. There are no upper motor neuron signs on exam today his toes are downgoing with plantar stimulation bilaterally. She has had MRIs of the brain as well as cervical, thoracic, and lumbar spines. There are no significant findings. 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 If she does have Guillain-Lockhart syndrome this is very mild and somewhat unusual presentation. Another postviral syndrome is possible, however no other specific neurologic diagnosis to make otherwise. She does feel improved with strength and sensation as well as overall function compared to admission. Recommendations: 1. Continue IVIG per protocol for 5 days 2. Continue physical and Occupational Therapy as well as consider rehabilitation hospital stay after her IVIG. 3. Could consider EMG and nerve conduction studies as an outpatient (3 weeks from the onset of her symptoms) if she is still having symptoms by then. 4. Consider follow-up with Dr. Mari or PA in neurology clinic 3-4 weeks after discharge Overall, I spent a total of 50 minutes with this case including review of records, review of MRIs, direct evaluation the patient, report generation, and discussion of the case with the patient and RN at bedside, and Dr. Lynch including differential diagnosis and treatment options. Admission and Anticipated Discharge Date Admission Date: March 04, 2024 Subjective Patient is a 63-year-old who was admitted March 04 with diffuse numbness and tingling throughout her limbs and trunk as well as weakness. Exam did not show any wilda weakness even on admission. She was seen by Dr. Mari on March 05 and he found 2/4 reflexes diffusely except absent ankle reflexes. Motor strength was largely unremarkable although she had moderate bilateral weather observer weakness. LP showed a protein of 45.7 (which is borderline high only) and only 1 white cell. Cultures were negative. Chemistry revealed a low total protein and elevated alkaline phos. MRI of the lumbar spine revealed a mild disc bulge compressing the left L5 nerve root. MRI of the thoracic spine was unremarkable. There was no cord compression. MRI of the brain March 05 showed no acute changes. MRI of the cervical spine March 06 showed some degenerative changes without spinal stenosis. The patient has been up walking and going to the bathroom without difficulty. She has much less numbness and tingling and much less weakness compared to admission. She is currently on day 4 out of 5 of IVIG. She is tolerating this well and is not complaining of headache or pain. Most of her numbness and tingling is in her trunk (abdomen and chest but she does have a little bit of numbness in her arms and legs. Results & Data Vital Signs (Past 12 Hours) Vital Signs Temp Pulse Pulse Resp BP BP Pulse Ox 03/08/24 07:57 36.6 C 69 16 116/76 92 03/08/24 07:44 03/08/24 07:20 74 03/08/24 04:00 36.5 C 65 18 105/71 94 03/08/24 00:57 82 03/07/24 23:15 36.7 C 78 18 121/78 93 O2 Del Method 03/08/24 07:57 Room Air 03/08/24 07:44 Room Air 03/08/24 07:20 03/08/24 04:00 Room Air 03/08/24 00:57 03/07/24 23:15 Room Air Exam (Neuro) Physical Exam: The patient is awake, alert, and attentive, with normal speech and communication. Mood is normal and affect is appropriate. The patient is fully oriented and has intact long and short term memory. Extraocular eye muscles are intact without nystagmus. Facial strength and symmetry is normal bilaterally. Facial sensation is normal bilaterally in all 3 divisions of the fifth cranial nerve. Tongue is midline with normal strength bilaterally. Gait is narrow based with good arm swing, turns, and stance. Coordination of the arms is normal, without tremor or ataxia bilaterally. There is no drift bilaterally. Motor strength is 4/5 in the deltoids, biceps, and triceps bilaterally. Core Drill Operator seems 4/5 also. Motor strength in the lower extremities reveals 4+/5 strength in the hip flexors and quadriceps with 5/5 strength in the tibialis anterior, toe extensors and gastrocnemius muscles bilaterally. Muscle tone is normal in the limbs, without rigidity or spasticity. Reflexes are 2/4 in the biceps, triceps, brachioradialis and quadriceps tendons bilaterally. Achilles tendon reflexes are absent bilaterally. Patient had reasonable sensation to touch. PG Care Time/CCT Total # of Minutes Spent Total Time Spent with Patient: Total time spent is greater than 50% in coordination of care (as documented) at patient's floor/unit and/or counseling patient: Coding Level of Care Code 81743 SUB INP/OBS CARE 3/50MIN Diagnoses Guillain Lockhart syndrome G61.0 Weakness R53.1 Paresthesias R20.2 Time Spent (min) 50
[2024-03-08] MEDS ORDERED: Nursing to Pharmacy Communication SCH (09:45)
[2024-03-08] MEDS: MAGNESIUM SULFATE / D5W 1 GM/100 ML BAG IV ONE (11:45)
--- NOTE | 2024-03-08 13:32 | Hospitalist Progress Note ---
Date of Service March 08, 2024 Assessment & Plan (1) Paresthesias: Plan: Patient presented to the hospital on 03/04 with complaint of full body numbness and tingling. This has been ongoing for a few weeks in her torso region but worsened to whole body recently. Findings consistent with Guillain [place] Syndrome. -CBC reviewed 03/08: stable. -CMP reviewed 03/08: kidney/electrolytes stable, LFTs downtrending. -Magnesium reviewed 03/08: 1.5 s/p 2g IV magnesium -B6 pending, B9 decreased 3.61, B12 WNL -KCl increased to 40mg PO daily. -tick panel negative 03/04 -Neurology consulted, discussed via phone with Dr. Mari. MRI brain reviewed 03/05: negative Lumbar puncture performed by IR 03/05, results pending. MRI of cervical, thoracic, and lumbar spine completed 03/06 and reviewed: mild disc bulge slightly compressing L5 nerve root aside from that no significant abnormallities outpatient EMG Additional lab work ordered: acetylcholine receptor antibodies, binding, blocking, and modulating. Lambert Eaton myasthenic syndrome antibodies, ESR, CRP, B12, TSH, RPR, Serum Copper pending -Added Tylenol 1000mg q8h for pain. -Toradol prn for breakthrough pain. AM CBC, CMP, Magnesium, CRP (2) Guillain Lockhart syndrome: Plan: plan as above Plan Chronic conditions: GERD: PPI Mental Health: Buspar, Quetiapine, Trintellix Current Smoker: Varenicline DVT prophylaxis: Lovenox Diet: regular Disposition: telemetry Code status: DNR Admission and Anticipated Discharge Date Admission Date: March 04, 2024 Supervising Physician Co-Signing Physician Notes Attending Attestation - Chart reviewed, care plan d/w JUMANA Layton. I agree w/ the marie components of her documentation with the following additions - * folic acid def - add folic acid 1mg po daily * leukopenia - 2nd to folic acid def? due to recent infection? trend cbc Appreciate neuro assistance. Cont IVIG for suspected Guillain [place]. PT, OT. Terence Lynch MD Subjective Patient seen and examined this morning. Patient still complaining of numbness/tingling in her torso. Patient reports her fingers feel tingly but she feels she can use them okay. She thinks her legs feel less weak today. Physical Exam 2 Constitutional: WD/WN, vitals as above Eyes: PERRL, conjunctivae normal, anicteric sclerae Respiratory: breathing unlabored Cardiovascular: well perfused Psychiatric: A+Ox3, euthymic affect Results & Data Results & Data Vital Signs (Past 12 Hours) Vital Signs Temp Pulse Pulse Resp BP BP Pulse Ox 03/08/24 11:40 36.6 C 65 16 116/74 96 03/08/24 07:57 36.6 C 69 16 116/76 92 03/08/24 07:44 03/08/24 07:20 74 03/08/24 04:00 36.5 C 65 18 105/71 94 O2 Del Method 03/08/24 11:40 Room Air 03/08/24 07:57 Room Air 03/08/24 07:44 Room Air 03/08/24 07:20 03/08/24 04:00 Room Air Laboratory Results 03/08/24 06:18 03/08/24 06:18 PG Care Time/CCT Total # of Minutes Spent Total Time Spent with Patient: Total time spent is greater than 50% in coordination of care (as documented) at patient's floor/unit and/or counseling patient: Coding Level of Care Code 32752 SUB INP/OBS CARE 2/35MIN Diagnoses Paresthesias R20.2 Guillain Lockhart syndrome G61.0
[2024-03-08] MEDS: MAGNESIUM OXIDE 400 MG TAB PO SCH (19:22)
[2024-03-08] MEDS: ONDANSETRON INJ 2 MG/ML 2 ML VIAL IV PRN (19:22)
[2024-03-08] MEDS: FOLIC ACID 1 MG TAB PO SCH (19:24)
[2024-03-08 22:17] LABS: Babesia microti DNA Not Detected (Not Detected)
[2024-03-09 06:49] LABS: Hematocrit (blood only) 35.4 % (37.0-47.0); Hemoglobin 12.1 g/dl (12.0-16.0); Mean Corpuscular Hgb Conc 34.2 g/dL (32.0-36.0); Mean Corpuscular Volume 102.3 fL (80.0-100.0); Mean Platelet Volume 10.1 fL (9.4-12.4); Platelet Count 366 K/uL (130-400); RDW Standard Deviation 52.8 fL (36.4-46.3); Red Blood Count 3.46 M/uL (4.20-5.40); White Blood Count 3.63 K/ul (4.8-10.8)
[2024-03-09 07:08] LABS: Albumin Globulin Ratio 0.5 (0.9-2); Albumin Level 2.2 gm/dl (3.4-5.0); BUN Creatinine Ratio 13.6 (10-20); Bilirubin,Total 0.3 mg/dl (0.2-1.0); C Reactive Protein 0.53 mg/dl (0-0.5); Calcium 8.6 mg/dl (8.6-10.3); Creatinine Clr Calc Pharmacy 62.7 ml/min; Globulin 4.3 gm/dl (2.5-4.0); Magnesium 1.7 mg/dl (1.7-2.4); Potassium 4.1 mmol/L (3.5-5.1); Total Protein 6.5 gm/dl (6.0-8.3)
--- NOTE | 2024-03-09 08:42 | Hospitalist Progress Note ---
Date of Service March 09, 2024 Assessment & Plan (1) Paresthesias: Plan: Patient presented to the hospital on 03/04 with complaint of full body numbness and tingling. This has been ongoing for a few weeks in her torso region but worsened to whole body recently. Findings consistent with Guillain [place] Syndrome. - B6 pending, B12 WNL - Folic acid deficiency, continue folic acid 1 mg p.o. daily - KCl increased to 40mg PO daily - Tick panel negative 03/04 - Neurology consulted, discussed via phone with Dr. Mari > MRI brain negative, MRI of cervical, thoracic, and lumbar spine showed mild disc bulge slightly compressing L5 nerve root aside from that no significant abnormalities > LP showed a protein of 45.7 (borderline high only) and only 1 white cell. Cultures were negative. Chemistry revealed a low total protein and elevated alkaline phos > Additional lab work ordered: acetylcholine receptor antibodies, binding, blocking, and modulating. 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 If she does have Guillain-Lockhart syndrome this is very mild and somewhat unusual presentation. Another postviral syndrome is possible, however no other specific neurologic diagnosis to make otherwise > Consider outpatient EMG and nerve conduction studies 3 weeks from symptom onset if she is still having symptoms at that time > Consider outpatient follow-up with Dr. Selby or QAMAR in neurology clinic 3- 4 weeks after discharge - Continue IVIG per protocol for 5 days, last dose 03/10 evening - Tylenol 1000mg q8h for pain. - Toradol prn for breakthrough pain (2) Guillain [place] syndrome: Plan: plan as above Plan Chronic conditions: GERD: PPI Mental Health: Buspar, Quetiapine, Trintellix Current Smoker: Varenicline DVT prophylaxis: Lovenox Code status: DNR Admission and Anticipated Discharge Date Admission Date: March 04, 2024 Supervising Physician Co-Signing Physician Notes Attending Attestation - Chart reviewed, care plan d/w JUMANA Dominguez. I agree w/ the marie components of her documentation with the following addition - * abnormal LFTs - ongoing - etiology uncertain; recent CT a/p with fatty liver but gall bladder was wnl; cont to trend LFTs Appreciate neuro assistance. Cont IVIG daily for suspected Guillain [place]. Terence Lynch MD Subjective Patient seen and evaluated at bedside. She reports continued truncal numbness. She denies any paresthesias in her arms or legs bilaterally. She does note some tingling in her fingers and toes bilaterally, but denies any numbness. She reports generalized back pain, which she rates 5/10. She notes that she received Toradol earlier which significantly helped. We discussed that her last dose of IVIG will be tomorrow evening. No additional complaints or concerns at this time. Physical Exam Physical Exam: General: No acute distress, nondiaphoretic, well-developed, well-nourished. Skin: The skin was without rashes, erythema, edema, or bruising. Cardiac: Regular rate and rhythm without murmurs gallops or rubs. Pulm: Clear to auscultation bilaterally without wheezes, rales or rhonchi. No respiratory distress. 96% on room air. Abdominal: Soft, nontender, nondistended. Bowel sounds present. Neuro: A&O x3. Motor strength 4/5 in upper and lower extremities bilaterally. Sensation intact in upper and lower extremities bilaterally. Results & Data Results & Data Vital Signs (Past 12 Hours) Vital Signs Temp Pulse Pulse Resp BP Pulse Ox O2 Del Method 03/09/24 07:53 97.9 F 73 17 99/66 L 92 Room Air 03/09/24 07:28 75 03/09/24 02:59 97.9 F 76 16 100/68 94 Room Air 03/08/24 22:39 98.4 F 77 18 128/84 93 Room Air 03/08/24 22:00 84 Laboratory Results Reviewed CBC Reviewed CMP PG Care Time/CCT Total # of Minutes Spent Total Time Spent with Patient: Total time spent is greater than 50% in coordination of care (as documented) at patient's floor/unit and/or counseling patient: Coding Level of Care Code 62601 SUB INP/OBS CARE 2/35MIN Diagnoses Paresthesias R20.2 Guillain Lockhart syndrome G61.0
[2024-03-10 07:13] LABS: Hematocrit (blood only) 35.4 % (37.0-47.0); Hemoglobin 11.9 g/dl (12.0-16.0); Mean Corpuscular Hemoglobin 34.3 pg (25.0-34.0); Mean Corpuscular Hgb Conc 33.6 g/dL (32.0-36.0); Mean Platelet Volume 10.2 fL (9.4-12.4); Platelet Count 326 K/uL (130-400); RDW Coefficient of Variation 14.3 % (11.5-14.5); RDW Standard Deviation 53.5 fL (36.4-46.3); Red Blood Count 3.47 M/uL (4.20-5.40); White Blood Count 3.24 K/ul (4.8-10.8)
[2024-03-10 07:53] LABS: Albumin Globulin Ratio 0.5 (0.9-2); Albumin Level 2.2 gm/dl (3.4-5.0); Bilirubin,Total 0.3 mg/dl (0.2-1.0); Calcium 8.3 mg/dl (8.6-10.3); Creatinine Clr Calc Pharmacy 51.1 ml/min; Globulin 4.4 gm/dl (2.5-4.0); Magnesium 1.7 mg/dl (1.7-2.4); Potassium 4.2 mmol/L (3.5-5.1); Total Protein 6.6 gm/dl (6.0-8.3)
[2024-03-10 15:54] VITALS: RESP 18
--- NOTE | 2024-03-10 16:29 | Hospitalist Progress Note ---
Date of Service March 10, 2024 Assessment & Plan (1) Paresthesias: Plan: Patient presented to the hospital on 03/04 with complaint of full body numbness and tingling. This has been ongoing for a few weeks in her torso region but worsened to whole body recently. Findings consistent with Guillain [place] Syndrome. - B6 pending, B12 WNL - Folic acid deficiency, continue folic acid 1 mg p.o. daily - KCl increased to 40mg PO daily - Tick panel negative 03/04 - Neurology consulted, discussed via phone with Dr. Mari > MRI brain negative, MRI of cervical, thoracic, and lumbar spine showed mild disc bulge slightly compressing L5 nerve root aside from that no significant abnormalities > LP showed a protein of 45.7 (borderline high only) and only 1 white cell. Cultures were negative. Chemistry revealed a low total protein and elevated alkaline phos > Additional lab work ordered: acetylcholine receptor antibodies, binding, blocking, and modulating. 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 If she does have Guillain-Lockhart syndrome this is very mild and somewhat unusual presentation. Another postviral syndrome is possible, however no other specific neurologic diagnosis to make otherwise > Consider outpatient EMG and nerve conduction studies 3 weeks from symptom onset if she is still having symptoms at that time > Consider outpatient follow-up with Dr. Selby or QAMAR in neurology clinic 3- 4 weeks after discharge - Increased myalgias in lower extremities and chest wall, as well as increased AST and ALT, likely an adverse effect of IVIG - Completed course of IVIG per protocol for 5 days, last dose 03/10 - Tylenol 1000mg q8h for pain. - Toradol prn for breakthrough pain (2) Guillain Lockhart syndrome: Plan: plan as above Plan Will check CK with AM labs 03/11 Chronic conditions: GERD: PPI Mental Health: Buspar, Quetiapine, Trintellix Current Smoker: Varenicline DVT prophylaxis: Lovenox Code status: DNR Admission and Anticipated Discharge Date Admission Date: March 04, 2024 Supervising Physician Co-Signing Physician Notes Attending Attestation - Chart reviewed, care plan d/w JUMANA Dominguez. I agree w/ the marie components of her documentation with the following addition - * abnormal LFTs - ongoing - etiology uncertain; recent CT a/p with fatty liver but gall bladder was wnl; cont to trend LFTs Appreciate neuro assistance. Cont IVIG daily for suspected Guillain [place]. Myalgias - check CPK in am. Could myalgias be due to IVIG itself? Terence Lynch MD Subjective Patient seen and evaluated at bedside. She reports increased myalgias today, specifically in her lower extremities from her hips to her knees bilaterally. She also reports chest wall myalgias, which is reproducible on palpation. She notes that her truncal numbness is decreasing. She continues to have some ting ling in her fingers and toes bilaterally. No additional complaints or concerns at this time. Physical Exam Physical Exam: General: No acute distress, nondiaphoretic, well-developed, well-nourished. Skin: The skin was without rashes, erythema, edema, or bruising. Cardiac: Regular rate and rhythm without murmurs gallops or rubs. Chest wall tenderness to palpation. Pulm: Clear to auscultation bilaterally without wheezes, rales or rhonchi. No respiratory distress. 96% on room air. Abdominal: Soft, nontender, nondistended. Bowel sounds present. Neuro: A&O x3. Motor strength 4/5 in upper and lower extremities bilaterally. Sensation intact in upper and lower extremities bilaterally. Results & Data Results & Data Vital Signs (Past 12 Hours) Vital Signs Temp Pulse Pulse Resp BP BP Pulse Ox 03/10/24 15:53 97.5 F L 65 18 113/72 93 03/10/24 14:00 65 03/10/24 11:24 97.3 F L 94 H 16 89/62 L 94 03/10/24 08:11 97.5 F L 71 18 96/61 L 95 03/10/24 07:00 74 O2 Del Method 03/10/24 15:53 Room Air 03/10/24 14:00 03/10/24 11:24 Room Air 03/10/24 08:11 Room Air 03/10/24 07:00 Laboratory Results Reviewed CBC Reviewed CMP PG Care Time/CCT Total # of Minutes Spent Total Time Spent with Patient: Total time spent is greater than 50% in coordination of care (as documented) at patient's floor/unit and/or counseling patient: Coding Level of Care Code 11441 SUB INP/OBS CARE 2/35MIN Diagnoses Paresthesias R20.2 Guillain Lockhart syndrome G61.0
[2024-03-11 07:20] LABS: Hematocrit (blood only) 35.8 % (37.0-47.0); Hemoglobin 11.6 g/dl (12.0-16.0); Mean Corpuscular Hemoglobin 33.9 pg (25.0-34.0); Mean Corpuscular Hgb Conc 32.4 g/dL (32.0-36.0); Mean Corpuscular Volume 104.7 fL (80.0-100.0); Mean Platelet Volume 10.2 fL (9.4-12.4); Platelet Count 331 K/uL (130-400); RDW Coefficient of Variation 14.5 % (11.5-14.5); RDW Standard Deviation 56.2 fL (36.4-46.3); Red Blood Count 3.42 M/uL (4.20-5.40); White Blood Count 3.18 K/ul (4.8-10.8)
[2024-03-11 07:41] LABS: Albumin Globulin Ratio 0.5 (0.9-2); Albumin Level 2.1 gm/dl (3.4-5.0); BUN Creatinine Ratio 21.6 (10-20); Bilirubin,Total 0.3 mg/dl (0.2-1.0); Calcium 8.6 mg/dl (8.6-10.3); Creatinine Clr Calc Pharmacy 55.9 ml/min; Globulin 4.6 gm/dl (2.5-4.0); Magnesium 1.7 mg/dl (1.7-2.4); Potassium 4.3 mmol/L (3.5-5.1); Total Protein 6.7 gm/dl (6.0-8.3)
[2024-03-11 12:00] VITALS: PULSE 69; TEMP 97; O2SAT 95
[2024-03-11 13:42] VITALS: BP 105/70
--- NOTE | 2024-03-11 17:41 | Discharge Summary ---
Discharge Summary Date of Service March 11, 2024 Principal Dx & Hospital Course #1 = Principal Diagnosis (1) Paresthesias: Patient presented to the hospital on 03/04 with complaint of full body numbness and tingling. This has been ongoing for a few weeks in her torso region but worsened to whole body recently. Findings consistent with Guillain Aguada Syndrome. - KCl increased to 40mg PO daily - Tick panel negative 03/04 - Neurology consulted, discussed via phone with Dr. Mari > MRI brain negative, MRI of cervical, thoracic, and lumbar spine showed mild disc bulge slightly compressing L5 nerve root aside from that no significant abnormalities > LP showed a protein of 45.7 (borderline high only) and only 1 white cell. Cultures were negative. 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 If she does have Guillain-Lockhart syndrome this is very mild and somewhat unusual presentation. Another postviral syndrome is possible, however no other specific neurologic diagnosis to make otherwise > Consider outpatient EMG and nerve conduction studies 3 weeks from symptom onset if she is still having symptoms at that time - Recommend outpatient follow-up with Dr. Selby or QAMAR in neurology clinic 3-4 weeks after discharge - Completed course of IVIG per protocol for 5 days, last dose 03/10 - Increased myalgias in lower extremities and chest wall, as well as increased AST and ALT, likely an adverse effect of IVIG - Multiple nutritional deficiencies > Started folic acid supplement > Started B6 supplement > Started thiamine supplement > Started copper supplement unavailable via pharmacies. Encouraged patient to take 2 mg/day [id number]. This is available on [employer] or [employer]. - Recommend checking copper, B6, thiamine, folic acid levels in 1 month - will defer this to PCP - Prescription given for outpatient PT services (2) Guillain Lockhart syndrome: plan as above (3) Copper deficiency: (4) Vitamin B6 deficiency: (5) Folate deficiency: (6) Abnormal LFTs: etiology uncertain; recent CT abd/pelvis with fatty liver but gall bladder was normal. alk phos has been chronically elevated for some time (years), but AST/ALT were high during the stay. total bilirubin was normal. advised to simply repeat the LFTs within 1-2 weeks of discharge to ensure s tability. 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 She was also found to have multiple nutritional deficiencies including copper, B6, folic acid. Started supplements for all of these as well as empirically supplementing thiamine. Recommend checking these levels in 1 month. Recommend neurology follow-up in 3 weeks Provided prescription for outpatient PT services on discharge Medication Changes From Visit Increased potassium chloride to 40 mg daily Started the following supplements: Copper, B6, folic acid, thiamine Admission HPI Per Admitting Provider Judith Day is a 63yo F w PMH notable for COPD, CAD, AK, GERD, and current smoking who presents with numbness and tingling all over her body. She reports having these sx intermittently for weeks, but limited to her torso. She describes it as "that feeling when your foot falls asleep." Since her last discharge from the hospital on 03/02, she reports the sx worsened and spread all over her body. During that hospital stay, she had low Mg, K, and Phos; she says electrolyte replacement did not improve her sx at all. She reports her GI issues resolved entirely after the colonoscopy, and she currently has no complaints other than the whole-body paresthesias. It is somewhat difficult for her to move due to not feeling her limbs normally, but she is able to walk carefully, has not fallen, has full ROM. Admission Exam Per Admitting Provider Constitutional: + not well nourished, no acute distress and + uncooperative Eyes: PERRL, conjunctivae normal, anicteric sclerae Respiratory: normal respiratory effort, lungs clear to auscultation Cardiovascular: Rate/Rhythm: regular rate and regular rhythm Heart Sounds: normal S1 and normal S2; no murmur Extremities: + edema; no calf tenderness Gastrointestinal (Abdomen): normal bowel sounds, soft, nontender, no hepatosplenomegaly Musculoskeletal: Head/Neck/Chest: + abnormal head shape and + evidence of head trauma Extremities: extremities normal to inspection; full ROM of extremities and no joint enlargement Skin: no rashes, warm and dry Neurologic: CN's II-XI intact bilaterally and moves all extremities; + abnormal touch/pain/proprioception Motor/Sensory: + sensory deficit; no tremor Cranial Nerves: PERRL Psychiatric: A+Ox3, euthymic affect Discharge Exam General: No acute distress, nondiaphoretic, well-developed, well-nourished. Skin: The skin was without rashes, erythema, edema, or bruising. Cardiac: Regular rate and rhythm without murmurs gallops or rubs. Chest wall tenderness to palpation. Pulm: Clear to auscultation bilaterally without wheezes, rales or rhonchi. No respiratory distress. 96% on room air. Abdominal: Soft, nontender, nondistended. Bowel sounds present. Neuro: A&O x3. Motor strength 4/5 in upper and lower extremities bilaterally. Sensation intact in upper and lower extremities bilaterally. Discharge Plan Discharge Items Patient Disposition: Home - Self-Care Reason For Visit: GENERALIZED PARESTHESIAS Discharge Diagnosis: Guillain-Lockhart syndrome Activity: Resume your previous activity Non-emergency contact: Primary Care Provider Call non-emergency contact if: you have any medication questions and your symptoms worsen Follow-up/Referrals: Evonne Alvarez CRNP [Nurse Practitioner] - 03/18/24 10:30 am Diet: Heart Healthy Addtl Attending Provider Instructions: Ms. Day, You were admitted to the hospital due to a full body numbness and tingling. The MRI of your brain, as well as the MRI of your cervical, thoracic, and lumbar spine were negative for any significant abnormalities. Your lumbar puncture was essentially unremarkable. 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 Of note, they felt that this was a very mild and somewhat unusual presentation of Guillain-Lockhart syndrome. You completed a 5-day course of IVIG to treat your Guillain-Lockhart syndrome. Upon discharge from the hospital: * Continue folic acid supplement. This has been sent to your [facility] in [place]. * Start thiamine supplement 200 mg twice daily. This has been sent to your [facility] in [place]. * Start B6 supplement 50 mg daily. This has been sent to your [facility] pharmacy in [place]. * Start copper gluconate supplement 2 mg daily. This is available over the counter (OTC), or online via [employer] or [employer]. * Your potassium chloride was increased to 40 mg daily (previously on 20 mg daily). * Attend outpatient physical therapy. A prescription has been provided to you on discharge. You can take this to the outpatient PT of your choosing. * Follow-up with neurology in 3 weeks. * Follow-up with your PCP. Your appointment is scheduled for 03/18/24 at 10:30 AM. Activity Do's and don'ts: * Stay active, but don't overdo it. Get advice from your healthcare provider or physical or occupational therapist on what your activity should be. * Be patient. Recovery from nerve damage is a slow process, and each person's recovery is unique. You may recover in as little as 3 weeks, or it could take as long as 3 years. * Be careful. If you still have numbness and weakness, limit activities in which you could fall or hurt yourself. * Set priorities. Decide which tasks you need to do on a given day. Save the others for another time. * Talk with your provider about physical therapy and occupational therapy. These can help you get your strength back. * Don't drive until your healthcare provider says it's OK Getting support * Work closely with your healthcare provider and rehab (rehabilitation) team to ensure the best possible recovery. * Seek emotional and physical support when you need it; then accept it. This isn't a sign of weakness. * You may find it helpful to talk with a counselor or therapist in addition to your primary care healthcare provider. * Get out of the house. Ask a friend to visit or to take you on short errands. Follow-up * Make a follow-up appointment with your healthcare provider as advised. * Keep all recommended referrals and follow-up appointments. Rarely, GBS can sometimes get worse. When to call your healthcare provider * Call your healthcare provider right away if you have any of the following: * Numbness or tingling in your legs, hands, or feet that gets worse * Weakness that gets worse * Dizziness * Loss of movement or feeling in your legs, hands, arms, or feet * New nervous system symptoms, such as double vision, slurred speech, or trouble swallowing * Shortness of breath * New bladder or bowel symptoms * Fever of 100.4 F ( 38C) or higher, or as advised by your healthcare provider * Chills * Symptoms get worse or you have new symptoms It was a pleasure taking care of you while you were in the hospital, Franchesca Hilliard PA-C Pending Studies at Discharge: Yes Studies:: Send out labs Stand-Alone Forms: My [facility], Work/School Release, Smoking Cessation Medications and DC Order Prescriptions: New folic acid 1 mg Tablet 1 mg PO QAM Qty: 30 0RF potassium chloride 20 mEq Tablet,Er Particles/Crystals 40 meq PO DAILY Qty: 30 0RF pyridoxine (vitamin B6) 50 mg tablet 50 mg PO DAILY Qty: 30 0RF thiamine HCl (vitamin B1) 100 mg tablet 200 mg PO BID Qty: 90 0RF Continued varenicline 1 mg tablet 1 mg PO BID Qty: 56 4RF furosemide 20 mg tablet 20 mg PO DAILY PRN (Reason: edema) Qty: 30 5RF gabapentin 400 mg capsule 400 mg PO BID Qty: 60 2RF quetiapine 100 mg tablet 100 mg PO HS Qty: 30 0RF buspirone 5 mg tablet 5 mg PO BID Qty: 60 2RF albuterol sulfate 2.5 mg /3 mL (0.083 %) solution for nebulization 2.5 mg inhalation QID PRN (Reason: shortness of breath or wheezing) Qty: 180 3RF albuterol sulfate 90 mcg/actuation HFA aerosol inhaler 2 puff inhalation QID PRN (Reason: shortness of breath or wheezing) Qty: 8.5 2RF Rx Instructions: do not use at same time as nebulizer (DME) nebulizer with tubing See Rx Instructions .Route .MEDSUPPLY Qty: 1 0RF Rx Instructions: use 4-5 x a day prn multivitamin Tablet 1 tab PO HS Patient Comments: per pt "amway vitamin" Trintellix 20 mg tablet 10 mg PO HS omeprazole 20 mg capsule,delayed release(DR/EC) 20 mg PO DAILY Qty: 14 0RF aspirin 81 mg tablet,delayed release (DR/EC) 81 mg PO DAILY acetaminophen [Tylenol Extra Strength] 500 mg tablet 500 - 1,000 mg PO Q8 PRN (Reason: pain) Discontinued potassium chloride 20 mEq tablet extended release 20 meq PO DAILY Qty: 10 0RF No Action ondansetron HCl 4 mg tablet 4 mg PO Q4H PRN (Reason: nausea and vomiting) Qty: 20 0RF Discharge Orders: Discharge Order (Routine); Ordered 03/11/24 Ordered By: Franchesca Nieves/Other Patient Handouts: Guillain-Lockhart Syndrome Admission Data Admit Date/Time: 03/04/24 20:45 Attending Provider: Terence Lynch Admit Provider: Scarlett Phillips Primary Care Provider: Enedelia Brand Other Providers: Rick Young; Demetrio Mari; Kingsley Butts; Elizabeth Contreras; Mercedes Shane; Vita Vargas; Geovany Mandel Other Interventions: Discharge Summary Assessment (RN) Last Done: 03/11/24 13:41 Hospital Stay Data Consultations 03/04/24 19:47 ED Decision to Admit Stat 03/05/24 08:44 Consult Neurology Routine Diagnostic Imagining Performed Brain MRI 03/05/24 09:52 MR brain wo/w con CLINICAL HISTORY: paresthesias, concern for GBS TECHNIQUE: Multiplanar and multisequence MR images of the brain were obtained prior to and following administration of gadolinium contrast. Comparison: None available at the time of this dictation. FINDINGS: No abnormal restricted diffusion is identified. The white matter is unremarkable. The ventricular system is normal in appearance. No mass or abnormal enhancement is seen. There is no mass effect or midline shift. There is no evidence of acute intraparenchymal hemorrhage. No extra axial fluid collections are seen. The corpus callosum, pituitary gland, and cerebellar tonsils appear grossly unremarkable. Flow voids of the major intracranial arterial vessels are identified. The imaged portions of the paranasal sinuses, mastoid air cells, and orbits are unremarkable. IMPRESSION: No acute abnormalities. In particular no evidence of Chiari malformation or brain mass to explain paresthesias. ACT 112: Negative or not required by law. Electronically signed by: Alexandro Marshall M.D. 03/05/2024 12:49 PM Lumbar Puncture 03/05/24 10:36 LUMBAR PUNCTURE UNDER FLUOROSCOPY CLINICAL HISTORY: Symmetric paresthesias x4 limbs PROCEDURE: Procedure and risks were explained. Informed consent was obtained. A final timeout was completed. The patient was placed prone on the fluoroscopic exam table. The lower lumbar region was prepped and draped in sterile fashion. 1% lidocaine was utilized for skin anesthesia. Utilizing fluoroscopic guidance, a 22-gauge spinal needle was advanced into the intrathecal space at the L2-3 disc space level. Fluoroscopic spot images were obtained. Approximately 8 mL of clear CSF fluid was removed and sent to lab for analysis. The needle was removed and Band-Aid applied. The patient tolerated the procedure well. Vital signs will be monitored postprocedure. Fluoroscopy time 5 seconds. Study dosed 2.79 mGy. IMPRESSION: Lumbar puncture as above. Performed, dictated, and signed by Armaan Howe PA-C; to be co-signed by Dr. Alexandro Marshall. Electronically signed by: Alexandro Marshall M.D. 03/05/2024 5:12 PM Cervical Spine MRI 03/06/24 08:07 CLINICAL HISTORY: paresthesias TECHNIQUE: MRI of the cervical spine is performed utilizing various T1 and T2 sequences in the axial and sagittal planes. IV contrast was administered for thi s examination. Comparison: None available at the time of this dictation. FINDINGS: The alignment is anatomical. Disks are normal in height and signal. C2-C3: Unremarkable. C3-C4: Facet arthropathy results in mild bilateral neuroforaminal stenosis. C4-C5: Facet arthropathy results in mild bilateral neural foraminal stenosis. C5-C6: Facet arthropathy and posterior disc bulge results in mild canal stenosis and bilateral neuroforaminal stenosis. C6-C7: Facet arthropathy results in mild bilateral neural foraminal stenosis. C7-T1: Unremarkable. The spinal ligaments are intact, without evidence of disruption or abnormal signal intensity. The spinal cord is normal in signal intensity and there is no evidence of cord contusion. There is no evidence of an extradural, intradural, extramedullary or intramedullary lesion. Visualized soft tissues are normal. Visualized brain parenchyma is normal. IMPRESSION: Degenerative changes without a mild canal and neuroforaminal stenosis. ACT 112: Negative or not required by law. Electronically signed by: Alexandro Marshall M.D. 03/06/2024 12:33 PM Lumbar Spine MRI 03/06/24 08:07 MR lumbar spine wo/w con CLINICAL HISTORY: paresthesias TECHNIQUE: 3 plane localizer images, sagittal T2, sagittal T1, sagittal STIR, axial T1, axial T2 along with postcontrast axial T1 and sagittal T1 fat- saturated sequences were obtained of the lumbar spine, before and after intravenous administration of 12 mL of MultiHance. Comparison: Comparison is made to MRI lumbar spine 12/23/2016 FINDINGS: Compression deformity of the superior endplate of L1 is seen. L1-L2: No significant abnormality. L2-L3: No significant abnormality. L3-L4: No significant abnormality. L4-L5: Facet arthropathy and mild left disc bulge slightly compressing the exiting L5 nerve root. L5-S1: No significant abnormality. The spinal ligaments are intact, without evidence of disruption or abnormal signal intensity. The spinal cord is normal in signal intensity and there is no evidence of cord contusion. There is no evidence of an extradural, intradural, extramedullary or intramedullary lesion. Visualized soft tissues are normal. IMPRESSION: Redemonstration of a mild disc bulge slightly compressing the left L5 nerve root. Otherwise no acute abnormalities. ACT 112: Negative or not required by law. Electronically signed by: Alexandro Marsahll M.D. 03/06/2024 12:38 PM Thoracic Spine MRI 03/06/24 08:07 MR thoracic spine wo/w con CLINICAL HISTORY: paresthesias TECHNIQUE: Multiplanar sequences through the thoracic spine were obtained, without and with intravenous contrast. Comparison: None available at the time of this dictation. FINDINGS: The alignment is anatomical. Disks are normal in height and signal. The spinal canal and neural foramina are patent. The spinal ligaments are intact, without evidence of disruption or abnormal signal intensity. The spinal cord is normal in signal intensity and there is no evidence of cord contusion. There is no evidence of an extradural, intradural, extramedullary or intramedullary lesion. Visualized soft tissues are normal. IMPRESSION: No evidence of cord compression, significant neuroforaminal narrowing or ligamentous injury. ACT 112: Negative or not required by law. Electronically signed by: Alexandro Marshall M.D. 03/06/2024 12:34 PM Pending Results Patient Have Any Pending Studies at Discharge: Yes Discharge Instructions Given to Patient (Per Discharging Provider) Ms. Day, You were admitted to the hospital due to a full body numbness and tingling. The MRI of your brain, as well as the MRI of your cervical, thoracic, and lumbar spine were negative for any significant abnormalities. Your lumbar puncture was essentially unremarkable. 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 Of note, they felt that this was a very mild and somewhat unusual presentation of Guillain-Lockhart syndrome. You completed a 5-day course of IVIG to treat your Guillain-Lockhart syndrome. Upon discharge from the hospital: * Continue folic acid supplement. This has been sent to your [facility] pharmacy in [place]. * Start thiamine supplement 200 mg twice daily. This has been sent to your [facility] pharmacy in [place]. * Start B6 supplement 50 mg daily. This has been sent to your [facility] pharmacy in [place]. * Start copper gluconate supplement 2 mg daily. This is available over the counter (OTC), or online via [employer] or [employer]. * Your potassium chloride was increased to 40 mg daily (previously on 20 mg daily). * Attend outpatient physical therapy. A prescription has been provided to you on discharge. You can take this to the outpatient PT of your choosing. * Follow-up with neurology in 3 weeks. * Follow-up with your PCP. Your appointment is scheduled for 03/18/24 at 10:30 AM. Activity Do's and don'ts: * Stay active, but don't overdo it. Get advice from your healthcare provider or physical or occupational therapist on what your activity should be. * Be patient. Recovery from nerve damage is a slow process, and each person's recovery is unique. You may recover in as little as 3 weeks, or it could take as long as 3 years. * Be careful. If you still have numbness and weakness, limit activities in which you could fall or hurt yourself. * Set priorities. Decide which tasks you need to do on a given day. Save the others for another time. * Talk with your provider about physical therapy and occupational therapy. These can help you get your strength back. * Don't drive until your healthcare provider says it's OK Getting support * Work closely with your healthcare provider and rehab (rehabilitation) team to ensure the best possible recovery. * Seek emotional and physical support when you need it; then accept it. This isn't a sign of weakness. * You may find it helpful to talk with a counselor or therapist in addition to your primary care healthcare provider. * Get out of the house. Ask a friend to visit or to take you on short errands. Follow-up * Make a follow-up appointment with your healthcare provider as advised. * Keep all recommended referrals and follow-up appointments. Rarely, GBS can sometimes get worse. When to call your healthcare provider * Call your healthcare provider right away if you have any of the following: * Numbness or tingling in your legs, hands, or feet that gets worse * Weakness that gets worse * Dizziness * Loss of movement or feeling in your legs, hands, arms, or feet * New nervous system symptoms, such as double vision, slurred speech, or trouble swallowing * Shortness of breath * New bladder or bowel symptoms * Fever of 100.4 F ( 38C) or higher, or as advised by your healthcare provider * Chills * Symptoms get worse or you have new symptoms It was a pleasure taking care of you while you were in the hospital, Franchesca Hilliard PA-C Supervising Physician Co-Signing Physician Notes Attending Attestation and Discharge Note: Pt seen/examined, chart reviewed, discharge care plan d/w JUMANA Dominguez. I agree w/ the marie components of her discharge documentation. 64yo female with h/o COPD, CAD with previous AK, tobacco dependence, and recent hospital stay for electrolyte disturbances presented with body-wide paresthesias but particularly over her torso. She had no motor weakness, dysphagia, or dysarthria/aphasia. Seen by [facility], underwent extensive imaging including MRI brain, MRI c- spine, MRI t-spine, MRI l-spine - these did not identify a reason for her symptoms. Ultimately underwent lumbar puncture which showed elevated total protein but no signs of infection. 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 IVIG infusions daily x 5 days advised. After receiving such her paresthesias did improve although they did not fully resolve. In addition to the above, just prior to discharge home, her copper and vitamin B6 levels returned LOW. Folic acid level was also low. Interestingly she has prior h/o vitamin B12 deficiency and iron deficiency. B1 level was not checked while here. Perhaps her copper, vitamin B6, and folate deficiencies were causing myeloneuropathy? She was sent home on copper/B6/folate/thiamine supplements (see Ms Babak's documentation). In light of all of these deficiencies consider GI tract malabsorption; consider GI referral as outpatient. She will need close PCP & neurology follow-up. Discharge exam: gen - thin, NAD neck - no JVD mouth - MMM heart - RRR, s1 s2 lungs - CTA b/l abd - soft NT ND BS+ ext - no edema, pulses 2+ b/l neuro - motor strength 5/5 x 4 exts; speech fluent/clear; gait not tested Terence Lynch MD Total Time Total Time Spent Total Time Spent (In Minutes): Greater than 30 minutes spent completing this discharge process including direct patient care, medication reconciliation, documentation, review of labs and images, and coordination of care. Coding Level of Care Code 58841 INP/OBS DISCH >30 MIN Diagnoses Paresthesias R20.2 Guillain Lockhart syndrome G61.0 Copper deficiency E61.0 Vitamin B6 deficiency E53.1 Folate deficiency E53.8 Abnormal LFTs R79.89
[2024-03-13 21:37] LABS: Acetylcholine Recept Blocking <15 (<15); Receptor Binding Ab <0.30 nmol/L
[2024-03-17 00:56] LABS: Albumin 2.6 g/dL (3.6-5.1); Albumin, CSF 17.3 mg/dL (8.0-42.0); IgG CSF 1.6 mg/dL (0.8-7.7); IgG Serum 401 mg/dL (600-1540); Myelin Basic Protein <2.0 mcg/L (<=4.0); Oligoclonal Bands IgG, CSF Absent (Absent); Synthesis Rate, IgG CSF 0.6 mg/24 h (-9.9-3.3)
[2024-03-19 13:51] LABS: Acetylcholine Recep Modulating <1; Anti-Striated Muscle NEGATIVE (NEGATIVE); RPR (Monitor) NON-REACTIVE (NON-REACTIVE); Receptor Binding Ab <0.30 nmol/L
== END 2024-03-11 14:37 | disposition home or self-care (01) | DRG 96 ==
LOC: ED 14:54 → OBSVTOIN 20:45 → SUATTDRO 20:45 → INTOOBSV 20:45 → 3N 20:45 → 2N 03-05 16:03